=== PATIENT | female | born 1965 | race Caucasian/White ===

== ENCOUNTER 2016-10-25 04:42 | Emergency (ER) | payer MEDICARE, OTHER ==
[2016-10-25] MEDS ORDERED: DICYCLOMINE 10 MG/ML 2 ML AMP IM STA (05:26)
[2016-10-25] MEDS ORDERED: SODIUM CHLORIDE 0.9% 1,000 ML IV STA (05:26)
[2016-10-25] MEDS ORDERED: RX INFO: IV CONTRAST WAS GIVEN 1 EACH MISC MISCELLANE PRN (05:26)
[2016-10-25] MEDS ORDERED: PANTOPRAZOLE 40 MG/10 ML VIAL IVP STA (05:26)
[2016-10-25] MEDS ORDERED: ONDANSETRON 4 MG/2 ML VIAL IVP STA (05:26)
--- NOTE | 2016-10-25 05:29 | ED ---
General Adult HPI - General Chief complaint: Abdominal Pain Stated complaint: Abdominal pain Time Seen by Provider: 10/25/16 05:15 Source: patient, RN notes reviewed Mode of arrival: ambulatory Limitations: no limitations - History of Present Illness Initial comments: Patient is a pleasant 51-year-old female presenting to the emergency department complaining of abdominal discomfort. Onset of symptoms was a couple hours ago. Patient states discomfort was more right-sided however now is in the middle of the abdomen. Patient has nausea without vomiting. Patient has been somewhat constipated recently. No dysuria. No hematuria. Patient questions if she could have a kidney stone. No fevers. - Related Data Home Medications Medication Instructions Recorded Confirmed clonazePAM [KlonoPIN] 0.5 mg PO HS 09/29/14 10/16/15 lamoTRIgine [LaMICtal] 200 mg PO BID 09/29/14 10/16/15 Lacosamide [Vimpat] 100 mg PO BID 06/22/15 10/16/15 Ranitidine HCl 150 mg PO BID 06/25/15 10/16/15 Previous Rx's Medication Instructions Recorded Ciprofloxacin HCl [Cipro] 500 mg PO Q12HR #14 tablet 10/16/15 Ciprofloxacin HCl [Cipro] 500 mg PO Q12HR #20 tablet 10/25/16 Ketorolac [Toradol] 10 mg PO Q6HR PRN #15 tab 10/25/16 Metoclopramide HCl [Reglan] 10 mg PO Q6HR PRN #15 tablet 10/25/16 Allergies Allergy/AdvReac Type Severity Reaction Status Date / Time cephalexin Allergy Unknown Verified 10/16/15 10:26 erythromycin base Allergy Unknown Verified 10/16/15 10:26 escitalopram oxalate Allergy Unknown Verified 10/16/15 10:26 [From Lexapro] Penicillins Allergy Unknown Verified 06/22/15 13:09 Sulfa (Sulfonamide Allergy Unknown Verified 10/16/15 10:26 Antibiotics) naproxen [From Naprosyn] AdvReac dry, runny Verified 10/16/15 10:26 nose tamsulosin AdvReac dry, runny Verified 10/16/15 10:26 nose Review of Systems ROS Statement: Those systems with pertinent positive or pertinent negative responses have been documented in the HPI. ROS Other: All systems not noted in ROS Statement are negative. Constitutional: Denies: fever Eyes: Denies: eye pain ENT: Denies: ear pain Respiratory: Denies: cough Cardiovascular: Denies: chest pain Endocrine: Denies: fatigue Gastrointestinal: Reports: abdominal pain, nausea, constipation. Denies: vomiting Genitourinary: Denies: dysuria Musculoskeletal: Denies: back pain Skin: Denies: rash Neurological: Denies: weakness Past Medical History Past Medical History: Eye Disorder, GERD/Reflux, Seizure Disorder Additional Past Medical History / Comment(s): HX NUMEROUS KIDNEY STONES- HX EPILEPSY-HAS PUBLIC GUARDIAN, STATES BRUISES EASILY, GLASSES DAILY USE- POOR HISTORIAN History of Any Multi-Drug Resistant Organisms: None Reported Past Surgical History: Breast Surgery, Orthopedic Surgery Additional Past Surgical History / Comment(s): LITHOTRIPSY 2 X OR MORE, BREAST BX X 1 -PT NOT SURE WHICH ONE, LT KNEE SURGERY Past Anesthesia/Blood Transfusion Reactions: No Reported Reaction Past Psychological History: Depression Smoking Status: Never smoker Past Alcohol Use History: None Reported Past Drug Use History: None Reported - Past Family History Father Additional Family Medical History / Comment(s): HEART PROBLEMS Mother Family Medical History: Diabetes Mellitus General Exam Limitations: no limitations General appearance: alert, in no apparent distress Head exam: Present: atraumatic Eye exam: Present: normal appearance, PERRL ENT exam: Present: normal oropharynx Neck exam: Present: normal inspection Respiratory exam: Present: normal lung sounds bilaterally Cardiovascular Exam: Present: regular rate, normal rhythm Expanded Peripheral pulses: 2+: Posterior Tibialis (R), Posterior Tibialis (L) GI/Abdominal exam: Present: soft, tenderness (Mild tenderness between the umbilicus and epigastric region), normal bowel sounds. Absent: distended, guarding, rebound, rigid, pulsatile mass Extremities exam: Present: normal inspection. Absent: pedal edema, calf tenderness Neurological exam: Present: alert Psychiatric exam: Present: normal affect, normal mood Skin exam: Absent: rash Course Vital Signs 10/25/16 04:48 Temperature 98.1 F Pulse Rate 80 Respiratory 16 Rate Blood Pressure 160/76 O2 Sat by Pulse 97 Oximetry Medical Decision Making - Medical Decision Making Patient reexamined and significant improvement. Patient updated on results and need for follow-up. - Lab Data Result diagrams: 10/25/16 04:53 10/25/16 04:53 Lab Results 10/25/16 10/25/16 10/25/16 Range/Units 04:53 04:53 04:53 WBC 6.7 (3.8-10.6) k/uL RBC 4.59 (3.80-5.40) m/uL Hgb 14.1 (11.4-16.0) gm/dL Hct 42.8 (34.0-46.0) % MCV 93.2 (80.0-100.0) fL MCH 30.8 (25.0-35.0) pg MCHC 33.0 (31.0-37.0) g/dL RDW 12.5 (11.5-15.5) % Plt Count 316 (150-450) k/uL Neutrophils % 54 % Lymphocytes % 35 % Monocytes % 8 % Eosinophils % 0 % Basophils % 0 % Neutrophils # 3.6 (1.3-7.7) k/uL Lymphocytes # 2.4 (1.0-4.8) k/uL Monocytes # 0.5 (0-1.0) k/uL Eosinophils # 0.0 (0-0.7) k/uL Basophils # 0.0 (0-0.2) k/uL Sodium 141 (137-145) mmol/L Potassium 4.0 (3.5-5.1) mmol/L Chloride 104 (98-107) mmol/L Carbon Dioxide 24 (22-30) mmol/L Anion Gap 13 mmol/L BUN 17 (7-17) mg/dL Creatinine 1.00 (0.52-1.04) mg/dL Est GFR (MDRD) Af Amer >60 (>60 ml/min/1.73 sqM) Est GFR (MDRD) Non-Af 58 (>60 ml/min/1.73 sqM) Glucose 98 (74-99) mg/dL Calcium 9.5 (8.4-10.2) mg/dL Total Bilirubin 0.6 (0.2-1.3) mg/dL AST 19 (14-36) U/L ALT 27 (9-52) U/L Alkaline Phosphatase 159 H (38-126) U/L Total Protein 7.8 (6.3-8.2) g/dL Albumin 4.2 (3.5-5.0) g/dL Amylase 68 (30-110) U/L Lipase 112 (23-300) U/L Urine Color Yellow Urine Appearance Cloudy H (Clear) Urine pH 6.0 (5.0-8.0) Ur Specific [place] 1.019 (1.001-1.035) Urine Protein 1+ H (Negative) Urine Glucose (UA) Negative (Negative) Urine Ketones Negative (Negative) Urine Blood Moderate H (Negative) Urine Nitrate Negative (Negative) Urine Bilirubin Negative (Negative) Urine Urobilinogen <2.0 (<2.0) mg/dL Ur Leukocyte Esterase Large H (Negative) Urine RBC 119 H (0-5) /hpf Urine WBC 112 H (0-5) /hpf Ur Squamous Epith Cells 7 H (0-4) /hpf Urine Bacteria Occasional H (None) /hpf Urine Mucus Few H (None) /hpf - Radiology Data Radiology results: report reviewed (Computed tomography scan of the abdomen and pelvis shows 5 mm right UPJ stone with moderate [place].) Disposition Clinical Impression: Ureterolithiasis Disposition: HOME SELF-CARE Condition: Stable Instructions: Kidney Stones (ED) Additional Instructions: Please follow-up with your doctor in the beginning of the week. Return for fevers, vomiting, increased pain, worsening symptoms or other concerns. Prescriptions: Ciprofloxacin HCl [Cipro] 500 mg PO Q12HR #20 tablet Ketorolac [Toradol] 10 mg PO Q6HR PRN #15 tab PRN Reason: Pain Metoclopramide HCl [Reglan] 10 mg PO Q6HR PRN #15 tablet PRN Reason: Nausea Referrals: Nonstaff,Physician [Primary Care Provider] - 1-2 days Alana Alcantara MD [STAFF PHYSICIAN] - 1-2 days Mitch Yeboah MD [STAFF PHYSICIAN] - 1-2 days
[2016-10-25 05:51] LABS: Basophils % (A) 0 %; CH 31.4; CHCM 33.8; Eosinophils % (A) 0 %; HCT 42.8 % (34.0-46.0); HDW 2.53; HGB 14.1 gm/dL (11.4-16.0); Luc # (Auto) 0.19; Luc % (Auto) 3; Lymphocytes # (A) 2.4 k/uL (1.0-4.8); Lymphocytes % (A) 35 %; MCH 30.8 pg (25.0-35.0); MCV 93.2 fL (80.0-100.0); Mean Platelet Volume 7.2; Monocytes # (A) 0.5 k/uL (0-1.0); Monocytes % (A) 8 %; Neutrophils # (A) 3.6 k/uL (1.3-7.7); Neutrophils % (A) 54 %; RBC 4.59 m/uL (3.80-5.40); RDW 12.5 % (11.5-15.5); WBC 6.7 k/uL (3.8-10.6); WBC (Perox) 6.84
[2016-10-25 05:57] LABS: Appearance,Urine Cloudy (Clear); Bacteria,Urine Occasional /hpf; Bilirubin,Urine Negative (Negative); Glucose,Urine (UA) Negative (Negative); Ketones,Urine Negative (Negative); Leukocyte Esterase,Urine Large (Negative); Mucus,Urine Few /hpf; Nitrite,Urine Negative (Negative); Particle Count 7907; Protein,Urine 1+ (Negative); RBC,Urine 119 /hpf (0-5); Specific Gravity,Urine 1.019 (1.001-1.035); Squamous Epithelial Cell,Urine 7 /hpf (0-4); UA Billing (MACRO vs. MICRO) MICRO; Urobilinogen,Urine <2.0 mg/dL (<2.0); WBC,Urine 112 /hpf (0-5)
[2016-10-25 06:01] LABS: ALT 27 U/L (9-52); AST 19 U/L (14-36); Alkaline Phosphatase 159 U/L (38-126); Amylase 68 U/L (30-110); Anion Gap 13 mmol/L; Blood Urea Nitrogen 17 mg/dL (7-17); Calcium 9.5 mg/dL (8.4-10.2); Carbon Dioxide 24 mmol/L (22-30); Chloride 104 mmol/L (98-107); Glucose 98 mg/dL (74-99); Non-African American GFR(MDRD) 58 (>60 ml/min/1.73 sqM); Sodium 141 mmol/L (137-145); Total Bilirubin 0.6 mg/dL (0.2-1.3); Total Protein 7.8 g/dL (6.3-8.2)
[2016-10-25] MEDS ORDERED: KETOROLAC 30 MG/ML 1 ML VIAL IVP STA (06:35)
--- NOTE | 2016-10-25 06:38 | CT ---
EXAMINATION TYPE: CT abdomen pelvis w con DATE OF EXAM: 10/25/2016 6:19 AM COMPARISON: 07/04/2013 HISTORY: Left Flank Pain CT DLP: 1650 mGycm Automated exposure control for dose reduction was used. TECHNIQUE: Helical acquisition of images was performed from the lung bases through the pelvis. CONTRAST: Performed without Oral Contrast and with IV Contrast, patient injected with 100 mL of Visipaque 320. FINDINGS: LUNG BASES: No significant abnormality is appreciated. LIVER/GB: No significant abnormality is appreciated. PANCREAS: No significant abnormality is seen. SPLEEN: No significant abnormality is seen. ADRENALS: No significant abnormality is seen. KIDNEYS: There is ssic-or-cejgcrcl right hydronephrosis with 5 mm obstructing opaque stone in the rig ht UPJ in the axial image 45. The distal right ureter is slightly fluid distended without significant obstructing opaque stones. No significant nonobstructing opaque stones are noted in the right kidney. Left kidney showed mild fullness in the left renal pelvis with extrarenal pelvis without definite obs tructing opaque stones. There is evidence of 5 mm nonobstructing stone in the left kidney lower pole calyx. Tiny opacities in the lower pelvis are most likely outside the distal left right ureter. RETROPERITONEAL ADENOPATHY: None visualized REPRODUCTIVE ORGANS: No significant abnormality is seen URINARY BLADDER: No significant abnormality is seen. PELVIC ADENOPATHY: None visualized. OSSEOUS STRUCTURES: No significant abnormality is seen. BOWEL: Moderate gas and fecal distention of colonic bowel loops is noted in the abdomen and pelvis. Appendix is not well visualized for evaluation. No significant inflammation is noted in the appendix area. OTHER: IMPRESSION: 1. THERE IS 5 MM OBSTRUCTING RIGHT UPJ STONE WITH MILD TO MODERATE RIGHT HYDRONEPHROSIS. 2. THERE IS 5 MM NONOBSTRUCTING STONE IN THE LOWER POLE CALYX OF LEFT KIDNEY. A phone report is given to Dr. Hart at the time of the dictation.
[2016-10-25 06:57] VITALS: RESP 20; TEMP 97.7
[2016-10-25 06:58] VITALS: BP 123/69; PULSE 70
== END 2016-10-25 07:17 | disposition home or self-care (01) ==
LOC: EC 04:42 → EEVIPCON 04:42 → EC 07:17
DX: N13.2 Hydronephrosis with renal and ureteral calculous obstruction (principal); R11.0 Nausea; K59.00 Constipation, unspecified; K21.9 Gastro-esophageal reflux disease without esophagitis; F32.9 Major depressive disorder, single episode, unspecified; G40.909 Epilepsy, unspecified, not intractable, without status epilepticus; Z79.899 Other long term (current) drug therapy; Z88.1 Allergy status to other antibiotic agents; Z88.8 Allergy status to other drugs, medicaments and biological substances; Z88.0 Allergy status to penicillin; Z88.2 Allergy status to sulfonamides; Z88.6 Allergy status to analgesic agent; Z98.890 Other specified postprocedural states
CPT/HCPCS: 96375 ×3; 96361 ×2; 96372 ×2; 96374 ×2; 99284 ×2; 36415; 80053; 82150; 83690; 85025; 81001; 87086; 74177; J0500; Q9967; J2405; J1885; C9113

== ENCOUNTER → 2016-11-06 | Outpatient (CLI) | payer MEDICARE, OTHER ==
[2016-11-07 09:11] LABS: Lamotrigine (Lamictal) 10.1 ug/mL (2.0-15.0)
[2016-11-17 08:59] LABS: Mis test requested (Blood) Lacosamide/Vimpat
== END | disposition home or self-care (01) ==
LOC: LABWHC1 08:57
PROVIDERS: ATTEND Psychiatry & Neurology Neurology
DX: G40.909 Epilepsy, unspecified, not intractable, without status epilepticus (principal)
CPT/HCPCS: 36415; 80175; 80339

== ENCOUNTER → 2016-11-14 | Outpatient (CLI) | payer MEDICARE, OTHER ==
--- NOTE | 2016-11-14 09:21 | XR ---
EXAMINATION TYPE: XR KUB DATE OF EXAM ORDERED: 11/14/2016 9:13 AM HISTORY: N20.1 renal calculus. COMPARISON: Previous study dated 06/25/2015. FINDINGS: Overall stone lobe has decreased significantly and bilaterally. There is a residual 4.2 mm calculus overlying the lower pole of the right kidney and a 5.9 mm calculus overlying the lower pole of the left kidney. There is a stable phleboliths in the left hemipelvis. The abdominal gas pattern is normal. IMPRESSION: BILATERAL NEPHROLITHIASIS. OVERALL STONE LOBE HAS DECREASED SIGNIFICANTLY.
== END | disposition home or self-care (01) ==
LOC: RADXRMAIN 08:56
PROVIDERS: ATTEND Urology
DX: N20.0 Calculus of kidney (principal)
CPT/HCPCS: 74000

== ENCOUNTER 2016-12-22 06:21 | Day surgery (SDC) | payer MEDICARE, OTHER ==
[2016-12-18 14:57] VITALS: BMI 35.2
[~2016-12-22 06:21] MED LIST: LACTATED RINGERS 1,000 ML IV SCH; LIDOCAINE 1% 20 ML VIAL (10MG/ML) FOR IV START INTRADERMA PRN; Pre Op ABX Message 1 EACH MISC MISCELLANE ONE
[2016-12-22 06:48] VITALS: RESP 16
--- NOTE | 2016-12-22 07:20 | XR ---
EXAMINATION TYPE: XR KUB DATE OF EXAM: 12/22/2016 6:40 AM CLINICAL DATA: 51-year-old female presurgical evaluation, lithotripsy scheduled, [facility] COMPARISON: 11/14/2016 FINDINGS: Supine imaging limited for assessment of free intraperitoneal air. Mild overall stone burden. Nonobstructive bowel gas pattern. 4 mm calcification in the right midabdomen 5 mm on the left. The left-sided calcification appears to have moved medially as compared to prior exam. Stable phlebolith in the left hemipelvis. IMPRESSION: 4 mm right-sided renal calculus and a 5 mm renal calculus on the left. The left-sided calculus has mo shaun more medially and may have progressed to the collecting system.
[2016-12-22] MEDS ORDERED: PROPOFOL 10 MG/ML 20 ML VIAL IV ONE (07:38)
[2016-12-22] MEDS ORDERED: MIDAZOLAM 2 MG/2 ML VIAL ONE (07:38)
[2016-12-22] MEDS ORDERED: fentaNYL (PF) 50 MCG/ML 2 ML AMP ONE (07:38)
--- NOTE | 2016-12-22 08:21 | P.OP ---
Date of Procedure: 12/22/16 Preoperative Diagnosis: Left Renal Calculus Postoperative Diagnosis: Same Procedure(s) Performed: Left Extracorporeal Shockwave Lithotripsy (ESWL) Anesthesia: MAC Surgeon: Doroteo Aponte Estimated Blood Loss (ml): 0 IV fluids (ml): 450 Pathology: none sent Condition: stable Disposition: PACU Indications for Procedure: She is a 51 year old female with recurrent nephrolithiasis. She had mild right hydronephrosis with a 5 mm UPJ stone. She also has a 5 mm stone in the lower pole of the left kidney. She had ESWL on the right 11/10/2016. She passed some fragments, and she did not catch them. She still has a 4.2 mm stone in the lower pole of the right kidney, and a 5.9 mm stone at the left ureteropelvic junction. She has recently experienced left flank discomfort and comes for left ESWL. Operative Findings: Possible fragmentation. Description of Procedure: The patient was taken to the operating room and placed on the Dornier Compact Delta II lithotripter in the supine position. The calculus was seen on biplanar fluoroscopy. Once the patient was properly positioned and sedated, lithotripsy was performed. The energy level was gradually increased per protocol, to an energy level of 4. After 200 shocks were administered, a 2 minute pause was instituted per protocol. A total of 2500 shocks were given at a rate of 80 shocks per minute. Fluoroscopy was utilized at a minimum to ensure proper positioning and determine the treatment status. The appearance of the calculus appeared to change, suggesting fragmentation had occurred. The patient tolerated the procedure well was taken to the recovery room in stable condition. Instructions were given to strain the urine, and the patient will follow-up within one week.
[2016-12-22 09:19] VITALS: BP 130/82; PULSE 70
== END 2016-12-22 10:05 | disposition home or self-care (01) ==
LOC: ORWHC2ENDO 06:21
PROVIDERS: ATTEND Urology
DX: N13.2 Hydronephrosis with renal and ureteral calculous obstruction (principal); E78.00 Pure hypercholesterolemia, unspecified; K21.9 Gastro-esophageal reflux disease without esophagitis; H40.9 Unspecified glaucoma; F32.9 Major depressive disorder, single episode, unspecified; G40.909 Epilepsy, unspecified, not intractable, without status epilepticus; J45.909 Unspecified asthma, uncomplicated; Z79.899 Other long term (current) drug therapy; Z88.1 Allergy status to other antibiotic agents; Z88.5 Allergy status to narcotic agent; Z88.0 Allergy status to penicillin; Z88.2 Allergy status to sulfonamides; Z88.8 Allergy status to other drugs, medicaments and biological substances
CPT/HCPCS: 74000; 50590; J2250; J3010; J2704

== ENCOUNTER → 2016-12-29 | Outpatient (CLI) | payer MEDICARE, OTHER ==
--- NOTE | 2016-12-29 13:29 | XR ---
EXAMINATION TYPE: XR KUB DATE OF EXAM: 12/29/2016 1:00 PM CLINICAL HISTORY: Bilateral kidney stones. TECHNIQUE: 2 supine KUB images of the abdomen are obtained. COMPARISON: CT abdomen pelvis October 25, 2016. Most recent abdominal x-ray from one week ago. FINDINGS: There is redemonstration of 5 mm calculus in left kidney at L3 transverse process level may be within proximal left ureter. There is 4 mm calculus lower pole level right kidney redemonstrated which correlates with UPJ stone on CT. No additional or new calculi clearly seen. Lung bases remain clear. There is overall paucity of bowel gas. Visualized gas is noted in nondistend ed bowel loops. Visualized osseous structures are clear. IMPRESSION: Stable small bilateral calculi suspected within the UPJ or proximal ureters bilaterally.
== END | disposition home or self-care (01) ==
LOC: RADXRMAIN 12:41
PROVIDERS: ATTEND Urology
DX: N20.0 Calculus of kidney (principal)
CPT/HCPCS: 74000

== ENCOUNTER 2017-01-05 20:00 | Emergency (ER) | payer MEDICARE, OTHER ==
[2017-01-05] MEDS ORDERED: ONDANSETRON 4 MG/2 ML VIAL IVP STA (20:34)
[2017-01-05] MEDS ORDERED: HYDROmorphone 1 MG/ML 1 ML SYRINGE IVP STA (20:34)
[2017-01-05] MEDS ORDERED: SODIUM CHLORIDE 0.9% 1,000 ML IV STA ×2 (20:34)
--- NOTE | 2017-01-05 20:36 | ED ---
General Adult HPI - General Chief complaint: Abdominal Pain Stated complaint: abdominal & back pain Time Seen by Provider: 01/05/17 20:23 Source: patient, RN notes reviewed Mode of arrival: ambulatory Limitations: no limitations - History of Present Illness Initial comments: Patient 51-year-old female significant past medical history for kidney stones, who presents emergency room today with a chief complaint of increased abdominal pain. She does admit that she's feeling more on the left radiate around to the front of the lower abdomen. She states she also has some pain on the right as well. States it's worse since her procedure this afternoon. She states she had with a chief she performed approximately 12 PM. Patient does admit some nausea. Denies any other complaints or symptoms. Patient denies any recent fever, chills, shortness of breath, chest pain, back pain, vomiting, numbness or tingling, dysuria or hematuria, constipation or diarrhea, headaches or visual changes, or any other complaints. - Related Data Home Medications Medication Instructions Recorded Confirmed clonazePAM [KlonoPIN] 0.5 mg PO HS 09/29/14 01/05/17 lamoTRIgine [LaMICtal] 200 mg PO BID 09/29/14 01/05/17 Ranitidine HCl 150 mg PO BID 06/25/15 01/05/17 Acetaminophen with Codeine 1 tab PO Q3H PRN 01/05/17 01/05/17 [Tylenol w/codeine #3] Lacosamide [Vimpat] 100 mg PO BID 01/05/17 01/05/17 Allergies Allergy/AdvReac Type Severity Reaction Status Date / Time cephalexin Allergy Unknown Verified 01/05/17 20:12 erythromycin base Allergy Unknown Verified 01/05/17 20:12 escitalopram oxalate Allergy Unknown Verified 01/05/17 20:12 [From Lexapro] Penicillins Allergy Unknown Verified 01/05/17 20:12 Sulfa (Sulfonamide Allergy Unknown Verified 01/05/17 20:12 Antibiotics) naproxen [From Naprosyn] AdvReac dry, runny Verified 01/05/17 20:12 nose tamsulosin AdvReac dry, runny Verified 01/05/17 20:12 nose Review of Systems ROS Statement: Those systems with pertinent positive or pertinent negative responses have been documented in the HPI. ROS Other: All systems not noted in ROS Statement are negative. 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 History of Any Multi-Drug Resistant Organisms: None Reported Past Surgical History: Breast Surgery, Orthopedic Surgery Additional Past Surgical History / Comment(s): LITHOTRIPSY , BREAST BX X 1 -PT NOT SURE WHICH ONE, LT KNEE SURGERY Past Anesthesia/Blood Transfusion Reactions: No Reported Reaction Past Psychological History: No Psychological Hx Reported Smoking Status: Never smoker Past Alcohol Use History: None Reported Past Drug Use History: None Reported - Past Family History Father Additional Family Medical History / Comment(s): HEART PROBLEMS Mother Family Medical History: Diabetes Mellitus General Exam - General Exam Comments Initial Comments: General: The patient is awake and alert, in no distress, and does not appear acutely ill. Eye: Pupils are equal, round and reactive to light, extra-ocular movements are intact. No nystagmus. There is normal conjunctiva bilaterally. No signs of icterus. Ears, nose, mouth and throat: There are moist mucous membranes and no oral lesions. Neck: The neck is supple, there is no tenderness or JVD. Cardiovascular: There is a regular rate and rhythm. No murmur, rub or gallop is appreciated. Respiratory: Lungs are clear to auscultation, respirations are non-labored, breath sounds are equal. No wheezes, stridor, rales, or rhonchi. Gastrointestinal: Normal appearance. Normal bowel sounds. Soft on palpation. Patient does have mild tenderness in the left flank. No rebound tenderness. No guarding. Musculoskeletal: Normal ROM, no tenderness. Strength 5/5. Sensation intact. Pulses equal bilaterally 2+. Neurological: A&O x 3. CN II-XII intact, There are no obvious motor or sensory deficits. Coordination appears grossly intact. Speech is normal. Skin: Skin is warm and dry and no rashes or lesions are noted. Psychiatric: Cooperative, appropriate mood & affect, normal judgment. Limitations: no limitations Course Vital Signs 01/05/17 01/05/17 20:09 21:32 Temperature 98 F Pulse Rate 81 79 Respiratory 20 18 Rate Blood Pressure 129/63 129/60 O2 Sat by Pulse 98 98 Oximetry Medical Decision Making - Medical Decision Making CT of the abdomen and pelvis shows 1. Bilateral hydronephrosis and perirenal edema. Findings may be due to a recently passed stone. Patient did have lithotripsy this morning. Patient unable to provide a urine sample here in the emergency room. She states that this time she is feeling much better like to be discharged home she was given a liter half fluids. Bladder scan performed at this time shows 114 mL. Patient states she does not stay here in the hospital.. She does not want states that she is able to give us a urinalysis she feels comfortable following up with the urologist tomorrow morning. Case discussed in detail with attending physician Dr. Braswell. At this time patient will be discharged home advised return if any symptoms increase or worsen. - Lab Data Result diagrams: 01/05/17 21:08 01/05/17 21:08 Lab Results 01/05/17 01/05/17 Range/Units 21:08 21:08 WBC 8.9 (3.8-10.6) k/uL RBC 4.87 (3.80-5.40) m/uL Hgb 15.5 (11.4-16.0) gm/dL Hct 45.6 (34.0-46.0) % MCV 93.7 (80.0-100.0) fL MCH 31.9 (25.0-35.0) pg MCHC 34.1 (31.0-37.0) g/dL RDW 12.6 (11.5-15.5) % Plt Count 329 (150-450) k/uL Neutrophils % 56 % Lymphocytes % 30 % Monocytes % 11 % Eosinophils % 0 % Basophils % 1 % Neutrophils # 5.0 (1.3-7.7) k/uL Lymphocytes # 2.7 (1.0-4.8) k/uL Monocytes # 1.0 (0-1.0) k/uL Eosinophils # 0.0 (0-0.7) k/uL Basophils # 0.1 (0-0.2) k/uL Sodium 138 (137-145) mmol/L Potassium 5.1 (3.5-5.1) mmol/L Chloride 101 (98-107) mmol/L Carbon Dioxide 23 (22-30) mmol/L Anion Gap 14 mmol/L BUN 18 H (7-17) mg/dL Creatinine 1.66 H (0.52-1.04) mg/dL Est GFR (MDRD) Af Amer 39 (>60 ml/min/1.73 sqM) Est GFR (MDRD) Non-Af 32 (>60 ml/min/1.73 sqM) Glucose 85 (74-99) mg/dL Calcium 9.4 (8.4-10.2) mg/dL Total Bilirubin 1.1 (0.2-1.3) mg/dL AST 44 H (14-36) U/L ALT 29 (9-52) U/L Alkaline Phosphatase 134 H (38-126) U/L Total Protein 9.3 H (6.3-8.2) g/dL Albumin 4.9 (3.5-5.0) g/dL Lipase 99 (23-300) U/L Disposition Clinical Impression: Kidney stone Disposition: HOME SELF-CARE Condition: Good Instructions: Kidney Stones (ED) Additional Instructions: Please follow-up with urologist tomorrow morning as discussed. Please return here to the emergency room face symptoms increase worsen or for any concerns. Referrals: None,Stated [Primary Care Provider] - 1-2 days Noah Adamson MD [STAFF PHYSICIAN] - 1-2 days Time of Disposition: 01:03
[2017-01-05 21:28] LABS: Calcium 9.4 mg/dL (8.4-10.2); Potassium 5.1 mmol/L (3.5-5.1); Total Bilirubin 1.1 mg/dL (0.2-1.3); Total Protein 9.3 g/dL (6.3-8.2)
[2017-01-05 21:33] VITALS: RESP 18
[2017-01-05 21:37] LABS: Basophils # (A) 0.1 k/uL (0-0.2); Basophils % (A) 1 %; CH 31.4; CHCM 33.7; Eosinophils % (A) 0 %; HCT 45.6 % (34.0-46.0); HDW 2.47; HGB 15.5 gm/dL (11.4-16.0); Luc # (Auto) 0.24; Luc % (Auto) 3; Lymphocytes # (A) 2.7 k/uL (1.0-4.8); Lymphocytes % (A) 30 %; MCH 31.9 pg (25.0-35.0); MCHC 34.1 g/dL (31.0-37.0); MCV 93.7 fL (80.0-100.0); Mean Platelet Volume 7.3; Monocytes % (A) 11 %; Neutrophils % (A) 56 %; RBC 4.87 m/uL (3.80-5.40); RDW 12.6 % (11.5-15.5); WBC 8.9 k/uL (3.8-10.6); WBC (Perox) 9.02
--- NOTE | 2017-01-05 22:09 | XR ---
EXAMINATION TYPE: XR KUB DATE OF EXAM: 01/05/2017 9:48 PM COMPARISON: 12/29/2016 HISTORY: Pain TECHNIQUE: Standing upright views x 2. FINDINGS: The visualized lung bases and pleural spaces are negative. There is no bowel obstruction. N o pneumatosis or pneumoperitoneum. The calcifications over the renal shadows seen on the prior study of 12/29/2016 are no longer visualiz ed on present examination. This may be secondary to lithotripsy or may be due to relatively underpene trated technique compared to the prior study. IMPRESSION: No acute process.
--- NOTE | 2017-01-05 22:17 | US ---
EXAMINATION TYPE: US KIDNEYS/RENAL AND BLADDER DATE OF EXAM: 01/05/2017 10:03 PM COMPARISON: CT from October 25, 2016 CLINICAL HISTORY: Pain. Patient had lithotripsy done today ending at noon. History of stones EXAM MEASUREMENTS: Right Kidney: 10.8 x 5.4 x 5.3 cm Left Kidney: 10.9 x 6.5 x 6.1 cm Right Kidney: Mild/moderate amount of hydronephrosis. Echogenic foci visualized in the upper pole franko suring 0.7 cm Left Kidney: Difficult visualization due to overlying bowel gas. No definite hydronephrosis or stone visualized Bladder: Bladder is empty, unable to evaluate Bilateral Jets seen: No, see above IMPRESSION: MILD/MODERATE RIGHT-SIDED OBSTRUCTIVE UROPATHY, OVERALL SIMILAR APPEARANCE WHEN COMPARED TO THE 2016 CT.
--- NOTE | 2017-01-06 00:27 | CT ---
Exam: CT ABDOMEN + PELVIS without Contrast History: Abdominal pain, lower back pain, recent lithotripsy. Comparison: CT of the abdomen and pelvis dated 10/25/16. Technique: Continuous axial images of the abdomen and pelvis are obtained without intravenous contrast. Coronal and sagittal reformatting was provided. Findings: There is mild-moderate bilateral hydronephrosis and minimal proximal hydroureter. Moderate bilateral perirenal edema is seen. However, no radiopaque ureteral stone is appreciated. Findings may be due to a recently passed stone. Bilateral ureteral strictures are considered less likely. Superimposed infection is not ruled out. There are small nonobstructing renal calculi bilaterally. Mildly distended gallbladder without radiopaque gallstone. The unenhanced liver, spleen, pancreas, and adrenal glands show no substantial abnormality. No dilated loops of bowel to suggest obstruction. The aorta is not dilated. No bulky lymphadenopathy. Urinary bladder is decompressed. The uterus shows no substantial abnormality. No aggressive appearing osseous process. Impression: 1. Bilateral hydronephrosis and perirenal edema. Findings may be due to a recently passed stone or strictures. Infection not ruled out. Correlate with urinalysis. 2. Remainder of examination shows no definite evidence for an acute inflammatory process or substantial change. DLP 825.50 CTDIvol 16.70
[2017-01-06 01:15] VITALS: BP 141/77; PULSE 69; TEMP 97.5
== END 2017-01-06 01:15 | disposition home or self-care (01) ==
LOC: EC 20:00
DX: N20.0 Calculus of kidney (principal); G40.909 Epilepsy, unspecified, not intractable, without status epilepticus; Z88.1 Allergy status to other antibiotic agents; Z88.0 Allergy status to penicillin; Z88.2 Allergy status to sulfonamides; Z88.8 Allergy status to other drugs, medicaments and biological substances; Z79.899 Other long term (current) drug therapy
CPT/HCPCS: 99285; 96374; 96375; 96361 ×4; 51798; 36415; 80053; 83690; 85025; 74000; 76770; 74176; J2405; J1170

== ENCOUNTER 2017-01-06 18:06 | Observation (INO) | payer MEDICARE, OTHER ==
--- NOTE | 2017-01-06 18:42 | ED ---
General Adult HPI <Edward Hart - Last Filed: 01/06/17 21:03> - General Source: patient, RN notes reviewed Mode of arrival: ambulatory Limitations: no limitations <Denny Mack - Last Filed: 01/06/17 21:10> - General Chief complaint: Urogenital Stated complaint: Post op pain Time Seen by Provider: 01/06/17 18:21 - History of Present Illness Initial comments: Patient 51-year-old female significant past medical history for kidney stones, lithotripsy status post times one day, who presents emergency room today with chief complaint of urinary retention. Patient does admit that she doesn't remember urinating since lithotripsy yesterday. Patient does admit some pain located on the right side. Was seen here in the emergency room for this last night had both ultrasounds and CAT scans obtained which showed mild hydronephrosis. Patient denies any other complaints or new symptoms today. Patient denies any recent fever, chills, shortness of breath, chest pain, nausea or vomiting, numbness or tingling, dysuria or hematuria, constipation or diarrhea, headaches or visual changes, or any other complaints. (Denny Mack) - Related Data Home Medications Medication Instructions Recorded Confirmed clonazePAM [KlonoPIN] 0.5 mg PO HS 09/29/14 01/06/17 lamoTRIgine [LaMICtal] 200 mg PO BID 09/29/14 01/06/17 Ranitidine HCl 150 mg PO BID 06/25/15 01/06/17 Acetaminophen with Codeine 1 tab PO Q3H PRN 01/05/17 01/06/17 [Tylenol w/codeine #3] Lacosamide [Vimpat] 100 mg PO BID 01/05/17 01/06/17 Allergies Allergy/AdvReac Type Severity Reaction Status Date / Time cephalexin Allergy Unknown Verified 01/06/17 18:15 erythromycin base Allergy Unknown Verified 01/06/17 18:15 escitalopram oxalate Allergy Unknown Verified 01/06/17 18:15 [From Lexapro] Penicillins Allergy Unknown Verified 01/06/17 18:15 Sulfa (Sulfonamide Allergy Unknown Verified 01/06/17 18:15 Antibiotics) naproxen [From Naprosyn] AdvReac dry, runny Verified 01/06/17 18:15 nose tamsulosin AdvReac dry, runny Verified 01/06/17 18:15 nose Review of Systems ROS Other: All systems not noted in ROS Statement are negative. <Edward Hart - Last Filed: 01/06/17 21:03> ROS Other: All systems not noted in ROS Statement are negative. <Denny Mack - Last Filed: 01/06/17 21:10> ROS Statement: Those systems with pertinent positive or pertinent negative responses have been documented in the HPI. 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 History of Any Multi-Drug Resistant Organisms: None Reported Past Surgical History: Breast Surgery, Orthopedic Surgery Additional Past Surgical History / Comment(s): LITHOTRIPSY , BREAST BX X 1 -PT NOT SURE WHICH ONE, LT KNEE SURGERY Past Anesthesia/Blood Transfusion Reactions: No Reported Reaction Past Psychological History: No Psychological Hx Reported Smoking Status: Never smoker Past Alcohol Use History: None Reported Past Drug Use History: None Reported - Past Family History Father Additional Family Medical History / Comment(s): HEART PROBLEMS Mother Family Medical History: Diabetes Mellitus <FrederickDenny - Last Filed: 01/06/17 21:10> General Exam <Edward Hart - Last Filed: 01/06/17 21:03> Limitations: no limitations <Denny Mack - Last Filed: 01/06/17 21:10> - General Exam Comments Initial Comments: General: The patient is awake and alert, in no distress, and does not appear acutely ill. Eye: Pupils are equal, round and reactive to light, extra-ocular movements are intact. No nystagmus. There is normal conjunctiva bilaterally. No signs of icterus. Ears, nose, mouth and throat: There are moist mucous membranes and no oral lesions. Neck: The neck is supple, there is no tenderness or JVD. Cardiovascular: There is a regular rate and rhythm. No murmur, rub or gallop is appreciated. Respiratory: Lungs are clear to auscultation, respirations are non-labored, breath sounds are equal. No wheezes, stridor, rales, or rhonchi. Gastrointestinal: Soft, non-distended, non-tender abdomen without masses or organomegaly noted. There is no rebound or guarding present. No CVA tenderness. Bowel sounds are unremarkable. Musculoskeletal: Normal ROM, no tenderness. Strength 5/5. Sensation intact. Pulses equal bilaterally 2+. Neurological: A&O x 3. CN II-XII intact, There are no obvious motor or sensory deficits. Coordination appears grossly intact. Speech is normal. Skin: Skin is warm and dry and no rashes or lesions are noted. Psychiatric: Cooperative, appropriate mood & affect, normal judgment. (Denny Mack) Medical Decision Making - Lab Data Result diagrams: 01/06/17 19:40 01/06/17 19:40 <Edward Hart - Last Filed: 01/06/17 21:03> - Lab Data Result diagrams: 01/06/17 19:40 01/06/17 19:40 <Denny Mack - Last Filed: 01/06/17 21:10> - Medical Decision Making Patient reevaluated by myself, Dr. Hart. Patient does not believe she has urinated since yesterday when she had a procedure. Patient returns to the ER for complaints of bilateral flank/back pain. Creatinine has increased since yesterday. Case was discussed with urology, Dr. Oliveira who does recommend admission for observation and IV fluids at 100. Nothing by mouth. No need for antibiotics at this time. Nursing did attempt Acosta catheter without been able to obtain urine. (Edward Hart) Nursing staff has made 2 attempts to straight cath patient. At this time unable to retrieve urine sample. Patient resting comfortably. Abdomen is soft. Patient will be admitted to continue on IV fluids. She is aware the plan states understanding. (Denny Mack) - Lab Data Lab Results 01/06/17 01/06/17 Range/Units 19:40 19:40 WBC 10.1 (3.8-10.6) k/uL RBC 4.31 (3.80-5.40) m/uL Hgb 13.5 (11.4-16.0) gm/dL Hct 40.4 (34.0-46.0) % MCV 93.8 (80.0-100.0) fL MCH 31.3 (25.0-35.0) pg MCHC 33.4 (31.0-37.0) g/dL RDW 12.6 (11.5-15.5) % Plt Count 305 (150-450) k/uL Neutrophils % 73 % Lymphocytes % 17 % Monocytes % 7 % Eosinophils % 0 % Basophils % 0 % Neutrophils # 7.4 (1.3-7.7) k/uL Lymphocytes # 1.7 (1.0-4.8) k/uL Monocytes # 0.8 (0-1.0) k/uL Eosinophils # 0.0 (0-0.7) k/uL Basophils # 0.0 (0-0.2) k/uL Sodium 136 L (137-145) mmol/L Potassium 4.8 (3.5-5.1) mmol/L Chloride 102 (98-107) mmol/L Carbon Dioxide 23 (22-30) mmol/L Anion Gap 11 mmol/L BUN 30 H (7-17) mg/dL Creatinine 4.44 H (0.52-1.04) mg/dL Est GFR (MDRD) Af Amer 13 (>60 ml/min/1.73 sqM) Est GFR (MDRD) Non-Af 10 (>60 ml/min/1.73 sqM) Glucose 87 (74-99) mg/dL Calcium 9.1 (8.4-10.2) mg/dL Total Bilirubin 0.7 (0.2-1.3) mg/dL AST 36 (14-36) U/L ALT 33 (9-52) U/L Alkaline Phosphatase 111 (38-126) U/L Total Protein 7.6 (6.3-8.2) g/dL Albumin 4.1 (3.5-5.0) g/dL Disposition <Edward Hart - Last Filed: 01/06/17 21:03> Time of Disposition: 21:09 <Denny Mack - Last Filed: 01/06/17 21:10> Clinical Impression: ARF (acute renal failure) Disposition: ADMITTED IP TO THIS [facility] Condition: Stable
[2017-01-06] MEDS ORDERED: SODIUM CHLORIDE 0.9% 1,000 ML IV STA ×2 (18:46)
--- NOTE | 2017-01-06 19:44 | US ---
EXAMINATION TYPE: US kidneys/renal and bladder DATE OF EXAM: 01/06/2017 7:19 PM COMPARISON: US and CT in PACS 01/05/2017 CLINICAL HISTORY: Pain. History of stones. Patient has lithotripsy 01/05/2017. Has not been able to uri yared since yesterday. EXAM MEASUREMENTS: Right Kidney: 10.4 x 5.4 x 5.9 cm Left Kidney: 11.0 x 6.7 x 6.7 cm Right Kidney: Mild/moderate amount of hydronephrosis visualized. Echogenic foci visualized in upper p ole measuring 0.7 cm Left Kidney: Mild amount of hydronephrosis visualized Bladder: Not distended, unable to evaluate Bilateral Jets seen: No, see above IMPRESSION: Similar to recent CT there is mild to moderate right and mild left-sided hydronephrosis that remains present. No significant interval change.
[2017-01-06 19:50] LABS: Basophils % (A) 0 %; CH 31.3; CHCM 33.6; Eosinophils % (A) 0 %; HCT 40.4 % (34.0-46.0); HDW 2.38; HGB 13.5 gm/dL (11.4-16.0); Luc # (Auto) 0.17; Luc % (Auto) 2; Lymphocytes # (A) 1.7 k/uL (1.0-4.8); Lymphocytes % (A) 17 %; MCH 31.3 pg (25.0-35.0); MCHC 33.4 g/dL (31.0-37.0); MCV 93.8 fL (80.0-100.0); Mean Platelet Volume 6.8; Monocytes # (A) 0.8 k/uL (0-1.0); Monocytes % (A) 7 %; Neutrophils # (A) 7.4 k/uL (1.3-7.7); Neutrophils % (A) 73 %; RBC 4.31 m/uL (3.80-5.40); RDW 12.6 % (11.5-15.5); WBC 10.1 k/uL (3.8-10.6)
[2017-01-06 20:08] LABS: Calcium 9.1 mg/dL (8.4-10.2); Potassium 4.8 mmol/L (3.5-5.1); Total Bilirubin 0.7 mg/dL (0.2-1.3); Total Protein 7.6 g/dL (6.3-8.2)
[2017-01-06] MEDS ORDERED: SODIUM CHLORIDE 0.9% 1,000 ML IV ONE (21:10)
[2017-01-06] MEDS ORDERED: HYDROcodone/APAP 5-325MG 1 EACH TAB PO PRN (21:10)
[2017-01-06] MEDS ORDERED: ACETAMINOPHEN TAB 325 MG TAB PO PRN (21:10)
[2017-01-06] MEDS ORDERED: NALOXONE 0.4 MG/ML 1 ML VIAL IV PRN (21:10)
[2017-01-06] MEDS ORDERED: HYDROmorphone 1 MG/ML 1 ML SYRINGE IV PRN (21:10)
[2017-01-06] MEDS ORDERED: ONDANSETRON 4 MG/2 ML VIAL IVP PRN (21:10)
[2017-01-07] MEDS: lamoTRIgine 100 MG TAB PO SCH ×3 (00:31→21:58)
[2017-01-07] MEDS: LACOSAMIDE 50 MG TABLET PO SCH ×2 (00:32→21:58)
[2017-01-07] MEDS: FAMOTIDINE 20 MG TAB PO SCH ×2 (00:32→13:51)
[2017-01-07] MEDS: clonazePAM 0.5 MG TAB PO SCH ×2 (00:54→22:01)
--- NOTE | 2017-01-07 07:24 | P.GSHP ---
History of Present Illness The patient is a 51-year-old female who 48 hours ago underwent cystoscopy bilateral ureteroscopy with bilateral laser lithotripsy. The procedure was uneventful. She was seen in the emergency room yesterday for with abdominal pain. The patient has chronic pain. I saw in the office and she stated that she was nauseated. She was given antibiotics but told that if the problem persisted to return to the emergency room. She did last night. She stated that she hadn't urinated. She had a creatinine of 4.4. She had a computed tomography scan identifying by lateral mild to moderate hydronephrosis. The patient's admitted with acute renal failure due to obstruction probably secondary to edema bilaterally from the ureteroscopy. She'll undergo cystoscopy and stent placement today. - Constitutional Constitutional: Reports anorexia - Gastrointestinal Gastrointestinal: Reports abdominal pain Past Medical History Past Medical History: GERD/Reflux, Seizure Disorder Additional Past Medical History / Comment(s): HX NUMEROUS KIDNEY STONES- HX EPILEPSY (unsure of last seizure) -HAS PUBLIC GUARDIAN, STATES BRUISES EASILY, POOR HISTORIAN., STATES CARPAL TUNNEL IN HANDS AND ELBOWS. History of Any Multi-Drug Resistant Organisms: None Reported Past Surgical History: Breast Surgery, Orthopedic Surgery Additional Past Surgical History / Comment(s): LITHOTRIPSY , BREAST BX X 1 -PT NOT SURE WHICH ONE, LT KNEE SURGERY Past Anesthesia/Blood Transfusion Reactions: No Reported Reaction Past Psychological History: No Psychological Hx Reported Smoking Status: Never smoker Past Alcohol Use History: None Reported Past Drug Use History: None Reported - Past Family History Father Additional Family Medical History / Comment(s): HEART PROBLEMS heart stint placed Mother Family Medical History: Diabetes Mellitus Medications and Allergies Home Medications Medication Instructions Recorded Confirmed Type clonazePAM [KlonoPIN] 0.5 mg PO HS 09/29/14 01/06/17 History lamoTRIgine [LaMICtal] 200 mg PO BID 09/29/14 01/06/17 History Ranitidine HCl 150 mg PO BID 06/25/15 01/06/17 History Acetaminophen with Codeine 1 tab PO Q3H PRN 01/05/17 01/06/17 History [Tylenol w/codeine #3] Lacosamide [Vimpat] 100 mg PO BID 01/05/17 01/06/17 History Allergies Allergy/AdvReac Type Severity Reaction Status Date / Time cephalexin Allergy Unknown Verified 01/06/17 18:15 erythromycin base Allergy Unknown Verified 01/06/17 18:15 escitalopram oxalate Allergy Unknown Verified 01/06/17 18:15 [From Lexapro] Penicillins Allergy Unknown Verified 01/06/17 18:15 Sulfa (Sulfonamide Allergy Unknown Verified 01/06/17 18:15 Antibiotics) naproxen [From Naprosyn] AdvReac dry, runny Verified 01/06/17 18:15 nose tamsulosin AdvReac dry, runny Verified 01/06/17 18:15 nose Surgical - Exam Vital Signs Temp Pulse Resp BP Pulse Ox 98.7 F 87 20 144/64 98 01/06/17 18:13 01/06/17 18:13 01/06/17 18:13 01/06/17 18:13 01/06/17 18:13 - General well developed, well nourished, moderate distress - Eyes PERRL - ENT no hearing loss - Neck trachea midline - Respiratory normal expansion, normal respiratory effort - Cardiovascular Rhythm: regular - Abdomen Abdomen: soft, tender - Neurologic normal coordination, normal sensation - Musculoskeletal normal posture - Psychiatric oriented to time, oriented to person, oriented to place, speech is normal, memory intact Results - Labs 01/06/17 19:40 01/06/17 19:40 Assessment and Plan Plan: Impression. Acute renal failure secondary to bilateral ureteral obstruction from edema post ureteroscopy. History f kidney stones. History of seizures PLAN. ysto with placement of bilateral ureteral cathters.
[2017-01-07 07:29] VITALS: RESP 16
[2017-01-07] MEDS ORDERED: IV FLUID CONTINUATION 1,000 ML IV ONE (09:01)
[2017-01-07] MEDS ORDERED: MIDAZOLAM 2 MG/2 ML VIAL ONE (10:45)
[2017-01-07] MEDS ORDERED: LIDOCAINE 1% INJ 10MG/ML (20 ML MDV) ONE (10:45)
[2017-01-07] MEDS ORDERED: fentaNYL (PF) 50 MCG/ML 2 ML AMP ONE (10:45)
[2017-01-07] MEDS ORDERED: PROPOFOL 10 MG/ML 20 ML VIAL IV ONE (10:45)
[2017-01-07] MEDS ORDERED: LACTATED RINGERS 1,000 ML IV ONE (11:07)
[2017-01-07] MEDS ORDERED: ACET/COD 300 MG/30 MG STARTER PACK 6 TAB BTL PO PRN (11:11)
[2017-01-07] MEDS ORDERED: MORPHINE SULFATE 2 MG/ML SYRINGE IV PRN (11:12)
[2017-01-07] MEDS ORDERED: DEXTROSE 5%-0.45% NACL 1,000 ML IV SCH (11:15)
[2017-01-07] MEDS ORDERED: Acetaminophen-Codeine 300-30mg TAB PO PRN (11:15)
--- NOTE | 2017-01-07 11:19 | P.OP ---
Date of Procedure: 01/07/17 Preoperative Diagnosis: Bilateral hydroureteronephrosis Postoperative Diagnosis: Same Procedure(s) Performed: Cystoscopy with placement of bilateral 6 x 24 double-J catheters Anesthesia: MARILIN Surgeon: Noah Adamson Estimated Blood Loss (ml): 0 Pathology: none sent Condition: stable Disposition: PACU Indications for Procedure: The patient is a 51-year-old handicapped female who underwent bilateral ureteroscopy and laser lithotripsy to renal stones 48 hours ago. She presented the emergency room last night and uric and abdominal pain. She had a computed tomography scan showing bilateral mild to moderate hydronephrosis and a creatinine of 4.4. She must have edema due to the ureteroscopy as there are no stones or extravasation. She comes for double-J catheters to relieve the obstruction while the edema subsides Description of Procedure: The patient was brought to the operating suite and given a general endotracheal anesthesia. Cystoscopy of the Foroblique lens and 22-Tajik sheath identifies normal urethra. Both ureteral orifices have edema and some blood at the opening. An 035 wire easily passes up the left ureter into the renal pelvis. Over the wires passed a 6 x 24 double-J catheter that coils in the renal pelvis and the bladder. The same is performed on the right side again with easy passage up into the kidneys. The double-J catheters passed 6 x 24 over the wire coiling in the renal pelvis and the bladder bladder strain the cystoscope was removed patient's awake and returned recovery in good condition she will be sure the hospital overnight and if her creatinine normalizes she'll be discharged home tomorrow the stent will stay in approximately 2 weeks.
[2017-01-07] MEDS ORDERED: MORPHINE SULFATE 2 MG/ML SYRINGE IVP PRN (12:01)
--- NOTE | 2017-01-07 13:15 | FL ---
EXAMINATION TYPE: FL guidance operating room DATE OF EXAM: 01/07/2017 11:19 AM FLUOROSCOPY Fluoroscopy time of 12 seconds was used during bilateral ureteral stent placement. 2 image/s documen t/s the procedure.
[2017-01-07] MEDS: DEXTROSE 5%-0.45% NACL 1,000 ML IV SCH ×2 (13:28→22:18)
[2017-01-07 16:12] LABS: Basophils % (A) 0 %; CH 31.2; CHCM 32.5; Eosinophils % (A) 0 %; HCT 37.4 % (34.0-46.0); HDW 2.25; Luc # (Auto) 0.11; Luc % (Auto) 2; Lymphocytes # (A) 1.4 k/uL (1.0-4.8); Lymphocytes % (A) 20 %; MCHC 32.2 g/dL (31.0-37.0); MCV 96.4 fL (80.0-100.0); Mean Platelet Volume 6.9; Monocytes # (A) 0.6 k/uL (0-1.0); Monocytes % (A) 8 %; Neutrophils # (A) 5.1 k/uL (1.3-7.7); Neutrophils % (A) 70 %; RBC 3.88 m/uL (3.80-5.40); RDW 12.7 % (11.5-15.5); WBC 7.3 k/uL (3.8-10.6); WBC (Perox) 7.69
[2017-01-07 16:24] LABS: Calcium 8.7 mg/dL (8.4-10.2); Potassium 4.7 mmol/L (3.5-5.1); Total Bilirubin 0.5 mg/dL (0.2-1.3); Total Protein 6.2 g/dL (6.3-8.2)
[2017-01-08] MEDS: DEXTROSE 5%-0.45% NACL 1,000 ML IV SCH (03:52)
--- NOTE | 2017-01-08 07:07 | P.DS ---
Providers Date of admission: 01/06/17 21:04 Attending physician: Mitch Yeboah Primary care physician: Marie Ye [facility] Course: The patient was admitted to the hospital for oliguria abdominal pain elevated creatinine, acute renal failure due to ureteral obstruction secondary to edema. She had bilateral ureteroscopy on 01/05 that was uneventful. She however developed edema and required admission and stent placement which was done on 01/07 she has done well overnight and will be discharged home today. Creatinine is pending upon discharge. She will be seen in 2 weeks for stent removal. Diet is regular activities normal she will resume her home medication. Condition is good. Patient Condition at Discharge: Good Plan - Discharge Summary Discharge Medication List clonazePAM [KlonoPIN] 0.5 mg PO HS 09/29/14 [History] lamoTRIgine [LaMICtal] 200 mg PO BID 09/29/14 [History] Ranitidine HCl 150 mg PO BID 06/25/15 [History] Acetaminophen with Codeine [Tylenol w/codeine #3] 1 tab PO Q3H PRN 01/05/17 [ History] Lacosamide [Vimpat] 100 mg PO BID 01/05/17 [History] Follow up Appointment(s)/Referral(s): Marie Ye III, MD [Primary Care Provider] - 1 Week Noah Adamson MD [STAFF PHYSICIAN] - 2 Weeks (for cysto and stent removal) Patient Instructions/Handouts: Acute Kidney Injury (DC), Urethral Stent Placement (DC) Activity/Diet/Wound Care/Special Instructions: Regular diet Discharge Disposition: HOME SELF-CARE
[2017-01-08 07:31] VITALS: BP 97/57; PULSE 70; TEMP 97.5
[2017-01-08] MEDS ORDERED: FAMOTIDINE 20 MG TAB PO SCH (09:00)
[2017-01-08] MEDS: lamoTRIgine 100 MG TAB PO SCH (09:03)
[2017-01-08] MEDS: LACOSAMIDE 50 MG TABLET PO SCH (09:04)
== END 2017-01-08 09:44 | disposition home or self-care (01) ==
LOC: EC 18:06 → 4MS4W 21:04
PROVIDERS: ADMIT Urology; ATTEND Urology
DX: R60.9 Edema, unspecified (principal); Z87.442 Personal history of urinary calculi; N99.0 Postprocedural (acute) (chronic) kidney failure; N13.1 Hydronephrosis with ureteral stricture, not elsewhere classified; K21.9 Gastro-esophageal reflux disease without esophagitis; G40.909 Epilepsy, unspecified, not intractable, without status epilepticus; Z79.899 Other long term (current) drug therapy; Z88.1 Allergy status to other antibiotic agents; Z88.0 Allergy status to penicillin; Z88.2 Allergy status to sulfonamides; Z88.8 Allergy status to other drugs, medicaments and biological substances; Z83.3 Family history of diabetes mellitus; G89.29 Other chronic pain; G47.33 Obstructive sleep apnea (adult) (pediatric); F32.9 Major depressive disorder, single episode, unspecified; F41.9 Anxiety disorder, unspecified
CPT/HCPCS: 52005; 96361 ×5; 96360; 99284; 51798; 36415; 80053 ×2; 82565; 84520; 85025 ×2; 82365; 76770; G0378 ×3; C2625; C1769; J2250; J2405; J2001; J3010; J2704

== ENCOUNTER → 2018-03-02 | Outpatient (CLI) | payer MEDICARE, OTHER ==
[2018-03-02 15:35] LABS: T4, Free (Free Thyroxine) 1.14 ng/dL (0.78-2.19)
== END | disposition home or self-care (01) ==
LOC: LABWHC1 14:41
PROVIDERS: ATTEND Psychiatry & Neurology Neurology
DX: G40.209 Localization-related (focal) (partial) symptomatic epilepsy and epileptic syndromes with complex partial seizures, not intractable, without status epilepticus (principal); R00.2 Palpitations
CPT/HCPCS: 36415; 80175; 84439; 84443

== ENCOUNTER → 2018-03-04 | Outpatient (CLI) | payer MEDICARE, OTHER ==
[2018-03-04 13:43] LABS: Basophils % (A) 1 %; Eosinophils % (A) 0 %; HCT 42.6 % (34.0-46.0); HGB 13.8 gm/dL (11.4-16.0); Lymphocytes # (A) 2.3 k/uL (1.0-4.8); Lymphocytes % (A) 42 %; MCH 30.8 pg (25.0-35.0); MCHC 32.5 g/dL (31.0-37.0); Mean Platelet Volume 7.2; Monocytes # (A) 0.4 k/uL (0-1.0); Monocytes % (A) 6 %; Neutrophils # (A) 2.7 k/uL (1.3-7.7); Neutrophils % (A) 49 %; Platelet Count 314 k/uL (150-450); RBC 4.49 m/uL (3.80-5.40); RDW 12.9 % (11.5-15.5); WBC 5.5 k/uL (3.8-10.6)
[2018-03-04 13:59] LABS: Albumin 4.5 g/dL (3.5-5.0); Calcium 9.3 mg/dL (8.4-10.2); Potassium 5.3 mmol/L (3.5-5.1); Total Bilirubin 0.4 mg/dL (0.2-1.3); Total Protein 7.8 g/dL (6.3-8.2)
[2018-03-04 14:16] LABS: T4, Free (Free Thyroxine) 1.11 ng/dL (0.78-2.19)
== END | disposition home or self-care (01) ==
LOC: RADECHMAIN 12:05
PROVIDERS: ATTEND Family Medicine
DX: R00.1 Bradycardia, unspecified (principal); R00.0 Tachycardia, unspecified; E55.9 Vitamin D deficiency, unspecified; R39.198 Other difficulties with micturition; R42 Dizziness and giddiness; R00.2 Palpitations
CPT/HCPCS: 36415; 80053; 82306; 84439; 84443; 85025; 87086; 93225; 93226

== ENCOUNTER 2018-07-04 11:37 | Inpatient (IN) | payer MEDICARE, OTHER ==
[2018-07-04] MEDS ORDERED: ASPIRIN 81 MG PO STA (12:41)
[2018-07-04] MEDS ORDERED: MECLIZINE 12.5 MG TAB PO STA (12:41)
[2018-07-04] MEDS ORDERED: SODIUM CHLORIDE 0.9% 1,000 ML IV ONE (12:42)
--- NOTE | 2018-07-04 12:48 | ED ---
Dizziness HPI - General Chief Complaint: Dizziness Stated Complaint: Dizziness Time Seen by Provider: 07/04/18 12:30 Source: patient Mode of arrival: EMS Limitations: no limitations - History of Present Illness Initial Comments: Patient is a 52-year-old female who presents with chief complaint of dizziness. The patient states that her dizziness feels like the room is spinning around her. She states this is been going on for about 2 weeks. She has a past history of epilepsy, stroke several years ago. She did not have any deficits from that stroke. Patient states that her symptoms are worse with position changes. There are no other aggravating or alleviating factors. Timing is constant. Patient states she has been nauseated and has a mild headache however she denies chest pain, shortness of breath, vomiting, or dysuria. - Related Data Home Medications Medication Instructions Recorded Confirmed lamoTRIgine [LaMICtal] 200 mg PO BID 09/29/14 07/04/18 Ranitidine HCl 150 mg PO BID 06/25/15 07/04/18 Ergocalciferol (Vitamin D2) 50,000 unit PO Q7D 07/04/18 07/04/18 [Vitamin D2] Lacosamide [Vimpat] 50 mg PO QAM 07/04/18 07/04/18 Lacosamide [Vimpat] 100 mg PO HS 07/04/18 07/04/18 lamoTRIgine [LaMICtal] 25 mg PO DAILY 07/04/18 07/04/18 Allergies Allergy/AdvReac Type Severity Reaction Status Date / Time cephalexin Allergy Unknown Verified 07/04/18 13:40 erythromycin base Allergy Unknown Verified 07/04/18 13:40 escitalopram oxalate Allergy Unknown Verified 07/04/18 13:40 [From Lexapro] Penicillins Allergy Unknown Verified 07/04/18 13:40 Sulfa (Sulfonamide Allergy Unknown Verified 07/04/18 13:40 Antibiotics) naproxen [From Naprosyn] AdvReac dry, runny Verified 07/04/18 13:40 nose tamsulosin AdvReac dry, runny Verified 07/04/18 13:40 nose Review of Systems ROS Statement: Those systems with pertinent positive or pertinent negative responses have been documented in the HPI. ROS Other: All systems not noted in ROS Statement are negative. Gastrointestinal: Reports: nausea Neurological: Reports: vertigo Past Medical History Past Medical History: GERD/Reflux, Seizure Disorder Additional Past Medical History / Comment(s): HX NUMEROUS KIDNEY STONES- HX EPILEPSY (unsure of last seizure) -HAS PUBLIC GUARDIAN, STATES BRUISES EASILY, POOR HISTORIAN., STATES CARPAL TUNNEL IN HANDS AND ELBOWS. History of Any Multi-Drug Resistant Organisms: None Reported Past Surgical History: Breast Surgery, Orthopedic Surgery Additional Past Surgical History / Comment(s): LITHOTRIPSY , BREAST BX X 1 -PT NOT SURE WHICH ONE, LT KNEE SURGERY Past Anesthesia/Blood Transfusion Reactions: No Reported Reaction Past Psychological History: No Psychological Hx Reported Smoking Status: Never smoker Past Alcohol Use History: None Reported Past Drug Use History: None Reported - Past Family History Father Additional Family Medical History / Comment(s): HEART PROBLEMS heart stint placed Mother Family Medical History: Diabetes Mellitus General Exam Limitations: no limitations General appearance: alert, in no apparent distress Head exam: Present: atraumatic, normocephalic Eye exam: Present: normal appearance, PERRL, EOMI, nystagmus ENT exam: Present: normal exam, mucous membranes moist Neck exam: Present: normal inspection Respiratory exam: Present: normal lung sounds bilaterally. Absent: respiratory distress, wheezes Cardiovascular Exam: Present: regular rate, normal rhythm GI/Abdominal exam: Present: soft. Absent: distended, tenderness Rectal exam: Present: deferred Extremities exam: Present: normal inspection Back exam: Present: normal inspection Neurological exam: Present: alert, oriented X3, other (finger to nose testing wnl, no meningeal signs present. EOMI intact, however patient has horizontal nystagmus on exam. ). Absent: motor sensory deficit Psychiatric exam: Present: normal affect, normal mood Skin exam: Present: warm, dry, intact Course Vital Signs 07/04/18 11:45 Temperature 98.1 F Pulse Rate 75 Respiratory 16 Rate Blood Pressure 147/82 O2 Sat by Pulse 100 Oximetry Medical Decision Making - Medical Decision Making patient presents with a CC of dizziness x 1 week. on initial evaluation, VS stable, patient in no distress. patients symptoms worse with position changes and vertical nystagmus is noted on exam. symptoms consistent with vertigo, however given patients history of stroke, she will be evaluated with neuro imaging today. basic and cardiac labs sent. 2:27 PM lab evaluation of this patient is unremarkable. EKg performed at 1149 shows NSR with a rate of [address] without contrast is unremarkable as is chest xray. on re-evaluation, patients symptoms are only mildy improved. patient had one episode of emesis after CT scan, patient given zofran and 1mg ativan IV. case discussed with Dr. Dailey who accepts admission given patients hx of stroke and inability to r/o posterior circulation stroke. consult will be placed to neurology. - Lab Data Result diagrams: 07/04/18 12:45 07/04/18 12:45 Lab Results 07/04/18 07/04/18 07/04/18 Range/Units 12:45 12:45 12:45 WBC 4.6 (3.8-10.6) k/uL RBC 5.26 (3.80-5.40) m/uL Hgb 16.0 (11.4-16.0) gm/dL Hct 49.5 H (34.0-46.0) % MCV 94.2 (80.0-100.0) fL MCH 30.4 (25.0-35.0) pg MCHC 32.2 (31.0-37.0) g/dL RDW 12.6 (11.5-15.5) % Plt Count 239 (150-450) k/uL Neutrophils % 60 % Lymphocytes % 31 % Monocytes % 6 % Eosinophils % 1 % Basophils % 0 % Neutrophils # 2.8 (1.3-7.7) k/uL Lymphocytes # 1.5 (1.0-4.8) k/uL Monocytes # 0.3 (0-1.0) k/uL Eosinophils # 0.0 (0-0.7) k/uL Basophils # 0.0 (0-0.2) k/uL Sodium 140 (137-145) mmol/L Potassium 4.7 (3.5-5.1) mmol/L Chloride 106 (98-107) mmol/L Carbon Dioxide 26 (22-30) mmol/L Anion Gap 8 mmol/L BUN 11 (7-17) mg/dL Creatinine 0.87 (0.52-1.04) mg/dL Est GFR (CKD-EPI)AfAm 88 (>60 ml/min/1.73 sqM) Est GFR (CKD-EPI)NonAf 76 (>60 ml/min/1.73 sqM) Glucose 99 (74-99) mg/dL Calcium 9.4 (8.4-10.2) mg/dL Magnesium 2.3 (1.6-2.3) mg/dL Total Bilirubin 0.4 (0.2-1.3) mg/dL AST 22 (14-36) U/L ALT 26 (9-52) U/L Alkaline Phosphatase 148 H (38-126) U/L Troponin I (0.000-0.034) ng/mL NT-Pro-B Natriuret Pep 47 pg/mL Total Protein 7.8 (6.3-8.2) g/dL Albumin 4.0 (3.5-5.0) g/dL 07/04/18 Range/Units 12:45 WBC (3.8-10.6) k/uL RBC (3.80-5.40) m/uL Hgb (11.4-16.0) gm/dL Hct (34.0-46.0) % MCV (80.0-100.0) fL MCH (25.0-35.0) pg MCHC (31.0-37.0) g/dL RDW (11.5-15.5) % Plt Count (150-450) k/uL Neutrophils % % Lymphocytes % % Monocytes % % Eosinophils % % Basophils % % Neutrophils # (1.3-7.7) k/uL Lymphocytes # (1.0-4.8) k/uL Monocytes # (0-1.0) k/uL Eosinophils # (0-0.7) k/uL Basophils # (0-0.2) k/uL Sodium (137-145) mmol/L Potassium (3.5-5.1) mmol/L Chloride (98-107) mmol/L Carbon Dioxide (22-30) mmol/L Anion Gap mmol/L BUN (7-17) mg/dL Creatinine (0.52-1.04) mg/dL Est GFR (CKD-EPI)AfAm (>60 ml/min/1.73 sqM) Est GFR (CKD-EPI)NonAf (>60 ml/min/1.73 sqM) Glucose (74-99) mg/dL Calcium (8.4-10.2) mg/dL Magnesium (1.6-2.3) mg/dL Total Bilirubin (0.2-1.3) mg/dL AST (14-36) U/L ALT (9-52) U/L Alkaline Phosphatase (38-126) U/L Troponin I <0.012 (0.000-0.034) ng/mL NT-Pro-B Natriuret Pep pg/mL Total Protein (6.3-8.2) g/dL Albumin (3.5-5.0) g/dL Disposition Clinical Impression: Vertigo, Nausea and vomiting Disposition: ADMITTED IP TO THIS HOSP Condition: Good Is patient prescribed a controlled substance at d/c from ED?: No Referrals: Kerry Baltazar MD [STAFF PHYSICIAN] - 1-2 days Decision to Admit Reason: Admit from EC - Out of Hospital Transfer - Req. Specs Out of Hospital Transfer - Requested Specifics: Other Non-Acute
[2018-07-04 13:03] LABS: Basophils % (A) 0 %; Eosinophils % (A) 1 %; HCT 49.5 % (34.0-46.0); Lymphocytes # (A) 1.5 k/uL (1.0-4.8); Lymphocytes % (A) 31 %; MCH 30.4 pg (25.0-35.0); MCHC 32.2 g/dL (31.0-37.0); MCV 94.2 fL (80.0-100.0); Mean Platelet Volume 7.5; Monocytes # (A) 0.3 k/uL (0-1.0); Monocytes % (A) 6 %; Neutrophils # (A) 2.8 k/uL (1.3-7.7); Neutrophils % (A) 60 %; Platelet Count 239 k/uL (150-450); RBC 5.26 m/uL (3.80-5.40); RDW 12.6 % (11.5-15.5); WBC 4.6 k/uL (3.8-10.6)
[2018-07-04 13:13] LABS: Calcium 9.4 mg/dL (8.4-10.2); Magnesium 2.3 mg/dL (1.6-2.3); Potassium 4.7 mmol/L (3.5-5.1); Total Bilirubin 0.4 mg/dL (0.2-1.3); Total Protein 7.8 g/dL (6.3-8.2)
[2018-07-04] MEDS ORDERED: ACETAMINOPHEN TAB 500 MG TAB PO STA (13:22)
--- NOTE | 2018-07-04 13:38 | CT ---
EXAMINATION TYPE: CT brain wo con DATE OF EXAM: 07/04/2018 COMPARISON: Previous study dated 07/06/2015 HISTORY: Dizziness CT DLP: 990.2 mGycm Automated exposure control for dose reduction was used. FINDINGS: Central structures are midline. There is no evidence of hydrocephalus. No acute focal lesion, mass ef fect or midline shift is seen. I do not see evidence of intracranial blood. Visualized portions of the paranasal sinuses and mastoids are clear. The bony calvarium is intact. IMPRESSION: NO ACUTE INTRACRANIAL ABNORMALITY.
--- NOTE | 2018-07-04 13:42 | XR ---
EXAMINATION TYPE: XR chest 2V DATE OF EXAM: 07/04/2018 HISTORY: Pain. REFERENCE: Previous study dated 07/06/2015. FINDINGS: There is chronic apparent elevation right hemidiaphragm. There is some subsegmental atelect asis at the right lung base. The lungs are otherwise clear. Pleural spaces are clear. The heart is no t enlarged. IMPRESSION: MINIMAL ATELECTASIS, RIGHT LUNG BASE.
[2018-07-04] MEDS ORDERED: KETOROLAC 30 MG/ML 1 ML VIAL IVP STA (14:21)
[2018-07-04] MEDS ORDERED: LORazepam 2 MG/ML INJ IV STA (14:27)
[2018-07-04] MEDS ORDERED: NALOXONE 0.4 MG/ML 1 ML VIAL IV PRN (14:30)
[2018-07-04 14:38] LABS: Appearance,Urine Clear (Clear); Bacteria,Urine Rare /hpf; Bilirubin,Urine Negative (Negative); Blood,Urine Negative (Negative); Color,Urine Light Yellow; Glucose,Urine (UA) Negative (Negative); Ketones,Urine Negative (Negative); Leukocyte Esterase,Urine Moderate (Negative); Mucus,Urine Rare /hpf; Nitrite,Urine Negative (Negative); Protein,Urine Negative (Negative); RBC,Urine 1 /hpf (0-5); Squamous Epithelial Cell,Urine 1 /hpf (0-4); Urobilinogen,Urine <2.0 mg/dL (<2.0); WBC,Urine 10 /hpf (0-5)
[2018-07-04 16:18] VITALS: BMI 41.1
[2018-07-04] MEDS ORDERED: MECLIZINE 25 MG TAB PO PRN (17:39)
[2018-07-04] MEDS ORDERED: LORazepam 2 MG/ML INJ IV PRN (18:04)
--- NOTE | 2018-07-04 18:06 | P.CNNES ---
History of Present Illness Consult date: 07/04/18 Requesting physician: Ion Meyers Reason for Consult: Vertigo History of Present Illness: Patient is a pleasant 52-year-old female who is being evaluated by the neurology service on 07/04/2018 per the request of Dr. Meyers for vertigo. Patient has a significant history of seizure disorder and is on Lamictal 225 mg every morning and 200 mg every afternoon. She is also on Vimpat 50 mg in the morning and 100 mg in the evening. Patient sees Dr. Vipin Baltazar in the outpatient setting. Patient states she woke up this morning around 6 AM and felt very lightheaded. She states this is usually how she feels after having a seizure. She denies any loss of bladder control and denies biting her tongue. Patient denies any room spinning, however, she had reported room spinning in the emergency room. Patient does have significant history of multiple strokes. It is not clear why patient is not on antiplatelet therapy or statin drug. It is unknown whether previous strokes were hemorrhagic or ischemic. No family members at the bedside to elicit information from. Patient does not have any lateralizing weakness. Patient cognition does appear slow. Patient does have a public guardian. Vital signs on admission were temperature 98.1, pulse 75, respiratory rate 16, blood pressure 147/82, and oxygen 95% on room air. Labs on admission were essentially unremarkable. Urinalysis revealed moderate leukocyte esterase with WBC of 10 and rare urine bacteria and urine mucus. Chest x-ray showed minimal atelectasis in the right lung base. Computed tomography scan of the brain showed no acute intracranial abnormality. At the time of my evaluation, patient 's resting comfortably in bed and appears to be in no acute distress. Review of Systems REVIEW OF SYSTEMS: Otherwise unremarkable and noncontributory. 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 History of Any Multi-Drug Resistant Organisms: None Reported Past Surgical History: Breast Surgery, Orthopedic Surgery Additional Past Surgical History / Comment(s): LITHOTRIPSY , BREAST BX X 1 -PT NOT SURE WHICH ONE, LT KNEE SURGERY Past Anesthesia/Blood Transfusion Reactions: No Reported Reaction Past Psychological History: No Psychological Hx Reported Smoking Status: Never smoker Past Alcohol Use History: None Reported Past Drug Use History: None Reported - Past Family History Father Additional Family Medical History / Comment(s): HEART PROBLEMS heart stint placed Mother Family Medical History: Diabetes Mellitus Medications and Allergies Home Medications Medication Instructions Recorded Confirmed Type lamoTRIgine [LaMICtal] 200 mg PO BID 09/29/14 07/04/18 History Ranitidine HCl 150 mg PO BID 06/25/15 07/04/18 History Ergocalciferol (Vitamin D2) 50,000 unit PO Q7D 07/04/18 07/04/18 History [Vitamin D2] Lacosamide [Vimpat] 50 mg PO QAM 07/04/18 07/04/18 History Lacosamide [Vimpat] 100 mg PO HS 07/04/18 07/04/18 History lamoTRIgine [LaMICtal] 25 mg PO DAILY 07/04/18 07/04/18 History Allergies Allergy/AdvReac Type Severity Reaction Status Date / Time cephalexin Allergy Unknown Verified 07/04/18 13:40 erythromycin base Allergy Unknown Verified 07/04/18 13:40 escitalopram oxalate Allergy Unknown Verified 07/04/18 13:40 [From Lexapro] Penicillins Allergy Unknown Verified 07/04/18 13:40 Sulfa (Sulfonamide Allergy Unknown Verified 07/04/18 13:40 Antibiotics) naproxen [From Naprosyn] AdvReac dry, runny Verified 07/04/18 13:40 nose tamsulosin AdvReac dry, runny Verified 07/04/18 13:40 nose Physical Examination - Vital Signs Vital Signs: Vital Signs Temp Pulse Pulse Resp BP BP Pulse Ox 07/04/18 15:37 97.8 F 98 07/04/18 15:28 97.9 F 77 16 136/68 07/04/18 15:00 83 20 157/74 07/04/18 14:30 80 26 H 07/04/18 13:30 168/88 07/04/18 13:00 80 14 142/82 99 07/04/18 12:00 75 15 147/82 99 07/04/18 11:45 98.1 F 75 16 147/82 100 07/04/18 11:43 95 Intake and Output 07/04/18 07/04/18 07/04/18 06:59 14:59 22:59 Other: Weight 90.718 kg 86.183 kg PHYSICAL EXAM: GENERAL APPEARANCE: Patient is a well-developed, female who appears to be in no acute distress. HEENT: Normocephalic, atraumatic, no facial asymmetry is seen. Neck is supple with no masses felt. CARDIOVASCULAR: Regular rate and rhythm. ABDOMEN: Nontender, nondistended. EXTREMITIES: Show no edema or clubbing. NEUROLOGICAL EXAM: Patient is awake, alert, and oriented 3. Speech and language are normal. Strength is full in all 4 extremities. Sensory exam to light touch is normal in all 4 extremities. No facial asymmetry seen on cranial nerve testing. No tremors or seizure-like activity noted. No pronator drift is seen. Results - Laboratory Findings CBC and BMP: 07/04/18 12:45 07/04/18 12:45 Abnormal Lab Findings: Abnormal Labs 07/04/18 07/04/18 07/04/18 12:45 12:45 14:20 Hct 49.5 H Alkaline Phosphatase 148 H Ur Leukocyte Esterase Moderate H Urine WBC 10 H Urine Bacteria Rare H Urine Mucus Rare H Assessment and Plan Plan: Impression: 1. Dizziness/vertigo 2. Lightheadedness 3. Seizure disorder 4. History of multiple strokes Recommendation: Patient continues to report lightheadedness and complains of mild posterior neck discomfort. Patient does not have symptom of occipital neuritis on exam. It is not clear whether patient's lightheadedness was due to post ictal symptoms or possibly cerebellar involvement given her history of multiple strokes. Computed tomography scan was negative for any acute process. I will order an MRI of the brain to evaluate possible contributing etiology. I will order an EEG, carotid Doppler, fasting lipid panel and serum homocysteine level. I recommend telemetry for possible cardiac arrhythmia. Patient had Holter monitor earlier this year in February which looks like it was negative for atrial fib or SVT. I recommend orthostatics and possible tilt table test. I recommend meclizine 12.5 mg twice a day when necessary. I recommend physical therapy to evaluate and treat. I recommend starting low- dose aspirin. No neurological deficits at this time. I will continue to follow with you. Further recommendations to follow testing. Thank you for allowing me to participate in the care of your patient. Feel free to call with any questions or concerns. I performed an examination of the patient and discussed the management with the STORAGE ARCHITECT. I have reviewed the STORAGE ARCHITECT notes and agree with the findings and plan of care.
--- NOTE | 2018-07-04 18:07 | P.HPIM ---
History of Present Illness H&P Date: 07/04/18 Chief Complaint: vertigo 52-year-old female with past medical history of seizure disorder presents the ED for dizziness. Patient states she woke up at 6 AM feeling dizzy. She describes the dizziness as room spinning sensation. Patient states she was able to sit up and walk to the door prior to calling for help. Vertigo is aggravated with changes in position. She denies any viral upper respiratory infections recently. She denies any hearing loss. She denies any fullness of the ears or head trauma. Patient denies any headaches, fever, cough, chest pain, shortness of breath, changes in urination or bowel habits. She does report intermittent swelling in her legs. Patient reports one episode of nausea and nonbilious nonbloody vomiting this morning. In the ED, CBC was unremarkable. CMP was unremarkable except for an alkaline phosphatase of 148. Troponin was less than 0.012. BNP was 47. CT brain showed no acute intracranial abnormality. Chest x-ray shows minimal atelectasis in the right lung base. Patient is admitted for further workup of vertigo, rule out CVA. Neurology consult. Review of Systems All systems: negative Past Medical History Past Medical History: GERD/Reflux, Seizure Disorder Additional Past Medical History / Comment(s): HX NUMEROUS KIDNEY STONES- HX EPILEPSY (unsure of last seizure) -HAS PUBLIC GUARDIAN, STATES BRUISES EASILY, POOR HISTORIAN., STATES CARPAL TUNNEL IN HANDS AND ELBOWS. History of Any Multi-Drug Resistant Organisms: None Reported Past Surgical History: Breast Surgery, Orthopedic Surgery Additional Past Surgical History / Comment(s): LITHOTRIPSY , BREAST BX X 1 -PT NOT SURE WHICH ONE, LT KNEE SURGERY Past Anesthesia/Blood Transfusion Reactions: No Reported Reaction Past Psychological History: No Psychological Hx Reported Smoking Status: Never smoker Past Alcohol Use History: None Reported Past Drug Use History: None Reported - Past Family History Father Additional Family Medical History / Comment(s): HEART PROBLEMS heart stint placed Mother Family Medical History: Diabetes Mellitus Medications and Allergies Home Medications Medication Instructions Recorded Confirmed Type lamoTRIgine [LaMICtal] 200 mg PO BID 09/29/14 07/04/18 History Ranitidine HCl 150 mg PO BID 06/25/15 07/04/18 History Ergocalciferol (Vitamin D2) 50,000 unit PO Q7D 07/04/18 07/04/18 History [Vitamin D2] Lacosamide [Vimpat] 50 mg PO QAM 07/04/18 07/04/18 History Lacosamide [Vimpat] 100 mg PO HS 07/04/18 07/04/18 History lamoTRIgine [LaMICtal] 25 mg PO DAILY 07/04/18 07/04/18 History Allergies Allergy/AdvReac Type Severity Reaction Status Date / Time cephalexin Allergy Unknown Verified 07/04/18 13:40 erythromycin base Allergy Unknown Verified 07/04/18 13:40 escitalopram oxalate Allergy Unknown Verified 07/04/18 13:40 [From Lexapro] Penicillins Allergy Unknown Verified 07/04/18 13:40 Sulfa (Sulfonamide Allergy Unknown Verified 07/04/18 13:40 Antibiotics) naproxen [From Naprosyn] AdvReac dry, runny Verified 07/04/18 13:40 nose tamsulosin AdvReac dry, runny Verified 07/04/18 13:40 nose Physical Exam Vitals: Vital Signs Temp Pulse Pulse Resp BP BP Pulse Ox 07/04/18 15:37 97.8 F 98 07/04/18 15:28 97.9 F 77 16 136/68 07/04/18 15:00 83 20 157/74 07/04/18 14:30 80 26 H 07/04/18 13:30 168/88 07/04/18 13:00 80 14 142/82 99 07/04/18 12:00 75 15 147/82 99 07/04/18 11:45 98.1 F 75 16 147/82 100 07/04/18 11:43 95 Intake and Output 07/04/18 07/04/18 07/04/18 06:59 14:59 22:59 Other: Weight 90.718 kg 86.183 kg General: [non toxic], [no distress], [appears at stated age] Derm: [warm], [dry] Head: [atraumatic], [normocephalic], [symmetric] Eyes: [EOMI], [no lid lag], [anicteric sclera] Mouth: [no lip lesion], [mucus membranes moist] Cardiovascular: [S1S2 reg], [no murmur], [positive DP pulse bilateral] Lungs: [CTA bilateral], [no rhonchi, no rales] , [no accessory muscle use] Abdominal: [soft], [ nontender to palpation], [no guarding], [no appreciable organomegaly] Ext: [no gross muscle atrophy], [no edema], [no contractures] Neuro: [ CN II-XI grossly intact], [no focal neuro deficits] Psych: [Alert], [oriented], [appropriate affect] Results CBC & Chem 7: 07/04/18 12:45 07/04/18 12:45 Labs: Abnormal Lab Results - Last 24 Hours (Table) 07/04/18 07/04/18 07/04/18 Range/Units 12:45 12:45 14:20 Hct 49.5 H (34.0-46.0) % Alkaline Phosphatase 148 H (38-126) U/L Ur Leukocyte Esterase Moderate H (Negative) Urine WBC 10 H (0-5) /hpf Urine Bacteria Rare H (None) /hpf Urine Mucus Rare H (None) /hpf Thrombosis Risk Factor Assmnt - Choose All That Apply Any of the Below Risk Factors Present?: Yes Each Factor Represents 1 point: Age 41-60 years Other Risk Factors: Yes Each Risk Factor Represents 3 Points: Family history of DVT/PE Thrombosis Risk Factor Assessment Total Risk Factor Score: 4 Thrombosis Risk Factor Assessment Level: Moderate Risk Assessment and Plan Assessment: Assessment and Plan 1. Vertigo: Possibly BPPV based on history but concerns for CVA. CT brain negative. Trop < 0.012 x 1. Neurochecks. Fall precautions. Meclizine PO PRN for vertigo. Will trend 1 Trop/EKG to r/o ACS. CVA workup initiated - FU Echocardiogram, CUS, MRI brain, EEG, A1c/Lipid panel. FU Neurology, PT/OT/ST 2. Epilepsy: Continue Vimpat 50 mg PO QAM, 100 mg PO QHS, Lamotrigine 200 mg PO BID. Ativan 2 mg IV Q6H PRN for seizures. Fall and seizure precautions. FU Neurology
--- NOTE | 2018-07-04 19:56 | US ---
EXAMINATION TYPE: US carotid duplex BILAT DATE OF EXAM: 07/04/2018 COMPARISON: NONE CLINICAL HISTORY: CVA workup. Vertigo EXAM MEASUREMENTS: RIGHT: Peak Systolic Velocity (PSV) cm/sec ----- Right CCA: 71.1 ----- Right ICA: 88.6 ----- Right ECA: 114.5 ICA/CCA ratio: 1.2 RIGHT: End Diastole cm/sec ----- Right CCA: 12.9 ----- Right ICA: 30.4 ----- Right ECA: 11.1 LEFT: Peak Systolic Velocity (PSV) cm/sec ----- Left CCA: 69.3 ----- Left ICA: 26.3 ----- Left ECA: 62.5 ICA/CCA ratio: 1.1 LEFT: End Diastole cm/sec ----- Left CCA: 17.6 ----- Left ICA: 26.3 ----- Left ECA: 12.0 VERTEBRALS (direction of flow): Right Vertebral: Antegrade Left Vertebral: Antegrade Rhythm: Normal Mild amount of plaque visualized in bilateral bulbs, No elevated velocities, no significant stenosis. IMPRESSION: There is antegrade flow in the vertebral arteries. The images and measurements suggest l ess than 25% stenosis in both internal carotid arteries. Criteria for Assigning % of Stenosis / Diameter reduction (Estimation based on the indirect measurements of the internal carotid artery velocities (ICA PSV). 1. Normal (no stenosis)=ICA PSV < 125 cm/s: ratio < 2.0: ICA EDV<40 cm/s. 2. Less than 50% stenosis=ICA PSV < 125 cm/s: ratio < 2.0: ICA EDV<40 cm/s. 3. 50 to 69% stenosis=ICA PSV of 125 to 230 cm/s: ration 2.0 ? 4.0: ICA EDV 40-100 cm/s. 4. Greater than 70% stenosis to near occlusion= ICA PSV > 230 cm/s: ratio > 4.0: ICA EDV > 100 cm/s. 5. Near occlusion= ICA PSV velocities may be low or undetectable: variable ratio and ICA EDV. 6. Total occlusion=unable to detect flow.
[2018-07-04] MEDS: LACOSAMIDE 50 MG TABLET PO SCH (20:49)
[2018-07-04] MEDS: lamoTRIgine 100 MG TAB PO SCH (20:49)
[2018-07-05] MEDS: lamoTRIgine 100 MG TAB PO SCH ×2 (08:32→20:45)
[2018-07-05] MEDS: LACOSAMIDE 50 MG TABLET PO SCH ×2 (08:32→20:49)
[2018-07-05] MEDS: lamoTRIgine 25 MG TAB PO SCH (08:32)
[2018-07-05 10:16] LABS: Calcium 9.3 mg/dL (8.4-10.2); Potassium 4.8 mmol/L (3.5-5.1)
[2018-07-05 10:32] LABS: Basophils % (A) 0 %; Eosinophils % (A) 0 %; HCT 40.6 % (34.0-46.0); HGB 13.1 gm/dL (11.4-16.0); Lymphocytes % (A) 42 %; MCH 30.7 pg (25.0-35.0); MCHC 32.2 g/dL (31.0-37.0); MCV 95.3 fL (80.0-100.0); Mean Platelet Volume 7.8; Monocytes # (A) 0.4 k/uL (0-1.0); Monocytes % (A) 7 %; Neutrophils # (A) 2.3 k/uL (1.3-7.7); Neutrophils % (A) 49 %; Platelet Count 293 k/uL (150-450); RBC 4.26 m/uL (3.80-5.40); RDW 12.7 % (11.5-15.5); WBC 4.8 k/uL (3.8-10.6)
--- NOTE | 2018-07-05 12:00 | ECHOF ---
Referral Reason:CVA workup MEASUREMENTS -------- HEIGHT: 144.8 cm WEIGHT: 86.2 kg BP: 120/81 RVIDd: 2.9 cm (< 3.3) IVSd: 1.0 cm (0.6 - 1.1) LVIDd: 4.1 cm (3.9 - 5.3) LVPWd: 1.0 cm (0.6 - 1.1) IVSs: 1.2 cm LVIDs: 2.7 cm LVPWs: 1.2 cm LAESV Index (A-L): 13.26 ml/m Ao Diam: 2.9 cm (2.0 - 3.7) AV Cusp: 1.9 cm (1.5 - 2.6) LA Diam: 3.2 cm (2.7 - 3.8) EPSS: 0.5 cm MV E Marcos: 0.73 m/s MV DecT: 228 ms MV A Marcos: 0.66 m/s MV E/A Ratio: 1.11 RAP: 5.00 mmHg RVSP: 8.64 mmHg MV EF SLOPE: 101.72 mm/s (70 - 150) MV EXCURSION: 1.62 cm (> 18.000) FINDINGS -------- Sinus rhythm. This was a technically difficult study with suboptimal views. The left ventricular size is normal. Left ventricular wall thickness is normal. Overall left vent ricular systolic function is normal with, an EF between 55 - 60 %. The right ventricle is normal in size and function. Normal LA size by volume 22+/-6 ml/m2. The right atrium is normal in size. 3 ml of Lumason was utilized for enhancement of images. Aortic valve is trileaflet and is mildly thickened. There is no evidence of aortic regurgitation. There is no evidence of aortic stenosis. Mild mitral annular calcification present. There is trace to mild mitral regurgitation. Trace tricuspid regurgitation present. Right ventricular systolic pressure is normal at < 35 mmHg. There is no evidence of pulmonary hypertension. The pulmonic valve was not well visualized. The aortic root size is normal. IVC Not well visulized. There is no pericardial effusion. CONCLUSIONS -------- 1. Sinus rhythm. 2. This was a technically difficult study with suboptimal views. 3. The left ventricular size is normal. 4. Left ventricular wall thickness is normal. 5. Overall left ventricular systolic function is normal with, an EF between 55 - 60 %. 6. Normal LA size by volume 22+/-6 ml/m2. 7. 3 ml of Lumason was utilized for enhancement of images. 8. Aortic valve is trileaflet and is mildly thickened. 9. Mild mitral annular calcification present. 10. There is trace to mild mitral regurgitation. 11. Trace tricuspid regurgitation present. 12. Right ventricular systolic pressure is normal at < 35 mmHg. 13. There is no evidence of pulmonary hypertension. 14. The pulmonic valve was not well visualized. 15. The aortic root size is normal. 16. IVC Not well visulized. 17. There is no pericardial effusion. BOAT REPAIRER: Ward Arana RDCS
--- NOTE | 2018-07-05 14:02 | P.PN ---
Subjective Progress Note Date: 07/05/18 The patient is a 52 yo F with PMH of seizure d/o who presented to the ED w/ c/o dizziness described as spinning sensation associated with positional head changes. Upon admission, she denied any viral URIs, hearing loss, tinnitus, headaches, fever, cough, SOB, head-trauma, or ear fullness. She was admitted under observation for w/u of vertigo. Neurology was consulted and recommended an EEG, MRI Brain, and carotid duplex. On 07/05/18, the patient noted that she continues to have positional vertigo though somewhat improved from admission. She also endorsed a mild headache with some positional component, in the L occipital region w/ no radiation. She otherwise denied any weakness, numbness, tingling, nausea, vomiting, abdominal pain, chest pain, or SOB. Carotid duplex revealed less than 25% stenosis of davis internal carotids. Echocardiogram revealed normal LVEF and normal LV wall thickness. MRI and EEG pending. Objective - Vital Signs Vital signs: Vital Signs Temp 98.1 F 07/05/18 07:26 Pulse 71 07/05/18 08:32 Resp 16 07/05/18 08:32 BP 97/64 07/05/18 07:26 Pulse Ox 94 L 07/05/18 07:26 Intake & Output 07/04/18 07/05/18 07/05/18 18:59 06:59 18:59 Weight 86.183 kg Other: # Voids 1 - Exam General: Non-toxic, in no acute distress HEENT: NC/AT, anicteric sclerae, moist conjunctiva, no lid-lag, PERRLA, oropharynx clear, no erythema, exudates Cardiovascular: S1/S2 wnl, no murmurs, rubs, or gallops Lungs: Clear to auscultation, normal respiratory effort, no accessory muscle use Abdominal: Soft, nontender, non-distended, no guarding, rebound, or rigidity, normoactive bowel sounds Skin: Warm, dry Extremities: No edema or contractures Psychiatric: Alert and oriented to person, place and time, appropriate affect, Intact judgment Neuro: CN II-XII grossly intact, no focal motor deficits, some vertigo elicited with passive head movements, sensation to light touch intact throughout, no tremors or seizure-like activity noted. [id number] test wnl. - Labs CBC & Chem 7: 07/05/18 08:23 07/05/18 08:23 Labs: Abnormal Lab Results - Last 24 Hours (Table) 07/04/18 07/05/18 Range/Units 14:20 08:23 BUN 18 H (7-17) mg/dL Glucose 114 H (74-99) mg/dL Cholesterol 208 H (<200) mg/dL LDL Cholesterol, Calc 130 H (0-99) mg/dL HDL Cholesterol 66 H (40-60) mg/dL Ur Leukocyte Esterase Moderate H (Negative) Urine WBC 10 H (0-5) /hpf Urine Bacteria Rare H (None) /hpf Urine Mucus Rare H (None) /hpf Assessment and Plan Assessment: Vertigo - MRI and EEG pending - Neurology recs appreciated - Echocardiogram unremarkable - Carotid duplex < 25 % stenosis davis int carotids - C/w low-dose ASA - Will f/u Homocysteine levels - F/u PT/OT - C/w Meclizine prn Epilepsy - C/w Vimpat 50 mg qam and 100 mg qpm, Lamotrigine 200 mg bid, - Fall and seizure precautions DVT//GI prophylaxis - Heparin subq - No indication for GI prophylaxis Discussed with: Patient Anticipated discharge date: 07/06/[address]: Home A total of 45 minutes was spent on the care of this complex patient more than 50 % of the time was spent in counseling and care coordination.
[2018-07-05 14:28] LABS: Hemoglobin A1C 5.4 % (4.0-6.0)
--- NOTE | 2018-07-05 15:52 | MR ---
MR brain without contrast HISTORY: Dizziness Multiplanar multisequence imaging through the brain Correlation CT brain 10 20,018 There is no restricted diffusion. There is some increased signal on inversion recovery and T2-weighte d sequences within the hippocampus on the left as compared to the right, axial image 11 of the FLAIR sequence, coronal image 14 T2 data set. There is no hemorrhage or hydrocephalus. Inflammatory changes are present in the bilateral mastoid air cells. There are normal vascular flow voids. Corpus callosu m, pituitary, cervical medullary junction, cerebellopontine angles are normal. Orbits show symmetric appearance. Some scattered hyperintensities on T2 and inversion recovery sequences are present within the deep white matter. The largest in the right frontal white matter on axial image 16 measures 4 to 5 mm. There are approximately 10-20 lesions. IMPRESSION: Abnormal signal suspected within the left hippocampus on the left, consider follow-up. Co rrelate for bilateral mastoiditis. Nonspecific white matter demyelination.
[2018-07-05] MEDS: ONDANSETRON 4 MG/2 ML VIAL IVP PRN (18:20)
--- NOTE | 2018-07-05 18:49 | P.PN ---
Subjective Progress Note Date: 07/05/18 Patient is a 52-year-old female who is being followed by the neurology service for dizziness/vertigo. Patient states her dizziness is positional and has improved since admission. Patient complains of mild headache with certain positions. She does not have any occipital neuritis on exam. Computed tomography scan of the brain showed no acute intracranial process. Carotid Dopplers revealed less than 25% stenosis of bilateral internal carotids. Echocardiogram revealed normal left ventricular ejection fraction and normal LV wall thickness. EEG was ordered and not yet performed. At the time of my evaluation, patient is resting comfortably in bed and appears to be in no acute distress. Objective - Vital Signs Vital signs: Vital Signs Temp 97.3 F L 07/05/18 15:08 Pulse 73 07/05/18 16:00 Resp 16 07/05/18 16:00 BP 145/68 07/05/18 15:08 Pulse Ox 98 07/05/18 15:08 Intake & Output 07/04/18 07/05/18 07/05/18 18:59 06:59 18:59 Weight 86.183 kg Other: # Voids 1 3 - Exam PHYSICAL EXAM: GENERAL APPEARANCE: Patient is a well-developed, female who appears to be in no acute distress. HEENT: Normocephalic, atraumatic, no facial asymmetry is seen. Neck is supple with no masses felt. CARDIOVASCULAR: Regular rate and rhythm. ABDOMEN: Nontender, nondistended. EXTREMITIES: Show no edema or clubbing. NEUROLOGICAL EXAM: Patient is awake, alert, and oriented 3. Speech and language are normal. Strength is full in all 4 extremities. Sensory exam to light touch is normal in all 4 extremities. No facial asymmetry seen on cranial nerve testing. No tremors or seizure-like activity noted. No pronator drift is seen. - Labs CBC & Chem 7: 07/05/18 08:23 07/05/18 08:23 Labs: Abnormal Lab Results - Last 24 Hours (Table) 07/05/18 07/05/18 Range/Units 08:23 08:23 BUN 18 H (7-17) mg/dL Glucose 114 H (74-99) mg/dL Cholesterol 208 H (<200) mg/dL LDL Cholesterol, Calc 130 H (0-99) mg/dL HDL Cholesterol 66 H (40-60) mg/dL Homocysteine 16.45 H (4.00-14.00) umol/L Assessment and Plan Plan: Impression: 1. Dizziness/vertigo 2. Lightheadedness 3. Seizure disorder 4. History of multiple strokes Recommendation: Patient continues to report lightheadedness and complains of mild posterior neck discomfort. Patient does not have symptom of occipital neuritis on exam. Computed tomography scan was negative for any acute process. MRI of the brain shows abnormal signal suspected within the left hippocampus on the left. I will order an MRI with and without contrast. If MRI shows no acute brain findings, then cleared from neuro standpoint. She will need a ENT consult. Continue home dosing of seizure meds. EEG has not yet been performed. Carotid Doppler showed less than 25% stenosis in bilateral carotid arteries. Her fasting lipid panel is elevated and will start her on a low dose statin drug. Her serum homocysteine level is elevated and I will order Folbic QD. I recommend telemetry for possible cardiac arrhythmia. Patient had Holter monitor earlier this year in February which looks like it was negative for atrial fib or SVT. I recommend orthostatics and possible tilt table test. Continue meclizine when necessary. Continue low-dose aspirin. No neurological deficits at this time. Barring any abnormality on the new MRI, I will continue to follow with you on an as-needed basis. Feel free to call with any questions or concerns. I performed an examination of the patient and discussed the management with the AIRPORT RAMP SUPERVISOR. I have reviewed the AIRPORT RAMP SUPERVISOR notes and agree with the findings and plan of care.
[2018-07-05] MEDS ORDERED: MAG HYDROX/AL HYDROX/SIMETH 30 ML CUP PO PRN (20:01)
[2018-07-05] MEDS: HEPARIN SODIUM,PORCINE 5,000 UNIT/ML 1 ML VIAL SQ SCH (20:44)
[2018-07-05] MEDS: PANTOPRAZOLE 40 MG TABLET PO SCH (20:45)
[2018-07-05] MEDS: ATORVASTATIN 10 MG TAB PO SCH (20:45)
[2018-07-06] MEDS: PANTOPRAZOLE 40 MG TABLET PO SCH (07:11)
[2018-07-06] MEDS: LACOSAMIDE 50 MG TABLET PO SCH ×2 (07:11→22:18)
[2018-07-06] MEDS: ASPIRIN 81 MG PO SCH (07:11)
[2018-07-06] MEDS: lamoTRIgine 25 MG TAB PO SCH (07:11)
[2018-07-06] MEDS: HEPARIN SODIUM,PORCINE 5,000 UNIT/ML 1 ML VIAL SQ SCH ×2 (07:11→22:18)
[2018-07-06] MEDS: lamoTRIgine 100 MG TAB PO SCH ×2 (07:11→22:19)
--- NOTE | 2018-07-06 11:09 | P.PN ---
Subjective Progress Note Date: 07/06/18 The patient is a 52 yo F with PMH of seizure d/o who presented to the ED w/ c/o dizziness described as spinning sensation associated with positional head changes. Upon admission, she denied any viral URIs, hearing loss, tinnitus, headaches, fever, cough, SOB, head-trauma, or ear fullness. She was admitted under observation for w/u of vertigo. Neurology was consulted and recommended an EEG, MRI Brain, and carotid duplex. On 07/05/18, the patient noted that she continues to have positional vertigo though somewhat improved from admission. She also endorsed a mild headache with some positional component, in the L occipital region w/ no radiation. Carotid duplex revealed less than 25% stenosis of davis internal carotids. Echocardiogram revealed normal LVEF and normal LV wall thickness. MRI and EEG pending. Neurology also recommended Tilt- table-testing. On 07/06/18, the patient noted that her dizziness had further improved although only mildly. The patient otherwise denied weakness, numbness, tingling, visual disturbances, nausea, vomiting, abdominal pain, dysuria, cough , fever, or chills. MRI Brain w/o contrast showed abdominal signal within the L hippocampus and biateral mastoiditis with non-specific white matter demyelination. Repeat MRI with and without contrast was ordered by Neurology. [id number] was also ordered and is pending. Objective - Vital Signs Vital signs: Vital Signs Temp 98.1 F 07/06/18 08:35 Pulse 83 07/06/18 08:35 Resp 16 07/06/18 08:35 BP 113/80 07/06/18 08:35 Pulse Ox 98 07/06/18 08:35 Intake & Output 07/05/18 07/06/18 07/06/18 18:59 06:59 18:59 Intake Total 120 260 Balance 120 260 Intake: Oral 120 260 Other: Voiding Method Toilet Toilet # Voids 3 1 - Exam General: Non-toxic, in no acute distress HEENT: NC/AT, anicteric sclerae, moist conjunctiva, no lid-lag, PERRLA, oropharynx clear, no erythema, exudates Cardiovascular: S1/S2 wnl, no murmurs, rubs, or gallops Lungs: Clear to auscultation, normal respiratory effort, no accessory muscle use Abdominal: Soft, nontender, non-distended, no guarding, rebound, or rigidity, normoactive bowel sounds Skin: Warm, dry Extremities: No edema or contractures Psychiatric: Alert and oriented to person, place and time, appropriate affect, Intact judgment Neuro: CN II-XII grossly intact, no focal motor deficits, some vertigo elicited with passive head movements, sensation to light touch intact throughout, no tremors or seizure-like activity noted. - Labs CBC & Chem 7: 07/05/18 08:23 07/05/18 08:23 Labs: Abnormal Lab Results - Last 24 Hours (Table) 07/05/18 Range/Units 08:23 Homocysteine 16.45 H (4.00-14.00) umol/L Assessment and Plan Assessment: Vertigo - Repeat MRI w/ contrast and EEG pending - Tilt table testing pending - Neurology recs appreciated - Echocardiogram unremarkable - Carotid duplex < 25 % stenosis davis int carotids - C/w low-dose ASA - F/u PT/OT - C/w Meclizine prn UA positive - Likely a colonization. Will hold off on Abx at this time. Epilepsy - C/w Vimpat 50 mg qam and 100 mg qpm, Lamotrigine 200 mg bid, - Fall and seizure precautions DVT//GI prophylaxis - Heparin subq - No indication for GI prophylaxis Discussed with: Patient Anticipated discharge date: 07/07/[address]: Home A total of 45 minutes was spent on the care of this complex patient more than 50 % of the time was spent in counseling and care coordination.
[2018-07-06] MEDS: CYANOCOBALAMIN-FA-PYRIDOXINE 1 EACH TAB PO SCH (11:18)
[2018-07-06] MEDS: SODIUM CHLORIDE 0.9% 1,000 ML IV SCH (11:19)
--- NOTE | 2018-07-06 11:22 | MR ---
EXAMINATION TYPE: MR brain w con DATE OF EXAM: 07/06/2018 COMPARISON: Prior MR brain 07/05/2018 HISTORY: Abnormal MRI TECHNIQUE: Pre and postcontrast images of the brain and brainstem is performed with IV contrast, utilizing 8.5 m L intravenous Gadavist . FINDINGS: Increased signal along the left hippocampus is again noted. Intermediate signal is noted on T1-weighted images, there is no abnormal enhancement following contrast administration. White matter hyperintensities are noted mostly at the level of the deep white matter in the periventr icular location at the level of the posterior horns of the lateral ventricles and posterior parietal white matter. The ventricular system and cisternal spaces are normal in size and appearance. The bra in volume is age appropriate. Midline structures demonstrate minimal inferior cerebellar tonsillar ectopia. The dural venous sinus es appear patent. The visualized sinuses are clear and the globes are intact. Mastoid air cells show abnormal signal is noted on previous exam. IMPRESSION: White matter signal abnormalities. Abnormal signal along the left hippocampus does not sh ow corresponding enhancement. Follow-up suggested. Minimal inferior cerebellar tonsillar ectopia. Cor relate for mastoiditis. Temporal bone CT may be of benefit.
[2018-07-06] MEDS: ATORVASTATIN 10 MG TAB PO SCH (22:18)
[2018-07-06] MEDS ORDERED: SODIUM CHLORIDE 0.65% NASAL SPRAY 44 ML BTL NASAL PRN (23:51)
[2018-07-06] MEDS ORDERED: LORATADINE 10 MG TAB PO STA (23:51)
[2018-07-07] MEDS: LACOSAMIDE 50 MG TABLET PO SCH ×2 (07:45→20:58)
[2018-07-07] MEDS: HEPARIN SODIUM,PORCINE 5,000 UNIT/ML 1 ML VIAL SQ SCH ×2 (07:45→20:59)
[2018-07-07] MEDS: lamoTRIgine 100 MG TAB PO SCH ×2 (07:45→20:58)
[2018-07-07] MEDS: PANTOPRAZOLE 40 MG TABLET PO SCH (07:45)
[2018-07-07] MEDS: ASPIRIN 81 MG PO SCH (07:45)
[2018-07-07] MEDS: lamoTRIgine 25 MG TAB PO SCH (07:46)
--- NOTE | 2018-07-07 12:09 | P.PN ---
Subjective Progress Note Date: 07/07/18 The patient is a 52 yo F with PMH of seizure d/o who presented to the ED w/ c/o dizziness described as spinning sensation associated with positional head changes. Upon admission, she denied any viral URIs, hearing loss, tinnitus, headaches, fever, cough, SOB, head-trauma, or ear fullness. She was admitted under observation for w/u of vertigo. Neurology was consulted and recommended an EEG, MRI Brain, and carotid duplex. On 07/05/18, the patient noted that she continues to have positional vertigo though somewhat improved from admission. She also endorsed a mild headache with some positional component, in the L occipital region w/ no radiation. Carotid duplex revealed less than 25% stenosis of davis internal carotids. Echocardiogram revealed normal LVEF and normal LV wall thickness. MRI and EEG pending. Neurology also recommended Tilt- table-testing. On 07/06/18, the patient noted that her dizziness had further improved although only mildly. The patient otherwise denied weakness, numbness, tingling, visual disturbances, nausea, vomiting, abdominal pain, dysuria, cough , fever, or chills. MRI Brain w/o contrast showed abdominal signal within the L hippocampus and biateral mastoiditis with non-specific white matter demyelination. Repeat MRI with and without contrast showed white matter signal abrnoamlities w/ abnormal signal along the L hippocampus that does not show corresponding enhancement. [id number] was also ordered and is pending. On 07/07/18, the patient noted that her dizziness has nearly resolved and denied any associated symptoms including headache, weakness, numbness, tingling , visual changes, chest pain, cough, or SOB. Objective - Vital Signs Vital signs: Vital Signs Temp 98.4 F 07/07/18 07:42 Pulse 76 07/07/18 07:42 Resp 16 07/07/18 07:42 BP 118/73 07/07/18 07:42 Pulse Ox 95 07/07/18 07:42 Intake & Output 07/06/18 07/07/18 07/07/18 18:59 06:59 18:59 Intake Total 740 240 Balance 740 240 Intake: Intake, IV Titration 240 Amount Sodium Chloride 0.9% 1, 240 000 ml @ 20 mls/hr IV . Q24H [facility] Rx#:[id number] Oral 740 Other: Voiding Method Toilet Toilet # Voids 1 2 - Exam General: Non-toxic, in no acute distress HEENT: NC/AT, anicteric sclerae, moist conjunctiva, no lid-lag, PERRLA, oropharynx clear, no erythema, exudates Cardiovascular: S1/S2 wnl, no murmurs, rubs, or gallops Lungs: Clear to auscultation, normal respiratory effort, no accessory muscle use Abdominal: Soft, nontender, non-distended, no guarding, rebound, or rigidity, normoactive bowel sounds Skin: Warm, dry Extremities: No edema or contractures Psychiatric: Alert and oriented to person, place and time, appropriate affect, Intact judgment Neuro: CN II-XII grossly intact, no focal motor deficits, sensation to light touch intact throughout, no tremors or seizure-like activity noted. - Labs CBC & Chem 7: 07/05/18 08:23 07/05/18 08:23 Assessment and Plan Assessment: Vertigo, dizziness, nearly resolved - Repeat MRI w/ contrast w/ abnormal white matter signaling. EEG pending. Will discuss with Neurology - Tilt table testing pending - Echocardiogram unremarkable - Carotid duplex < 25 % stenosis davis int carotids - C/w low-dose ASA - C/w Meclizine prn UA positive - Likely a colonization. Will hold off on Abx at this time. Epilepsy - C/w Vimpat 50 mg qam and 100 mg qpm, Lamotrigine 200 mg bid, - Fall and seizure precautions DVT//GI prophylaxis - Heparin subq - No indication for GI prophylaxis Discussed with: Patient Anticipated discharge date: 07/08/[address]: Home A total of 45 minutes was spent on the care of this complex patient more than 50 % of the time was spent in counseling and care coordination.
[2018-07-07] MEDS ORDERED: IV FLUID CONTINUATION 1,000 ML IV ONE (12:42)
[2018-07-07] MEDS: SODIUM CHLORIDE 0.9% 1,000 ML IV SCH (13:49)
[2018-07-07] MEDS: CYANOCOBALAMIN-FA-PYRIDOXINE 1 EACH TAB PO SCH (15:22)
[2018-07-07] MEDS: ATORVASTATIN 10 MG TAB PO SCH (20:58)
[2018-07-08 01:46] VITALS: RESP 15
--- NOTE | 2018-07-08 08:01 | P.PCN ---
Preoperative Diagnosis: Tilt table test report Diagnosis Dizziness, lightheadedness and loss of consciousness Twelve-lead ECG shows sinus rhythm normal OK narrow QRS Q-wave in the inferior leads and T-wave inversions V1 through V4 normal OK narrow QRS normal QT interval no delta waves no epsilon waves Baseline blood pressure 129/70 [place] of his mercury baseline 175 beats a minute patient was tilted upright at an angle of 70 per protocol there was a sudden drop in blood pressure 20 minutes low-dose blood pressure recorded 50/33 mmHg. She felt lightheaded and presyncopal and when she was laid supine her blood pressure normalized. Impression Twelve-lead ECG shows Q waves in the inferior leads Positive tilt table test, vasodepressive response to upright tilting Anesthesia: none
[2018-07-08] MEDS: PANTOPRAZOLE 40 MG TABLET PO SCH (08:21)
[2018-07-08] MEDS: lamoTRIgine 100 MG TAB PO SCH (08:21)
[2018-07-08] MEDS: ASPIRIN 81 MG PO SCH (08:21)
[2018-07-08] MEDS: lamoTRIgine 25 MG TAB PO SCH (08:22)
[2018-07-08] MEDS: HEPARIN SODIUM,PORCINE 5,000 UNIT/ML 1 ML VIAL SQ SCH (08:22)
[2018-07-08] MEDS: LACOSAMIDE 50 MG TABLET PO SCH (08:22)
[2018-07-08] MEDS: ONDANSETRON 4 MG/2 ML VIAL IVP PRN (08:29)
[2018-07-08] MEDS: CYANOCOBALAMIN-FA-PYRIDOXINE 1 EACH TAB PO SCH (12:17)
[2018-07-08] MEDS: SODIUM CHLORIDE 0.9% 1,000 ML IV SCH (12:19)
[2018-07-08 15:34] VITALS: BP 132/72; PULSE 79; TEMP 97.5
--- NOTE | 2018-07-08 15:50 | P.PN ---
Subjective Progress Note Date: 07/08/18 The patient is a 52 yo F with PMH of seizure d/o who presented to the ED w/ c/o dizziness described as spinning sensation associated with positional head changes. Upon admission, she denied any viral URIs, hearing loss, tinnitus, headaches, fever, cough, SOB, head-trauma, or ear fullness. She was admitted under observation for w/u of vertigo. Neurology was consulted and recommended an EEG, MRI Brain, and carotid duplex. On 07/05/18, the patient noted that she continues to have positional vertigo though somewhat improved from admission. She also endorsed a mild headache with some positional component, in the L occipital region w/ no radiation. Carotid duplex revealed less than 25% stenosis of davis internal carotids. Echocardiogram revealed normal LVEF and normal LV wall thickness. MRI and EEG pending. Neurology also recommended Tilt- table-testing. On 07/06/18, the patient noted that her dizziness had further improved although only mildly. The patient otherwise denied weakness, numbness, tingling, visual disturbances, nausea, vomiting, abdominal pain, dysuria, cough , fever, or chills. MRI Brain w/o contrast showed abdominal signal within the L hippocampus and biateral mastoiditis with non-specific white matter demyelination. Repeat MRI with and without contrast showed white matter signal abrnoamlities w/ abnormal signal along the L hippocampus that does not show corresponding enhancement. Rqxs-[id number]-cvrysbz was positive w/ drop in blood pressure and presyncope. The patient had recurrence of her dizziness during the test but notes that the symptoms were milder. The patient also noted that her symptoms at home are typically when she wakes up in the morning and is laying in bed and aren't exacerbated by prolonged standing or suddenly standing etc. She was seen and examined at the bedside. She notes that her dizziness occurs much less frequently but she continues to have intermittent episodes, with unclean inciting factors. She denied weakness, numbness, tingling, headache, visual changes, fever, chills, cough, chest pain, or SOB. Objective - Vital Signs Vital signs: Vital Signs Temp 96.9 F L 07/08/18 08:02 Pulse 88 07/08/18 11:17 Resp 15 07/08/18 11:17 BP 131/69 07/08/18 08:02 Pulse Ox 95 07/08/18 08:02 Intake & Output 07/07/18 07/08/18 07/08/18 18:59 06:59 18:59 Intake Total 390 1800 140 Balance 390 1800 140 Intake: IV 50 Intake, IV Titration 100 1800 140 Amount Sodium Chloride 0.9% 1, 100 1800 140 000 ml @ 20 mls/hr IV . Q24H [facility] Rx#:[id number] Oral 240 Other: Voiding Method Toilet Toilet # Voids 2 1 - Exam General: Non-toxic, in no acute distress, appears stated age HEENT: NC/AT, anicteric sclerae, moist conjunctiva, no lid-lag, PERRLA Cardiovascular: S1/S2 wnl, no murmurs, rubs, or gallops Lungs: Clear to auscultation, normal respiratory effort, no accessory muscle use Abdominal: Soft, nontender, non-distended, no guarding, rebound, or rigidity Skin: Warm, dry Extremities: No edema or contractures Psychiatric: Alert and oriented to person, place and time, appropriate affect, Intact judgment Neuro: CN II-XII grossly intact, Strength 5/5 in all 4 extremities, Speech intact, Sensation to light touch grossly intact throughout - Labs CBC & Chem 7: 07/05/18 08:23 07/05/18 08:23 Assessment and Plan Assessment: Vertigo, dizziness, nearly resolved - Repeat MRI w/ contrast w/ abnormal white matter signaling. EEG pending. Called Neurology office, awaiting return phone call. - Tilt table test positive - Echocardiogram unremarkable - Carotid duplex < 25 % stenosis davis int carotids - C/w low-dose ASA - C/w Meclizine prn UA positive - Likely a colonization. Will hold off on Abx at this time. Epilepsy - C/w Vimpat 50 mg qam and 100 mg qpm, Lamotrigine 200 mg bid, - Fall and seizure precautions DVT//GI prophylaxis - Heparin subq - No indication for GI prophylaxis Discussed with: Patient Anticipated discharge date: 07/09/[address]: Home A total of 45 minutes was spent on the care of this complex patient more than 50 % of the time was spent in counseling and care coordination.
--- NOTE | 2018-07-08 16:44 | CT ---
EXAMINATION TYPE: CT posterior fossa wow con DATE OF EXAM: 07/08/2018 COMPARISON: None HISTORY: Dizziness CT DLP: mGycm Automated exposure control for dose reduction was used. CONTRAST: Performed , patient injected with 100 mL of . Isovue FINDINGS: The external auditory canals appear normal. There is normal aeration of the middle ear cavity. There is normal bilateral aeration of the epitympanic recess. The cochlea and semicircular canals are symme tric. I see no focal bone destruction. There is mild mucosal thickening in the mastoid air cells bila terally. The internal auditory canals are symmetric. There is no evidence of cerebellopontine angle m ass. I see no pathologic enhancement. There is normal contrast opacification of the venous sinuses. T here is arterial flow in the vertebrobasilar artery system. The fourth ventricle is in the midline. T here is no evidence of posterior fossa mass. IMPRESSION: THERE IS EVIDENCE OF MILD BILATERAL MASTOIDITIS. OTHERWISE NEGATIVE EXAM. 100
--- NOTE | 2018-07-08 17:50 | P.DS ---
Providers Date of admission: 07/04/18 14:30 Expected date of discharge: 07/08/18 Attending physician: Ion Meyers MD Consults: 07/04/18 14:32 Consult Physician Routine Consulting Provider: Neymar France Consult Reason/Comments: Vertigo, intractable Do you want consulting provider notified?: Yes 07/06/18 10:54 Consult Physician Urgent Consulting Provider: Christofer Mejia Consult Reason/Comments: Davis mastoiditis w/ dizziness Do you want consulting provider notified?: Yes Primary care physician: Stated None Hospital Course: The patient is a 52 yo F with PMH of seizure d/o who presented to the ED w/ c/o dizziness described as spinning sensation associated with positional head changes. Upon admission, she denied any URIs, hearing loss, tinnitus, headaches , fever, cough, SOB, head-trauma, or ear fullness. She was admitted under observation for w/u of vertigo. Neurology was consulted and recommended an EEG, MRI Brain, and carotid duplex. On 07/05/18, the patient noted that she continues to have positional vertigo though somewhat improved from admission. She also endorsed a mild headache with some positional component, in the L occipital region w/ no radiation. Carotid duplex revealed less than 25% stenosis of davis internal carotids. Echocardiogram revealed normal LVEF and normal LV wall thickness. MRI and EEG pending. Neurology also recommended Tilt- table-testing. On 07/06/18, the patient noted that her dizziness had further improved although only mildly. The patient otherwise denied weakness, numbness, tingling, visual disturbances, nausea, vomiting, abdominal pain, dysuria, cough , fever, or chills. MRI Brain w/o contrast showed abdominal signal within the L hippocampus and biateral mastoiditis with non-specific white matter demyelination. Repeat MRI with and without contrast showed white matter signal abrnoamlities w/ abnormal signal along the L hippocampus that does not show corresponding enhancement. Wepk-[id number]-[id number] was positive w/ drop in blood pressure and presyncope. The patient had recurrence of her dizziness during the test but notes that the symptoms were milder. The patient also noted that her symptoms at home are typically when she wakes up in the morning and is laying in bed and aren't exacerbated by prolonged standing or suddenly standing etc. Discussed the findings of MRI w/ contrast w/ Neurologist Dr France who noted that abnormal signal likely secondary to previous stroke and that since there is no corresponding enhancement, the patient would need a repeat MRI in 4-6 months. Discussed the case with ENT who noted that the patient was previously seen at their office and worked up for dizziness and that she can follow-up as an outpatient. The patient is presently stable, agreeable, and ready for discharge home w/ home-health w/ Neurology and ENT follow-ups. Physical Examination General: Non-toxic, in no acute distress, appears stated age HEENT: NC/AT, anicteric sclerae, moist conjunctiva, no lid-lag, PERRLA Cardiovascular: S1/S2 wnl, no murmurs, rubs, or gallops Lungs: Clear to auscultation, normal respiratory effort, no accessory muscle use Abdominal: Soft, nontender, non-distended, no guarding, rebound, or rigidity Skin: Warm, dry Extremities: No edema or contractures Psychiatric: Alert and oriented to person, place and time, appropriate affect, Intact judgment Neuro: CN II-XII grossly intact, Strength 5/5 in all 4 extremities, Speech intact, Sensation to light touch grossly intact throughout Discharge diagnosis: Dizziness possibly vasovagal vs due to chronic mastoiditis , Epilepsy, Hyperlipidemia A total of 60 minutes of time were spent preparing this complex discharge summary. Patient Condition at Discharge: Good Plan - Discharge Summary Discharge Rx Participant: Yes New Discharge Prescriptions: New Meclizine [Antivert] 25 mg PO QID PRN #30 tab PRN Reason: Vertigo Continue lamoTRIgine [LaMICtal] 200 mg PO BID Ranitidine HCl 150 mg PO BID lamoTRIgine [LaMICtal] 25 mg PO DAILY Lacosamide [Vimpat] 50 mg PO QAM Lacosamide [Vimpat] 100 mg PO HS Ergocalciferol (Vitamin D2) [Vitamin D2] 50,000 unit PO Q7D Discharge Medication List lamoTRIgine [LaMICtal] 200 mg PO BID 09/29/14 [History] Ranitidine HCl 150 mg PO BID 06/25/15 [History] Ergocalciferol (Vitamin D2) [Vitamin D2] 50,000 unit PO Q7D 07/04/18 [History] Lacosamide [Vimpat] 50 mg PO QAM 07/04/18 [History] Lacosamide [Vimpat] 100 mg PO HS 07/04/18 [History] lamoTRIgine [LaMICtal] 25 mg PO DAILY 07/04/18 [History] Meclizine [Antivert] 25 mg PO QID PRN #30 tab 07/08/18 [Rx] Follow up Appointment(s)/Referral(s): Christofer Mejia DO [Doctor of Osteopathic Medicine] - [facility], [NON-STAFF] - As Needed Neymar France MD [STAFF PHYSICIAN] - 1 Week Aubrey Mascorro MD [STAFF PHYSICIAN] - 07/20/18 8:15 am Kerry Baltazar MD [STAFF PHYSICIAN] - 1-2 days Patient Instructions/Handouts: Vertigo (DC), Mastoiditis (DC) Discharge Disposition: HOME WITH HOME HEALTH SERVICES
== END 2018-07-08 17:24 | disposition home health service (06) | DRG 149 ==
LOC: EC 11:37 → 4SSUR 14:30 → OBSVTOIN 07-07 08:36
PROVIDERS: ADMIT Family Medicine; ATTEND Family Medicine
PROC: 4A02XFZ Measurement of Cardiac Rhythm, External Approach (ICD-10-PCS; principal; 2018-07-08)
PROC: 4A03XB1 Measurement of Arterial Pressure, Peripheral, External Approach (ICD-10-PCS; 2018-07-08)
DX: R42 Dizziness and giddiness (principal); I65.23 Occlusion and stenosis of bilateral carotid arteries; R55 Syncope and collapse; H70.13 Chronic mastoiditis, bilateral; E78.5 Hyperlipidemia, unspecified; G40.909 Epilepsy, unspecified, not intractable, without status epilepticus; K21.9 Gastro-esophageal reflux disease without esophagitis; Z79.899 Other long term (current) drug therapy; Z86.73 Personal history of transient ischemic attack (TIA), and cerebral infarction without residual deficits; Z87.442 Personal history of urinary calculi; Z88.1 Allergy status to other antibiotic agents; Z88.0 Allergy status to penicillin; Z88.2 Allergy status to sulfonamides; Z88.8 Allergy status to other drugs, medicaments and biological substances; Z82.49 Family history of ischemic heart disease and other diseases of the circulatory system; Z83.3 Family history of diabetes mellitus
CPT/HCPCS: 36415; 70450; 70482; 70551; 70552; 71046; 80048; 80053; 80061; 81001; 83036; 83090; 83735; 83880; 84484; 85025; 93005; 93306; 93660; 93880; 95816; 96361; 96374; 96375; 99285

== ENCOUNTER → 2018-08-18 | Outpatient (CLI) | payer MEDICARE, OTHER ==
--- NOTE | 2018-08-20 17:37 | ENG ---
ELECTRONYSTAGMOGRAM REPORT VIDEO-ASSISTED ELECTRONYSTAGMOGRAM REPORT: INDICATIONS: Vertigo, ongoing since April 2018, sudden onset, slowly improving. Vertigo can be precipitated by head and neck and body positions. VNG FINDINGS: Saccades shows intact peak velocities, accuracies and latencies. Gaze with fixation shows no nystagmus in any of the directions of gaze, including centrally with vision denied. Tracking shows no significant breakups. Optokinetic nystagmus shows no significant asymmetry at faster or slower speeds. Static position testing in 6 different positions with eyes open and then with vision denied shows no nystagmus. Elise-Hallpike maneuver is not performed. Caloric testing shows bilateral caloric weakness. IMPRESSION: This VNG shows bilateral caloric weakness, and so vestibular dysfunction cannot be determined. Another test such as the head thrust test or, if available, active and passive rotation testing is required to confirm presence of bilateral vestibular dysfunction. Other features of this VNG are unremarkable, showing no central nervous system features or dysfunction. Note that [place]-Hallpike maneuvers were not performed. MMODL / IJN: [id number] /
== END | disposition home or self-care (01) ==
LOC: NEUROMAIN 08:50
PROVIDERS: ATTEND Otolaryngology
DX: R42 Dizziness and giddiness (principal); R53.1 Weakness
CPT/HCPCS: 92537; 92540

== ENCOUNTER → 2018-11-15 | Outpatient (CLI) | payer MEDICARE, OTHER ==
--- NOTE | 2018-11-15 16:40 | MR ---
EXAMINATION TYPE: MR brain wo/w con DATE OF EXAM: 11/15/2018 COMPARISON: MRI brain of July 05 and July 06, 2018 HISTORY: Partial Epilepsy TECHNIQUE: Multiplanar, multisequence images of the brain and brainstem is performed without and with IV contras t, utilizing 8.5 mL intravenous Gadavist . FINDINGS: Diffusion weighted images demonstrate no evidence of a recent infarct or other diffusion ab normality. There is no worrisome extra-axial fluid collection. The ventricular system and cisternal spaces are normal in size and appearance. The brain volume is age appropriate. T2 coronal weighted images show hippocampal gyri to appear symmetric and felt within normal limits. Some scattered foci o f T2 hyperintensity are redemonstrated throughout the white matter bilaterally. Approximately 10 lesi ons are again seen. There is persistent vague area of increased T2 signal medial aspect left temporal lobe axial image 11 without enhancement. Midline structures demonstrate normal morphology. The craniocervical junction appears within normal limits. Post contrast images demonstrate no abnormal enhancement. The dural venous sinuses appear pa tent. The visualized sinuses are clear and the globes are intact. Increased fluid signal bilateral ma stoid air cells remains present. IMPRESSION: No significant interval change, mild to minimal nonspecific white matter changes, bilater al mastoid fluid, and abnormal T2 signal medial aspect left temporal lobe all redemonstrated.
== END | disposition home or self-care (01) ==
LOC: RADMRIMAIN 13:42
PROVIDERS: ATTEND Psychiatry & Neurology Neurology
DX: R90.82 White matter disease, unspecified (principal)
CPT/HCPCS: 70553; A9585

== ENCOUNTER → 2018-11-24 | Outpatient (CLI) | payer MEDICARE, OTHER ==
[2018-11-25 10:47] LABS: Lamotrigine (Lamictal) 15.5 ug/mL (2.0-15.0)
== END | disposition home or self-care (01) ==
LOC: LABWHC1 07:47
PROVIDERS: ATTEND Psychiatry & Neurology Neurology
DX: G40.209 Localization-related (focal) (partial) symptomatic epilepsy and epileptic syndromes with complex partial seizures, not intractable, without status epilepticus (principal)
CPT/HCPCS: 36415; 80175; 80339

== ENCOUNTER 2019-10-21 02:43 | Emergency (ER) | payer MEDICARE, OTHER ==
[2019-10-21 02:50] VITALS: TEMP 97.7
[2019-10-21] MEDS ORDERED: KETOROLAC 30 MG/ML 1 ML VIAL IVP STA (02:59)
[2019-10-21] MEDS ORDERED: ONDANSETRON 4 MG/2 ML VIAL IVP STA (02:59)
[2019-10-21] MEDS ORDERED: SODIUM CHLORIDE 0.9% 1,000 ML IV STA (02:59)
--- NOTE | 2019-10-21 03:10 | ED ---
General Adult HPI - General Source: patient, RN notes reviewed Mode of arrival: ambulatory Limitations: no limitations <Jamil Roca P - Last Filed: 10/21/19 03:00> <Laura Boothe P - Last Filed: 10/21/19 21:30> - General Chief complaint: Abdominal Pain Stated complaint: Poss Kidney Stones Time Seen by Provider: 10/21/19 02:51 - History of Present Illness Initial comments: 54-year-old female with a past medical history of GERD, numerous kidney stones presents to the emergency department for a chief complaint of right sided flank pain. Patient states this feels exactly like previous kidney sounds. States it started up approximately a few hours prior to arrival. States that she has some associated nausea. Denies vomiting. Patient does admit that the pain radiates around to the right upper and lower abdomen. Denies fevers chills. Denies dysuria.Patient has no other complaints at this time including shortness of breath, chest pain, nausea or vomiting, headache, or visual changes. ( Jamil Roca) - Related Data Home Medications Medication Instructions Recorded Confirmed lamoTRIgine [LaMICtal] 200 mg PO BID 09/29/14 07/07/18 Ranitidine HCl 150 mg PO BID 06/25/15 07/07/18 Ergocalciferol (Vitamin D2) 50,000 unit PO Q7D 07/04/18 07/07/18 [Vitamin D2] Lacosamide [Vimpat] 50 mg PO QAM 07/04/18 07/07/18 Lacosamide [Vimpat] 100 mg PO HS 07/04/18 07/07/18 lamoTRIgine [LaMICtal] 25 mg PO DAILY 07/04/18 07/07/18 Previous Rx's Medication Instructions Recorded Meclizine [Antivert] 25 mg PO QID PRN #30 tab 07/08/18 Nitrofurantoin Monohyd/M-Cryst 100 mg PO Q12HR #10 cap 10/21/19 [Macrobid] Allergies Allergy/AdvReac Type Severity Reaction Status Date / Time cephalexin Allergy Unknown Verified 10/21/19 02:50 erythromycin base Allergy Unknown Verified 10/21/19 02:50 escitalopram oxalate Allergy Unknown Verified 10/21/19 02:50 [From Lexapro] Penicillins Allergy Unknown Verified 10/21/19 02:50 Sulfa (Sulfonamide Allergy Unknown Verified 10/21/19 02:50 Antibiotics) naproxen [From Naprosyn] AdvReac dry, runny Verified 10/21/19 02:50 nose tamsulosin AdvReac dry, runny Verified 10/21/19 02:50 nose Review of Systems ROS Other: All systems not noted in ROS Statement are negative. <Jamil Roca P - Last Filed: 10/21/19 03:00> ROS Other: All systems not noted in ROS Statement are negative. <Laura Boothe P - Last Filed: 10/21/19 21:30> ROS Statement: Those systems with pertinent positive or pertinent negative responses have been documented in the HPI. 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 History of Any Multi-Drug Resistant Organisms: None Reported Past Surgical History: Breast Surgery, Orthopedic Surgery Additional Past Surgical History / Comment(s): LITHOTRIPSY , BREAST BX X 1 -PT NOT SURE WHICH ONE, LT KNEE SURGERY Past Anesthesia/Blood Transfusion Reactions: No Reported Reaction Past Psychological History: No Psychological Hx Reported Smoking Status: Never smoker Past Alcohol Use History: None Reported Past Drug Use History: None Reported - Past Family History Father Additional Family Medical History / Comment(s): HEART PROBLEMS heart stint placed Mother Family Medical History: Diabetes Mellitus <Jamil Roca P - Last Filed: 10/21/19 03:00> General Exam Limitations: no limitations General appearance: alert, in no apparent distress Head exam: Present: atraumatic, normocephalic, normal inspection Eye exam: Present: normal appearance, PERRL, EOMI. Absent: scleral icterus, conjunctival injection, periorbital swelling ENT exam: Present: normal exam, mucous membranes moist Neck exam: Present: normal inspection, full ROM. Absent: tenderness, meningismus, lymphadenopathy Respiratory exam: Present: normal lung sounds bilaterally. Absent: respiratory distress, wheezes, rales, rhonchi, stridor Cardiovascular Exam: Present: regular rate, normal rhythm, normal heart sounds. Absent: systolic murmur, diastolic murmur, rubs, gallop, clicks GI/Abdominal exam: Present: soft, normal bowel sounds. Absent: distended, tenderness, guarding, rebound, rigid Neurological exam: Present: alert <Jamil Roca P - Last Filed: 10/21/19 03:00> Course Vital Signs 10/21/19 10/21/19 02:45 04:19 Temperature 97.7 F Pulse Rate 77 60 Respiratory 16 18 Rate Blood Pressure 181/79 130/77 O2 Sat by Pulse 95 100 Oximetry Medical Decision Making - Lab Data Result diagrams: 10/21/19 03:10 10/21/19 03:10 <Laura Boothe - Last Filed: 10/21/19 21:30> - Medical Decision Making She care was signed out to me at shift change, stiff she 4-year-old female with a history of kidney stones presenting to the ER with flank pain as well as 2 days of dysuria. At time of sign urinalysis and labs were pending. Labs resulted no significant abnormalities however urinalysis is concerning for possible urinary tract infection. Given the patient's multiple medication AL LERGIES decision was made to culture the urine and initiate treatment with Macrobid. First dose of antibiotic was given in the emergency department patient was provided with an antibiotic prescription. All questions pertaining care were answered return parameters were discussed patient was discharged home in stable condition. (Laura Boothe) - Lab Data Lab Results 10/21/19 10/21/19 10/21/19 Range/Units 03:10 03:10 03:10 WBC 8.4 (3.8-10.6) k/uL RBC 4.53 (3.80-5.40) m/uL Hgb 14.2 (11.4-16.0) gm/dL Hct 42.4 (34.0-46.0) % MCV 93.6 (80.0-100.0) fL MCH 31.4 (25.0-35.0) pg MCHC 33.6 (31.0-37.0) g/dL RDW 12.4 (11.5-15.5) % Plt Count 366 (150-450) k/uL Neutrophils % 59 % Lymphocytes % 31 % Monocytes % 6 % Eosinophils % 1 % Basophils % 1 % Neutrophils # 5.0 (1.3-7.7) k/uL Lymphocytes # 2.6 (1.0-4.8) k/uL Monocytes # 0.5 (0-1.0) k/uL Eosinophils # 0.0 (0-0.7) k/uL Basophils # 0.1 (0-0.2) k/uL Sodium 138 (137-145) mmol/L Potassium 4.4 (3.5-5.1) mmol/L Chloride 105 (98-107) mmol/L Carbon Dioxide 23 (22-30) mmol/L Anion Gap 10 mmol/L BUN 20 H (7-17) mg/dL Creatinine 0.91 (0.52-1.04) mg/dL Est GFR (CKD-EPI)AfAm 82 (>60 ml/min/1.73 sqM) Est GFR (CKD-EPI)NonAf 71 (>60 ml/min/1.73 sqM) Glucose 123 H (74-99) mg/dL Calcium 9.9 (8.4-10.2) mg/dL Total Bilirubin 0.5 (0.2-1.3) mg/dL AST 22 (14-36) U/L ALT 15 (4-34) U/L Alkaline Phosphatase 179 H (38-126) U/L Total Protein 8.1 (6.3-8.2) g/dL Albumin 4.5 (3.5-5.0) g/dL Amylase 63 (30-110) U/L Lipase 126 (23-300) U/L Urine Color Yellow Urine Appearance Cloudy H (Clear) Urine pH 6.0 (5.0-8.0) Ur Specific [place] 1.027 (1.001-1.035) Urine Protein 1+ H (Negative) Urine Glucose (UA) Negative (Negative) Urine Ketones Negative (Negative) Urine Blood Small H (Negative) Urine Nitrite Negative (Negative) Urine Bilirubin Negative (Negative) Urine Urobilinogen <2.0 (<2.0) mg/dL Ur Leukocyte Esterase Negative (Negative) Urine RBC 34 H (0-5) /hpf Urine WBC >182 H (0-5) /hpf Ur Squamous Epith Cells 18 H (0-4) /hpf Urine Bacteria Occasional H (None) /hpf Urine Mucus Few H (None) /hpf Disposition <Jamil Roca P - Last Filed: 10/21/19 03:00> Is patient prescribed a controlled substance at d/c from ED?: No <Laura Boothe P - Last Filed: 10/21/19 21:30> Clinical Impression: UTI (urinary tract infection) Disposition: HOME SELF-CARE Condition: Stable Instructions (If sedation given, give patient instructions): Urinary Tract Infection in Women (DC) Prescriptions: Nitrofurantoin Monohyd/M-Cryst [Macrobid] 100 mg PO Q12HR #10 cap Referrals: None,Stated [Primary Care Provider] - 1-2 days
[2019-10-21 03:23] LABS: Basophils # (A) 0.1 k/uL (0-0.2); Basophils % (A) 1 %; Eosinophils % (A) 1 %; HCT 42.4 % (34.0-46.0); HGB 14.2 gm/dL (11.4-16.0); Lymphocytes # (A) 2.6 k/uL (1.0-4.8); Lymphocytes % (A) 31 %; MCH 31.4 pg (25.0-35.0); MCHC 33.6 g/dL (31.0-37.0); MCV 93.6 fL (80.0-100.0); Mean Platelet Volume 7.9; Monocytes # (A) 0.5 k/uL (0-1.0); Monocytes % (A) 6 %; Neutrophils % (A) 59 %; Platelet Count 366 k/uL (150-450); RBC 4.53 m/uL (3.80-5.40); RDW 12.4 % (11.5-15.5); WBC 8.4 k/uL (3.8-10.6)
--- NOTE | 2019-10-21 03:25 | XR ---
EXAMINATION TYPE: XR KUB DATE OF EXAM: 10/21/2019 COMPARISON: 01/05/2017 HISTORY: Abdominal pain TECHNIQUE: 2 views upright FINDINGS: Bowel gas pattern is normal. There is no sign of intestinal obstruction or pneumoperitoneum . Fecal pattern is normal. There is no evidence of a mass. There are no pathologic calcifications ove r the kidneys. IMPRESSION: Nonacute abdomen. No change.
[2019-10-21 03:31] LABS: Albumin 4.5 g/dL (3.5-5.0); Calcium 9.9 mg/dL (8.4-10.2); Potassium 4.4 mmol/L (3.5-5.1); Total Bilirubin 0.5 mg/dL (0.2-1.3); Total Protein 8.1 g/dL (6.3-8.2)
[2019-10-21 03:34] LABS: Appearance,Urine Cloudy (Clear); Bacteria,Urine Occasional /hpf; Bilirubin,Urine Negative (Negative); Blood,Urine Small (Negative); Color,Urine Yellow; Glucose,Urine (UA) Negative (Negative); Ketones,Urine Negative (Negative); Leukocyte Esterase,Urine Negative (Negative); Mucus,Urine Few /hpf; Nitrite,Urine Negative (Negative); Protein,Urine 1+ (Negative); RBC,Urine 34 /hpf (0-5); Specific Gravity,Urine 1.027 (1.001-1.035); Squamous Epithelial Cell,Urine 18 /hpf (0-4); Urobilinogen,Urine <2.0 mg/dL (<2.0); WBC,Urine >182 /hpf (0-5)
[2019-10-21] MEDS ORDERED: NITROFURANTOIN MONOHYD/M-CRYST 100 MG CAP PO STA (03:53)
[2019-10-21 04:21] VITALS: BP 130/77; PULSE 60; RESP 18
== END 2019-10-21 04:19 | disposition home or self-care (01) ==
LOC: EC 02:43
DX: N39.0 Urinary tract infection, site not specified (principal); K21.9 Gastro-esophageal reflux disease without esophagitis; G40.909 Epilepsy, unspecified, not intractable, without status epilepticus; Z88.0 Allergy status to penicillin; Z88.1 Allergy status to other antibiotic agents; Z88.2 Allergy status to sulfonamides; Z88.6 Allergy status to analgesic agent; Z88.8 Allergy status to other drugs, medicaments and biological substances; Z79.899 Other long term (current) drug therapy; Z98.890 Other specified postprocedural states
CPT/HCPCS: 99284; 96374; 96375; 96361; 36415; 80053; 82150; 83690; 85025; 81001; 87086; 74018; J2405; J1885

== ENCOUNTER 2019-11-19 22:06 | Inpatient (IN) | payer MEDICARE, OTHER ==
[2019-11-19] MEDS ORDERED: SODIUM CHLORIDE 0.9% 1,000 ML IV STA (22:31)
[2019-11-19 22:48] LABS: Basophils % (A) 0 %; Eosinophils % (A) 0 %; HCT 41.6 % (34.0-46.0); HGB 13.2 gm/dL (11.4-16.0); Lymphocytes % (A) 28 %; MCH 30.2 pg (25.0-35.0); MCHC 31.8 g/dL (31.0-37.0); MCV 94.7 fL (80.0-100.0); Mean Platelet Volume 7.6; Monocytes # (A) 0.5 k/uL (0-1.0); Monocytes % (A) 7 %; Neutrophils # (A) 4.3 k/uL (1.3-7.7); Neutrophils % (A) 62 %; Platelet Count 315 k/uL (150-450); RBC 4.39 m/uL (3.80-5.40); RDW 12.4 % (11.5-15.5); WBC 7.1 k/uL (3.8-10.6)
[2019-11-19 22:58] LABS: Albumin 4.4 g/dL (3.5-5.0); Calcium 9.3 mg/dL (8.4-10.2); Potassium 3.7 mmol/L (3.5-5.1); Total Bilirubin 0.2 mg/dL (0.2-1.3); Total Protein 7.6 g/dL (6.3-8.2)
[2019-11-19] MEDS ORDERED: MORPHINE SULFATE 4 MG/ML SYRINGE IVP STA (23:00)
[2019-11-19] MEDS ORDERED: ONDANSETRON 4 MG/2 ML VIAL IVP STA (23:00)
--- NOTE | 2019-11-19 23:07 | XR ---
EXAMINATION TYPE: XR KUB DATE OF EXAM: 11/19/2019 COMPARISON: 10/21/2019 HISTORY: Abdominal pain TECHNIQUE: FINDINGS: 2 views supine were obtained. Bowel gas pattern is normal. There is no sign of intestinal o bstruction or pneumoperitoneum. Lung bases are clear. Fecal pattern is normal. There are no pathologi c calcifications. IMPRESSION: Nonacute abdomen. No change.
--- NOTE | 2019-11-19 23:42 | ED ---
Abdominal Pain HPI - General Chief Complaint: Abdominal Pain Stated Complaint: Abdominal pain, back pain Time Seen by Provider: 11/19/19 22:15 Source: patient, family Mode of arrival: ambulatory Limitations: no limitations - History of Present Illness Initial Comments: Luli is a 54-year-old female who presents to the emergency department today for evaluation of suprapubic abdominal pain. Patient has a history of kidney stones or recurrent UTIs. Patient reports that this afternoon she began having suprapubic abdominal discomfort which is progressively worsened throughout the evening prompting her to come to the ER for evaluation. Patient does report some radiation of the discomfort to her right flank. She denies any vomiting but reports feeling nauseated with this discomfort. She denies any change in bowel habits. - Related Data Home Medications Medication Instructions Recorded Confirmed lamoTRIgine [LaMICtal] 200 mg PO BID 09/29/14 07/07/18 Ranitidine HCl 150 mg PO BID 06/25/15 07/07/18 Ergocalciferol (Vitamin D2) 50,000 unit PO Q7D 07/04/18 07/07/18 [Vitamin D2] Lacosamide [Vimpat] 50 mg PO QAM 07/04/18 07/07/18 Lacosamide [Vimpat] 100 mg PO HS 07/04/18 07/07/18 lamoTRIgine [LaMICtal] 25 mg PO DAILY 07/04/18 07/07/18 Previous Rx's Medication Instructions Recorded Meclizine [Antivert] 25 mg PO QID PRN #30 tab 07/08/18 Nitrofurantoin Monohyd/M-Cryst 100 mg PO Q12HR #10 cap 10/21/19 [Macrobid] Allergies Allergy/AdvReac Type Severity Reaction Status Date / Time cephalexin Allergy Unknown Verified 11/19/19 22:12 erythromycin base Allergy Unknown Verified 11/19/19 22:12 escitalopram oxalate Allergy Unknown Verified 11/19/19 22:12 [From Lexapro] Penicillins Allergy Unknown Verified 11/19/19 22:12 Sulfa (Sulfonamide Allergy Unknown Verified 11/19/19 22:12 Antibiotics) naproxen [From Naprosyn] AdvReac dry, runny Verified 11/19/19 22:12 nose tamsulosin AdvReac dry, runny Verified 11/19/19 22:12 nose Review of Systems ROS Statement: Those systems with pertinent positive or pertinent negative responses have been documented in the HPI. ROS Other: All systems not noted in ROS Statement are negative. 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 History of Any Multi-Drug Resistant Organisms: None Reported Past Surgical History: Breast Surgery, Orthopedic Surgery Additional Past Surgical History / Comment(s): LITHOTRIPSY , BREAST BX X 1 -PT NOT SURE WHICH ONE, LT KNEE SURGERY Past Anesthesia/Blood Transfusion Reactions: No Reported Reaction Past Psychological History: No Psychological Hx Reported Smoking Status: Never smoker Past Alcohol Use History: None Reported Past Drug Use History: None Reported - Past Family History Father Additional Family Medical History / Comment(s): HEART PROBLEMS heart stint placed Mother Family Medical History: Diabetes Mellitus General Exam - General Exam Comments Initial Comments: Physical Exam GENERAL: Patient is well-developed and well-nourished. Patient is nontoxic and well-hydrated and is in no distress. HENT: Normocephalic, Atraumatic. EYES: PERRL, EOMI PULMONARY: Unlabored respirations. No audible rales rhonchi or wheezing was noted. CARDIOVASCULAR: There is a regular rate and rhythm without any murmurs gallops or rubs. ABDOMEN: Tenderness to palpation in suprapubic region SKIN: Skin is clear with no lesions or rashes and otherwise unremarkable. : Deferred NEUROLOGIC: Baseline tremor MUSCULOSKELETAL: Normal extremities with adequate strength and full range of motion. No lower extremity swelling or edema. No calf tenderness. PSYCHIATRIC: Normal psychiatric evaluation. Limitations: no limitations Course Vital Signs 11/19/19 11/19/19 11/20/19 22:07 23:20 00:23 Temperature 97.4 F L 98 F 98 F Pulse Rate 72 75 74 Respiratory 18 20 18 Rate Blood Pressure 171/83 139/84 139/66 O2 Sat by Pulse 98 100 98 Oximetry Medical Decision Making - Medical Decision Making Patient was seen and evaluated history was obtained from patient urinalysis consistent with urinary tract infection with gross hematuria given the history of kidney stones a CT renal stone protocol was ordered Labs are otherwise unremarkable Dose of gentamicin was ordered due to patient's multiple ALLERGIES to antibiotics Computed tomography scan did confirm a right-sided kidney stone with moderate hydronephrosis and perinephric stranding concerning for septic stone therefore patient will be admitted to the hospital for continued IV antibiotics. Urology Dr. Griffin was notified and agreed with plan for admission. At the time of admission and throughout her emergency department stay patient had no fever, no tachypnea, no tachycardia, no hypotension, labs resulted with no leukocytosis. Patient has no Sirs criteria or evidence of sepsis at this time. - Lab Data Result diagrams: 11/19/19 20:37 11/19/19 20:37 Lab Results 11/19/19 11/19/19 11/19/19 Range/Units 20:37 20:37 20:37 WBC 7.1 (3.8-10.6) k/uL RBC 4.39 (3.80-5.40) m/uL Hgb 13.2 (11.4-16.0) gm/dL Hct 41.6 (34.0-46.0) % MCV 94.7 (80.0-100.0) fL MCH 30.2 (25.0-35.0) pg MCHC 31.8 (31.0-37.0) g/dL RDW 12.4 (11.5-15.5) % Plt Count 315 (150-450) k/uL Neutrophils % 62 % Lymphocytes % 28 % Monocytes % 7 % Eosinophils % 0 % Basophils % 0 % Neutrophils # 4.3 (1.3-7.7) k/uL Lymphocytes # 2.0 (1.0-4.8) k/uL Monocytes # 0.5 (0-1.0) k/uL Eosinophils # 0.0 (0-0.7) k/uL Basophils # 0.0 (0-0.2) k/uL Sodium 140 (137-145) mmol/L Potassium 3.7 (3.5-5.1) mmol/L Chloride 104 (98-107) mmol/L Carbon Dioxide 27 (22-30) mmol/L Anion Gap 9 mmol/L BUN 16 (7-17) mg/dL Creatinine 0.97 (0.52-1.04) mg/dL Est GFR (CKD-EPI)AfAm 76 (>60 ml/min/1.73 sqM) Est GFR (CKD-EPI)NonAf 66 (>60 ml/min/1.73 sqM) Glucose 115 H (74-99) mg/dL Calcium 9.3 (8.4-10.2) mg/dL Total Bilirubin 0.2 (0.2-1.3) mg/dL AST 20 (14-36) U/L ALT 15 (4-34) U/L Alkaline Phosphatase 168 H (38-126) U/L Total Protein 7.6 (6.3-8.2) g/dL Albumin 4.4 (3.5-5.0) g/dL Lipase 109 (23-300) U/L Urine Color Urine Appearance (Clear) Urine pH (5.0-8.0) Ur Specific [place] (1.001-1.035) Urine Protein (Negative) Urine Glucose (UA) (Negative) Urine Ketones (Negative) Urine Blood (Negative) Urine Nitrite (Negative) Urine Bilirubin (Negative) Urine Urobilinogen (<2.0) mg/dL Ur Leukocyte Esterase (Negative) Urine RBC (0-5) /hpf Urine WBC (0-5) /hpf Urine WBC Clumps (None) /hpf Ur Squamous Epith Cells (0-4) /hpf Urine Bacteria (None) /hpf Hyaline Casts (0-2) /lpf Urine Mucus (None) /hpf 11/19/19 Range/Units 23:37 WBC (3.8-10.6) k/uL RBC (3.80-5.40) m/uL Hgb (11.4-16.0) gm/dL Hct (34.0-46.0) % MCV (80.0-100.0) fL MCH (25.0-35.0) pg MCHC (31.0-37.0) g/dL RDW (11.5-15.5) % Plt Count (150-450) k/uL Neutrophils % % Lymphocytes % % Monocytes % % Eosinophils % % Basophils % % Neutrophils # (1.3-7.7) k/uL Lymphocytes # (1.0-4.8) k/uL Monocytes # (0-1.0) k/uL Eosinophils # (0-0.7) k/uL Basophils # (0-0.2) k/uL Sodium (137-145) mmol/L Potassium (3.5-5.1) mmol/L Chloride (98-107) mmol/L Carbon Dioxide (22-30) mmol/L Anion Gap mmol/L BUN (7-17) mg/dL Creatinine (0.52-1.04) mg/dL Est GFR (CKD-EPI)AfAm (>60 ml/min/1.73 sqM) Est GFR (CKD-EPI)NonAf (>60 ml/min/1.73 sqM) Glucose (74-99) mg/dL Calcium (8.4-10.2) mg/dL Total Bilirubin (0.2-1.3) mg/dL AST (14-36) U/L ALT (4-34) U/L Alkaline Phosphatase (38-126) U/L Total Protein (6.3-8.2) g/dL Albumin (3.5-5.0) g/dL Lipase (23-300) U/L Urine Color Yellow Urine Appearance Cloudy H (Clear) Urine pH 6.0 (5.0-8.0) Ur Specific [place] 1.026 (1.001-1.035) Urine Protein 1+ H (Negative) Urine Glucose (UA) Negative (Negative) Urine Ketones Negative (Negative) Urine Blood Moderate H (Negative) Urine Nitrite Negative (Negative) Urine Bilirubin Negative (Negative) Urine Urobilinogen <2.0 (<2.0) mg/dL Ur Leukocyte Esterase Large H (Negative) Urine RBC >182 H (0-5) /hpf Urine WBC 169 H (0-5) /hpf Urine WBC Clumps Few H (None) /hpf Ur Squamous Epith Cells 13 H (0-4) /hpf Urine Bacteria Rare H (None) /hpf Hyaline Casts 4 H (0-2) /lpf Urine Mucus Few H (None) /hpf Disposition Clinical Impression: UTI (urinary tract infection), Calculus of kidney Disposition: ADMITTED IP TO THIS HOSP Condition: Serious Is patient prescribed a controlled substance at d/c from ED?: No
[2019-11-19 23:58] LABS: Appearance,Urine Cloudy (Clear); Bacteria,Urine Rare /hpf; Bilirubin,Urine Negative (Negative); Blood,Urine Moderate (Negative); Color,Urine Yellow; Glucose,Urine (UA) Negative (Negative); Hyaline Casts,Urine 4 /lpf (0-2); Ketones,Urine Negative (Negative); Leukocyte Esterase,Urine Large (Negative); Mucus,Urine Few /hpf; Nitrite,Urine Negative (Negative); Protein,Urine 1+ (Negative); RBC,Urine >182 /hpf (0-5); Specific Gravity,Urine 1.026 (1.001-1.035); Squamous Epithelial Cell,Urine 13 /hpf (0-4); Urobilinogen,Urine <2.0 mg/dL (<2.0); WBC,Urine 169 /hpf (0-5)
[2019-11-20] MEDS ORDERED: GENTAMICIN 80 MG in SODIUM CHLORIDE 0.9% 100 ML IVPB ONE (00:10)
[2019-11-20] MEDS ORDERED: GENTAMICIN PER PHARMACY MISCELLANE SCH (00:45)
--- NOTE | 2019-11-20 00:51 | CT ---
EXAMINATION TYPE: CT renal stones wo con DATE OF EXAM: 11/20/2019 COMPARISON: 01/05/2017 HISTORY: Patient presents with right sided flank pain. CT DLP: 882 mGycm Automated exposure control for dose reduction was used. Multiple axial sections were obtained from the diaphragm to the floor the pelvis without contrast. There is mild scarring or subsegmental atelectasis right lung base. Heart size is normal. There is no pericardial effusion. Liver spleen stomach pancreas gallbladder appear normal. Bile ducts are not di lated. There is no adrenal mass. There is right-sided hydronephrosis with 5 mm calculus at the right uretero pelvic junction. There is right side perinephric edema. Left kidney has normal size and contour witho ut evidence of obstruction. There is no retroperitoneal adenopathy. There is 3 mm calculus lower pole right kidney. Appendix appears normal. Bladder distends smoothly. There is no inguinal hernia. There is no free flu id in the pelvis. Uterus is anteverted. There is no inguinal hernia. Lumbar vertebra have normal spacing and alignment. Posterior elements are intact. Bony pelvis is inta ct. There is no compression fracture. There is no mesenteric edema. There is no ascites or free air. There is no sign of a bowel obstructio n. IMPRESSION: Obstructing calculus at the right ureteropelvic junction with right-sided hydronephrosis and mild per inephric edema. Obstruction similar to old exam. There is clearing of the left side hydronephrosis co mpared to old exam. Normal appendix.
[2019-11-20] MEDS ORDERED: MORPHINE SULFATE 4 MG/ML SYRINGE IV PRN (01:22)
[2019-11-20] MEDS ORDERED: NALOXONE 0.4 MG/ML 1 ML VIAL IV PRN (01:22)
[2019-11-20] MEDS: SODIUM CHLORIDE 0.9% 1,000 ML IV SCH ×3 (01:43→21:24)
[2019-11-20] MEDS ORDERED: GENTAMICIN 80 MG in SODIUM CHLORIDE 0.9% 100 ML IVPB SCH (12:00)
[2019-11-20] MEDS ORDERED: LACOSAMIDE 50 MG TABLET PO STA (12:06)
--- NOTE | 2019-11-20 13:23 | P.HPIM ---
History of Present Illness Patient is a pleasant 54-year-old female came in with complaints of suprapubic pain in the right upper quadrant abdominal pain patient pain is sharp in nature severe radiating to the right groin area in the suprapubic area. Patient pain is resolved at this time. Patient to nephrolithiasis with hydronephrosis on the right side urine is significantly abnormal patient is already on nitrofurantoin at home. Patient denied any fever chills, no leukocytosis year showed significant lately elevated, 7 epithelial cells white blood cell count and was increased along with RBC all of which can be secondary to stone patient does have increased leukocyte esterase nitrate was negative. Review of Systems REVIEW OF SYSTEMS: CONSTITUTIONAL: No fever, no malaise, no fatigue. HEENT: No recent visual problems or hearing problems. Denied any sore throat. CARDIOVASCULAR: No chest pain, orthopnea, PND, no palpitations, no syncope. PULMONARY: No shortness of breath, no cough, no hemoptysis. GASTROINTESTINAL: As mentioned in HPI NEUROLOGICAL: No headaches, no weakness, no numbness. HEMATOLOGICAL: Denies any bleeding or petechiae. GENITOURINARY: Denies any burning micturition, frequency, or urgency. MUSCULOSKELETAL/RHEUMATOLOGICAL: Denies any joint pain, swelling, or any muscle pain. ENDOCRINE: Denies any polyuria or polydipsia. The rest of the 14-point review of systems is negative. 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 History of Any Multi-Drug Resistant Organisms: None Reported Past Surgical History: Breast Surgery, Orthopedic Surgery Additional Past Surgical History / Comment(s): LITHOTRIPSY , BREAST BX X 1 -PT NOT SURE WHICH ONE, LT KNEE SURGERY Past Anesthesia/Blood Transfusion Reactions: No Reported Reaction Past Psychological History: No Psychological Hx Reported Smoking Status: Never smoker Past Alcohol Use History: None Reported Past Drug Use History: None Reported - Past Family History Father Additional Family Medical History / Comment(s): HEART PROBLEMS heart stint placed Mother Family Medical History: Diabetes Mellitus Medications and Allergies Home Medications Medication Instructions Recorded Confirmed Type lamoTRIgine [LaMICtal] 200 mg PO BID 09/29/14 11/20/19 History Ergocalciferol (Vitamin D2) 50,000 unit PO Q7D 07/04/18 11/20/19 History [Vitamin D2] Lacosamide [Vimpat] 50 mg PO QAM 07/04/18 11/20/19 History Lacosamide [Vimpat] 100 mg PO HS 07/04/18 11/20/19 History lamoTRIgine [LaMICtal] 25 mg PO BID 07/04/18 11/20/19 History Nitrofurantoin Macrocrystal 100 mg PO BID 11/20/19 11/20/19 History [Nitrofurantoin] Allergies Allergy/AdvReac Type Severity Reaction Status Date / Time cephalexin Allergy Unknown Verified 11/20/19 11:15 erythromycin base Allergy Unknown Verified 11/20/19 11:15 escitalopram oxalate Allergy Unknown Verified 11/20/19 11:15 [From Lexapro] Penicillins Allergy Unknown Verified 11/20/19 11:15 Sulfa (Sulfonamide Allergy Unknown Verified 11/20/19 11:15 Antibiotics) naproxen [From Naprosyn] AdvReac dry, runny Verified 11/20/19 11:15 nose tamsulosin AdvReac dry, runny Verified 11/20/19 11:15 nose Physical Exam Vitals: Vital Signs Temp Pulse Pulse Resp BP BP Pulse Ox 11/20/19 07:00 97.9 F 78 16 114/69 97 11/20/19 01:57 98 F 79 16 149/69 99 11/20/19 00:23 98 F 74 18 139/66 98 11/19/19 23:20 98 F 75 20 139/84 100 11/19/19 22:07 97.4 F L 72 18 171/83 98 Intake and Output 11/19/19 11/20/19 11/20/19 22:59 06:59 14:59 Intake Total 1000 Balance 1000 Intake: Intake, IV Titration 1000 Amount Sodium Chloride 0.9% 1, 1000 000 ml @ 125 mls/hr IV . Q8H [facility] Rx#:[id number] Other: Weight 86.228 kg 86.228 kg PHYSICAL EXAMINATION: GENERAL: The patient is alert and oriented x3, not in any acute distress. Well developed, well nourished. HEENT: Pupils are round and equally reacting to light. EOMI. No scleral icterus. No conjunctival pallor. Normocephalic, atraumatic. No pharyngeal erythema. No thyromegaly. CARDIOVASCULAR: S1 and S2 present. No murmurs, rubs, or gallops. PULMONARY: Chest is clear to auscultation, no wheezing or crackles. ABDOMEN: Soft, nontender, nondistended, normoactive bowel sounds. No palpable organomegaly. MUSCULOSKELETAL: No joint swelling or deformity. EXTREMITIES: No cyanosis, clubbing, or pedal edema. NEUROLOGICAL: Gross neurological examination did not reveal any focal deficits. SKIN: No rashes. Results CBC & Chem 7: 11/19/19 20:37 11/19/19 20:37 Labs: Abnormal Lab Results - Last 24 Hours (Table) 11/19/19 03 Range/Units 20:37 23:37 Glucose 115 H (74-99) mg/dL Alkaline Phosphatase 168 H (38-126) U/L Urine Appearance Cloudy H (Clear) Urine Protein 1+ H (Negative) Urine Blood Moderate H (Negative) Ur Leukocyte Esterase Large H (Negative) Urine RBC >182 H (0-5) /hpf Urine WBC 169 H (0-5) /hpf Urine WBC Clumps Few H (None) /hpf Ur Squamous Epith Cells 13 H (0-4) /hpf Urine Bacteria Rare H (None) /hpf Hyaline Casts 4 H (0-2) /lpf Urine Mucus Few H (None) /hpf Microbiology - Last 24 Hours (Table) 11/19/19 23:37 Urine Culture - Preliminary Urine,Clean Catch Thrombosis Risk Factor Assmnt - Choose All That Apply Any of the Below Risk Factors Present?: Yes Each Factor Represents 1 point: Age 41-60 years Thrombosis Risk Factor Assessment Total Risk Factor Score: 1 Thrombosis Risk Factor Assessment Level: Low Risk Assessment and Plan Plan: -Nephrolithiasis, hydronephrosis possibility of pyelonephritis: Her abdominal pain is secondary to nephrolithiasis and since she has hydronephrosis depending on her clinical course patient may or may not need a ureteral stent. Neurology was consulted neurology evaluated the patient. I cannot completely rule out urinary tract infection or pyelonephritis because of which patient will be started on Rocephin and gentamicin will be discontinued -Possibly a pyelonephritis -Seizure disorder patient was resumed on her home medications -Gastroesophageal reflux
[2019-11-20] MEDS ORDERED: lamoTRIgine 100 MG TAB PO STA (13:37)
[2019-11-20] MEDS ORDERED: lamoTRIgine 25 MG TAB PO STA (13:37)
[2019-11-20] MEDS ORDERED: GENTAMICIN 300 MG in SODIUM CHLORIDE 0.9% 100 ML IVPB SCH (16:00)
[2019-11-20] MEDS: LEVOFLOXACIN 500MG-D5W PMX 500 MG in DEXTROSE/WATER 1 100ML.BAG IVPB SCH (16:25)
--- NOTE | 2019-11-20 18:24 | P.GSCN ---
History of Present Illness Consult date: 11/20/19 Reason for Consult: right sided ureteral stone History of present illness: Ms Gay is 54-year-old female who presents to the ED with suprapubic abdominal pain, and right sided flank pain. she complains of nausea but denies any vomiting. Denies any fever/chills. Denies any gross hematuria or dysuria. She has hx of recurrent stones and UTIs in the past. She indicated she required ureteroscopy in the past to address her stones. She indicated her pain is controlled this Review of Systems - Constitutional Denies chills, Denies fever - EENT Ears, nose, mouth and throat: Denies dysphagia, Denies headache - Cardiovascular Denies chest pain, Denies dyspnea on exertion - Respiratory Denies cough, Denies dyspnea - Gastrointestinal Reports abdominal pain, Reports nausea, Denies vomiting - Genitourinary Genitourinary: Reports flank pain, Reports kidney stones, Denies dysuria, Denies hematuria - Neurological Denies confusion, Denies weakness - Psychiatric Denies confusion - Endocrine Denies fatigue Past Medical History Past Medical History: GERD/Reflux, Seizure Disorder Additional Past Medical History / Comment(s): HX NUMEROUS KIDNEY STONES- HX EPILEPSY (unsure of last seizure) -HAS PUBLIC GUARDIAN, STATES BRUISES EASILY, POOR HISTORIAN., STATES CARPAL TUNNEL IN HANDS AND ELBOWS. History of Any Multi-Drug Resistant Organisms: None Reported Past Surgical History: Breast Surgery, Orthopedic Surgery Additional Past Surgical History / Comment(s): LITHOTRIPSY , BREAST BX X 1 -PT NOT SURE WHICH ONE, LT KNEE SURGERY Past Anesthesia/Blood Transfusion Reactions: No Reported Reaction Past Psychological History: No Psychological Hx Reported Smoking Status: Never smoker Past Alcohol Use History: None Reported Past Drug Use History: None Reported - Past Family History Father Additional Family Medical History / Comment(s): HEART PROBLEMS heart stint placed Mother Family Medical History: Diabetes Mellitus Medications and Allergies Home Medications Medication Instructions Recorded Confirmed Type lamoTRIgine [LaMICtal] 200 mg PO BID 09/29/14 11/20/19 History Ergocalciferol (Vitamin D2) 50,000 unit PO Q7D 07/04/18 11/20/19 History [Vitamin D2] Lacosamide [Vimpat] 50 mg PO QAM 07/04/18 11/20/19 History Lacosamide [Vimpat] 100 mg PO HS 07/04/18 11/20/19 History lamoTRIgine [LaMICtal] 25 mg PO BID 07/04/18 11/20/19 History Nitrofurantoin Macrocrystal 100 mg PO BID 11/20/19 11/20/19 History [Nitrofurantoin] Allergies Allergy/AdvReac Type Severity Reaction Status Date / Time cephalexin Allergy Unknown Verified 11/20/19 11:15 erythromycin base Allergy Unknown Verified 11/20/19 11:15 escitalopram oxalate Allergy Unknown Verified 11/20/19 11:15 [From Lexapro] Penicillins Allergy Unknown Verified 11/20/19 11:15 Sulfa (Sulfonamide Allergy Unknown Verified 11/20/19 11:15 Antibiotics) naproxen [From Naprosyn] AdvReac dry, runny Verified 11/20/19 11:15 nose tamsulosin AdvReac dry, runny Verified 11/20/19 11:15 nose Surgical - Exam Vital Signs Temp Pulse Resp BP Pulse Ox 97.4 F L 72 18 171/83 98 11/19/19 22:07 11/19/19 22:07 11/19/19 22:07 11/19/19 22:07 11/19/19 22:07 - General well developed, well nourished, no distress - Eyes normal ocular movement, no pale - ENT normal mucosa, no hearing loss - Respiratory normal expansion, normal respiratory effort - Abdomen Abdomen: soft, non tender - Neurologic no combative, no confused, no memory loss - Psychiatric oriented to time, oriented to person, oriented to place Results - Labs 11/19/19 20:37 11/19/19 20:37 Abnormal Lab Results - Last 24 Hours (Table) 11/19/19 11/19/19 Range/Units 20:37 23:37 Glucose 115 H (74-99) mg/dL Alkaline Phosphatase 168 H (38-126) U/L Urine Appearance Cloudy H (Clear) Urine Protein 1+ H (Negative) Urine Blood Moderate H (Negative) Ur Leukocyte Esterase Large H (Negative) Urine RBC >182 H (0-5) /hpf Urine WBC 169 H (0-5) /hpf Urine WBC Clumps Few H (None) /hpf Ur Squamous Epith Cells 13 H (0-4) /hpf Urine Bacteria Rare H (None) /hpf Hyaline Casts 4 H (0-2) /lpf Urine Mucus Few H (None) /hpf Diabetes panel 11/19/19 Range/Units 20:37 Sodium 140 (137-145) mmol/L Potassium 3.7 (3.5-5.1) mmol/L Chloride 104 (98-107) mmol/L Carbon Dioxide 27 (22-30) mmol/L BUN 16 (7-17) mg/dL Creatinine 0.97 (0.52-1.04) mg/dL Glucose 115 H (74-99) mg/dL Calcium 9.3 (8.4-10.2) mg/dL AST 20 (14-36) U/L ALT 15 (4-34) U/L Alkaline Phosphatase 168 H (38-126) U/L Total Protein 7.6 (6.3-8.2) g/dL Albumin 4.4 (3.5-5.0) g/dL Calcium panel 11/19/19 Range/Units 20:37 Calcium 9.3 (8.4-10.2) mg/dL Albumin 4.4 (3.5-5.0) g/dL Pituitary panel 11/19/19 Range/Units 20:37 Sodium 140 (137-145) mmol/L Potassium 3.7 (3.5-5.1) mmol/L Chloride 104 (98-107) mmol/L Carbon Dioxide 27 (22-30) mmol/L BUN 16 (7-17) mg/dL Creatinine 0.97 (0.52-1.04) mg/dL Glucose 115 H (74-99) mg/dL Calcium 9.3 (8.4-10.2) mg/dL Adrenal panel 11/19/19 Range/Units 20:37 Sodium 140 (137-145) mmol/L Potassium 3.7 (3.5-5.1) mmol/L Chloride 104 (98-107) mmol/L Carbon Dioxide 27 (22-30) mmol/L BUN 16 (7-17) mg/dL Creatinine 0.97 (0.52-1.04) mg/dL Glucose 115 H (74-99) mg/dL Calcium 9.3 (8.4-10.2) mg/dL Total Bilirubin 0.2 (0.2-1.3) mg/dL AST 20 (14-36) U/L ALT 15 (4-34) U/L Alkaline Phosphatase 168 H (38-126) U/L Total Protein 7.6 (6.3-8.2) g/dL Albumin 4.4 (3.5-5.0) g/dL - Imaging CT scan - abdomen: image reviewed (right sided proximal stone) Assessment and Plan Assessment: Ms Gay is 54 yo female with 5 mm right sided proximal stone. Her UA is concerning for UTI. Plan: -F/U on urine culture tomorrow, continue IV abx for now -NPO past MN -OR tomorrow for right sided ureteral stent placement possible ureteroscopy Time with Patient: Greater than 30
[2019-11-20] MEDS: lamoTRIgine 100 MG TAB PO SCH (21:13)
[2019-11-20] MEDS: lamoTRIgine 25 MG TAB PO SCH (21:14)
[2019-11-20] MEDS: LACOSAMIDE 50 MG TABLET PO SCH (21:22)
[2019-11-21] MEDS: ONDANSETRON 4 MG/2 ML VIAL IVP PRN ×2 (02:30→14:02)
[2019-11-21 06:26] LABS: African American GFR (CKD) >90 (>60 ml/min/1.73 sqM); Anion Gap 5 mmol/L; Blood Urea Nitrogen 10 mg/dL (7-17); Calcium 8.5 mg/dL (8.4-10.2); Carbon Dioxide 27 mmol/L (22-30); Chloride 106 mmol/L (98-107); Glucose 88 mg/dL (74-99); Non-African American GFR(CKD) 87 (>60 ml/min/1.73 sqM); Sodium 138 mmol/L (137-145)
[2019-11-21 06:36] LABS: HCT 35.7 % (34.0-46.0); HGB 11.6 gm/dL (11.4-16.0); MCH 31.1 pg (25.0-35.0); MCHC 32.6 g/dL (31.0-37.0); MCV 95.4 fL (80.0-100.0); Mean Platelet Volume 7.9; Platelet Count 261 k/uL (150-450); RBC 3.74 m/uL (3.80-5.40); RDW 12.5 % (11.5-15.5); WBC 7.4 k/uL (3.8-10.6)
[2019-11-21] MEDS: SODIUM CHLORIDE 0.9% 1,000 ML IV SCH ×3 (06:42→17:44)
[2019-11-21] MEDS: lamoTRIgine 100 MG TAB PO SCH ×2 (08:14→20:14)
[2019-11-21] MEDS: LACOSAMIDE 50 MG TABLET PO SCH ×2 (08:14→20:15)
[2019-11-21] MEDS: lamoTRIgine 25 MG TAB PO SCH ×2 (08:14→20:15)
[2019-11-21] MEDS ORDERED: HYDROcodone/APAP 5-325MG 1 EACH TAB PO PRN (08:39)
--- NOTE | 2019-11-21 08:46 | P.PN ---
Subjective Progress Note Date: 11/21/19 Principal diagnosis: right sided ureteral calculi Have right sided flank pain this am. Denies any fever/chills. Denies any urinary symptoms Objective - Vital Signs Vital signs: Vital Signs Temp 98.3 F 11/21/19 07:00 Pulse 68 11/21/19 07:00 Resp 16 11/21/19 07:00 BP 136/79 11/21/19 07:00 Pulse Ox 95 11/21/19 07:00 Intake & Output 11/20/19 11/21/19 11/21/19 18:59 06:59 18:59 Intake Total 800 1150 Output Total 300 Balance 800 850 Intake: IV 800 cefTRIAXone 2 gm In 800 Sodium Chloride 0.9% 50 ml @ 100 mls/hr IVPB Q24HR [facility] Rx#:[id number] Intake, IV Titration 750 Amount Sodium Chloride 0.9% 1, 750 000 ml @ 125 mls/hr IV . Q8H [facility] Rx#:[id number] Oral 400 Output: Urine 300 Other: Voiding Method Toilet # Voids 2 2 - Constitutional General appearance: Present: no acute distress - Gastrointestinal General gastrointestinal: Present: soft. Absent: distended - Psychiatric Psychiatric: Present: A&O x's 3, appropriate affect - Labs CBC & Chem 7: 11/21/19 05:47 11/21/19 05:47 Labs: Abnormal Lab Results - Last 24 Hours (Table) 11/21/19 Range/Units 05:47 RBC 3.74 L (3.80-5.40) m/uL Microbiology - Last 24 Hours (Table) 11/19/19 23:37 Urine Culture - Preliminary Urine,Clean Catch Assessment and Plan Assessment: Ms Gay is 54 yo female with 5 mm right sided proximal stone. Her UA is concerning for UTI. Patient has been on IV antibiotics for past two days. Denies any urinary symptoms at this time Plan: -F/U on urine culture continue IV abx for now -Keep NPO -OR today for right sided ureteral stent placement possible ureteroscopy
--- NOTE | 2019-11-21 10:30 | P.DS ---
Providers Date of admission: 11/20/19 01:26 Attending physician: Primitivo Gonsales Consults: 11/20/19 01:24 Consult Physician Urgent Consulting Provider: Shane Griffin Consult Reason/Comments: septic stone Do you want consulting provider notified?: Already Contacted Primary care physician: Stated None Hospital Course: 54-year-old female came in with complaints of suprapubic pain in the right upper quadrant abdominal pain patient pain is sharp in nature severe radiating to the right groin area in the suprapubic area. Patient pain is resolved at this time. Patient to nephrolithiasis with hydronephrosis on the right side urine is significantly abnormal patient is already on nitrofurantoin at home. Patient denied any fever chills, no leukocytosis year showed significant lately elevated, 7 epithelial cells white blood cell count and was increased along with RBC all of which can be secondary to stone patient does have increased leukocyte esterase nitrate was negative. 11/21/2019 Patient the denied any pain secondary to kidney stones is complaining of some, upper abdominal discomfort for which patient will be started on Protonix. Patient will undergo ureteral stent placement after that probably patient can be discharged I do not expect urine cultures to be positive as patient was already on Macrobid because of which patient will not have an of bacterial load in the urine because of which I do not expect cultures to be positive. Patient will be discharged on empiric Ceftin for 5 days. Prilosec for 10-14 days PHYSICAL EXAMINATION: GENERAL: The patient is alert and oriented x3, not in any acute distress. Well developed, well nourished. HEENT: Pupils are round and equally reacting to light. EOMI. No scleral icterus. No conjunctival pallor. Normocephalic, atraumatic. No pharyngeal erythema. No thyromegaly. CARDIOVASCULAR: S1 and S2 present. No murmurs, rubs, or gallops. PULMONARY: Chest is clear to auscultation, no wheezing or crackles. ABDOMEN: Soft, nontender, nondistended, normoactive bowel sounds. No palpable organomegaly. MUSCULOSKELETAL: No joint swelling or deformity. EXTREMITIES: No cyanosis, clubbing, or pedal edema. NEUROLOGICAL: Gross neurological examination did not reveal any focal deficits. SKIN: No rashes. Assessment and Plan Plan: -Nephrolithiasis, hydronephrosis possibility of pyelonephritis: Her abdominal pain is secondary to nephrolithiasis. Patient will undergo ureteral stent placement today -Possibly a pyelonephritis -Seizure disorder patient was resumed on her home medications -Gastroesophageal reflux Patient Condition at Discharge: Serious Plan - Discharge Summary Discharge Rx Participant: Yes New Discharge Prescriptions: New Cefuroxime Axetil [Ceftin] 500 mg PO BID 5 Days #10 tab Omeprazole [PriLOSEC] 40 mg PO AC-BRKFST #14 capsule. HYDROcodone/APAP 7.5-325MG [[place] 7.5-325] 1 tab PO Q4-6H PRN #20 tab PRN Reason: Pain Discontinued Nitrofurantoin Macrocrystal [Nitrofurantoin] 100 mg PO BID No Action lamoTRIgine [LaMICtal] 200 mg PO BID lamoTRIgine [LaMICtal] 25 mg PO BID Lacosamide [Vimpat] 50 mg PO QAM Lacosamide [Vimpat] 100 mg PO HS Ergocalciferol (Vitamin D2) [Vitamin D2] 50,000 unit PO Q7D Discharge Medication List lamoTRIgine [LaMICtal] 200 mg PO BID 09/29/14 [History] Ergocalciferol (Vitamin D2) [Vitamin D2] 50,000 unit PO Q7D 07/04/18 [History] Lacosamide [Vimpat] 50 mg PO QAM 07/04/18 [History] Lacosamide [Vimpat] 100 mg PO HS 07/04/18 [History] lamoTRIgine [LaMICtal] 25 mg PO BID 07/04/18 [History] Cefuroxime Axetil [Ceftin] 500 mg PO BID 5 Days #10 tab 11/21/19 [Rx] HYDROcodone/APAP 7.5-325MG [[place] 7.5-325] 1 tab PO Q4-6H PRN #20 tab 11/21/19 [Rx] Omeprazole [PriLOSEC] 40 mg PO AC-BRKFST #14 capsule. 11/21/19 [Rx] Follow up Appointment(s)/Referral(s): Marie Ye III, MD [STAFF PHYSICIAN] - 1 Week Discharge Disposition: HOME SELF-CARE
[2019-11-21] MEDS ORDERED: GENTAMICIN 80 MG in SODIUM CHLORIDE 0.9% 100 ML IVPB ONE (11:45)
[2019-11-21] MEDS ORDERED: IV FLUID CONTINUATION 1,000 ML IV ONE (13:44)
[2019-11-21] MEDS ORDERED: DEXAMETHASONE SOD PHOSPHATE 10 MG/ML 1 ML VIAL IV ONE (14:01)
[2019-11-21] MEDS ORDERED: LIDOCAINE 1% INJ 10MG/ML (20 ML MDV) ONE (15:35)
[2019-11-21] MEDS ORDERED: GLYCOPYRROLATE 0.2 MG/ML 2 ML VIAL ONE (15:35)
[2019-11-21] MEDS ORDERED: fentaNYL (PF) 50 MCG/ML 2 ML AMP ONE (15:35)
[2019-11-21] MEDS ORDERED: PROPOFOL 10 MG/ML 20 ML VIAL IV ONE (15:35)
[2019-11-21] MEDS ORDERED: ROCURONIUM BROMIDE 10 MG/ML 5 ML VIAL IV ONE (15:35)
[2019-11-21] MEDS ORDERED: SUCCINYLCHOLINE CHLORIDE 100 MG/5 ML SYR IV ONE (15:35)
[2019-11-21] MEDS ORDERED: MIDAZOLAM 2 MG/2 ML VIAL ONE (15:35)
[2019-11-21] MEDS ORDERED: NEOSTIGMINE 1 MG/ML 10 ML VIAL ONE (15:35)
[2019-11-21] MEDS ORDERED: IOPAMIDOL-370 50ML BTL INJ ONE ×2 (16:09)
--- NOTE | 2019-11-21 16:39 | P.OP ---
Date of Procedure: 11/21/19 Preoperative Diagnosis: right ureteral calculi Postoperative Diagnosis: same Procedure(s) Performed: Cystoscopy, right ureteroscopy, holmium laser lithotripsy, stone basketing, retrograde pyelogram and stent placement Implants: 6-[place] by 22 cm stent Anesthesia: MARILIN Surgeon: Shane Griffin Estimated Blood Loss (ml): 5 Pathology: other (Ureteral stone for chemical analysis) Condition: stable Disposition: PACU Indications for Procedure: Ms Gay is a 54-year-old female that presented to the emergency department with right-sided flank pain. She underwent a CT that showed a 5 mm right-sided ureteral stone. She she symptomatic from her stone. She's been in the hospital for 48 hours and has been on IV antibiotics during that time. I discussed with her the option given her symptoms and history of recurrent UTIs we can go ahead and proceed with ureteroscopy and holmium laser lithotripsy. Discussed with her the risk which includes but not limited to bleeding, infection, sepsis, injury to the ureter. Also discussed with her risk from anesthesia. She understood all the risk and agreed to proceed with right-sided ureteroscopy Operative Findings: Right-sided proximal stone Description of Procedure: She was brought to the operating room, she was prepped and draped in sterile fashion placed in a dorsal lithotomy position. Cystoscope fitted with a 22 sheath was inserted per urethra. Cystoscopy was performed showed no abnormality within the bladder. Attention was then carried to the right ureteral orifice which was intubated with a 6-[place] open-ended catheter. Retrograde pyelogram was performed which showed a filling defect at the proximal ureter with mild hydronephrosis. At this time a sensor wire was advanced through the catheter and the catheter was removed with a sensor wire in place. Next an 11 x 13- [place] access sheath was passed over the wire and advanced to proximal ureter. Next a flexible ureteroscope was inserted through the access sheath and stone was encountered in the proximal ureter. Using the holmium laser the stone was fragmented into smaller fragments. The sizable fragments were removed using the [employer] stone basket. Repeat ureteroscopy showed no additional stone sizable stones within the kidney or any evidence of injury within the kidney. Pullback ureteroscopy was performed which showed no injury to the ureter or any residual stone. Next a 6-[place] by 22 cm stent was passed over the wire. The proximal curl was visualized on fluoroscopy. The distal curl was visualized using the cystoscope. The bladder was emptied and the end of the case. The patient tolerated procedure well was taken to PACU in stable condition
[2019-11-21] MEDS: LEVOFLOXACIN 500MG-D5W PMX 500 MG in DEXTROSE/WATER 1 100ML.BAG IVPB SCH (17:44)
[2019-11-21 19:53] VITALS: RESP 18
--- NOTE | 2019-11-21 20:09 | FL ---
EXAMINATION TYPE: FL urography retrograde DATE OF EXAM: 11/21/2019 COMPARISON: CT renal stones November 20, 2019 HISTORY: Right-sided flank pain. TECHNIQUE: Fluoroscopy. FINDINGS: Fluoroscopic guidance was provided during retrograde urogram procedure performed by Dr. Ra faustin. A total of 50 seconds of fluoroscopic time was utilized during the procedure and single spot f luoroscopic image is acquired. Single image acquired shows placement of right double-J ureter stent. IMPRESSION: As Above.
[2019-11-22] MEDS: SODIUM CHLORIDE 0.9% 1,000 ML IV SCH ×2 (05:04→07:07)
[2019-11-22] MEDS: lamoTRIgine 100 MG TAB PO SCH (07:39)
[2019-11-22] MEDS: lamoTRIgine 25 MG TAB PO SCH (07:39)
[2019-11-22] MEDS: LACOSAMIDE 50 MG TABLET PO SCH (07:39)
[2019-11-22 07:56] VITALS: BP 130/82; PULSE 79; TEMP 97.9
--- NOTE | 2019-11-22 09:01 | P.PN ---
Subjective Progress Note Date: 11/21/19 Principal diagnosis: Patient is a pleasant 54-year-old female came in with complaints of suprapubic pain in the right upper quadrant abdominal pain patient pain is sharp in nature severe radiating to the right groin area in the suprapubic area. Patient pain is resolved at this time. Patient to nephrolithiasis with hydronephrosis on the right side urine is significantly abnormal patient is already on nitrofurantoin at home. Patient denied any fever chills, no leukocytosis year showed significant lately elevated, 7 epithelial cells white blood cell count and was increased along with RBC all of which can be secondary to stone patient does have increased leukocyte esterase nitrate was negative. 11/21/2019 Patient is sitting up at the side of the bed and appears to be in no acute distress. Patient awaiting to have a ureter stent placement with urology today. No acute overnight issues. Patient states she is urinating with no difficulty in urination, frequency, or burning with urination. Patient did have a urine culture done which is only showing apparent skin and/or genital jonah. Patient was taking Macrobid while at home and will continue with oral Ceftin in the outpatient setting. No reports of chest pain, shortness of breath, or palpitations. Patient is afebrile. No reports of nausea or vomiting and patient has been nothing by mouth for the procedure today. unsure of the timeframe of when the procedure will take place and was only told late this afternoon. Will continue to monitor closely. Objective - Vital Signs Vital signs: Vital Signs Temp 97.9 F 11/22/19 07:00 Pulse 79 11/22/19 07:00 Resp 18 11/22/19 07:00 BP 130/82 11/22/19 07:00 Pulse Ox 96 11/22/19 07:00 Intake & Output 11/21/19 11/22/19 11/22/19 18:59 06:59 18:59 Intake Total 500 437.5 Output Total 175 Balance 325 437.5 Weight 86.228 kg Intake: IV 500 Intake, IV Titration 437.5 Amount Sodium Chloride 0.9% 1, 437.5 000 ml @ 125 mls/hr IV . Q8H WOO Rx#:[id number] Output: Urine 175 Estimated Blood Loss 0 Other: Voiding Method Toilet Toilet Toilet # Voids 1 2 1 - Exam GENERAL: The patient is alert and oriented x3, not in any acute distress. Well developed, well nourished. HEENT: Pupils are round and equally reacting to light. EOMI. No scleral icterus. No conjunctival pallor. Normocephalic, atraumatic. No pharyngeal erythema. No thyromegaly. CARDIOVASCULAR: S1 and S2 present. No murmurs, rubs, or gallops. PULMONARY: Chest is clear to auscultation, no wheezing or crackles. ABDOMEN: Soft, nontender, nondistended, normoactive bowel sounds. No palpable organomegaly. MUSCULOSKELETAL: No joint swelling or deformity. EXTREMITIES: No cyanosis, clubbing, or pedal edema. NEUROLOGICAL: Gross neurological examination did not reveal any focal deficits. SKIN: No rashes. - Labs CBC & Chem 7: 11/21/19 05:47 11/21/19 05:47 Labs: Microbiology - Last 24 Hours (Table) 11/19/19 23:37 Urine Culture - Final Urine,Clean Catch Assessment and Plan Assessment: -Nephrolithiasis, hydronephrosis possibility of pyelonephritis: Her abdominal pain is secondary to nephrolithiasis and since she has hydronephrosis depending on her clinical course patient may or may not need a ureteral stent. urology was consulted and planning for stent placement later this afternoon. I cannot completely rule out urinary tract infection or pyelonephritis because of which patient will be started on Rocephin. Urine culture showing apparent skin and/or genital jonah and will continue on oral Ceftin upon discharge. -Possibly a pyelonephritis -Seizure disorder patient was resumed on her home medications -Gastroesophageal reflux Plan: Patient awaiting stent placement with Dr. Griffin sometime this afternoon. Will continue to monitor closely. Further instructions to follow.
== END 2019-11-22 09:55 | disposition home or self-care (01) | DRG 661 ==
LOC: EC 22:06 → 4SSUR 11-20 01:26 → OBSVTOIN 11-21 09:22
PROVIDERS: ADMIT Hospitalist; ATTEND Hospitalist
PROC: 0T768DZ Dilation of Right Ureter with Intraluminal Device, Via Natural or Artificial Opening Endoscopic (ICD-10-PCS; principal; 2019-11-21 11:05)
PROC: 0WCR8ZZ Extirpation of Matter from Genitourinary Tract, Via Natural or Artificial Opening Endoscopic (ICD-10-PCS; 2019-11-21 11:05)
PROC: BT1D1ZZ Fluoroscopy of Right Kidney, Ureter and Bladder using Low Osmolar Contrast (ICD-10-PCS; 2019-11-21 11:05)
DX: N13.6 Pyonephrosis (principal); K21.9 Gastro-esophageal reflux disease without esophagitis; G40.909 Epilepsy, unspecified, not intractable, without status epilepticus; R31.0 Gross hematuria; G56.03 Carpal tunnel syndrome, bilateral upper limbs; Z79.899 Other long term (current) drug therapy; Z98.890 Other specified postprocedural states; Z87.442 Personal history of urinary calculi; Z88.6 Allergy status to analgesic agent; Z88.1 Allergy status to other antibiotic agents; Z88.0 Allergy status to penicillin; Z88.8 Allergy status to other drugs, medicaments and biological substances; Z83.3 Family history of diabetes mellitus; Z82.49 Family history of ischemic heart disease and other diseases of the circulatory system; Z87.440 Personal history of urinary (tract) infections
CPT/HCPCS: 36415; 74018; 74150; 74420; 80048; 80053; 81001; 82365; 83690; 85025; 85027; 87086; 96361; 96365; 96375; 99285

== ENCOUNTER 2020-07-26 09:16 | Emergency (ER) | payer MEDICARE, OTHER ==
[2020-07-26] MEDS ORDERED: HYDROmorphone 0.5 MG/0.5 ML SYRINGE IVP STA (09:41)
[2020-07-26] MEDS ORDERED: ONDANSETRON 4 MG/2 ML VIAL IVP STA (09:42)
[2020-07-26 10:28] LABS: Basophils % (A) 1 %; Eosinophils % (A) 0 %; HCT 42.2 % (34.0-46.0); HGB 14.1 gm/dL (11.4-16.0); Lymphocytes # (A) 2.3 k/uL (1.0-4.8); Lymphocytes % (A) 39 %; MCH 31.2 pg (25.0-35.0); MCHC 33.5 g/dL (31.0-37.0); MCV 93.2 fL (80.0-100.0); Mean Platelet Volume 7.2; Monocytes # (A) 0.4 k/uL (0-1.0); Monocytes % (A) 7 %; Neutrophils % (A) 52 %; Platelet Count 343 k/uL (150-450); RBC 4.53 m/uL (3.80-5.40); RDW 12.3 % (11.5-15.5); WBC 5.8 k/uL (3.8-10.6)
[2020-07-26 10:41] LABS: Albumin 4.2 g/dL (3.5-5.0); Calcium 9.3 mg/dL (8.4-10.2); Potassium 5.3 mmol/L (3.5-5.1); Total Bilirubin 0.6 mg/dL (0.2-1.3); Total Protein 7.8 g/dL (6.3-8.2)
--- NOTE | 2020-07-26 10:44 | ED ---
Headache HPI - General Chief Complaint: Headache Stated Complaint: headache Time Seen by Provider: 07/26/20 09:20 Mode of arrival: EMS Limitations: no limitations - History of Present Illness Initial Comments: 54yo female presenting today for cc of headache. pt states that she's been struggling with headaches for years now. She states she has them daily on and off. She states she is having this evaluated by her neurologist Dr. Baltazar. Patient states she had an MRI on Thursday. She stated she is on aware of the results. Patient states that last night before bed she did not have a headache she woke up at 6 AM with a headache. She states is similar to [place] her previous she denies upper respiratory symptoms neck stiffness she denies any nausea vomiting. She states she has intermittent dizziness but this is not unusual for her denies current dizziness she denies any chest pain shortness of breath vision loss localized weakness sensation deficits she denies being off balance. Patient denies any known history of aneurysm. Patient has no additional complaints upon arrival she appears nontoxic - Related Data Home Medications Medication Instructions Recorded Confirmed lamoTRIgine [LaMICtal] 200 mg PO BID 09/29/14 07/26/20 Lacosamide [Vimpat] 50 mg PO QAM 07/04/18 07/26/20 Lacosamide [Vimpat] 100 mg PO HS 07/04/18 07/26/20 lamoTRIgine [LaMICtal] 25 mg PO BID 07/04/18 07/26/20 Loratadine [Claritin] 10 mg PO DAILY 07/26/20 07/26/20 Montelukast [Singulair] 10 mg PO DAILY 07/26/20 07/26/20 Previous Rx's Medication Instructions Recorded Omeprazole [PriLOSEC] 40 mg PO AC-BRKFST #14 capsule. 11/21/19 Allergies Allergy/AdvReac Type Severity Reaction Status Date / Time cephalexin Allergy Unknown Verified 07/26/20 10:16 erythromycin base Allergy Unknown Verified 07/26/20 10:16 escitalopram oxalate Allergy Unknown Verified 07/26/20 10:16 [From Lexapro] Penicillins Allergy Unknown Verified 07/26/20 10:16 Sulfa (Sulfonamide Allergy Unknown Verified 07/26/20 10:16 Antibiotics) naproxen [From Naprosyn] AdvReac dry, runny Verified 07/26/20 10:16 nose tamsulosin AdvReac dry, runny Verified 07/26/20 10:16 nose Review of Systems ROS Statement: Those systems with pertinent positive or pertinent negative responses have been documented in the HPI. ROS Other: All systems not noted in ROS Statement are negative. Past Medical History Past Medical History: GERD/Reflux, Seizure Disorder Additional Past Medical History / Comment(s): HX NUMEROUS KIDNEY STONES- HX EPIL EPSY (unsure of last seizure) -HAS PUBLIC GUARDIAN, STATES BRUISES EASILY, POOR HISTORIAN., STATES CARPAL TUNNEL IN HANDS AND ELBOWS. History of Any Multi-Drug Resistant Organisms: None Reported Past Surgical History: Breast Surgery, Orthopedic Surgery Additional Past Surgical History / Comment(s): LITHOTRIPSY , BREAST BX X 1 -PT NOT SURE WHICH ONE, LT KNEE SURGERY Past Anesthesia/Blood Transfusion Reactions: No Reported Reaction Past Psychological History: No Psychological Hx Reported Smoking Status: Never smoker Past Alcohol Use History: None Reported Past Drug Use History: None Reported - Past Family History Father Additional Family Medical History / Comment(s): HEART PROBLEMS heart stint placed Mother Family Medical History: Diabetes Mellitus General Exam - General Exam Comments Initial Comments: General: The patient is awake and alert, in no distress, and does not appear acutely ill. Eye: +3 mm pupils are equal, round and reactive to light, extra-ocular movements are intact. No nystagmus. There is normal conjunctiva bilaterally. No signs of icterus. Ears, nose, mouth and throat: There are moist mucous membranes and no oral lesions. Neck: The neck is supple, there is no tenderness or JVD. Cardiovascular: There is a regular rate and rhythm. No murmur, rub or gallop is appreciated. Respiratory: Lungs are clear to auscultation, respirations are non-labored, breath sounds are equal. No wheezes, stridor, rales, or rhonchi. Gastrointestinal: [Soft, non-distended, non-tender abdomen without masses or organomegaly noted. There is no rebound or guarding present. No CVA tenderness. Bowel sounds are unremarkable.] Musculoskeletal: Normal ROM, no tenderness. Strength 5/5. Sensation intact. Pulses equal bilaterally 2+. Neurological: A&O x 3. CN II-XII intact, memory intact to immediately, intermediate and termite control servicer recall. Able to follow simple verbal. Able to name a common object (phone). High quality, labial (pa) and lingual (la) speech. Low quality posterior pharynx/larynx (ga) voice sounds. Able to express general knowledge (days in a week). No hemineglect or inattention noted. Finger agnosia (-) and spatially oriented (identified L index finger touched R shoulder with L index finger). Light touch and temperature sensation present over the face, chest, abdomen, back, UE bilaterally, and LE bilaterally. Able to localize point during point localization b/l and extinction. No visible bulk atrophy, hypertrophy, fasciculations, or myoclonus of the UE or LE b/l. Full PROM in UE and LE b/l. Bilateral muscle strength 5/5 for the following muscles: deltoid, biceps, triceps, brachioradialis, wrist extensors/flexor, hip flexor, hip abductors/adductors, hamstrings, quadriceps, feet dorsiflexors/plantar flexors. Finger to nose, finger to the examiners finger, and heel to [place] coordinated and accurate b/l. Coordinated and even demonstration of hand flip, finger to thumb, and toe tap b/l. Gait is coordinated and even in stride. (-) pronator drift. No nuchal rigidity. Skin: Skin is warm and dry and no rashes or lesions are noted. Psychiatric: Cooperative, appropriate mood & affect, normal judgment. Limitations: no limitations Course Vital Signs 07/26/20 07/26/20 07/26/20 09:22 10:30 11:30 Temperature 98.8 F Pulse Rate 90 68 69 Respiratory 18 18 18 Rate Blood Pressure 130/78 143/73 136/73 O2 Sat by Pulse 100 96 Oximetry Medical Decision Making - Medical Decision Making 54yo with chronic headaches, dizziness. evaluated outpatient neurology. denies dizziness today. denies chest pain SOB. patient has no focal deficits. CT possible chiari malformation. contacted her neurologist Dr. Baltazar we discussed MRI results-no chiari. 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 patient agreeable to this care plan and discharge. resting comfortably on reevaluation. Discussed case with Dr. Otto who is agreeable to care plan. - Lab Data Result diagrams: 07/26/20 10:14 07/26/20 10:14 Lab Results 07/26/20 07/26/20 07/26/20 Range/Units 10:14 10:14 10:14 WBC 5.8 (3.8-10.6) k/uL RBC 4.53 (3.80-5.40) m/uL Hgb 14.1 (11.4-16.0) gm/dL Hct 42.2 (34.0-46.0) % MCV 93.2 (80.0-100.0) fL MCH 31.2 (25.0-35.0) pg MCHC 33.5 (31.0-37.0) g/dL RDW 12.3 (11.5-15.5) % Plt Count 343 (150-450) k/uL MPV 7.2 Neutrophils % 52 % Lymphocytes % 39 % Monocytes % 7 % Eosinophils % 0 % Basophils % 1 % Neutrophils # 3.0 (1.3-7.7) k/uL Lymphocytes # 2.3 (1.0-4.8) k/uL Monocytes # 0.4 (0-1.0) k/uL Eosinophils # 0.0 (0-0.7) k/uL Basophils # 0.0 (0-0.2) k/uL PT 10.0 (9.0-12.0) sec INR 1.0 (<1.2) APTT 21.8 L (22.0-30.0) sec Sodium 138 (137-145) mmol/L Potassium 5.3 H (3.5-5.1) mmol/L Chloride 105 (98-107) mmol/L Carbon Dioxide 26 (22-30) mmol/L Anion Gap 7 mmol/L BUN 9 (7-17) mg/dL Creatinine 0.88 (0.52-1.04) mg/dL Est GFR (CKD-EPI)AfAm 86 (>60 ml/min/1.73 sqM) Est GFR (CKD-EPI)NonAf 74 (>60 ml/min/1.73 sqM) Glucose 98 (74-99) mg/dL Calcium 9.3 (8.4-10.2) mg/dL Total Bilirubin 0.6 (0.2-1.3) mg/dL AST 21 (14-36) U/L ALT 11 (4-34) U/L Alkaline Phosphatase 143 H (38-126) U/L Total Protein 7.8 (6.3-8.2) g/dL Albumin 4.2 (3.5-5.0) g/dL Disposition Clinical Impression: Headache Disposition: HOME SELF-CARE Condition: Good Instructions (If sedation given, give patient instructions): Acute Headache (ED) Additional Instructions: Please use medication as discussed. Please follow-up with family doctor in the next 2 days. Please return to emergency room if the symptoms increase or worsen or for any other concerns. Is patient prescribed a controlled substance at d/c from ED?: No Referrals: None,Stated [Primary Care Provider] - 1-2 days Time of Disposition: 11:47
--- NOTE | 2020-07-26 10:55 | CT ---
EXAMINATION TYPE: CT brain wo con DATE OF EXAM: 07/26/2020 COMPARISON: 07/04/2018 HISTORY: headache this AM, dizziness CT DLP: 1172.4 mGycm Automated exposure control for dose reduction was used. FINDINGS: Due to positioning on examination of the posterior fossa is limited. Cerebellar tonsils appear low-ly ing in position suggestive of Chiari malformation. Recommend follow-up MRI. Grossly the ventricular s ystem is midline without evidence of displacement. No acute hemorrhage or mass effect as visualized. IMPRESSION: 1. No acute hemorrhage or mass effect. 2. Correlate for Chiari malformation. Follow-up MRI recommended.
[2020-07-26 10:56] LABS: Partial Thromboplastin Time 21.8 sec (22.0-30.0)
[2020-07-26] MEDS ORDERED: LORazepam 2 MG/ML INJ IV STA (11:09)
[2020-07-26] MEDS ORDERED: KETOROLAC 15 MG/ML 1 ML VIAL IVP STA (11:09)
[2020-07-26 12:23] VITALS: BP 109/57; PULSE 73; RESP 16; TEMP 97.1
== END 2020-07-26 12:32 | disposition home or self-care (01) ==
LOC: EC 09:16
DX: R51.9 Headache, unspecified (principal); Z88.0 Allergy status to penicillin; Z88.1 Allergy status to other antibiotic agents; Z88.2 Allergy status to sulfonamides; Z88.8 Allergy status to other drugs, medicaments and biological substances; G40.909 Epilepsy, unspecified, not intractable, without status epilepticus; Z79.899 Other long term (current) drug therapy
CPT/HCPCS: 36415; 80053; 85025; 85610; 85730; 70450; 99284; 96374; 96375 ×3; J2060; J2405; J1885; J1170

== ENCOUNTER 2020-09-03 09:15 | Emergency (ER) | payer MEDICARE, OTHER ==
[2020-09-03] MEDS ORDERED: MORPHINE SULFATE 4 MG/ML SYRINGE IVP PRN (09:41)
[2020-09-03] MEDS ORDERED: ONDANSETRON 4 MG/2 ML VIAL IVP STA (09:42)
[2020-09-03] MEDS ORDERED: SODIUM CHLORIDE 0.9% 500 ML 500 ML IV ONE (09:42)
[2020-09-03] MEDS ORDERED: SODIUM CHLORIDE 0.9% 1,000 ML IV SCH (09:45)
--- NOTE | 2020-09-03 09:46 | ED ---
Abdominal Pain HPI - General Chief Complaint: Abdominal Pain Stated Complaint: Vomiting Time Seen by Provider: 09/03/20 09:27 Source: EMS Mode of arrival: EMS Limitations: no limitations - History of Present Illness Initial Comments: 54yo female presenting for abdominal pain nausea vomiting. Patient states she's had central abdominal pain ongoing for the past day. Patient states she is associated nausea and has been "spitting up. She denies fevers diarrhea. She states the pain is a cramping sensation. Patient states that she has had headaches on and off on review of systems but she states this is typical for her she states she struggles with chronic headaches and sees Dr. Baltazar for this. She denies this being new or worsen. Patient denies current headache. Patient states that she was given Zofran by EMS and is starting to feel better. Patient denies chest pain, dyspnea, leg swelling, cough. Admits to some congestion. Denies fevers, neck pain/stiffness, denies diplopia or visual changes. Patient denies additional complaints and upon arrival she appears nontoxic. VS within acceptable limits. - Related Data Home Medications Medication Instructions Recorded Confirmed lamoTRIgine [LaMICtal] 200 mg PO BID 09/29/14 09/03/20 Lacosamide [Vimpat] 50 mg PO QAM 07/04/18 09/03/20 Lacosamide [Vimpat] 100 mg PO HS 07/04/18 09/03/20 lamoTRIgine [LaMICtal] 25 mg PO BID 07/04/18 09/03/20 Montelukast [Singulair] 10 mg PO HS 07/26/20 09/03/20 Fluticasone Nasal [place] [Flonase 1 spr EA NOSTRIL DAILY PRN 09/03/20 09/03/20 Nasal [place]] Previous Rx's Medication Instructions Recorded Omeprazole [PriLOSEC] 40 mg PO AC-BRKFST #14 capsule. 11/21/19 Allergies Allergy/AdvReac Type Severity Reaction Status Date / Time cephalexin Allergy Unknown Verified 09/03/20 09:57 erythromycin base Allergy Unknown Verified 09/03/20 09:57 escitalopram oxalate Allergy Unknown Verified 09/03/20 09:57 [From Lexapro] Penicillins Allergy Unknown Verified 09/03/20 09:57 Sulfa (Sulfonamide Allergy Unknown Verified 09/03/20 09:57 Antibiotics) naproxen [From Naprosyn] AdvReac dry, runny Verified 09/03/20 09:57 nose tamsulosin AdvReac dry, runny Verified 09/03/20 09:57 nose Review of Systems ROS Statement: Those systems with pertinent positive or pertinent negative responses have been documented in the HPI. ROS Other: All systems not noted in ROS Statement are negative. 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 History of Any Multi-Drug Resistant Organisms: None Reported Past Surgical History: Breast Surgery, Orthopedic Surgery Additional Past Surgical History / Comment(s): LITHOTRIPSY , BREAST BX X 1 -PT NOT SURE WHICH ONE, LT KNEE SURGERY Past Anesthesia/Blood Transfusion Reactions: No Reported Reaction Past Psychological History: No Psychological Hx Reported Smoking Status: Never smoker Past Alcohol Use History: None Reported Past Drug Use History: None Reported - Past Family History Father Additional Family Medical History / Comment(s): HEART PROBLEMS heart stint placed Mother Family Medical History: Diabetes Mellitus General Exam - General Exam Comments Initial Comments: General: The patient is awake and alert, in no distress Eye: +3 mm pupils are equal, round and reactive to light, extra-ocular movements are intact. No nystagmus. There is normal conjunctiva bilaterally. No signs of icterus. Ears, nose, mouth and throat: There are moist mucous membranes and no oral lesions. Neck: The neck is supple, there is no tenderness or JVD. Cardiovascular: There is a regular rate and rhythm. No murmur, rub or gallop is appreciated. Respiratory: Lungs are clear to auscultation, respirations are non-labored, breath sounds are equal. No wheezes, stridor, rales, or rhonchi. Gastrointestinal: Soft, non-distended, central abdominal pain to palpation-mild to moderate, abdomen without masses or organomegaly noted. There is no rebound or guarding present. Musculoskeletal: Normal ROM, no tenderness. Strength 5/5. Sensation intact. Radial and DP pulses equal bilaterally 2+. Neurological: A&O x 3. CN II-XII intact grossly, There are no obvious motor or sensory deficits. Coordination appears grossly intact. Speech is normal. Skin: Skin is warm and dry and no rashes or lesions are noted. no LE edema. Psychiatric: Cooperative, appropriate mood & affect, normal judgment. Limitations: no limitations Course Vital Signs 09/03/20 09/03/20 09/03/20 09:19 11:07 11:19 Temperature 97.7 F Pulse Rate 82 80 72 Respiratory 21 18 18 Rate Blood Pressure 145/90 148/68 138/78 O2 Sat by Pulse 100 97 98 Oximetry Medical Decision Making - Medical Decision Making Labs stable. CT (-) for acute process. symptoms controlled. no focal neurological deficits. on reevaluation pt states continues to be headache free. pt has hx of headaches iwth recent MRI she states was normal. pt statse she feels beter and would like to go home. I discussed case in detail with attending Dr. Salazar who is agreeable to care plan and discharge. - Lab Data Result diagrams: 09/03/20 09:53 09/03/20 09:53 Lab Results 09/03/20 09/03/20 09/03/20 Range/Units 09:53 09:53 09:53 WBC 6.9 (3.8-10.6) k/uL RBC 4.57 (3.80-5.40) m/uL Hgb 14.5 (11.4-16.0) gm/dL Hct 42.3 (34.0-46.0) % MCV 92.5 (80.0-100.0) fL MCH 31.8 (25.0-35.0) pg MCHC 34.4 (31.0-37.0) g/dL RDW 12.5 (11.5-15.5) % Plt Count 349 (150-450) k/uL MPV 7.2 Neutrophils % 55 % Lymphocytes % 38 % Monocytes % 5 % Eosinophils % 0 % Basophils % 1 % Neutrophils # 3.8 (1.3-7.7) k/uL Lymphocytes # 2.6 (1.0-4.8) k/uL Monocytes # 0.4 (0-1.0) k/uL Eosinophils # 0.0 (0-0.7) k/uL Basophils # 0.0 (0-0.2) k/uL PT 9.9 (9.0-12.0) sec INR 1.0 (<1.2) APTT 24.9 (22.0-30.0) sec Sodium 140 (137-145) mmol/L Potassium 4.1 (3.5-5.1) mmol/L Chloride 105 (98-107) mmol/L Carbon Dioxide 27 (22-30) mmol/L Anion Gap 8 mmol/L BUN 9 (7-17) mg/dL Creatinine 0.83 (0.52-1.04) mg/dL Est GFR (CKD-EPI)AfAm >90 (>60 ml/min/1.73 sqM) Est GFR (CKD-EPI)NonAf 80 (>60 ml/min/1.73 sqM) Glucose 108 H (74-99) mg/dL Plasma Lactic Acid Ronal (0.7-2.0) mmol/L Calcium 9.3 (8.4-10.2) mg/dL Total Bilirubin 0.8 (0.2-1.3) mg/dL AST 21 (14-36) U/L ALT 12 (4-34) U/L Alkaline Phosphatase 138 H (38-126) U/L Troponin I (0.000-0.034) ng/mL Total Protein 7.9 (6.3-8.2) g/dL Albumin 4.3 (3.5-5.0) g/dL Amylase 54 (30-110) U/L Lipase 55 (23-300) U/L Urine Color Urine Appearance (Clear) Urine pH (5.0-8.0) Ur Specific [place] (1.001-1.035) Urine Protein (Negative) Urine Glucose (UA) (Negative) Urine Ketones (Negative) Urine Blood (Negative) Urine Nitrite (Negative) Urine Bilirubin (Negative) Urine Urobilinogen (<2.0) mg/dL Ur Leukocyte Esterase (Negative) Urine RBC (0-5) /hpf Urine WBC (0-5) /hpf Ur Squamous Epith Cells (0-4) /hpf Urine Bacteria (None) /hpf Urine Mucus (None) /hpf 09/03/20 09/03/20 09/03/20 Range/Units 09:53 09:53 11:07 WBC (3.8-10.6) k/uL RBC (3.80-5.40) m/uL Hgb (11.4-16.0) gm/dL Hct (34.0-46.0) % MCV (80.0-100.0) fL MCH (25.0-35.0) pg MCHC (31.0-37.0) g/dL RDW (11.5-15.5) % Plt Count (150-450) k/uL MPV Neutrophils % % Lymphocytes % % Monocytes % % Eosinophils % % Basophils % % Neutrophils # (1.3-7.7) k/uL Lymphocytes # (1.0-4.8) k/uL Monocytes # (0-1.0) k/uL Eosinophils # (0-0.7) k/uL Basophils # (0-0.2) k/uL PT (9.0-12.0) sec INR (<1.2) APTT (22.0-30.0) sec Sodium (137-145) mmol/L Potassium (3.5-5.1) mmol/L Chloride (98-107) mmol/L Carbon Dioxide (22-30) mmol/L Anion Gap mmol/L BUN (7-17) mg/dL Creatinine (0.52-1.04) mg/dL Est GFR (CKD-EPI)AfAm (>60 ml/min/1.73 sqM) Est GFR (CKD-EPI)NonAf (>60 ml/min/1.73 sqM) Glucose (74-99) mg/dL Plasma Lactic Acid Ronal 1.9 (0.7-2.0) mmol/L Calcium (8.4-10.2) mg/dL Total Bilirubin (0.2-1.3) mg/dL AST (14-36) U/L ALT (4-34) U/L Alkaline Phosphatase (38-126) U/L Troponin I <0.012 (0.000-0.034) ng/mL Total Protein (6.3-8.2) g/dL Albumin (3.5-5.0) g/dL Amylase (30-110) U/L Lipase (23-300) U/L Urine Color Yellow Urine Appearance Cloudy H (Clear) Urine pH 7.5 (5.0-8.0) Ur Specific [place] >1.050 H (1.001-1.035) Urine Protein 1+ H (Negative) Urine Glucose (UA) Negative (Negative) Urine Ketones Negative (Negative) Urine Blood Negative (Negative) Urine Nitrite Negative (Negative) Urine Bilirubin Negative (Negative) Urine Urobilinogen <2.0 (<2.0) mg/dL Ur Leukocyte Esterase Large H (Negative) Urine RBC 7 H (0-5) /hpf Urine WBC 16 H (0-5) /hpf Ur Squamous Epith Cells 26 H (0-4) /hpf Urine Bacteria Few H (None) /hpf Urine Mucus Occasional H (None) /hpf Disposition Clinical Impression: Nausea, Abdominal pain Disposition: HOME SELF-CARE Condition: Good Instructions (If sedation given, give patient instructions): Abdominal Pain (ED) Additional Instructions: Please use medication as discussed. Please follow-up with family doctor in the next 2 days. Please return to emergency room if the symptoms increase or worsen or for any other concerns. Is patient prescribed a controlled substance at d/c from ED?: No Referrals: None,Stated [Primary Care Provider] - 1-2 days Time of Disposition: 11:29
[2020-09-03 10:05] LABS: Basophils % (A) 1 %; Eosinophils % (A) 0 %; HCT 42.3 % (34.0-46.0); HGB 14.5 gm/dL (11.4-16.0); Lymphocytes # (A) 2.6 k/uL (1.0-4.8); Lymphocytes % (A) 38 %; MCH 31.8 pg (25.0-35.0); MCHC 34.4 g/dL (31.0-37.0); MCV 92.5 fL (80.0-100.0); Mean Platelet Volume 7.2; Monocytes # (A) 0.4 k/uL (0-1.0); Monocytes % (A) 5 %; Neutrophils # (A) 3.8 k/uL (1.3-7.7); Neutrophils % (A) 55 %; Platelet Count 349 k/uL (150-450); RBC 4.57 m/uL (3.80-5.40); RDW 12.5 % (11.5-15.5); WBC 6.9 k/uL (3.8-10.6)
[2020-09-03 10:19] LABS: Partial Thromboplastin Time 24.9 sec (22.0-30.0); Prothrombin Time 9.9 sec (9.0-12.0)
[2020-09-03 10:23] LABS: ALT 12 U/L (4-34); African American GFR (CKD) >90 (>60 ml/min/1.73 sqM); Albumin 4.3 g/dL (3.5-5.0); Amylase 54 U/L (30-110); Anion Gap 8 mmol/L; Blood Urea Nitrogen 9 mg/dL (7-17); Calcium 9.3 mg/dL (8.4-10.2); Carbon Dioxide 27 mmol/L (22-30); Chloride 105 mmol/L (98-107); Glucose 108 mg/dL (74-99); Lipase 55 U/L (23-300); Non-African American GFR(CKD) 80 (>60 ml/min/1.73 sqM); Sodium 140 mmol/L (137-145); Total Bilirubin 0.8 mg/dL (0.2-1.3); Total Protein 7.9 g/dL (6.3-8.2)
[2020-09-03 10:29] LABS: AST 21 U/L (14-36); Alkaline Phosphatase 138 U/L (38-126); Potassium 4.1 mmol/L (3.5-5.1)
[2020-09-03 11:09] VITALS: RESP 18
--- NOTE | 2020-09-03 11:13 | CT ---
EXAMINATION TYPE: CT abdomen pelvis w con DATE OF EXAM: 09/03/2020 COMPARISON: 11/20/2019 HISTORY: 54-year-old female Epigastric pain TECHNIQUE: Contiguous axial scanning of the abdomen and pelvis following administration of 100 ml Iso amy 300 IV contrast. Delayed images through the kidneys and coronal/sagittal reconstructions perform ed. The technologist notes that the scan was delayed due to technical error of the contrast injector. CT DLP: 1253.3 mGycm Automated exposure control for dose reduction was used. FINDINGS: Heart upper limits of normal in size without pericardial effusion. Strandy basilar atelectasis withou t pleural effusion. No focal liver lesion or biliary ductal dilatation. Portal venous system is patent. Gallbladder, adrenal glands, spleen, and pancreas appear within normal limits. Punctate 3 mm right lower pole renal calculus and 4 mm at the left lower pole. No hydronephrosis. Interval clearing of the right-sided hydronephrosis seen on 11/20/2019. No dilated small bowel, free fluid, free air. No mesenteric or retroperitoneal lymphadenopathy. Normal appendix. Mild stool burden. No pericolonic inflammatory change. Bladder urine distended. Uterus anteverted. Both ovaries are visualized. No abnormal fluid collection in the pelvis or pelvic lymphadenopathy. Tiny left-sided pelvic phlebolith. Bones: Facet arthropathy lower lumbar spine. IMPRESSION: 1. A 3 AND 4 MM NONOBSTRUCTIVE CALCULUS WITHIN THE RIGHT AND LEFT KIDNEYS, RESPECTIVELY. 2. NO ACUTE INFLAMMATORY PROCESS IDENTIFIED IN THE ABDOMEN OR PELVIS TO EXPLAIN THE PATIENT'S SYMPTOM S.
[2020-09-03 11:24] LABS: Appearance,Urine Cloudy (Clear); Bacteria,Urine Few /hpf; Bilirubin,Urine Negative (Negative); Blood,Urine Negative (Negative); Color,Urine Yellow; Glucose,Urine (UA) Negative (Negative); Ketones,Urine Negative (Negative); Leukocyte Esterase,Urine Large (Negative); Mucus,Urine Occasional /hpf; Nitrite,Urine Negative (Negative); PH, Urine 7.5 (5.0-8.0); Protein,Urine 1+ (Negative); RBC,Urine 7 /hpf (0-5); Squamous Epithelial Cell,Urine 26 /hpf (0-4); Urobilinogen,Urine <2.0 mg/dL (<2.0); WBC,Urine 16 /hpf (0-5)
[2020-09-03 11:26] LABS: Specific Gravity,Urine >1.050 (1.001-1.035)
[2020-09-03 13:20] VITALS: BP 142/77; PULSE 73; TEMP 98
== END 2020-09-03 13:20 | disposition home or self-care (01) ==
LOC: EC 09:15
DX: R10.9 Unspecified abdominal pain (principal); R11.2 Nausea with vomiting, unspecified; G40.909 Epilepsy, unspecified, not intractable, without status epilepticus; Z79.899 Other long term (current) drug therapy; Z87.442 Personal history of urinary calculi; Z88.0 Allergy status to penicillin; Z88.2 Allergy status to sulfonamides; Z88.1 Allergy status to other antibiotic agents; Z88.6 Allergy status to analgesic agent; Z88.8 Allergy status to other drugs, medicaments and biological substances; Z98.890 Other specified postprocedural states
CPT/HCPCS: 99285; 96374; 96361 ×3; 36415; 93005; 80053; 82150; 83605; 83690; 84484; 85025; 85610; 85730; 81001; 87086; 74177; J2270; Q9967

== ENCOUNTER 2020-09-05 11:43 | Emergency (ER) | payer MEDICARE, OTHER ==
[2020-09-05] MEDS ORDERED: SODIUM CHLORIDE 0.9% 500 ML 500 ML IV ONE (12:10)
[2020-09-05] MEDS ORDERED: METOCLOPRAMIDE 5 MG/ML 2 ML VIAL IVP STA (12:11)
[2020-09-05] MEDS ORDERED: HYDROmorphone 0.5 MG/0.5 ML SYRINGE IVP STA (12:11)
[2020-09-05 12:29] LABS: Basophils % (A) 0 %; Eosinophils % (A) 0 %; HCT 39.4 % (34.0-46.0); Lymphocytes # (A) 1.6 k/uL (1.0-4.8); Lymphocytes % (A) 25 %; MCH 30.5 pg (25.0-35.0); MCV 92.5 fL (80.0-100.0); Mean Platelet Volume 7.4; Monocytes # (A) 0.3 k/uL (0-1.0); Monocytes % (A) 5 %; Neutrophils # (A) 4.3 k/uL (1.3-7.7); Neutrophils % (A) 68 %; Platelet Count 338 k/uL (150-450); RBC 4.26 m/uL (3.80-5.40); RDW 12.8 % (11.5-15.5); WBC 6.3 k/uL (3.8-10.6)
[2020-09-05 12:43] LABS: ALT 12 U/L (4-34); AST 16 U/L (14-36); African American GFR (CKD) >90 (>60 ml/min/1.73 sqM); Albumin 3.8 g/dL (3.5-5.0); Alkaline Phosphatase 126 U/L (38-126); Anion Gap 6 mmol/L; Blood Urea Nitrogen 9 mg/dL (7-17); Calcium 8.6 mg/dL (8.4-10.2); Carbon Dioxide 26 mmol/L (22-30); Chloride 107 mmol/L (98-107); Glucose 113 mg/dL (74-99); Lipase 47 U/L (23-300); Non-African American GFR(CKD) 85 (>60 ml/min/1.73 sqM); Potassium 3.6 mmol/L (3.5-5.1); Sodium 139 mmol/L (137-145); Total Bilirubin 0.4 mg/dL (0.2-1.3); Total Protein 7.1 g/dL (6.3-8.2)
--- NOTE | 2020-09-05 13:17 | CT ---
EXAMINATION TYPE: CT brain wo con DATE OF EXAM: 09/05/2020 COMPARISON: 07/26/2020 and MRI 07/05/2018 HISTORY: 54-year-old female headache TECHNIQUE: Examination was done in axial plane without intravenous contrast. Coronal and sagittal r econstructions performed. CT DLP: 1099.4 mGycm Automated exposure control for dose reduction was used. FINDINGS: There is no evidence of acute intracranial hemorrhage, acute ischemic changes, mass, mass-effect, or extra-axial fluid collection. There is no effacement of cerebral sulci or basal subarachnoid cister ns. There is no hydrocephalus. There is no midline shift. Hayes-white matter distinction is preserv ed. Some trapped fluid in inferior right mastoid air cells. Paranasal sinuses are well pneumatized. Orbit s and globes are intact. Some air within the left cavernous sinus is noted. Redemonstrated some cerebellar tonsillar ectopia a nd crowding at the level of the foramen magnum. IMPRESSION: 1. No acute intracranial abnormality seen. 2. Redemonstrated crowding at the foramen magnum with some cerebellar tonsillar ectopia. The degree o f tonsillar ectopia measures 4 mm on the left on the old 07/05/2018 MRI. Some classification systems categorize this as benign ectopia while others classify this within the indeterminate range between b enign ectopia versus Chiari I malformation. Further clinical correlation recommended. 3. Foci of air within the left cavernous sinus probably due to air introduced during peripheral line placement. Clinically correlate. Facial soft tissue infection, some type of penetrating injury, and I VDA are other differential considerations. 4. Some mild trapped fluid in inferior right mastoid air cells. Correlate for any mastoid pain to exc lude mastoiditis.
[2020-09-05] MEDS ORDERED: ACET/COD 300 MG/30 MG STARTER PACK 6 TAB BTL PO STA (13:43)
[2020-09-05] MEDS ORDERED: ONDANSETRON 4 MG ODT STARTER PACK 2 TAB BTL PO STA (13:44)
--- NOTE | 2020-09-05 13:44 | ED ---
General Adult HPI - General Chief complaint: Abdominal Pain Stated complaint: Abd Pain Time Seen by Provider: 09/05/20 11:55 Source: patient, EMS Mode of arrival: EMS Limitations: physical limitation - History of Present Illness Initial comments: 54yo female presenting today for chief complaint of abdominal pain ongoing for years headaches times years. Patient states she has had headaches for years now she states that she has had multiple MRIs as well as EEGs. She states her last EEG was yesterday at an appointment with a specialist. Patient states she does not have the results. Patient states that she continues to have a headache as well as nausea vomiting and abdominal pain. Patient states that the abdominal pain and the headache are not new she states no one can figure out what is wrong with her. Patient denies any fevers ear pain chest pain shortness of breath bloody stools bloody vomit dark stools she denies any lower abdominal pain she states is mostly left upper quadrant. Patient denies any neck stiffness. Patient denies cough, or URI symptoms. pt has no additional complaints. no vomit in emesis basin. - Related Data Home Medications Medication Instructions Recorded Confirmed lamoTRIgine [LaMICtal] 200 mg PO BID 09/29/14 09/05/20 Lacosamide [Vimpat] 50 mg PO QAM 07/04/18 09/05/20 Lacosamide [Vimpat] 100 mg PO HS 07/04/18 09/05/20 lamoTRIgine [LaMICtal] 25 mg PO BID 07/04/18 09/05/20 Montelukast [Singulair] 10 mg PO HS 07/26/20 09/05/20 Fluticasone Nasal [place] [Flonase 1 spr EA NOSTRIL DAILY PRN 09/03/20 09/05/20 Nasal [place]] Previous Rx's Medication Instructions Recorded Omeprazole [PriLOSEC] 40 mg PO KARENFSChemo #14 capsule. 11/21/19 Allergies Allergy/AdvReac Type Severity Reaction Status Date / Time cephalexin Allergy Unknown Verified 09/05/20 12:13 erythromycin base Allergy Unknown Verified 09/05/20 12:13 escitalopram oxalate Allergy Unknown Verified 09/05/20 12:13 [From Lexapro] Penicillins Allergy Unknown Verified 09/05/20 12:13 Sulfa (Sulfonamide Allergy Unknown Verified 09/05/20 12:13 Antibiotics) naproxen [From Naprosyn] AdvReac dry, runny Verified 09/05/20 12:13 nose tamsulosin AdvReac dry, runny Verified 09/05/20 12:13 nose Review of Systems ROS Statement: Those systems with pertinent positive or pertinent negative responses have been documented in the HPI. ROS Other: All systems not noted in ROS Statement are negative. 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 History of Any Multi-Drug Resistant Organisms: None Reported Past Surgical History: Breast Surgery, Orthopedic Surgery Additional Past Surgical History / Comment(s): LITHOTRIPSY , BREAST BX X 1 -PT NOT SURE WHICH ONE, LT KNEE SURGERY Past Anesthesia/Blood Transfusion Reactions: No Reported Reaction Past Psychological History: No Psychological Hx Reported Smoking Status: Never smoker Past Alcohol Use History: None Reported Past Drug Use History: None Reported - Past Family History Father Additional Family Medical History / Comment(s): HEART PROBLEMS heart stint placed Mother Family Medical History: Diabetes Mellitus General Exam - General Exam Comments Initial Comments: General: The patient is awake and alert, in no distress Eye: +3 mm pupils are equal, round and reactive to light, extra-ocular movements are intact. No nystagmus. There is normal conjunctiva bilaterally. No signs of icterus. Ears, nose, mouth and throat: There are moist mucous membranes and no oral lesions. Neck: The neck is supple, there is no tenderness or JVD. Cardiovascular: There is a regular rate and rhythm. No murmur, rub or gallop is appreciated. Respiratory: Lungs are clear to auscultation, respirations are non-labored, breath sounds are equal. No wheezes, stridor, rales, or rhonchi. Gastrointestinal: Soft, non-distended, non-tender abdomen without masses or organomegaly noted. There is no rebound or guarding present. Musculoskeletal: Normal ROM, no tenderness. Strength 5/5 of the UE and LE b/l. Sensation intact of the UE and LE b/l. Radial pulses equal bilaterally 2+. Neurological: A&O x 3. CN II-XII intact, There are no obvious motor or sensory deficits. Coordination appears grossly intact. Speech is normal. No pronator drift. Skin: Skin is warm and dry and no rashes or lesions are noted. Psychiatric: Cooperative, appropriate mood & affect, normal judgment. Limitations: physical limitation Course Vital Signs 09/05/20 11:56 Temperature 98.1 F Pulse Rate 89 Respiratory 20 Rate Blood Pressure 138/83 O2 Sat by Pulse 99 Oximetry Medical Decision Making - Medical Decision Making Nontender abdomen on exam. Labs stable. CT brain findings in sinus from most likely peripheral line. no acute findings. pt has had this headache for years. pt has no focal deficits. no vomiting in ER. Discussed case at length wt > Martin who is agreeable to discharge wt continued outpatient f/u. patient agreeable to this care plan and discharge. - Lab Data Result diagrams: 09/05/20 12:18 09/05/20 12:18 Lab Results 09/05/20 09/05/20 09/05/20 Range/Units 12:18 12:18 12:18 WBC 6.3 (3.8-10.6) k/uL RBC 4.26 (3.80-5.40) m/uL Hgb 13.0 (11.4-16.0) gm/dL Hct 39.4 (34.0-46.0) % MCV 92.5 (80.0-100.0) fL MCH 30.5 (25.0-35.0) pg MCHC 33.0 (31.0-37.0) g/dL RDW 12.8 (11.5-15.5) % Plt Count 338 (150-450) k/uL MPV 7.4 Neutrophils % 68 % Lymphocytes % 25 % Monocytes % 5 % Eosinophils % 0 % Basophils % 0 % Neutrophils # 4.3 (1.3-7.7) k/uL Lymphocytes # 1.6 (1.0-4.8) k/uL Monocytes # 0.3 (0-1.0) k/uL Eosinophils # 0.0 (0-0.7) k/uL Basophils # 0.0 (0-0.2) k/uL Sodium 139 (137-145) mmol/L Potassium 3.6 (3.5-5.1) mmol/L Chloride 107 (98-107) mmol/L Carbon Dioxide 26 (22-30) mmol/L Anion Gap 6 mmol/L BUN 9 (7-17) mg/dL Creatinine 0.79 (0.52-1.04) mg/dL Est GFR (CKD-EPI)AfAm >90 (>60 ml/min/1.73 sqM) Est GFR (CKD-EPI)NonAf 85 (>60 ml/min/1.73 sqM) Glucose 113 H (74-99) mg/dL Calcium 8.6 (8.4-10.2) mg/dL Total Bilirubin 0.4 (0.2-1.3) mg/dL AST 16 (14-36) U/L ALT 12 (4-34) U/L Alkaline Phosphatase 126 (38-126) U/L Troponin I <0.012 (0.000-0.034) ng/mL Total Protein 7.1 (6.3-8.2) g/dL Albumin 3.8 (3.5-5.0) g/dL Lipase 47 (23-300) U/L Disposition Clinical Impression: Chronic headaches, Nausea, Chronic abdominal pain Disposition: HOME SELF-CARE Condition: Good Instructions (If sedation given, give patient instructions): Acute Headache (ED), Abdominal Pain (ED) Additional Instructions: Please use medication as discussed. Please follow-up with family doctor in the next 2 days and neurology. Please return to emergency room if the symptoms increase or worsen or for any other concerns. Is patient prescribed a controlled substance at d/c from ED?: No Referrals: None,Stated [Primary Care Provider] - 1-2 days Johnathan Baltazar MD [REFERRING] - 1-2 days Time of Disposition: 13:43
[2020-09-05 15:00] VITALS: BP 141/82; PULSE 81; RESP 18; TEMP 98.2
== END 2020-09-05 14:20 | disposition home or self-care (01) ==
LOC: EC 11:43
DX: G89.29 Other chronic pain (principal); R10.9 Unspecified abdominal pain; R51.9 Headache, unspecified; R11.0 Nausea; G40.909 Epilepsy, unspecified, not intractable, without status epilepticus; Z79.51 Long term (current) use of inhaled steroids; Z79.899 Other long term (current) drug therapy; Z88.0 Allergy status to penicillin; Z88.1 Allergy status to other antibiotic agents; Z88.2 Allergy status to sulfonamides; Z88.6 Allergy status to analgesic agent; Z88.8 Allergy status to other drugs, medicaments and biological substances
CPT/HCPCS: 36415; 80053; 83690; 84484; 85025; 70450; 99285; 96374; 96375; 96361; J2765; S0119; J1170

== ENCOUNTER 2020-12-15 14:42 | Emergency (ER) | payer MEDICARE, OTHER ==
[2020-12-15 15:57] VITALS: BP 136/77; PULSE 91; RESP 18; TEMP 98.3
--- NOTE | 2020-12-15 16:32 | ED ---
Skin/Abscess/FB HPI - General Chief complaint: Skin/Abscess/Foreign Body Stated complaint: Had an IV this thu, Thinks its infected Time Seen by Provider: 12/15/20 16:27 Source: patient, RN notes reviewed Mode of arrival: ambulatory Limitations: no limitations - History of Present Illness Initial comments: Patient is a 55-year-old female that presents to the emergency department complaining of a right antecubital skin issue. She notes that she had IV in on Thursday they took it out and she formed a bruise-like area. She denied any tenderness or pain area. She denied any redness warm to the touch. She was just concerned as this never happened to her before. She denied any chest pain first breath headache nausea vomiting diarrhea constipation fever fatigue chills. - Related Data Home Medications Medication Instructions Recorded Confirmed lamoTRIgine [LaMICtal] 200 mg PO BID 09/29/14 09/05/20 Lacosamide [Vimpat] 50 mg PO QAM 07/04/18 09/05/20 Lacosamide [Vimpat] 100 mg PO HS 07/04/18 09/05/20 lamoTRIgine [LaMICtal] 25 mg PO BID 07/04/18 09/05/20 Montelukast [Singulair] 10 mg PO HS 07/26/20 09/05/20 Fluticasone Nasal [place] [Flonase 1 spr EA NOSTRIL DAILY PRN 09/03/20 09/05/20 Nasal [place]] Previous Rx's Medication Instructions Recorded Omeprazole [PriLOSEC] 40 mg PO REBEKA-BRKFST #14 capsule. 11/21/19 Allergies Allergy/AdvReac Type Severity Reaction Status Date / Time cephalexin Allergy Unknown Verified 12/15/20 15:57 erythromycin base Allergy Unknown Verified 12/15/20 15:57 escitalopram oxalate Allergy Unknown Verified 12/15/20 15:57 [From Lexapro] Penicillins Allergy Unknown Verified 12/15/20 15:57 Sulfa (Sulfonamide Allergy Unknown Verified 12/15/20 15:57 Antibiotics) naproxen [From Naprosyn] AdvReac dry, runny Verified 12/15/20 15:57 nose tamsulosin AdvReac dry, runny Verified 12/15/20 15:57 nose Review of Systems ROS Statement: Those systems with pertinent positive or pertinent negative responses have been documented in the HPI. ROS Other: All systems not noted in ROS Statement are negative. 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 History of Any Multi-Drug Resistant Organisms: None Reported Past Surgical History: Breast Surgery, Orthopedic Surgery Additional Past Surgical History / Comment(s): LITHOTRIPSY , BREAST BX X 1 -PT NOT SURE WHICH ONE, LT KNEE SURGERY Past Anesthesia/Blood Transfusion Reactions: No Reported Reaction Past Psychological History: No Psychological Hx Reported Smoking Status: Never smoker Past Alcohol Use History: None Reported Past Drug Use History: None Reported - Past Family History Father Additional Family Medical History / Comment(s): HEART PROBLEMS heart stint placed Mother Family Medical History: Diabetes Mellitus General Exam Limitations: no limitations General appearance: alert, in no apparent distress, obese Head exam: Present: atraumatic, normocephalic, normal inspection Eye exam: Present: normal appearance, PERRL, EOMI. Absent: scleral icterus, conjunctival injection, periorbital swelling Neck exam: Present: normal inspection. Absent: tenderness, meningismus, lymphadenopathy Respiratory exam: Present: normal lung sounds bilaterally. Absent: respiratory distress, wheezes, rales, rhonchi, stridor Cardiovascular Exam: Present: regular rate, normal rhythm, normal heart sounds. Absent: systolic murmur, diastolic murmur, rubs, gallop, clicks GI/Abdominal exam: Present: soft, normal bowel sounds. Absent: distended, tenderness, guarding, rebound, rigid Extremities exam: Present: normal inspection, full ROM, normal capillary refill. Absent: tenderness, pedal edema, joint swelling, calf tenderness Back exam: Present: normal inspection Neurological exam: Present: alert, oriented X3, CN II-XII intact Psychiatric exam: Present: normal affect, normal mood Skin exam: Present: warm, dry, intact, normal color, other (Small hematoma in the right antecubital measuring approximately 3 cm x 3 cm.). Absent: rash Course Vital Signs 12/15/20 15:51 Temperature 98.3 F Pulse Rate 91 Respiratory 18 Rate Blood Pressure 136/77 O2 Sat by Pulse 97 Oximetry Medical Decision Making - Medical Decision Making 55-year-old female complaining of a skin issue in the right antecubital region. Upon inspection it appears that there is a small hematoma most likely due to a vein blow out during IV stick and removal. No labs or imaging needed due to no erythema, tenderness, warmth to the touch. Case discussed with Dr. Escobedo, patient can discharge home with follow-up to primary care Disposition Clinical Impression: Traumatic hematoma of elbow Disposition: HOME SELF-CARE Condition: Stable Instructions (If sedation given, give patient instructions): Hematoma (ED), Contusion in Adults (ED) Additional Instructions: Please return to the Emergency Department if symptoms worsen or any other concerns. If any warmth, tenderness, erythema appears was follow-up with urgent care or return to the emergency Department. Follow-up primary care in 3-5 days. Bruising should fade on its own in several weeks. Can use ice and compression to alleviate swelling. Is patient prescribed a controlled substance at d/c from ED?: No Referrals: None,Stated [Primary Care Provider] - 1-2 days Time of Disposition: 16:32
== END 2020-12-15 16:48 | disposition home or self-care (01) ==
LOC: EC 14:42
DX: S50.01XA Contusion of right elbow, initial encounter (principal); G40.909 Epilepsy, unspecified, not intractable, without status epilepticus; K21.9 Gastro-esophageal reflux disease without esophagitis; Z88.0 Allergy status to penicillin; X58.XXXA Exposure to other specified factors, initial encounter
CPT/HCPCS: 99282

== ENCOUNTER 2021-02-18 01:27 | Emergency (ER) | payer MEDICARE, OTHER ==
[2021-02-18 01:36] VITALS: BP 157/81; PULSE 85; RESP 20; TEMP 98
[2021-02-18] MEDS ORDERED: ONDANSETRON 4 MG/2 ML VIAL IVP STA (02:19)
[2021-02-18] MEDS ORDERED: KETOROLAC 15 MG/ML 1 ML VIAL IVP STA (02:19)
[2021-02-18 02:32] LABS: Appearance,Urine Slightly Cloudy (Clear); Basophils % (A) 0 %; Color,Urine Yellow; Eosinophils % (A) 1 %; HCT 42.3 % (34.0-46.0); HGB 13.5 gm/dL (11.4-16.0); Lymphocytes # (A) 1.8 k/uL (1.0-4.8); Lymphocytes % (A) 26 %; MCH 29.6 pg (25.0-35.0); MCHC 31.8 g/dL (31.0-37.0); Mean Platelet Volume 7.7; Monocytes # (A) 0.3 k/uL (0-1.0); Monocytes % (A) 5 %; Neutrophils # (A) 4.4 k/uL (1.3-7.7); Neutrophils % (A) 66 %; Platelet Count 316 k/uL (150-450); RBC 4.55 m/uL (3.80-5.40); RDW 12.8 % (11.5-15.5); Specific Gravity,Urine 1.025 (1.001-1.035); WBC 6.7 k/uL (3.8-10.6)
[2021-02-18 02:33] LABS: Bilirubin,Urine Negative (Negative); Blood,Urine Large (Negative); Glucose,Urine (UA) Negative (Negative); Ketones,Urine Negative (Negative); Leukocyte Esterase,Urine Moderate (Negative); Nitrite,Urine Negative (Negative); PH, Urine 5.5 (5.0-8.0); Protein,Urine Trace (Negative); Urobilinogen,Urine <2.0 mg/dL (<2.0)
[2021-02-18 02:40] LABS: Bacteria,Urine Rare /hpf; Mucus,Urine Rare /hpf; RBC,Urine >182 /hpf (0-5); Squamous Epithelial Cell,Urine 11 /hpf (0-4); WBC,Urine 13 /hpf (0-5)
--- NOTE | 2021-02-18 02:41 | ED ---
Abdominal Pain HPI - General Chief Complaint: Abdominal Pain Stated Complaint: Abdominal/Back Pain Time Seen by Provider: 02/18/21 02:09 Source: patient Mode of arrival: ambulatory Limitations: no limitations - History of Present Illness Initial Comments: This patient's 55-year-old woman who presents with complaint that she believes she is having another episode of kidney stones. She states that a few hours ago she started having pain in the left flank and it is radiating towards her left groin. She also began to experience some nausea and now she is having some epigastric discomfort as well. Patient denies fever or chills. No change in bowel movements. She does feel like she needs to urinate frequently but no other changes. MD Complaint: abdominal pain, flank pain Onset/Timin -: hour(s) Location: epigastric, L flank Radiation: none Migration to: no migration Severity: moderate Quality: sharp Consistency: constant Improves With: nothing Worsens With: nothing Associated Symptoms: nausea - Related Data Home Medications Medication Instructions Recorded Confirmed lamoTRIgine [LaMICtal] 200 mg PO BID 09/29/14 09/05/20 Lacosamide [Vimpat] 50 mg PO QAM 07/04/18 09/05/20 Lacosamide [Vimpat] 100 mg PO HS 07/04/18 09/05/20 lamoTRIgine [LaMICtal] 25 mg PO BID 07/04/18 09/05/20 Montelukast [Singulair] 10 mg PO HS 07/26/20 09/05/20 Fluticasone Nasal [place] [Flonase 1 spr EA NOSTRIL DAILY PRN 09/03/20 09/05/20 Nasal [place]] Previous Rx's Medication Instructions Recorded Omeprazole [PriLOSEC] 40 mg PO AC-BRKFST #14 capsule. 11/21/19 HYDROcodone/APAP 5-325MG [[place] 1 tab PO Q6HR PRN 3 Days #12 tab 02/18/21 5-325] Ondansetron Odt [Zofran ODT] 4 mg PO Q8HR PRN #10 tab 02/18/21 Allergies Allergy/AdvReac Type Severity Reaction Status Date / Time cephalexin Allergy Unknown Verified 02/18/21 01:36 erythromycin base Allergy Unknown Verified 02/18/21 01:36 escitalopram oxalate Allergy Unknown Verified 02/18/21 01:36 [From Lexapro] Penicillins Allergy Unknown Verified 02/18/21 01:36 Sulfa (Sulfonamide Allergy Unknown Verified 02/18/21 01:36 Antibiotics) naproxen [From Naprosyn] AdvReac dry, runny Verified 02/18/21 01:36 nose tamsulosin AdvReac dry, runny Verified 02/18/21 01:36 nose Review of Systems ROS Statement: Those systems with pertinent positive or pertinent negative responses have been documented in the HPI. ROS Other: All systems not noted in ROS Statement are negative. Constitutional: Denies: fever, chills Respiratory: Denies: cough, dyspnea Cardiovascular: Denies: chest pain, palpitations Gastrointestinal: Reports: abdominal pain, nausea. Denies: vomiting, diarrhea, constipation Genitourinary: Reports: frequency. Denies: dysuria, hematuria Musculoskeletal: Denies: back pain Skin: Denies: rash Neurological: Denies: headache, weakness Past Medical History Past Medical History: GERD/Reflux, Seizure Disorder Additional Past Medical History / Comment(s): HX NUMEROUS KIDNEY STONES- HX EPILEPSY (unsure of last seizure) -HAS PUBLIC GUARDIAN, STATES BRUISES EASILY, POOR HISTORIAN., STATES CARPAL TUNNEL IN HANDS AND ELBOWS. History of Any Multi-Drug Resistant Organisms: None Reported Past Surgical History: Breast Surgery, Orthopedic Surgery Additional Past Surgical History / Comment(s): LITHOTRIPSY , BREAST BX X 1 -PT NOT SURE WHICH ONE, LT KNEE SURGERY Past Anesthesia/Blood Transfusion Reactions: No Reported Reaction Past Psychological History: No Psychological Hx Reported Smoking Status: Never smoker Past Alcohol Use History: None Reported Past Drug Use History: None Reported - Past Family History Father Additional Family Medical History / Comment(s): HEART PROBLEMS heart stint placed Mother Family Medical History: Diabetes Mellitus General Exam Limitations: no limitations General appearance: alert, in no apparent distress Head exam: Present: atraumatic, normocephalic Eye exam: Present: normal appearance. Absent: scleral icterus, conjunctival injection Neck exam: Present: normal inspection Respiratory exam: Present: normal lung sounds bilaterally. Absent: respiratory distress, wheezes, rales, rhonchi, stridor Cardiovascular Exam: Present: regular rate, normal rhythm, normal heart sounds. Absent: systolic murmur, diastolic murmur, rubs, gallop GI/Abdominal exam: Present: soft. Absent: distended, tenderness, guarding, rebound, rigid, mass Extremities exam: Present: normal inspection, normal capillary refill. Absent: pedal edema, calf tenderness Back exam: Present: normal inspection, CVA tenderness (L). Absent: CVA tender ness (R) Neurological exam: Present: alert Skin exam: Present: warm, dry, intact, normal color. Absent: rash Course Vital Signs 02/18/21 01:34 Temperature 98.0 F Pulse Rate 85 Respiratory 20 Rate Blood Pressure 157/81 O2 Sat by Pulse 99 Oximetry Medical Decision Making - Lab Data Result diagrams: 02/18/21 02:22 02/18/21 02:22 Lab Results 02/18/21 02/18/21 02/18/21 Range/Units 02:22 02:22 02:22 WBC 6.7 (3.8-10.6) k/uL RBC 4.55 (3.80-5.40) m/uL Hgb 13.5 (11.4-16.0) gm/dL Hct 42.3 (34.0-46.0) % MCV 93.0 (80.0-100.0) fL MCH 29.6 (25.0-35.0) pg MCHC 31.8 (31.0-37.0) g/dL RDW 12.8 (11.5-15.5) % Plt Count 316 (150-450) k/uL MPV 7.7 Neutrophils % 66 % Lymphocytes % 26 % Monocytes % 5 % Eosinophils % 1 % Basophils % 0 % Neutrophils # 4.4 (1.3-7.7) k/uL Lymphocytes # 1.8 (1.0-4.8) k/uL Monocytes # 0.3 (0-1.0) k/uL Eosinophils # 0.0 (0-0.7) k/uL Basophils # 0.0 (0-0.2) k/uL Sodium 138 (137-145) mmol/L Potassium 4.5 (3.5-5.1) mmol/L Chloride 106 (98-107) mmol/L Carbon Dioxide 23 (22-30) mmol/L Anion Gap 9 mmol/L BUN 16 (7-17) mg/dL Creatinine 0.97 (0.52-1.04) mg/dL Est GFR (CKD-EPI)AfAm 75 (>60 ml/min/1.73 sqM) Est GFR (CKD-EPI)NonAf 65 (>60 ml/min/1.73 sqM) Glucose 111 H (74-99) mg/dL Calcium 9.1 (8.4-10.2) mg/dL Total Bilirubin 0.4 (0.2-1.3) mg/dL AST 23 (14-36) U/L ALT 14 (4-34) U/L Alkaline Phosphatase 170 H (38-126) U/L Total Protein 7.5 (6.3-8.2) g/dL Albumin 4.3 (3.5-5.0) g/dL Amylase 71 (30-110) U/L Lipase 86 (23-300) U/L Urine Color Yellow Urine Appearance Slightly Cloudy H (Clear) Urine pH 5.5 (5.0-8.0) Ur Specific [place] 1.025 (1.001-1.035) Urine Protein Trace (Negative) Urine Glucose (UA) Negative (Negative) Urine Ketones Negative (Negative) Urine Blood Large (Negative) Urine Nitrite Negative (Negative) Urine Bilirubin Negative (Negative) Urine Urobilinogen <2.0 (<2.0) mg/dL Ur Leukocyte Esterase Moderate (Negative) Urine RBC >182 H (0-5) /hpf Urine WBC 13 H (0-5) /hpf Ur Squamous Epith Cells 11 H (0-4) /hpf Urine Bacteria Rare H (None) /hpf Urine Mucus Rare H (None) /hpf Disposition Clinical Impression: Calculus of kidney Disposition: HOME SELF-CARE Condition: Good Instructions (If sedation given, give patient instructions): Kidney Stones (ED) Prescriptions: HYDROcodone/APAP 5-325MG [[place] 5-325] 1 tab PO Q6HR PRN 3 Days #12 tab PRN Reason: Pain Ondansetron Odt [Zofran ODT] 4 mg PO Q8HR PRN #10 tab PRN Reason: Nausea Is patient prescribed a controlled substance at d/c from ED?: Yes Referrals: None,Stated [Primary Care Provider] - 1-2 days Doroteo Aponte MD [STAFF PHYSICIAN] - 1-2 days
[2021-02-18 02:55] LABS: Albumin 4.3 g/dL (3.5-5.0); Calcium 9.1 mg/dL (8.4-10.2); Total Bilirubin 0.4 mg/dL (0.2-1.3); Total Protein 7.5 g/dL (6.3-8.2)
[2021-02-18 03:04] LABS: Potassium 4.5 mmol/L (3.5-5.1)
--- NOTE | 2021-02-18 03:07 | CT ---
EXAM: CT Abdomen and Pelvis Without Intravenous Contrast CLINICAL HISTORY: ITS.REASON CT Reason: stone protocol TECHNIQUE: Axial computed tomography images of the abdomen and pelvis without intravenous contrast. CTDI is 15.8 mGy and DLP is 911.9 mGy-cm. This CT exam was performed using one or more of the following dose reduction techniques: automated exposure control, adjustment of the mA and/or kV according to patient size, and/or use of iterative reconstruction technique. COMPARISON: No relevant prior studies available. FINDINGS: Lung bases: Bibasilar atelectasis and or scarring. ABDOMEN: Liver: Unremarkable. Gallbladder and bile ducts: Unremarkable. Pancreas: Unremarkable. Spleen: Unremarkable. Adrenals: Unremarkable. Kidneys and ureters: 3 mm calculus within the proximal left ureter which causes mild hydronephrosis. Additional nonobstructing calculi within the right kidney. Stomach and bowel: Colonic diverticulosis. PELVIS: Appendix: Appendix is unremarkable. Bladder: Unremarkable. Reproductive: Unremarkable as visualized. ABDOMEN and PELVIS: Intraperitoneal space: Unremarkable. Bones/joints: No acute fracture. No dislocation. Soft tissues: Unremarkable. Vasculature: Vascular calcifications. Lymph nodes: Unremarkable. IMPRESSION: 1. 3 mm calculus within the proximal left ureter which causes mild hydronephrosis. 2. Additional nonobstructing calculi within the right kidney.
[2021-02-18] MEDS ORDERED: MORPHINE SULFATE 4 MG/ML SYRINGE IV STA (04:03)
== END 2021-02-18 05:40 | disposition home or self-care (01) ==
LOC: EC 01:27
DX: N13.2 Hydronephrosis with renal and ureteral calculous obstruction (principal); K21.9 Gastro-esophageal reflux disease without esophagitis; G40.909 Epilepsy, unspecified, not intractable, without status epilepticus; Z88.0 Allergy status to penicillin
CPT/HCPCS: 36415; 80053; 82150; 83690; 85025; 81001; 74176; 99284; 96374; 96375 ×2; J2270; J2405; J1885

== ENCOUNTER → 2021-07-18 | Outpatient (CLI) | payer MEDICARE, OTHER ==
--- NOTE | 2021-07-18 18:17 | XR ---
PROCEDURE: XR hand limited LT - 2V DATE AND TIME: 07/18/2021 6:01 PM CLINICAL INDICATION: PHH; M25.532,M79.642,M79.602 TECHNIQUE: PA and lateral COMPARISON: None FINDINGS: There is no fracture or malalignment. Multifocal mild/moderate osteoarthrosis changes noted . The soft tissues are unremarkable. IMPRESSION: NO ACUTE PROCESS.
--- NOTE | 2021-07-18 18:18 | XR ---
PROCEDURE: XR wrist limited LT - 2V DATE AND TIME: 07/18/2021 6:01 PM CLINICAL INDICATION: PHH; M25.532,M79.642,M79.602 TECHNIQUE: PA and lateral COMPARISON: None FINDINGS: There is no fracture or malalignment. Multifocal osteoarthrosis changes are noted, relative ly mild in degree. The soft tissues are unremarkable. IMPRESSION: No definite acute process.
--- NOTE | 2021-07-18 18:20 | XR ---
PROCEDURE: XR forearm LT - 2V DATE AND TIME: 07/18/2021 6:01 PM CLINICAL INDICATION: PHH; pain. M25.532,M79.642,M79.602 TECHNIQUE: Department protocol COMPARISON: None FINDINGS: There is no fracture or malalignment. The soft tissues are unremarkable. IMPRESSION: NO ACUTE PROCESS.
== END | disposition home or self-care (01) ==
LOC: RADXRMAIN 17:40
PROVIDERS: ATTEND Family Medicine
DX: M25.532 Pain in left wrist (principal); M79.642 Pain in left hand; M79.632 Pain in left forearm

== ENCOUNTER 2021-10-17 01:34 | Emergency (ER) | payer MEDICARE, OTHER ==
[2021-10-17] MEDS ORDERED: SODIUM CHLORIDE 0.9% 500 ML 500 ML IV STA (01:38)
[2021-10-17] MEDS ORDERED: LORazepam 2 MG/ML INJ IV STA (01:38)
--- NOTE | 2021-10-17 01:51 | ED ---
Seizure HPI - General Stated Complaint: Seizure Time Seen by Provider: 10/17/21 01:38 Source: RN notes reviewed - History of Present Illness Initial Comments: This is a pleasant 55-year-old female presents to emergency department after having a possible seizure. Patient states she was laying in her bed before midnight and believes she might have had a seizure. She is unsure of any trauma states that she believes she did not fall or strike her head since she was in the bed. Patient states she feels like she had a seizure. Patient states she usually gets a headache after the seizure and has a current headache. She state s she's also had recent upper respiratory illness consisting of a runny nose, nasal congestion, and mild dry cough. Noted the patient has not vaccinated against COVID-19. Patient also complaining of mild epigastric discomfort, she states it feels like more nausea than anything. She denies any chest pain or shortness of breath. No difficulty with urination or bowel movements. No skin rashes or lesions. No changes in vision or hearing. No paresthesias. No focal weakness. Patient had an Accu-Chek via EMS which was normal. Patient taking both Vimpat and Lamictal for seizure control. Patient states she's been taking his medications appropriately. Patient's neurologist is Dr. Martinez CLAYTON Complaint: possible seizure - Related Data Home Medications Medication Instructions Recorded Confirmed lamoTRIgine [LaMICtal] 200 mg PO BID 09/29/14 09/05/20 Lacosamide [Vimpat] 50 mg PO QAM 07/04/18 09/05/20 Lacosamide [Vimpat] 100 mg PO HS 07/04/18 09/05/20 lamoTRIgine [LaMICtal] 25 mg PO BID 07/04/18 09/05/20 Montelukast [Singulair] 10 mg PO HS 07/26/20 09/05/20 Fluticasone Nasal [place] [Flonase 1 spr EA NOSTRIL DAILY PRN 09/03/20 09/05/20 Nasal [place]] Previous Rx's Medication Instructions Recorded Omeprazole [PriLOSEC] 40 mg PO AC-BRKFST #14 capsule. 11/21/19 HYDROcodone/APAP 5-325MG [[place] 1 tab PO Q6HR PRN 3 Days #12 tab 02/18/21 5-325] Ondansetron Odt [Zofran ODT] 4 mg PO Q8HR PRN #10 tab 02/18/21 Allergies Allergy/AdvReac Type Severity Reaction Status Date / Time cephalexin Allergy Unknown Verified 10/17/21 01:51 erythromycin base Allergy Unknown Verified 10/17/21 01:51 escitalopram oxalate Allergy Unknown Verified 10/17/21 01:51 [From Lexapro] Penicillins Allergy Unknown Verified 10/17/21 01:51 Sulfa (Sulfonamide Allergy Unknown Verified 10/17/21 01:51 Antibiotics) naproxen [From Naprosyn] AdvReac dry, runny Verified 10/17/21 01:51 nose tamsulosin AdvReac dry, runny Verified 10/17/21 01:51 nose Review of Systems ROS Statement: Those systems with pertinent positive or pertinent negative responses have been documented in the HPI. ROS Other: All systems not noted in ROS Statement are negative. 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 History of Any Multi-Drug Resistant Organisms: None Reported Past Surgical History: Breast Surgery, Orthopedic Surgery Additional Past Surgical History / Comment(s): LITHOTRIPSY , BREAST BX X 1 -PT NOT SURE WHICH ONE, LT KNEE SURGERY Past Anesthesia/Blood Transfusion Reactions: No Reported Reaction Past Psychological History: No Psychological Hx Reported Smoking Status: Never smoker Past Alcohol Use History: None Reported Past Drug Use History: None Reported - Past Family History Father Additional Family Medical History / Comment(s): HEART PROBLEMS heart stint placed Mother Family Medical History: Diabetes Mellitus General Exam - General Exam Comments Initial Comments: Deconditioned appearing 55-year-old female in no acute distress. Cranial nerves II through XII are intact. No focal neurologic deficit. Patient does not appear to be ill or toxic. Vital signs reviewed. General appearance: alert, in no apparent distress Head exam: Present: atraumatic, normocephalic, normal inspection, other (No evidence of head trauma. No evidence of maxillofacial trauma.) Eye exam: Present: normal appearance, PERRL, EOMI. Absent: scleral icterus, conjunctival injection, periorbital swelling Pupils: Present: normal accommodation, other. Absent: irregular, unequal ENT exam: Present: normal exam, normal oropharynx, mucous membranes dry, mucous membranes moist, TM's normal bilaterally, normal external ear exam, other (Patient has a very mild clear runny nose.) Neck exam: Present: normal inspection, full ROM. Absent: tenderness, meningismus, lymphadenopathy Respiratory exam: Present: normal lung sounds bilaterally. Absent: respiratory distress, wheezes, rales, rhonchi, stridor Cardiovascular Exam: Present: regular rate, normal rhythm, normal heart sounds. Absent: systolic murmur, diastolic murmur, rubs, gallop, clicks GI/Abdominal exam: Present: soft, normal bowel sounds. Absent: distended, tenderness, guarding, rebound, rigid Extremities exam: Present: normal inspection, full ROM, normal capillary refill. Absent: tenderness, pedal edema, joint swelling, calf tenderness Back exam: Present: normal inspection Neurological exam: Present: alert, oriented X3, CN II-XII intact. Absent: altered Expanded Patient oriented to: Present: person, place, time Speech: Present: fluid speech Cerebellar function: Finger to Nose: Normal, Heel to Paula: Normal Motor strength exam: RUE: 5, LUE: 5, RLE: 5, LLE: 5 Eye Response: (4) open spontaneously Motor Response: (6) obeys commands Verbal Response: (5) oriented Cindy Total: 15 Psychiatric exam: Present: normal affect, normal mood Skin exam: Present: warm, dry, intact, normal color. Absent: rash Course Vital Signs 10/17/21 01:51 Temperature 98.5 F Pulse Rate 88 Respiratory 16 Rate Blood Pressure 149/88 O2 Sat by Pulse 95 Oximetry - Reevaluation(s) Reevaluation #1: 10/17/21 02:58 Medical record is reviewed Symptoms are improved here in the emergency department Patient is informed of results and questions answered Patient in no distress Patient neurologically intact. No distress. Medical Decision Making - Medical Decision Making Patient did test positive for COVID-19. She started getting symptomatic on October 12. Patient meets criteria as she is on vaccinated and has a BMI of greater than 35. Monoclonal antibody ordered. Patient will be endorsed to the ED attending physician, Dr. Marte for further evaluation and disposition. The case was discussed in detail with ED attending physician. Presentation, findings, treatment plan discussed in detail. Patient reevaluated prior to discharge. No distress. No recurrent seizure activity. Patient can follow-up with her own neurologist, Dr. Henriquez. Patient was told no driving. Patient told to follow-up with her regular physician regarding COVID-19. General COVID-19 treatment plan. Patient's chest x-ray was clear. I do not believe the patient needs any further treatment other than the monoclonal antibody. Patient was told to return to the ER for any signs or symptoms worsen. Told to return immediately if any other problems arise. All questions answered. Treatment plan discussed. Patient in agreement - Lab Data Result diagrams: 10/17/21 01:48 10/17/21 01:48 Lab Results 10/17/21 10/17/21 10/17/21 Range/Units 01:48 01:48 01:48 WBC 3.4 L (3.8-10.6) k/uL RBC 4.31 (3.80-5.40) m/uL Hgb 13.4 (11.4-16.0) gm/dL Hct 41.3 (34.0-46.0) % MCV 95.8 (80.0-100.0) fL MCH 31.0 (25.0-35.0) pg MCHC 32.4 (31.0-37.0) g/dL RDW 13.1 (11.5-15.5) % Plt Count 251 (150-450) k/uL MPV 7.5 Neutrophils % 45 % Lymphocytes % 45 % Monocytes % 8 % Eosinophils % 0 % Basophils % 0 % Neutrophils # 1.5 (1.3-7.7) k/uL Lymphocytes # 1.5 (1.0-4.8) k/uL Monocytes # 0.3 (0-1.0) k/uL Eosinophils # 0.0 (0-0.7) k/uL Basophils # 0.0 (0-0.2) k/uL Sodium 138 (137-145) mmol/L Potassium 3.9 (3.5-5.1) mmol/L Chloride 110 H (98-107) mmol/L Carbon Dioxide 19 L (22-30) mmol/L Anion Gap 9 mmol/L BUN 11 (7-17) mg/dL Creatinine 0.72 (0.52-1.04) mg/dL Est GFR (CKD-EPI)AfAm >90 (>60 ml/min/1.73 sqM) Est GFR (CKD-EPI)NonAf >90 (>60 ml/min/1.73 sqM) Glucose 91 (74-99) mg/dL Calcium 6.8 L (8.4-10.2) mg/dL Magnesium 1.9 (1.6-2.3) mg/dL Total Bilirubin 0.5 (0.2-1.3) mg/dL AST 25 (14-36) U/L ALT 12 (4-34) U/L Alkaline Phosphatase 74 (38-126) U/L Troponin I <0.012 (0.000-0.034) ng/mL Total Protein 6.2 L (6.3-8.2) g/dL Albumin 3.2 L (3.5-5.0) g/dL Lipase 69 (23-300) U/L Serum Alcohol <10 mg/dL Coronavirus (PCR) (Not Detectd) 10/17/21 Range/Units 01:48 WBC (3.8-10.6) k/uL RBC (3.80-5.40) m/uL Hgb (11.4-16.0) gm/dL Hct (34.0-46.0) % MCV (80.0-100.0) fL MCH (25.0-35.0) pg MCHC (31.0-37.0) g/dL RDW (11.5-15.5) % Plt Count (150-450) k/uL MPV Neutrophils % % Lymphocytes % % Monocytes % % Eosinophils % % Basophils % % Neutrophils # (1.3-7.7) k/uL Lymphocytes # (1.0-4.8) k/uL Monocytes # (0-1.0) k/uL Eosinophils # (0-0.7) k/uL Basophils # (0-0.2) k/uL Sodium (137-145) mmol/L Potassium (3.5-5.1) mmol/L Chloride (98-107) mmol/L Carbon Dioxide (22-30) mmol/L Anion Gap mmol/L BUN (7-17) mg/dL Creatinine (0.52-1.04) mg/dL Est GFR (CKD-EPI)AfAm (>60 ml/min/1.73 sqM) Est GFR (CKD-EPI)NonAf (>60 ml/min/1.73 sqM) Glucose (74-99) mg/dL Calcium (8.4-10.2) mg/dL Magnesium (1.6-2.3) mg/dL Total Bilirubin (0.2-1.3) mg/dL AST (14-36) U/L ALT (4-34) U/L Alkaline Phosphatase (38-126) U/L Troponin I (0.000-0.034) ng/mL Total Protein (6.3-8.2) g/dL Albumin (3.5-5.0) g/dL Lipase (23-300) U/L Serum Alcohol mg/dL Coronavirus (PCR) Detected A (Not Detectd) - EKG Data Rate: normal EKG Comments: EKG done at 2:23 AM Attending physician reveals sinus rhythm with a rate of 82. Normal intervals. Normal axis. Normal QRS morphology. Some minimal T-wave flattening seen in dimple d V2, V3. No acute changes. No change from the previous study. - Radiology Data Radiology results: report reviewed, image reviewed Disposition Clinical Impression: Recurrent seizures, COVID-19 Disposition: HOME SELF-CARE Condition: Stable Instructions (If sedation given, give patient instructions): Recurrent Seizures in Adults (ED), Coronavirus Disease 2019 (COVID-19) Additional Instructions: SELF QUARANTINE DISCHARGE: As you are at risk for symptoms due to coronavirus, please stay home and stay away from others as much as possible. Please maintain social distance of 6 feet if possible. You should not return to work until at least 3 days (72 hours) have passed since recovery of symptoms. This defined as resolution of fever without the use of fever reducing medicines and improvement in respiratory symptoms (e.g,, cough, shortness of breath) Isolation can end at least 5 days after symptom onset and after fever ends for 24 hours (without the use of fever-reducing medication) and symptoms are impr oving, if these people can continue to properly wear a well-fitted mask around others for 5 more days after the 5-day isolation period. If you're still having symptoms at the end of 5 day period, isolate for an additional 5 days. More information about what to do if you are sick can be found on the CDC website at https://www.cdc.gov/coronavirus/2019-ncov/io-tbp-ofi-sick/hshwl-tjgp-mkel.html Expect the symptoms to last for 7-14 days from onset. Use acetaminophen (Tylenol) as needed for discomfort. You can take a maximum of 1 gram every 6 hours for discomfort, with your total dose in 24 hours not exceeding 4 grams. Be sure to maintain hydration. Drink continuous water and/or items high in vitamin C, such as orange juice and/or lemonade. Unless you have high blood pressure, you may consider Sudafed (which is [id number]) for nasal congestion. I would suggest that a short acting Sudafed rather than the 24 hour Sudafed. For a cough you may take Mucinex or Robitussin. Also consider the use of Vicks Vapor Rub or your chest when you sleep. Use a humidifier that is cleaned frequently, in the bedroom at night. For Nausea /Vomiting/Diarrhea associated with your Illness: o Small frequent sips of room temperature liquids. o Diet: [place] Foods - If you are still experiencing discomfort and/or nausea please slowly advancing your diet using the BRAT Diet = bananas, rice, apples/apple sauce, toast. o With diarrhea avoid any dairy for 48 hours after symptoms resolved. o Continue with activity as tolerated. If your symptoms do get worse and you believe that the upper respiratory infection has developed into something else, such as pneumonia or severe dehydration, please return to the emergency department or follow-up with your primary care. But expect to be symptomatic for the days as indicated above Is patient prescribed a controlled substance at d/c from ED?: No Referrals: Marie Ye III, MD [Primary Care Provider] - 1-2 days Royal Henriquez MD [STAFF PHYSICIAN] - 1-2 days Time of Disposition: 03:34
[2021-10-17 01:53] VITALS: TEMP 98.5
[2021-10-17 02:16] LABS: Basophils % (A) 0 %; Eosinophils % (A) 0 %; HCT 41.3 % (34.0-46.0); HGB 13.4 gm/dL (11.4-16.0); Lymphocytes # (A) 1.5 k/uL (1.0-4.8); Lymphocytes % (A) 45 %; MCHC 32.4 g/dL (31.0-37.0); MCV 95.8 fL (80.0-100.0); Mean Platelet Volume 7.5; Monocytes # (A) 0.3 k/uL (0-1.0); Monocytes % (A) 8 %; Neutrophils # (A) 1.5 k/uL (1.3-7.7); Neutrophils % (A) 45 %; Platelet Count 251 k/uL (150-450); RBC 4.31 m/uL (3.80-5.40); RDW 13.1 % (11.5-15.5); WBC 3.4 k/uL (3.8-10.6)
[2021-10-17 02:17] LABS: ALT 12 U/L (4-34); African American GFR (CKD) >90 (>60 ml/min/1.73 sqM); Albumin 3.2 g/dL (3.5-5.0); Alcohol <10 mg/dL; Anion Gap 9 mmol/L; Blood Urea Nitrogen 11 mg/dL (7-17); Calcium 6.8 mg/dL (8.4-10.2); Carbon Dioxide 19 mmol/L (22-30); Chloride 110 mmol/L (98-107); Glucose 91 mg/dL (74-99); Lipase 69 U/L (23-300); Non-African American GFR(CKD) >90 (>60 ml/min/1.73 sqM); Sodium 138 mmol/L (137-145); Total Bilirubin 0.5 mg/dL (0.2-1.3); Total Protein 6.2 g/dL (6.3-8.2)
[2021-10-17 02:26] LABS: AST 25 U/L (14-36); Alkaline Phosphatase 74 U/L (38-126); Magnesium 1.9 mg/dL (1.6-2.3); Potassium 3.9 mmol/L (3.5-5.1)
--- NOTE | 2021-10-17 02:53 | XR ---
EXAMINATION TYPE: XR chest 2V DATE OF EXAM: 10/17/2021 COMPARISON: 07/04/2018 HISTORY: Abdominal pain TECHNIQUE: FINDINGS: There is no heart failure nor confluent pneumonic infiltrate. Costophrenic angles are clear . There are chest leads. Bony thorax is intact IMPRESSION: No active cardiopulmonary disease. No adverse change.
--- NOTE | 2021-10-17 02:56 | XR ---
EXAMINATION TYPE: XR abdomen 2V DATE OF EXAM: 10/17/2021 COMPARISON: 11/19/2019 HISTORY: Abdominal pain TECHNIQUE: 3 views FINDINGS: There is no sign of intestinal obstruction or pneumoperitoneum. Fecal pattern is normal. Th ere is increased density over the abdomen. Abdominal ascites as possible. IMPRESSION: Possible ascites. No free air.
--- NOTE | 2021-10-17 02:57 | CT ---
EXAMINATION TYPE: CT brain wo con DATE OF EXAM: 10/17/2021 COMPARISON: 09/05/2020 HISTORY: seizure CT DLP: 1066.4 mGycm Automated exposure control for dose reduction was used. Images of the brain obtained without contrast. Ventricles have normal size. There is no mass effect or midline shift. There is no sign of intracrani al hemorrhage. Calvarium is intact. There is no evidence of cerebral edema. IMPRESSION: Negative unenhanced head CT scan. No adverse change.
[2021-10-17] MEDS ORDERED: SODIUM CHLORIDE 0.9% 50 ML IVPB ONE (03:15)
[2021-10-17] MEDS ORDERED: SOTROVIMAB (EUA) 500 MG in SODIUM CHLORIDE 0.9% 100 ML IVPB ONE (03:15)
[2021-10-17 07:15] VITALS: BP 135/88; PULSE 77; RESP 13
== END 2021-10-17 05:54 | disposition home or self-care (01) ==
LOC: EC 01:34
DX: U07.1 COVID-19 (principal); G40.909 Epilepsy, unspecified, not intractable, without status epilepticus; K21.9 Gastro-esophageal reflux disease without esophagitis; Z79.899 Other long term (current) drug therapy
CPT/HCPCS: 93005; 80053; 80175; 83690; 83735; 84484; 85025; 87635; 80235; 71046; 74019; 70450; 99285; 96374; 96361; G0480; J2060; Q0247; 80320

== ENCOUNTER 2021-10-19 10:08 | Emergency (ER) | payer MEDICARE, OTHER ==
[2021-10-19 10:17] VITALS: RESP 18
[2021-10-19] MEDS ORDERED: SODIUM CHLORIDE 0.9% 500 ML 500 ML IV ONE (10:21)
[2021-10-19] MEDS ORDERED: SODIUM CHLORIDE 0.9% 1,000 ML IV ONE (10:21)
[2021-10-19] MEDS ORDERED: ONDANSETRON 4 MG/2 ML VIAL IVP STA ×2 (10:21→11:40)
[2021-10-19 10:51] LABS: Basophils % (A) 0 %; Eosinophils % (A) 0 %; HCT 42.1 % (34.0-46.0); Lymphocytes # (A) 2.2 k/uL (1.0-4.8); Lymphocytes % (A) 46 %; MCH 31.6 pg (25.0-35.0); MCHC 33.3 g/dL (31.0-37.0); MCV 94.9 fL (80.0-100.0); Mean Platelet Volume 7.7; Monocytes # (A) 0.3 k/uL (0-1.0); Monocytes % (A) 7 %; Neutrophils # (A) 2.1 k/uL (1.3-7.7); Neutrophils % (A) 45 %; Platelet Count 274 k/uL (150-450); RBC 4.44 m/uL (3.80-5.40); RDW 12.6 % (11.5-15.5); WBC 4.7 k/uL (3.8-10.6)
[2021-10-19 11:02] LABS: Albumin 4.2 g/dL (3.5-5.0); Calcium 8.5 mg/dL (8.4-10.2); Potassium 3.7 mmol/L (3.5-5.1); Total Bilirubin 0.6 mg/dL (0.2-1.3); Total Protein 7.9 g/dL (6.3-8.2)
--- NOTE | 2021-10-19 11:10 | XR ---
EXAMINATION TYPE: XR chest 2V DATE OF EXAM: 10/19/2021 10:50 AM COMPARISON:Chest radiographs from 1021 TECHNIQUE: XR chest 2V Frontal and lateral views of the chest. CLINICAL INDICATION:Female, 56 years old with history of sob; FINDINGS: Lungs/Pleura: There is no evidence of pleural effusion, focal consolidation, or pneumothorax. Left h azy opacities are seen on today's exam. Right middle streaky opacities are present. Pulmonary vascularity: Unremarkable. Heart/mediastinum: Cardiomediastinal silhouette is prominent in size. Musculoskeletal: No acute osseous pathology. IMPRESSION: Left hazy opacities not seen on 10/17/2021 correlate for atypical pneumonia.
--- NOTE | 2021-10-19 11:25 | ED ---
Weakness HPI - General Chief complaint: Weakness Stated complaint: Covid+ Time Seen by Provider: 10/19/21 10:15 Source: patient, EMS, RN notes reviewed Mode of arrival: EMS Limitations: no limitations - History of Present Illness Initial comments: This a 56-year-old female presents emergency Department with chief complaint of generalized not feeling well. Patient recently tested positive for covid 19. Patient states that she just feels nauseated, cough, feels weak denies any chest pain or shortness of breath currently she states her cough is nonproductive. Patient has had on-and-off fevers and chills, body aches. - Related Data Home Medications Medication Instructions Recorded Confirmed lamoTRIgine [LaMICtal] 200 mg PO BID@0900,209909/29/14 10/19/21 lamoTRIgine [LaMICtal] 50 mg PO BID@0900,209907/04/18 10/19/21 Montelukast [Singulair] 10 mg PO HS@209907/26/20 10/19/21 Lacosamide [Vimpat] 100 mg PO BID@0900,209910/17/21 10/19/21 Loratadine 10 mg PO DAILY@0910/17/21 10/19/21 Pantoprazole Sodium [Protonix] 40 mg PO DAILY@89910/17/21 10/19/21 Budesonide [Pulmicort Flexhaler] 2 puff INHALATION RT-BID 10/19/21 10/19/21 Previous Rx's Medication Instructions Recorded Albuterol Sulfate [Proair Hfa] 1 - 2 puff INHALATION Q6HR PRN 10/17/21 #8.5 gm Dexamethasone 6 mg PO DAILY #9 tablet 10/17/21 guaiFENesin-Coden 100-10MG/5ML 10 ml PO Q6H PRN 3 Days #120 ml 10/17/21 [Robitussin AC] Ondansetron Odt [Zofran Odt] 4 mg PO Q8HR PRN #10 tab 10/19/21 Allergies Allergy/AdvReac Type Severity Reaction Status Date / Time cephalexin Allergy Unknown Verified 10/19/21 10:36 erythromycin base Allergy Unknown Verified 10/19/21 10:36 escitalopram oxalate Allergy Unknown Verified 10/19/21 10:36 [From Lexapro] Penicillins Allergy Unknown Verified 02/12/22 10:36 Sulfa (Sulfonamide Allergy Unknown Verified 10/19/21 10:36 Antibiotics) naproxen [From Naprosyn] AdvReac dry, runny Verified 10/19/21 10:36 nose tamsulosin AdvReac dry, runny Verified 10/19/21 10:36 nose Review of Systems ROS Statement: Those systems with pertinent positive or pertinent negative responses have been documented in the HPI. ROS Other: All systems not noted in ROS Statement are negative. 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 History of Any Multi-Drug Resistant Organisms: None Reported Past Surgical History: Breast Surgery, Orthopedic Surgery Additional Past Surgical History / Comment(s): LITHOTRIPSY , BREAST BX X 1 -PT NOT SURE WHICH ONE, LT KNEE SURGERY Past Anesthesia/Blood Transfusion Reactions: No Reported Reaction Past Psychological History: No Psychological Hx Reported Smoking Status: Never smoker Past Alcohol Use History: None Reported Past Drug Use History: None Reported - Past Family History Father Additional Family Medical History / Comment(s): HEART PROBLEMS heart stint placed Mother Family Medical History: Diabetes Mellitus General Exam Limitations: no limitations General appearance: alert, in no apparent distress Head exam: Present: atraumatic, normocephalic, normal inspection Eye exam: Present: normal appearance, PERRL, EOMI. Absent: scleral icterus, conjunctival injection, periorbital swelling ENT exam: Present: normal exam, mucous membranes moist Neck exam: Present: normal inspection. Absent: tenderness, meningismus, l ymphadenopathy Respiratory exam: Present: normal lung sounds bilaterally. Absent: respiratory distress, wheezes, rales, rhonchi, stridor Cardiovascular Exam: Present: regular rate, normal rhythm, normal heart sounds. Absent: systolic murmur, diastolic murmur, rubs, gallop, clicks Course Vital Signs 10/19/21 10/19/21 10:09 10:17 Temperature 97.1 F L Pulse Rate 81 Respiratory 18 18 Rate Blood Pressure 163/90 O2 Sat by Pulse 99 Oximetry Medical Decision Making - Medical Decision Making Labs are unremarkable patient was hydrated, given antiemetics. Patient chest x-ray does not show any significant changes possible early COVID-19 pneumonia. Patient will be discharged in stable condition return parameters were discussed. - Lab Data Result diagrams: 10/19/21 10:32 10/19/21 10:32 Lab Results 10/19/21 10/19/21 Range/Units 10:32 10:32 WBC 4.7 (3.8-10.6) k/uL RBC 4.44 (3.80-5.40) m/uL Hgb 14.0 (11.4-16.0) gm/dL Hct 42.1 (34.0-46.0) % MCV 94.9 (80.0-100.0) fL MCH 31.6 (25.0-35.0) pg MCHC 33.3 (31.0-37.0) g/dL RDW 12.6 (11.5-15.5) % Plt Count 274 (150-450) k/uL MPV 7.7 Neutrophils % 45 % Lymphocytes % 46 % Monocytes % 7 % Eosinophils % 0 % Basophils % 0 % Neutrophils # 2.1 (1.3-7.7) k/uL Lymphocytes # 2.2 (1.0-4.8) k/uL Monocytes # 0.3 (0-1.0) k/uL Eosinophils # 0.0 (0-0.7) k/uL Basophils # 0.0 (0-0.2) k/uL Sodium 142 (137-145) mmol/L Potassium 3.7 (3.5-5.1) mmol/L Chloride 107 (98-107) mmol/L Carbon Dioxide 24 (22-30) mmol/L Anion Gap 11 mmol/L BUN 13 (7-17) mg/dL Creatinine 0.86 (0.52-1.04) mg/dL Est GFR (CKD-EPI)AfAm 87 (>60 ml/min/1.73 sqM) Est GFR (CKD-EPI)NonAf 75 (>60 ml/min/1.73 sqM) Glucose 87 (74-99) mg/dL Calcium 8.5 (8.4-10.2) mg/dL Total Bilirubin 0.6 (0.2-1.3) mg/dL AST 33 (14-36) U/L ALT 19 (4-34) U/L Alkaline Phosphatase 100 (38-126) U/L Total Protein 7.9 (6.3-8.2) g/dL Albumin 4.2 (3.5-5.0) g/dL Disposition Clinical Impression: COVID-19 Disposition: HOME SELF-CARE Condition: Stable Instructions (If sedation given, give patient instructions): Coronavirus Disease 2019 (COVID-19) Additional Instructions: Please return to the Emergency Department if symptoms worsen or any other concerns. Prescriptions: Ondansetron Odt [Zofran Odt] 4 mg PO Q8HR PRN #10 tab PRN Reason: Nausea Is patient prescribed a controlled substance at d/c from ED?: No Referrals: Marie Ye III, MD [Primary Care Provider] - 1-2 days Time of Disposition: 11:25
[2021-10-19] MEDS ORDERED: ONDANSETRON 4 MG ODT STARTER PACK 2 TAB BTL PO STA (11:44)
[2021-10-19 11:52] VITALS: BP 147/87; PULSE 72; TEMP 97.8
== END 2021-10-19 12:20 | disposition home or self-care (01) ==
LOC: EC 10:08
DX: U07.1 COVID-19 (principal); K21.9 Gastro-esophageal reflux disease without esophagitis; G40.909 Epilepsy, unspecified, not intractable, without status epilepticus; Z79.51 Long term (current) use of inhaled steroids; Z79.899 Other long term (current) drug therapy
CPT/HCPCS: 36415; 80053; 85025; 71046; 99285; 96374; 96376; 96361; J2405; S0119

== ENCOUNTER 2021-10-20 00:55 | Emergency (ER) | payer MEDICARE, OTHER ==
[2021-10-20 01:10] VITALS: BP 128/80; PULSE 79; RESP 20; TEMP 97.9
[2021-10-20] MEDS ORDERED: SODIUM CHLORIDE 0.9% 1,000 ML IV STA (02:25)
[2021-10-20] MEDS ORDERED: METOCLOPRAMIDE 5 MG/ML 2 ML VIAL IVP STA (02:26)
--- NOTE | 2021-10-20 02:39 | ED ---
General Adult HPI - General Chief complaint: Nausea/Vomiting/Diarrhea Stated complaint: covid+, not feeling better Time Seen by Provider: 10/20/21 02:23 Source: patient, EMS Mode of arrival: EMS Limitations: no limitations - History of Present Illness Initial comments: Dictation was produced using [employer] dictation software. please excuse any gramma tical, word or spelling errors. Chief Complaint: Patient is a 56-year-old female presents emergency department for nausea vomiting History of Present Illness: 56-year-old female presents to emergency room for nausea vomiting. Patient is positive for: 4 days ago. She's been symptom back from that amount of time. This is her fourth visit to the emergency department last 3 days. Patient states she is brought in by EMS from her dad's house. She states that she's been thrown out. States that her emesis is nonbilious nonbloody. No diarrhea. Denies any abdominal pain. Denies any constitutional symptoms. She has been having a cough. No shortness of breath though. The ROS documented in this emergency department record has been reviewed and confirmed by me. Those systems with pertinent positive or negative responses have been documented in the HPI. All other systems are other negative and/or noncontributory. PHYSICAL EXAM: General Impression: Alert and oriented x3, acute distress secondary to nausea HEENT: Normocephalic atraumatic, extra-ocular movements intact, pupils equal and reactive to light bilaterally, mucous membranes moist. Cardiovascular: Heart regular rate and rhythm Chest: Able to complete full sentences, no retractions, no tachypnea Abdomen: abdomen soft, non-tender, non-distended, no organomegaly Musculoskeletal: Pulses present and equal in all extremities, no peripheral edema Motor: no focal deficits noted Neurological: CN II-XII grossly intact, no focal motor or sensory deficits noted Skin: Intact with no visualized rashes Psych: Normal affect and mood ED course: 56-year-old female presents emergency department for nausea vomiting. She is recently diagnosed COVID-19. Vital signs upon arrival are within acceptable limits. Laboratory evaluation obtained. CBC is unremarkable. Metabolic panel shows mild anion gap acidosis with a bicarb of 18 and a gap of 17. Rest metabolic panel is unremarkable. Clinical presentation consistent with mild dehydration secondary to vomiting. Reevaluated at bedside at 4:10 AM patient is well-appearing. She is receiving intravenous fluids. Her nausea and vomiting is significantly improved with Reglan. She'll be discharged with antiemetic prescription. Advised follow-up with primary care doctor. EKG interpretation: Ventricular rate 68, sinus rhythm,. Interval 162, QRS 94, QTC 447. No NH prolongation, no QTC prolongation, no ST or T-wave changes noted. EKG compared to. 06/26/2022 showing no changes. Overall, this EKG is unremarkable - Related Data Home Medications Medication Instructions Recorded Confirmed lamoTRIgine [LaMICtal] 200 mg PO BID@09,209909/29/14 10/19/21 lamoTRIgine [LaMICtal] 50 mg PO BID@0900,209907/04/18 10/19/21 Montelukast [Singulair] 10 mg PO HS@209907/26/20 10/19/21 Lacosamide [Vimpat] 100 mg PO BID@0900,209910/17/21 10/19/21 Loratadine 10 mg PO DAILY@89910/17/21 10/19/21 Pantoprazole Sodium [Protonix] 40 mg PO DAILY@89910/17/21 10/19/21 Budesonide [Pulmicort Flexhaler] 2 puff INHALATION RT-BID 10/19/21 10/19/21 Previous Rx's Medication Instructions Recorded Albuterol Sulfate [Proair Hfa] 1 - 2 puff INHALATION Q6HR PRN 10/17/21 #8.5 gm Dexamethasone 6 mg PO DAILY #9 tablet 10/17/21 guaiFENesin-Coden 100-10MG/5ML 10 ml PO Q6H PRN 3 Days #120 ml 10/17/21 [Robitussin AC] Ondansetron Odt [Zofran Odt] 4 mg PO Q8HR PRN #10 tab 10/19/21 Metoclopramide [Reglan] 10 mg PO TID PRN #12 tab 10/20/21 Allergies Allergy/AdvReac Type Severity Reaction Status Date / Time cephalexin Allergy Unknown Verified 10/20/21 01:10 erythromycin base Allergy Unknown Verified 10/20/21 01:10 escitalopram oxalate Allergy Unknown Verified 10/20/21 01:10 [From Lexapro] Penicillins Allergy Unknown Verified 10/20/21 01:10 Sulfa (Sulfonamide Allergy Unknown Verified 10/20/21 01:10 Antibiotics) naproxen [From Naprosyn] AdvReac dry, runny Verified 10/20/21 01:10 nose tamsulosin AdvReac dry, runny Verified 10/20/21 01:10 nose Review of Systems ROS Statement: Those systems with pertinent positive or pertinent negative responses have been documented in the HPI. ROS Other: All systems not noted in ROS Statement are negative. 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 COVID 10/16/21, History of Any Multi-Drug Resistant Organisms: None Reported Past Surgical History: Breast Surgery, Orthopedic Surgery Additional Past Surgical History / Comment(s): LITHOTRIPSY , BREAST BX X 1 -PT NOT SURE WHICH ONE, LT KNEE SURGERY Past Anesthesia/Blood Transfusion Reactions: No Reported Reaction Past Psychological History: No Psychological Hx Reported Smoking Status: Never smoker Past Alcohol Use History: None Reported Past Drug Use History: None Reported - Past Family History Father Additional Family Medical History / Comment(s): HEART PROBLEMS heart stint placed Mother Family Medical History: Diabetes Mellitus General Exam Limitations: no limitations Course Vital Signs 10/20/21 01:07 Temperature 97.9 F Pulse Rate 79 Respiratory 20 Rate Blood Pressure 128/80 O2 Sat by Pulse 97 Oximetry Medical Decision Making - Lab Data Result diagrams: 10/20/21 03:02 10/20/21 03:02 Lab Results 10/20/21 10/20/21 Range/Units 03:02 03:02 WBC 5.6 (3.8-10.6) k/uL RBC 4.80 (3.80-5.40) m/uL Hgb 15.1 (11.4-16.0) gm/dL Hct 45.4 (34.0-46.0) % MCV 94.6 (80.0-100.0) fL MCH 31.5 (25.0-35.0) pg MCHC 33.3 (31.0-37.0) g/dL RDW 13.1 (11.5-15.5) % Plt Count 300 (150-450) k/uL MPV 7.5 Neutrophils % 66 % Lymphocytes % 27 % Monocytes % 5 % Eosinophils % 0 % Basophils % 0 % Neutrophils # 3.7 (1.3-7.7) k/uL Lymphocytes # 1.5 (1.0-4.8) k/uL Monocytes # 0.3 (0-1.0) k/uL Eosinophils # 0.0 (0-0.7) k/uL Basophils # 0.0 (0-0.2) k/uL Sodium 141 (137-145) mmol/L Potassium 3.4 L (3.5-5.1) mmol/L Chloride 106 (98-107) mmol/L Carbon Dioxide 18 L (22-30) mmol/L Anion Gap 17 mmol/L BUN 11 (7-17) mg/dL Creatinine 0.83 (0.52-1.04) mg/dL Est GFR (CKD-EPI)AfAm >90 (>60 ml/min/1.73 sqM) Est GFR (CKD-EPI)NonAf 78 (>60 ml/min/1.73 sqM) Glucose 100 H (74-99) mg/dL Calcium 9.1 (8.4-10.2) mg/dL Magnesium 2.2 (1.6-2.3) mg/dL Total Bilirubin 0.7 (0.2-1.3) mg/dL AST 32 (14-36) U/L ALT 20 (4-34) U/L Alkaline Phosphatase 113 (38-126) U/L Total Protein 8.2 (6.3-8.2) g/dL Albumin 4.5 (3.5-5.0) g/dL Disposition Clinical Impression: Nausea and vomiting Disposition: HOME SELF-CARE Condition: Fair Instructions (If sedation given, give patient instructions): Acute Nausea and Vomiting (ED) Prescriptions: Metoclopramide [Reglan] 10 mg PO TID PRN #12 tab PRN Reason: Nausea Is patient prescribed a controlled substance at d/c from ED?: No Referrals: Marie Ye III, MD [Primary Care Provider] - 1-2 days
[2021-10-20 03:15] LABS: Basophils % (A) 0 %; Eosinophils % (A) 0 %; HCT 45.4 % (34.0-46.0); HGB 15.1 gm/dL (11.4-16.0); Lymphocytes # (A) 1.5 k/uL (1.0-4.8); Lymphocytes % (A) 27 %; MCH 31.5 pg (25.0-35.0); MCHC 33.3 g/dL (31.0-37.0); MCV 94.6 fL (80.0-100.0); Mean Platelet Volume 7.5; Monocytes # (A) 0.3 k/uL (0-1.0); Monocytes % (A) 5 %; Neutrophils # (A) 3.7 k/uL (1.3-7.7); Neutrophils % (A) 66 %; Platelet Count 300 k/uL (150-450); RDW 13.1 % (11.5-15.5); WBC 5.6 k/uL (3.8-10.6)
[2021-10-20 03:50] LABS: ALT 20 U/L (4-34); AST 32 U/L (14-36); African American GFR (CKD) >90 (>60 ml/min/1.73 sqM); Albumin 4.5 g/dL (3.5-5.0); Alkaline Phosphatase 113 U/L (38-126); Anion Gap 17 mmol/L; Blood Urea Nitrogen 11 mg/dL (7-17); Calcium 9.1 mg/dL (8.4-10.2); Carbon Dioxide 18 mmol/L (22-30); Chloride 106 mmol/L (98-107); Glucose 100 mg/dL (74-99); Magnesium 2.2 mg/dL (1.6-2.3); Non-African American GFR(CKD) 78 (>60 ml/min/1.73 sqM); Potassium 3.4 mmol/L (3.5-5.1); Sodium 141 mmol/L (137-145); Total Bilirubin 0.7 mg/dL (0.2-1.3); Total Protein 8.2 g/dL (6.3-8.2)
[2021-10-20] MEDS ORDERED: ONDANSETRON 4 MG ODT STARTER PACK 2 TAB BTL PO STA (04:12)
== END 2021-10-20 05:16 | disposition home or self-care (01) ==
LOC: EC 00:55
DX: R11.2 Nausea with vomiting, unspecified (principal); G40.909 Epilepsy, unspecified, not intractable, without status epilepticus; K21.9 Gastro-esophageal reflux disease without esophagitis; Z79.51 Long term (current) use of inhaled steroids; Z79.899 Other long term (current) drug therapy
CPT/HCPCS: 36415; 93005; 80053; 83735; 85025; 99284; 96374; 96361; J2765; S0119

== ENCOUNTER 2021-10-23 00:22 | Emergency (ER) | payer MEDICARE, OTHER ==
[2021-10-23 04:40] LABS: Albumin 4.5 g/dL (3.5-5.0); Calcium 9.3 mg/dL (8.4-10.2); Potassium 3.6 mmol/L (3.5-5.1); Total Bilirubin 0.7 mg/dL (0.2-1.3); Total Protein 7.9 g/dL (6.3-8.2)
[2021-10-23 04:59] LABS: HCT 41.3 % (34.0-46.0); MCH 31.7 pg (25.0-35.0); MCHC 33.9 g/dL (31.0-37.0); MCV 93.7 fL (80.0-100.0); RBC 4.41 m/uL (3.80-5.40); RDW 13.1 % (11.5-15.5); WBC 8.4 k/uL (3.8-10.6)
[2021-10-23 05:00] LABS: Mean Platelet Volume 7.6; Neutrophils % (A) 81 %; Platelet Count 391 k/uL (150-450)
[2021-10-23 05:01] LABS: Basophils % (A) 0 %; Eosinophils % (A) 0 %; Lymphocytes % (A) 12 %; Monocytes # (A) 0.5 k/uL (0-1.0); Monocytes % (A) 6 %; Neutrophils # (A) 6.8 k/uL (1.3-7.7)
[2021-10-23] MEDS ORDERED: SODIUM CHLORIDE 0.9% 1,000 ML IV ONE (06:55)
--- NOTE | 2021-10-23 07:55 | XR ---
EXAMINATION TYPE: XR chest 2V DATE OF EXAM: 10/23/2021 COMPARISON: Chest x-ray 4 days ago HISTORY: Weakness and shortness of breath TECHNIQUE: Frontal and lateral views of the chest are obtained. FINDINGS: There is improved central stable and upper limits of normal. No pleural effusion is seen b ilaterally. Elevated and eventrated anterior aspect right hemidiaphragm redemonstrated. The osseous structures are intact. IMPRESSION: Improving bilateral central edema and/or infiltrates. Suspect resolving fluid overload s smith. Correlate clinically.
--- NOTE | 2021-10-23 08:10 | ED ---
Weakness HPI - General Stated complaint: COVID+,N/V - Related Data Home Medications Medication Instructions Recorded Confirmed lamoTRIgine [LaMICtal] 200 mg PO BID@0900,209909/29/14 10/23/21 lamoTRIgine [LaMICtal] 50 mg PO BID@0900,209907/04/18 10/23/21 Montelukast [Singulair] 10 mg PO HS@209907/26/20 10/23/21 Lacosamide [Vimpat] 100 mg PO BID@0900,209910/17/21 10/23/21 Loratadine 10 mg PO DAILY@89910/17/21 10/23/21 Pantoprazole Sodium [Protonix] 40 mg PO DAILY@89910/17/21 10/23/21 Budesonide [Pulmicort Flexhaler] 2 puff INHALATION RT-BID 10/19/21 10/23/21 Albuterol Sulfate [Proair Hfa] 1 - 2 puff INHALATION RT-Q6H PRN 10/23/21 10/23/21 Previous Rx's Medication Instructions Recorded Dexamethasone 6 mg PO DAILY #9 tablet 10/17/21 guaiFENesin-Coden 100-10MG/5ML 10 ml PO Q6H PRN 3 Days #120 ml 10/17/21 [Robitussin AC] Ondansetron Odt [Zofran Odt] 4 mg PO Q8HR PRN #10 tab 10/19/21 Metoclopramide [Reglan] 10 mg PO TID PRN #12 tab 10/20/21 Allergies Allergy/AdvReac Type Severity Reaction Status Date / Time cephalexin Allergy Unknown Verified 10/23/21 07:09 erythromycin base Allergy Unknown Verified 10/23/21 07:09 escitalopram oxalate Allergy Unknown Verified 10/23/21 07:09 [From Lexapro] Penicillins Allergy Unknown Verified 10/23/21 07:09 Sulfa (Sulfonamide Allergy Unknown Verified 10/23/21 07:09 Antibiotics) naproxen [From Naprosyn] AdvReac dry, runny Verified 10/23/21 07:09 nose tamsulosin AdvReac dry, runny Verified 10/23/21 07:09 nose Review of Systems ROS Statement: Those systems with pertinent positive or pertinent negative responses have been documented in the HPI. ROS Other: All systems not noted in ROS Statement are negative. 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 COVID 10/16/21, History of Any Multi-Drug Resistant Organisms: None Reported Past Surgical History: Breast Surgery, Orthopedic Surgery Additional Past Surgical History / Comment(s): LITHOTRIPSY , BREAST BX X 1 -PT NOT SURE WHICH ONE, LT KNEE SURGERY Past Anesthesia/Blood Transfusion Reactions: No Reported Reaction Past Psychological History: No Psychological Hx Reported Smoking Status: Never smoker Past Alcohol Use History: None Reported Past Drug Use History: None Reported - Past Family History Father Additional Family Medical History / Comment(s): HEART PROBLEMS heart stint placed Mother Family Medical History: Diabetes Mellitus Course Vital Signs 10/23/21 08:37 Temperature 98.5 F Pulse Rate 78 Respiratory 18 Rate Blood Pressure 145/73 O2 Sat by Pulse 97 Oximetry Medical Decision Making - Medical Decision Making Please see the paper downtime chart. - Lab Data Result diagrams: 10/23/21 03:00 10/23/21 03:00 Lab Results 10/23/21 10/23/21 10/23/21 Range/Units 03:00 03:00 03:00 WBC 8.4 (3.8-10.6) k/uL RBC 4.41 (3.80-5.40) m/uL Hgb 14.0 (11.4-16.0) gm/dL Hct 41.3 (34.0-46.0) % MCV 93.7 (80.0-100.0) fL MCH 31.7 (25.0-35.0) pg MCHC 33.9 (31.0-37.0) g/dL RDW 13.1 (11.5-15.5) % Plt Count 391 (150-450) k/uL MPV 7.6 Neutrophils % 81 % Lymphocytes % 12 % Monocytes % 6 % Eosinophils % 0 % Basophils % 0 % Neutrophils # 6.8 (1.3-7.7) k/uL Lymphocytes # 1.0 (1.0-4.8) k/uL Monocytes # 0.5 (0-1.0) k/uL Eosinophils # 0.0 (0-0.7) k/uL Basophils # 0.0 (0-0.2) k/uL Sodium 140 (137-145) mmol/L Potassium 3.6 (3.5-5.1) mmol/L Chloride 102 (98-107) mmol/L Carbon Dioxide 25 (22-30) mmol/L Anion Gap 13 mmol/L BUN 13 (7-17) mg/dL Creatinine 0.89 (0.52-1.04) mg/dL Est GFR (CKD-EPI)AfAm 83 (>60 ml/min/1.73 sqM) Est GFR (CKD-EPI)NonAf 72 (>60 ml/min/1.73 sqM) Glucose 107 H (74-99) mg/dL Plasma Lactic Acid Ronal (0.7-2.0) mmol/L Calcium 9.3 (8.4-10.2) mg/dL Total Bilirubin 0.7 (0.2-1.3) mg/dL AST 25 (14-36) U/L ALT 21 (4-34) U/L Alkaline Phosphatase 99 (38-126) U/L Troponin I <0.012 (0.000-0.034) ng/mL Total Protein 7.9 (6.3-8.2) g/dL Albumin 4.5 (3.5-5.0) g/dL 10/23/21 Range/Units 03:00 WBC (3.8-10.6) k/uL RBC (3.80-5.40) m/uL Hgb (11.4-16.0) gm/dL Hct (34.0-46.0) % MCV (80.0-100.0) fL MCH (25.0-35.0) pg MCHC (31.0-37.0) g/dL RDW (11.5-15.5) % Plt Count (150-450) k/uL MPV Neutrophils % % Lymphocytes % % Monocytes % % Eosinophils % % Basophils % % Neutrophils # (1.3-7.7) k/uL Lymphocytes # (1.0-4.8) k/uL Monocytes # (0-1.0) k/uL Eosinophils # (0-0.7) k/uL Basophils # (0-0.2) k/uL Sodium (137-145) mmol/L Potassium (3.5-5.1) mmol/L Chloride (98-107) mmol/L Carbon Dioxide (22-30) mmol/L Anion Gap mmol/L BUN (7-17) mg/dL Creatinine (0.52-1.04) mg/dL Est GFR (CKD-EPI)AfAm (>60 ml/min/1.73 sqM) Est GFR (CKD-EPI)NonAf (>60 ml/min/1.73 sqM) Glucose (74-99) mg/dL Plasma Lactic Acid Ronal 1.5 (0.7-2.0) mmol/L Calcium (8.4-10.2) mg/dL Total Bilirubin (0.2-1.3) mg/dL AST (14-36) U/L ALT (4-34) U/L Alkaline Phosphatase (38-126) U/L Troponin I (0.000-0.034) ng/mL Total Protein (6.3-8.2) g/dL Albumin (3.5-5.0) g/dL Disposition Clinical Impression: COVID-19, Diarrhea Disposition: HOME SELF-CARE Condition: Good Instructions (If sedation given, give patient instructions): Coronavirus Disease 2019 (COVID-19), Acute Diarrhea (ED) Is patient prescribed a controlled substance at d/c from ED?: No Referrals: Marie Ye III, MD [Primary Care Provider] - 1-2 days
[2021-10-23 08:38] VITALS: BP 145/73; PULSE 78; RESP 18; TEMP 98.5
== END 2021-10-23 08:37 | disposition home or self-care (01) ==
LOC: EC 00:22
DX: U07.1 COVID-19 (principal); R11.2 Nausea with vomiting, unspecified; K21.9 Gastro-esophageal reflux disease without esophagitis; Z88.1 Allergy status to other antibiotic agents; Z88.2 Allergy status to sulfonamides; Z88.0 Allergy status to penicillin; Z88.8 Allergy status to other drugs, medicaments and biological substances; Z88.6 Allergy status to analgesic agent; Z79.899 Other long term (current) drug therapy
CPT/HCPCS: 36415; 71046; 80053; 83605; 84484; 85025; 96360; 99284

== ENCOUNTER 2022-12-02 17:14 | Emergency (ER) | payer MEDICARE, OTHER ==
[2022-12-02 17:32] VITALS: PULSE 82; RESP 18; TEMP 98
[2022-12-02 18:18] VITALS: BP 139/84
--- NOTE | 2022-12-02 18:51 | ED ---
General Adult HPI - General Chief complaint: Psychiatric Symptoms Stated complaint: Recheck Time Seen by Provider: 12/02/22 17:45 Source: patient, family Mode of arrival: ambulatory Limitations: no limitations - History of Present Illness Initial comments: This is a 57-year-old female with a past medical history including epilepsy presents emergency Department with her sister for aggression and anger at her long term. It was also reported that the patient had "abnormal labs" and needed medical clearance by the sister. The patient was reportedly at [facility] yesterday was discharged at 3:00 in the morning after the patient was found to have vomiting. The patient however was resting in bed comfortably on my evaluation was able to answer all questions appropriately. It was reported the patient had a "mental breakdown" at her long term and became angry, locking herself in the room and throwing things. This was unlike her so her sister brought her into the emergency department for evaluation for mental health as well as medical screening because of "abnormal labs" from yesterday. The patient herself denied any homicidal or suicidal ideation as well as any auditory or visual hallucinations. The patient was resting in bed comfortably, calm without any acute complaints. - Related Data Home Medications Medication Instructions Recorded Confirmed lamoTRIgine [LaMICtal] 200 mg PO BID@09,209909/29/14 10/23/21 lamoTRIgine [LaMICtal] 50 mg PO BID@899,209907/04/18 10/23/21 Montelukast [Singulair] 10 mg PO HS@209907/26/20 10/23/21 Lacosamide [Vimpat] 100 mg PO BID@899,209910/17/21 10/23/21 Loratadine 10 mg PO DAILY@89910/17/21 10/23/21 Pantoprazole Sodium [Protonix] 40 mg PO DAILY@89910/17/21 10/23/21 Budesonide [Pulmicort Flexhaler] 2 puff INHALATION RT-BID 10/19/21 10/23/21 Albuterol Sulfate [Proair Hfa] 1 - 2 puff INHALATION RT-Q6H PRN 10/23/2110/23 Previous Rx's Medication Instructions Recorded dexAMETHasone [Dexamethasone] 6 mg PO DAILY #9 tablet 10/17/21 guaiFENesin-Coden 100-10MG/5ML 10 ml PO Q6H PRN 3 Days #120 ml 10/17/21 [Robitussin AC] Ondansetron Odt [Zofran Odt] 4 mg PO Q8HR PRN #10 tab 10/19/21 Metoclopramide [Reglan] 10 mg PO TID PRN #12 tab 10/20/21 Allergies Allergy/AdvReac Type Severity Reaction Status Date / Time cephalexin Allergy Unknown Verified 12/02/22 17:32 erythromycin base Allergy Unknown Verified 12/02/22 17:32 escitalopram oxalate Allergy Unknown Verified 12/02/22 17:32 [From Lexapro] Penicillins Allergy Unknown Verified 12/02/22 17:32 Sulfa (Sulfonamide Allergy Unknown Verified 12/02/22 17:32 Antibiotics) naproxen [From Naprosyn] AdvReac dry, runny Verified 12/02/22 17:32 nose tamsulosin AdvReac dry, runny Verified 12/02/22 17:32 nose Review of Systems ROS Statement: Those systems with pertinent positive or pertinent negative responses have been documented in the HPI. ROS Other: All systems not noted in ROS Statement are negative. 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 COVID 10/16/21, History of Any Multi-Drug Resistant Organisms: None Reported Past Surgical History: Breast Surgery, Orthopedic Surgery Additional Past Surgical History / Comment(s): LITHOTRIPSY , BREAST BX X 1 -PT NOT SURE WHICH ONE, LT KNEE SURGERY Past Anesthesia/Blood Transfusion Reactions: No Reported Reaction Past Psychological History: No Psychological Hx Reported Smoking Status: Never smoker Past Alcohol Use History: None Reported Past Drug Use History: None Reported - Past Family History Father Additional Family Medical History / Comment(s): HEART PROBLEMS heart stint placed Mother Family Medical History: Diabetes Mellitus General Exam Limitations: no limitations General appearance: alert, in no apparent distress, obese Head exam: Present: atraumatic, normocephalic, normal inspection Eye exam: Present: normal appearance, PERRL Pupils: Present: normal accommodation ENT exam: Present: normal exam, normal oropharynx, mucous membranes moist Neck exam: Present: normal inspection, full ROM Respiratory exam: Present: normal lung sounds bilaterally Cardiovascular Exam: Present: regular rate, normal rhythm, normal heart sounds GI/Abdominal exam: Present: soft, normal bowel sounds Extremities exam: Present: normal inspection, full ROM Back exam: Present: normal inspection, full ROM Neurological exam: Present: alert, oriented X3, CN II-XII intact Psychiatric exam: Present: normal affect, normal mood Skin exam: Present: warm, dry Course Vital Signs 12/02/22 12/02/22 17:26 18:16 Temperature 98.0 F Pulse Rate 82 82 Respiratory 18 18 Rate Blood Pressure 148/83 139/84 O2 Sat by Pulse 99 100 Oximetry Medical Decision Making - Medical Decision Making Was pt. sent in by a medical professional or institution (, PA, COPY WORKER, urgent care, hospital, or correction...) When possible be specific @ -No Did you speak to anyone other than the patient for history (EMS, parent, family, police, friend...)? What history was obtained from this source @ -Yes, patient's sister Did you review nursing and triage notes (agree or disagree)? Why? @ -I reviewed and agree with nursing and triage notes Were old charts reviewed (outside hosp., previous admission, EMS record, old EKG, old radiological studies, urgent care reports/EKG's, correction records)? Report findings @ -Yes, chart from [facility] was reviewed Differential Diagnosis (chest pain, altered mental status, abdominal pain women, abdominal pain men, vaginal bleeding, weakness, fever, dyspnea, syncope, headache, dizziness, GI bleed, back pain, seizure, CVA, palpatations, mental health)? @ -Acute aggression, psychosis EKG interpreted by me (3pts min.). @ -None X-rays interpreted by me (1pt min.). @ -None done CT interpreted by me (1pt min.). @ -None done U/S interpreted by me (1pt. min.). @ -None done What testing was considered but not performed or refused? (CT, X-rays, U/S, lab s)? Why? @ -None What meds were considered but not given or refused? Why? @ -None Did you discuss the management of the patient with other professionals (professionals i.e. , PA, COPY WORKER, lab, RT, psych nurse, oncology social work, health inspector food, teacher, forest fire management officer, insurance case manager)? Give summary @ -No Was smoking cessation discussed for >3mins.? @ -No Was critical care preformed (if so, how long)? @ -No Were there social determinants of health that impacted care today? How? (Homelessness, low income, unemployed, alcoholism, drug addiction, transportation, low edu. Level, literacy, decrease access to med. care, fpc, rehab)? @ -No Was there de-escalation of care discussed even if they declined (Discuss DNR or withdrawal of care, Hospice)? DNR status @ -No What co-morbidities impacted this encounter? (DM, HTN, Smoking, COPD, CAD, Cancer, CVA, ARF, Chemo, Hep., AIDS, mental health diagnosis, sleep apnea, morbid obesity)? @ -Epilepsy Was patient admitted / discharged? Hospital course, mention meds given and route, prescriptions, significant lab abnormalities, going to OR and other pertinent info. @ -The patient was seen and evaluated in the emergency department. Physical exam, the patient was resting in bed without any acute distress. The patient was calm and able to answer all questions appropriate. All of the labs from [facility] was reviewed with both the patient and her sister and was advised that all labs were within normal limits and there was no abnormalities noted. After this, the patient's sister was relieved and did not want any further medical evaluation. The patient herself was resting in bed comfortably without any suicidal or homicidal ideation. The patient was advised that she did not meet any criteria for inpatient admission for mental health and instead was arty followed up with community mental health. The patient stated that she has resources at home and would instead like to contact her [facility] mental health advisor for continued help. She was also advised to follow-up with her neurologist for medication adjustments. Both the patient and her sister were agreeable to this plan and the patient was discharged home in stable condition. Undiagnosed new problem with uncertain prognosis? @ -No Drug Therapy requiring intensive monitoring for toxicity (Heparin, Nitro, Insulin, Cardizem)? @ -No Were any procedures done? @ -No Diagnosis/symptom? @ -Acute aggression, resolved Acute, or Chronic, or Acute on Chronic? @ -Acute Uncomplicated (without systemic symptoms) or Complicated (systemic symptoms)? @ -Uncomplicated Side effects of treatment? @ -No Exacerbation, Progression, or Severe Exacerbation? @ -No Poses a threat to life or bodily function? How? (Chest pain, [place], [place], pneumonia, PE, COPD, DKA, ARF, appy, cholecystitis, CVA, Diverticulitis, Homicidal, Suicidal, threat to staff... and all critical care pts) @ -No Disposition Clinical Impression: Aggression Disposition: HOME SELF-CARE Condition: Stable Instructions (If sedation given, give patient instructions): Normal Exam (ED) Is patient prescribed a controlled substance at d/c from ED?: No Referrals: Marie Ye III, MD [Primary Care Provider] - 1-2 days Time of Disposition: 18:45
== END 2022-12-02 19:15 | disposition home or self-care (01) ==
LOC: EC 17:14
DX: R45.6 Violent behavior (principal); K21.9 Gastro-esophageal reflux disease without esophagitis; Z79.51 Long term (current) use of inhaled steroids; Z79.52 Long term (current) use of systemic steroids; Z79.899 Other long term (current) drug therapy; Z88.0 Allergy status to penicillin; Z88.1 Allergy status to other antibiotic agents; Z88.2 Allergy status to sulfonamides; Z88.6 Allergy status to analgesic agent; Z88.8 Allergy status to other drugs, medicaments and biological substances
CPT/HCPCS: 82075; 99284

== ENCOUNTER 2022-12-03 14:20 | Inpatient (IN) | payer MEDICARE, OTHER ==
[2022-12-03] MEDS ORDERED: METOCLOPRAMIDE 5 MG/ML 2 ML VIAL IVP STA (14:37)
[2022-12-03] MEDS ORDERED: SODIUM CHLORIDE 0.9% 1,000 ML IV STA (14:37)
[2022-12-03] MEDS ORDERED: SODIUM CHLORIDE 0.9% 500 ML 500 ML IV STA (14:37)
--- NOTE | 2022-12-03 15:01 | ED ---
General Adult HPI - General Chief complaint: Nausea/Vomiting/Diarrhea Stated complaint: Vomiting Time Seen by Provider: 12/03/22 14:32 Source: patient, EMS, RN notes reviewed Mode of arrival: EMS Limitations: no limitations - History of Present Illness Initial comments: 57-year-old female presents emergency department via EMS from [facility] for evaluation of nausea vomiting. Patient reportedly was seen here and [facility] for psychiatric evaluation and somewhat nausea vomiting. Patient does not verbalize any localized pain states she has diffuse abdominal pain, nausea vomiting some loose stools. No fevers. Denies any sick contacts. She states she takes medications for epilepsy denies having a seizure. No reports of seizure. - Related Data Home Medications Medication Instructions Recorded Confirmed lamoTRIgine [LaMICtal] 200 mg PO BID 09/29/14 12/03/22 Montelukast [Singulair] 10 mg PO DAILY 07/26/20 12/03/22 Loratadine 10 mg PO DAILY 10/17/21 12/03/22 Aspirin EC [Ecotrin Low Dose] 81 mg PO DAILY 12/03/22 12/03/22 Divalproex [Depakote] 250 mg PO DIRECTED 12/03/22 12/03/22 Potassium (Unknown Dose) 1 tab PO DAILY 12/03/22 12/03/22 Primidone [Mysoline] 50 mg PO HS 12/03/22 12/03/22 Tylenol (Unknown Dose) 1 tab PO Q6H PRN 12/03/22 12/03/22 Vitamin D3 (Unknown Dose) 1 cap PO DAILY 12/03/22 12/03/22 polyethylene glycoL 3350 [Miralax] 17 gm PO DAILY PRN 12/03/22 12/03/22 Previous Rx's Medication Instructions Recorded Acetaminophen Tab [Tylenol] 650 mg PO Q6HR PRN tab 12/12/22 Albuterol Nebulized [Ventolin 2.5 mg INHALATION RT-TID PRN ml 12/12/22 Nebulized] Budesonide [Pulmicort] 0.25 mg INHALATION BID #60 ml 12/12/22 Budesonide-Formot 160-4.5 Mcg 2 puff INHALATION BID #10.2 gm 12/12/22 [Symbicort 160-4.5 Mcg Inhaler] Docusate [Colace] 100 mg PO BID cap 12/12/22 Enoxaparin [Lovenox] 30 mg SQ DAILY each 12/12/22 Furosemide [Lasix] 20 mg PO DAILY 7 Days #7 tab 12/12/22 HYDROcodone/APAP 5-325MG [[place] 1 each PO TID #4 tab 12/12/22 5-325] Ipratropium Nebulized [Atrovent 0.5 mg INHALATION RT-TID ml 12/12/22 Nebulized 0.2 MG/ML] Ipratropium Nebulized [Atrovent 0.5 mg INHALATION RT-TID PRN ml 12/12/22 Nebulized 0.2 MG/ML] Lacosamide [Vimpat] 100 mg PO BID #4 tab 12/12/22 Ondansetron Odt [Zofran ODT] 4 mg PO Q6H PRN #10 tab 12/12/22 Pantoprazole Sodium [Protonix] 40 mg PO BID #0 12/12/22 Prochlorperazine [Compazine] 5 mg PO Q8HR PRN tab 12/12/22 Sucralfate [Carafate] 1 gm PO ACHS #120 tab 12/12/22 cloNIDine 0.1 MG/24HR PATCH 1 patch TRANSDERM Q7D patch 12/12/22 [Catapres-TTS] Allergies Allergy/AdvReac Type Severity Reaction Status Date / Time amoxicillin Allergy Unknown Verified 12/03/22 17:11 cephalexin Allergy Unknown Verified 12/03/22 17:05 cetirizine Allergy Unknown Verified 12/03/22 17:11 erythromycin base Allergy Unknown Verified 12/03/22 17:05 escitalopram oxalate Allergy Unknown Verified 12/03/22 17:05 [From Lexapro] Penicillins Allergy Unknown Verified 12/03/22 17:05 Sulfa (Sulfonamide Allergy Unknown Verified 12/03/22 17:05 Antibiotics) naproxen [From Naprosyn] AdvReac dry, runny Verified 12/03/22 17:05 nose tamsulosin AdvReac dry, runny Verified 12/03/22 17:05 nose Review of Systems ROS Statement: Those systems with pertinent positive or pertinent negative responses have been documented in the HPI. ROS Other: All systems not noted in ROS Statement are negative. Past Medical History Past Medical History: GERD/Reflux, Seizure Disorder Additional Past Medical History / Comment(s): HX NUMEROUS KIDNEY STONES- HX EP ILEPSY (unsure of last seizure) -HAS PUBLIC GUARDIAN, STATES BRUISES EASILY, POOR HISTORIAN., STATES CARPAL TUNNEL IN HANDS AND ELBOWS. COVID 10/16/21, History of Any Multi-Drug Resistant Organisms: None Reported Past Surgical History: Breast Surgery, Orthopedic Surgery Additional Past Surgical History / Comment(s): LITHOTRIPSY , BREAST BX X 1 -PT NOT SURE WHICH ONE, LT KNEE SURGERY Past Anesthesia/Blood Transfusion Reactions: No Reported Reaction Past Psychological History: No Psychological Hx Reported Smoking Status: Never smoker Past Alcohol Use History: None Reported Past Drug Use History: None Reported - Past Family History Father Additional Family Medical History / Comment(s): HEART PROBLEMS heart stint placed Mother Family Medical History: Diabetes Mellitus General Exam Limitations: no limitations General appearance: alert, in no apparent distress Head exam: Present: atraumatic, normocephalic, normal inspection Eye exam: Present: normal appearance, PERRL, EOMI. Absent: scleral icterus, conjunctival injection, periorbital swelling ENT exam: Present: normal exam, normal oropharynx, mucous membranes moist Neck exam: Present: normal inspection, full ROM. Absent: tenderness, meningismus, lymphadenopathy Respiratory exam: Present: normal lung sounds bilaterally. Absent: respiratory distress, wheezes, rales, rhonchi, stridor Cardiovascular Exam: Present: regular rate, normal rhythm, normal heart sounds. Absent: systolic murmur, diastolic murmur, rubs, gallop, clicks GI/Abdominal exam: Present: soft, tenderness (Mild diffuse), normal bowel sound s. Absent: distended, guarding, rebound, rigid Back exam: Absent: CVA tenderness (R), CVA tenderness (L) Neurological exam: Present: alert Skin exam: Present: warm, dry, intact, normal color. Absent: rash Course Vital Signs 12/03/22 12/03/22 12/03/22 14:24 20:30 21:04 Temperature 99.1 F 98.3 F 98.0 F Pulse Rate 66 64 Pulse Rate [ 72 Pulse Oximetery ] Respiratory 16 16 16 Rate Blood Pressure 171/94 146/71 Blood Pressure 166/74 [Left Arm] O2 Sat by Pulse 98 100 100 Oximetry Medical Decision Making - Medical Decision Making I did receive a phone call from primary care physician in which he stated that he received a phone call stating that the patient has been seen twice at [facility] had CT of brain, had full laboratory studies with no specific finding symptoms and worsening. He is concerned about patient being discharged with ongoing worsening symptoms. He did note that was started on Depakote but is unsure why who and who is monitoring this at that time. Was pt. sent in by a medical professional or institution (, ELIDA, DIETETIC TECHNICIAN, urgent c are, hospital, or care home...) When possible be specific @ -No Did you speak to anyone other than the patient for history (EMS, parent, family, police, friend...)? What history was obtained from this source @ -No Did you review nursing and triage notes (agree or disagree)? Why? @ -I reviewed and agree with nursing and triage notes Were old charts reviewed (outside hosp., previous admission, EMS record, old EKG, old radiological studies, urgent care reports/EKG's, care home records)? Report findings @ -No old charts were reviewed Differential Diagnosis (chest pain, altered mental status, abdominal pain women, abdominal pain men, vaginal bleeding, weakness, fever, dyspnea, syncope, headache, dizziness, GI bleed, back pain, seizure, CVA, palpatations, mental health, musculoskeletal)? @ -Differential Abdominal Pain Women: Appendicitis, Cholecystitis, diverticulosis, ischemic bowel, pancreatitis, hepatitis, UTI, gastroenteritis, AAA, incarcerated hernia, bowel obstruction, constipation, inflammatory bowel, hepatitis, peptic ulcer disease, splenic infarction, perforated viscus, vulvitis, ovarian torsion, PID, kidney stone, placenta abruption, this is not meant to be an all-inclusive listble EKG interpreted by me (3pts min.). @ -As above X-rays interpreted by me (1pt min.). @ -None done CT interpreted by me (1pt min.). @ -None done U/S interpreted by me (1pt. min.). @ -None done What testing was considered but not performed or refused? (CT, X-rays, U/S, labs)? Why? @ -None What meds were considered but not given or refused? Why? @ -None Did you discuss the management of the patient with other professionals (professionals i.e. , ELIDA, DIETETIC TECHNICIAN, lab, RT, psych nurse, manager social services, tariff publishing agent, teacher, weapons electrical engineering officer, case work aide)? Give summary @ -No Was smoking cessation discussed for >3mins.? @ -No Was critical care preformed (if so, how long)? @ -No Were there social determinants of health that impacted care today? How? (Homelessness, low income, unemployed, alcoholism, drug addiction, transportation, low edu. Level, literacy, decrease access to med. care, correction, rehab)? @ -No Was there de-escalation of care discussed even if they declined (Discuss DNR or withdrawal of care, Hospice)? DNR status @ -No What co-morbidities impacted this encounter? (DM, HTN, Smoking, COPD, CAD, Cancer, CVA, ARF, Chemo, Hep., AIDS, mental health diagnosis, sleep apnea, morb id obesity)? @ -None Was patient admitted / discharged? Hospital course, mention meds given and route, prescriptions, significant lab abnormalities, going to OR and other pertinent info. @ -Admitted patient had persistent nausea vomiting several days worsening with concerns of possible medication reaction. Patient be admitted for observation, further treatment and management. Undiagnosed new problem with uncertain prognosis? @ -No Drug Therapy requiring intensive monitoring for toxicity (Heparin, Nitro, Insulin, Cardizem)? @ -No Were any procedures done? @ -No Diagnosis/symptom? @ -Nausea vomiting Acute, or Chronic, or Acute on Chronic? @ -Acute] Uncomplicated (without systemic symptoms) or Complicated (systemic symptoms)? @ -[, Complicated] Side effects of treatment? @ -[No] Exacerbation, Progression, or Severe Exacerbation? @ -[No] Poses a threat to life or bodily function? How? (Chest pain, [place], [place], pneumonia, PE, COPD, DKA, ARF, appy, cholecystitis, CVA, Diverticulitis, Homicidal, Suicidal, threat to staff... and all critical care pts) @ -[No] - Lab Data Result diagrams: 12/14/22 06:42 12/14/22 06:42 Lab Results 12/03/22 12/03/22 12/03/22 Range/Units 14:42 14:42 14:42 WBC 6.1 (3.8-10.6) k/uL RBC 4.49 (3.80-5.40) m/uL Hgb 14.0 (11.4-16.0) gm/dL Hct 42.7 (34.0-46.0) % MCV 95.2 (80.0-100.0) fL MCH 31.3 (25.0-35.0) pg MCHC 32.9 (31.0-37.0) g/dL RDW 12.5 (11.5-15.5) % Plt Count 215 (150-450) k/uL MPV 7.8 Immature Gran % (Auto) % Absolute Nucleated RBC (0.00-0.00) X 10*3/uL Neutrophils % 44 % Lymphocytes % 45 % Monocytes % 8 % Eosinophils % 0 % Basophils % 0 % Immature Gran # (0.00-0.04) X 10*3/uL Neutrophils # 2.7 (1.3-7.7) k/uL Lymphocytes # 2.7 (1.0-4.8) k/uL Monocytes # 0.5 (0-1.0) k/uL Eosinophils # 0.0 (0-0.7) k/uL Basophils # 0.0 (0-0.2) k/uL NRBC/100 WBC Diff (0.0-0.0) /100 WBCS Sodium 142 (137-145) mmol/L Potassium 4.4 (3.5-5.1) mmol/L Chloride 106 (98-107) mmol/L Carbon Dioxide 26 (22-30) mmol/L Anion Gap 10 mmol/L BUN 14 (7-17) mg/dL Creatinine 0.97 (0.52-1.04) mg/dL Est GFR (CKD-EPI)AfAm 74 (>60 ml/min/1.73 sqM) Est GFR (CKD-EPI)NonAf 64 (>60 ml/min/1.73 sqM) BUN/Creatinine Ratio (12.00-20.00) Ratio Glucose 88 (74-99) mg/dL Calcium 8.8 (8.4-10.2) mg/dL Total Bilirubin 0.6 (0.2-1.3) mg/dL AST 27 (14-36) U/L ALT 20 (4-34) U/L Alkaline Phosphatase 107 (38-126) U/L Total Protein 7.9 (6.3-8.2) g/dL Albumin 4.3 (3.5-5.0) g/dL Lipase 54 (23-300) U/L Urine Color Yellow Urine Appearance Cloudy H (Clear) Urine pH 6.0 (5.0-8.0) Ur Specific [place] 1.021 (1.001-1.035) Urine Protein Trace H (Negative) Urine Glucose (UA) Negative (Negative) Urine Ketones 2+ H (Negative) Urine Blood Negative (Negative) Urine Nitrite Negative (Negative) Urine Bilirubin Negative (Negative) Urine Urobilinogen <2.0 (<2.0) mg/dL Ur Leukocyte Esterase Large H (Negative) Urine RBC 6 H (0-5) /hpf Urine WBC >182 H (0-5) /hpf Ur Squamous Epith Cells 8 H (0-4) /hpf Urine Bacteria Many H (None) /hpf Hyaline Casts 5 H (0-2) /lpf Urine Mucus Few H (None) /hpf Urine Opiates Screen Not Detected (NotDetected) Ur Oxycodone Screen Not Detected (NotDetected) Urine Methadone Screen Not Detected (NotDetected) Ur Propoxyphene Screen Not Detected (NotDetected) Ur Barbiturates Screen Not Detected (NotDetected) Valproic Acid ug/mL Lamotrigine (2.0-15.0) ug/mL Lacosamide Level mcg/mL U Tricyclic Antidepress Not Detected (NotDetected) Ur Phencyclidine Scrn Not Detected (NotDetected) Ur Amphetamines Screen Not Detected (NotDetected) U Methamphetamines Scrn Not Detected (NotDetected) U Benzodiazepines Scrn Not Detected (NotDetected) Urine Cocaine Screen Not Detected (NotDetected) U Marijuana (THC) Screen Not Detected (NotDetected) Coronavirus (PCR) (Not Detectd) 12/03/22 12/03/22 12/04/22 Range/Units 15:40 16:52 05:43 WBC (3.8-10.6) k/uL RBC (3.80-5.40) m/uL Hgb (11.4-16.0) gm/dL Hct (34.0-46.0) % MCV (80.0-100.0) fL MCH (25.0-35.0) pg MCHC (31.0-37.0) g/dL RDW (11.5-15.5) % Plt Count (150-450) k/uL MPV Immature Gran % (Auto) % Absolute Nucleated RBC (0.00-0.00) X 10*3/uL Neutrophils % % Lymphocytes % % Monocytes % % Eosinophils % % Basophils % % Immature Gran # (0.00-0.04) X 10*3/uL Neutrophils # (1.3-7.7) k/uL Lymphocytes # (1.0-4.8) k/uL Monocytes # (0-1.0) k/uL Eosinophils # (0-0.7) k/uL Basophils # (0-0.2) k/uL NRBC/100 WBC Diff (0.0-0.0) /100 WBCS Sodium (137-145) mmol/L Potassium (3.5-5.1) mmol/L Chloride (98-107) mmol/L Carbon Dioxide (22-30) mmol/L Anion Gap mmol/L BUN (7-17) mg/dL Creatinine (0.52-1.04) mg/dL Est GFR (CKD-EPI)AfAm (>60 ml/min/1.73 sqM) Est GFR (CKD-EPI)NonAf (>60 ml/min/1.73 sqM) BUN/Creatinine Ratio (12.00-20.00) Ratio Glucose (74-99) mg/dL Calcium (8.4-10.2) mg/dL Total Bilirubin (0.2-1.3) mg/dL AST (14-36) U/L ALT (4-34) U/L Alkaline Phosphatase (38-126) U/L Total Protein (6.3-8.2) g/dL Albumin (3.5-5.0) g/dL Lipase (23-300) U/L Urine Color Light Yellow Urine Appearance Clear (Clear) Urine pH 6.0 (5.0-8.0) Ur Specific [place] 1.008 (1.001-1.035) Urine Protein Negative (Negative) Urine Glucose (UA) Negative (Negative) Urine Ketones 2+ H (Negative) Urine Blood Negative (Negative) Urine Nitrite Negative (Negative) Urine Bilirubin Negative (Negative) Urine Urobilinogen <2.0 (<2.0) mg/dL Ur Leukocyte Esterase Small H (Negative) Urine RBC 1 (0-5) /hpf Urine WBC 6 H (0-5) /hpf Ur Squamous Epith Cells 1 (0-4) /hpf Urine Bacteria Few H (None) /hpf Hyaline Casts (0-2) /lpf Urine Mucus Rare H (None) /hpf Urine Opiates Screen (NotDetected) Ur Oxycodone Screen (NotDetected) Urine Methadone Screen (NotDetected) Ur Propoxyphene Screen (NotDetected) Ur Barbiturates Screen (NotDetected) Valproic Acid 23.2 ug/mL Lamotrigine (2.0-15.0) ug/mL Lacosamide Level mcg/mL U Tricyclic Antidepress (NotDetected) Ur Phencyclidine Scrn (NotDetected) Ur Amphetamines Screen (NotDetected) U Methamphetamines Scrn (NotDetected) U Benzodiazepines Scrn (NotDetected) Urine Cocaine Screen (NotDetected) U Marijuana (THC) Screen (NotDetected) Coronavirus (PCR) Not Detected (Not Detectd) 12/04/22 12/04/22 12/04/22 Range/Units 06:45 06:45 11:17 WBC 5.96 (3.8-10.6) k/uL RBC 3.89 L (3.80-5.40) m/uL Hgb 12.1 (11.4-16.0) gm/dL Hct 37.5 (34.0-46.0) % MCV 96.4 (80.0-100.0) fL MCH 31.1 (25.0-35.0) pg MCHC 32.3 (31.0-37.0) g/dL RDW 12.6 (11.5-15.5) % Plt Count 230 (150-450) k/uL MPV 10.6 Immature Gran % (Auto) 0.3 % Absolute Nucleated RBC 0 (0.00-0.00) X 10*3/uL Neutrophils % 54.8 % Lymphocytes % 35.2 % Monocytes % 9.4 % Eosinophils % 0 % Basophils % 0.3 % Immature Gran # 0.02 (0.00-0.04) X 10*3/uL Neutrophils # 3.26 (1.3-7.7) k/uL Lymphocytes # 2.10 (1.0-4.8) k/uL Monocytes # 0.56 (0-1.0) k/uL Eosinophils # 0 L (0-0.7) k/uL Basophils # 0.02 (0-0.2) k/uL NRBC/100 WBC Diff 0 (0.0-0.0) /100 WBCS Sodium 139 (137-145) mmol/L Potassium 3.4 L (3.5-5.1) mmol/L Chloride 104 (98-107) mmol/L Carbon Dioxide 23.8 (22-30) mmol/L Anion Gap 11.50 mmol/L BUN 8.5 L (7-17) mg/dL Creatinine 0.9 (0.52-1.04) mg/dL Est GFR (CKD-EPI)AfAm 82.9 (>60 ml/min/1.73 sqM) Est GFR (CKD-EPI)NonAf 71.5 (>60 ml/min/1.73 sqM) BUN/Creatinine Ratio 9.66 L (12.00-20.00) Ratio Glucose 87 (74-99) mg/dL Calcium 8.5 L (8.4-10.2) mg/dL Total Bilirubin (0.2-1.3) mg/dL AST (14-36) U/L ALT (4-34) U/L Alkaline Phosphatase (38-126) U/L Total Protein (6.3-8.2) g/dL Albumin (3.5-5.0) g/dL Lipase (23-300) U/L Urine Color Urine Appearance (Clear) Urine pH (5.0-8.0) Ur Specific [place] (1.001-1.035) Urine Protein (Negative) Urine Glucose (UA) (Negative) Urine Ketones (Negative) Urine Blood (Negative) Urine Nitrite (Negative) Urine Bilirubin (Negative) Urine Urobilinogen (<2.0) mg/dL Ur Leukocyte Esterase (Negative) Urine RBC (0-5) /hpf Urine WBC (0-5) /hpf Ur Squamous Epith Cells (0-4) /hpf Urine Bacteria (None) /hpf Hyaline Casts (0-2) /lpf Urine Mucus (None) /hpf Urine Opiates Screen (NotDetected) Ur Oxycodone Screen (NotDetected) Urine Methadone Screen (NotDetected) Ur Propoxyphene Screen (NotDetected) Ur Barbiturates Screen (NotDetected) Valproic Acid ug/mL Lamotrigine 30.7 H* (2.0-15.0) ug/mL Lacosamide Level 6.3 mcg/mL U Tricyclic Antidepress (NotDetected) Ur Phencyclidine Scrn (NotDetected) Ur Amphetamines Screen (NotDetected) U Methamphetamines Scrn (NotDetected) U Benzodiazepines Scrn (NotDetected) Urine Cocaine Screen (NotDetected) U Marijuana (THC) Screen (NotDetected) Coronavirus (PCR) (Not Detectd) Disposition Clinical Impression: Nausea and vomiting Disposition: ADMITTED IP TO THIS HOSP
[2022-12-03 15:59] LABS: Basophils % (A) 0 %; Eosinophils % (A) 0 %; HCT 42.7 % (34.0-46.0); Lymphocytes # (A) 2.7 k/uL (1.0-4.8); Lymphocytes % (A) 45 %; MCH 31.3 pg (25.0-35.0); MCHC 32.9 g/dL (31.0-37.0); MCV 95.2 fL (80.0-100.0); Mean Platelet Volume 7.8; Monocytes # (A) 0.5 k/uL (0-1.0); Monocytes % (A) 8 %; Neutrophils # (A) 2.7 k/uL (1.3-7.7); Neutrophils % (A) 44 %; Platelet Count 215 k/uL (150-450); RBC 4.49 m/uL (3.80-5.40); RDW 12.5 % (11.5-15.5); WBC 6.1 k/uL (3.8-10.6)
[2022-12-03 16:21] LABS: Albumin 4.3 g/dL (3.5-5.0); Calcium 8.8 mg/dL (8.4-10.2); Total Bilirubin 0.6 mg/dL (0.2-1.3); Total Protein 7.9 g/dL (6.3-8.2)
[2022-12-03 17:16] LABS: Potassium 4.4 mmol/L (3.5-5.1)
[2022-12-03] MEDS ORDERED: PROCHLORPERAZINE SUPPOSITORY 25 MG SUPP RECTAL PRN (19:41)
[2022-12-03] MEDS ORDERED: NALOXONE 0.4 MG/ML 1 ML VIAL IV PRN (19:41)
[2022-12-03] MEDS ORDERED: PROCHLORPERAZINE 5 MG TAB PO PRN (19:41)
[2022-12-03 20:56] LABS: Appearance,Urine Cloudy (Clear); Bacteria,Urine Many /hpf; Bilirubin,Urine Negative (Negative); Blood,Urine Negative (Negative); Color,Urine Yellow; Glucose,Urine (UA) Negative (Negative); Hyaline Casts,Urine 5 /lpf (0-2); Ketones,Urine 2+ (Negative); Leukocyte Esterase,Urine Large (Negative); Mucus,Urine Few /hpf; Nitrite,Urine Negative (Negative); Protein,Urine Trace (Negative); RBC,Urine 6 /hpf (0-5); Specific Gravity,Urine 1.021 (1.001-1.035); Squamous Epithelial Cell,Urine 8 /hpf (0-4); Urobilinogen,Urine <2.0 mg/dL (<2.0); WBC,Urine >182 /hpf (0-5)
[2022-12-03] MEDS: SODIUM CHLORIDE 0.9% 1,000 ML IV SCH (20:56)
[2022-12-03] MEDS: FAMOTIDINE 20 MG TAB PO SCH (20:56)
[2022-12-03 21:10] LABS: Amphetamine Screen,Urine Not Detected (NotDetected); Barbiturate Screen,Urine Not Detected (NotDetected); Benzodiazepines Screen,Urine Not Detected (NotDetected); Cocaine Screen,Urine Not Detected (NotDetected); Methadone Screen, Urine Not Detected (NotDetected); Opiate Screen,Urine Not Detected (NotDetected); Oxycodone Screen, Urine Not Detected (NotDetected); Phencyclidine Screen,Urine Not Detected (NotDetected); Tricyclic Antidepressant,Urine Not Detected (NotDetected); Urn Cannabinoid Scrn Not Detected (NotDetected)
[2022-12-03] MEDS: lamoTRIgine 25 MG TAB PO SCH (22:46)
[2022-12-03] MEDS: lamoTRIgine 100 MG TAB PO SCH (22:46)
[2022-12-03] MEDS: LACOSAMIDE 50 MG TABLET PO SCH (22:46)
[2022-12-03] MEDS: PRIMIDONE 50 MG TAB PO SCH (22:47)
[2022-12-03] MEDS: PANTOPRAZOLE 40 MG/10 ML VIAL IVP SCH (22:47)
[2022-12-04] MEDS: ONDANSETRON 4 MG/2 ML VIAL IVP PRN ×2 (04:52→16:27)
[2022-12-04] MEDS: ASPIRIN 81 MG PO SCH (08:45)
[2022-12-04] MEDS: FAMOTIDINE 20 MG TAB PO SCH (08:45)
[2022-12-04] MEDS: MONTELUKAST 10 MG TAB PO SCH (08:45)
[2022-12-04] MEDS: LACOSAMIDE 50 MG TABLET PO SCH ×2 (08:46→21:32)
[2022-12-04] MEDS: lamoTRIgine 25 MG TAB PO SCH ×2 (08:46→21:32)
[2022-12-04] MEDS: lamoTRIgine 100 MG TAB PO SCH ×2 (08:46→21:32)
[2022-12-04] MEDS ORDERED: FAMOTIDINE 20 MG TAB PO SCH (09:00)
[2022-12-04] MEDS: PANTOPRAZOLE 40 MG/10 ML VIAL IVP SCH (09:30)
[2022-12-04] MEDS: SODIUM CHLORIDE 0.9% 1,000 ML IV SCH (09:31)
[2022-12-04 09:56] LABS: African American GFR (CKD) 82.9 (60.0-200.0); Anion Gap 11.5 mmol/L (10.00-18.00); BUN/Creat Ratio 9.66 Ratio (12.00-20.00); Blood Urea Nitrogen 8.5 mg/dL (9.0-27.0); Calcium 8.5 mg/dL (8.7-10.3); Carbon Dioxide 23.8 mmol/L (20.0-27.5); Non-African American GFR(CKD) 71.5 (60.0-200.0); Potassium 3.4 mmol/L (3.5-5.5)
[2022-12-04 10:34] LABS: Basophils # (A) 0.02 X 10*3/uL (0.00-0.10); Basophils % (A) 0.3 %; Eosinophils # (A) 0 X 10*3/uL (0.04-0.35); Eosinophils % (A) 0 %; HCT 37.5 % (37.2-46.3); HGB 12.1 g/dL (12.0-15.0); Immature Grans, Automated 0.3 %; Lymphocytes % (A) 35.2 %; MCH 31.1 pg (27.0-32.0); MCHC 32.3 g/dL (32.0-37.0); MCV 96.4 fL (80.0-97.0); Mean Platelet Volume 10.6 fL (9.5-12.2); Monocytes # (A) 0.56 X 10*3/uL (0.20-1.00); Monocytes % (A) 9.4 %; NRBC Per 100 WBC 0 /100 WBCS (0.0-0.0); Neutrophils # (A) 3.26 X 10*3/uL (1.80-7.70); Neutrophils % (A) 54.8 %; Platelet Count 230 X 10*3/uL (140-440); RBC 3.89 X 10*6/uL (4.10-5.20); RDW 12.6 % (11.5-14.5); WBC 5.96 X 10*3/uL (4.50-10.00)
[2022-12-04] MEDS ORDERED: Potassium Replacement Protocol 1 EACH MISC MISCELLANE PRN (10:35)
[2022-12-04] MEDS ORDERED: Magnesium Replacement Protocol 1 EACH MISC MISCELLANE PRN (10:35)
--- NOTE | 2022-12-04 10:37 | P.HPIM ---
History of Present Illness This is a pleasant 57 years old female with past medical history of seizure disorder, gastroesophageal reflux disease. Kidney stone Patient has Public Guardian. Patient is poor historian. As per report patient presents because of nausea vomiting. Patient keeps her eyes closed all the time but she answers questions, she says she is in the hospital she is complaining of from mild abdominal pain, no more nausea vomiting. She denies any dysuria urgency, no suprapubic tenderness No chest pain or dyspnea, no headache or dizziness, no weakness or numbness When asked the patient if she is aware if she has any seizure over the last week she declines. Patient is afebrile and vitals are stable Symptoms and unremarkable CBC, BMP, liver enzymes. Lipase normal. Urine analysis is suspicious for infection Urine drug screen is negative. Coronavirus is undetected Review of Systems Review of systems CONSTITUTIONAL: No fever, no malaise, no fatigue. HEENT: No recent visual problems or hearing problems. Denied any sore throat. CARDIOVASCULAR: No orthopnea, PND, no palpitations, no syncope. PULMONARY: No shortness of breath, no cough, no hemoptysis. GASTROINTESTINAL: No diarrhea, no nausea, no vomiting, no abdominal pain. Normoactive bowel sounds. NEUROLOGICAL: No headaches, no weakness, no numbness. HEMATOLOGICAL: Denies any bleeding or petechiae. GENITOURINARY: Denies any burning micturition, frequency, or urgency. MUSCULOSKELETAL/RHEUMATOLOGICAL: Denies any joint pain, swelling, or any muscle pain. ENDOCRINE: Denies any polyuria or polydipsia. 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 COVID 10/16/21, History of Any Multi-Drug Resistant Organisms: None Reported Past Surgical History: Breast Surgery, Orthopedic Surgery Additional Past Surgical History / Comment(s): LITHOTRIPSY , BREAST BX X 1 -PT NOT SURE WHICH ONE, LT KNEE SURGERY Past Anesthesia/Blood Transfusion Reactions: No Reported Reaction Past Psychological History: No Psychological Hx Reported Smoking Status: Never smoker Past Alcohol Use History: None Reported Past Drug Use History: None Reported - Past Family History Father Additional Family Medical History / Comment(s): HEART PROBLEMS heart stint placed Mother Family Medical History: Diabetes Mellitus Medications and Allergies Home Medications Medication Instructions Recorded Confirmed Type lamoTRIgine [LaMICtal] 200 mg PO BID 09/29/14 12/03/22 History lamoTRIgine [LaMICtal] 50 mg PO BID 07/04/18 12/03/22 History Montelukast [Singulair] 10 mg PO DAILY 07/26/20 12/03/22 History Lacosamide [Vimpat] 100 mg PO BID 10/17/21 12/03/22 History Loratadine 10 mg PO DAILY 10/17/21 12/03/22 History Pantoprazole Sodium [Protonix] 40 mg PO HS 10/17/21 12/03/22 History Ondansetron Odt [Zofran Odt] 4 mg PO Q8HR PRN #10 tab 10/19/21 12/03/22 Rx Aspirin EC [Ecotrin Low Dose] 81 mg PO DAILY 12/03/22 12/03/22 History Divalproex [Depakote] 250 mg PO DIRECTED 12/03/22 12/03/22 History Potassium (Unknown Dose) 1 tab PO DAILY 12/03/22 12/03/22 History Primidone [Mysoline] 50 mg PO HS 12/03/22 12/03/22 History Tylenol (Unknown Dose) 1 tab PO Q6H PRN 12/03/22 12/03/22 History Vitamin D3 (Unknown Dose) 1 cap PO DAILY 12/03/22 12/03/22 History polyethylene glycoL 3350 [Miralax] 17 gm PO DAILY PRN 12/03/22 12/03/22 History Allergies Allergy/AdvReac Type Severity Reaction Status Date / Time amoxicillin Allergy Unknown Verified 12/03/22 17:11 cephalexin Allergy Unknown Verified 12/03/22 17:05 cetirizine Allergy Unknown Verified 12/03/22 17:11 erythromycin base Allergy Unknown Verified 12/03/22 17:05 escitalopram oxalate Allergy Unknown Verified 12/03/22 17:05 [From Lexapro] Penicillins Allergy Unknown Verified 12/03/22 17:05 Sulfa (Sulfonamide Allergy Unknown Verified 12/03/22 17:05 Antibiotics) naproxen [From Naprosyn] AdvReac dry, runny Verified 12/03/22 17:05 nose tamsulosin AdvReac dry, runny Verified 12/03/22 17:05 nose Physical Exam Vitals: Vital Signs Temp Pulse Pulse Pulse Resp BP BP 12/04/22 09:26 70 18 12/04/22 07:00 98.1 F 67 18 186/79 12/04/22 01:49 72 16 12/04/22 01:15 97.7 F 87 19 168/73 12/03/22 21:04 98.0 F 64 16 146/71 12/03/22 20:30 98.3 F 72 16 166/74 12/03/22 14:24 99.1 F 66 16 171/94 Pulse Ox 12/04/22 09:26 12/04/22 07:00 12/04/22 01:49 12/04/22 01:15 98 12/03/22 21:04 100 12/03/22 20:30 100 12/03/22 14:24 98 Intake and Output 12/03/22 12/04/22 12/04/22 22:59 06:59 14:59 Other: Voiding Method Toilet Toilet # Voids 1 1 Weight 91.172 kg -GENERAL: The patient is awake keep her eyes closed but answers questions, not in any acute distress. Obese HEENT: Pupils are round and equally reacting to light. EOMI. No scleral icterus. No conjunctival pallor. Normocephalic, atraumatic. No pharyngeal erythema. No thyromegaly. CARDIOVASCULAR: S1 and S2 present. No murmurs, rubs, or gallops. PULMONARY: Chest is clear to auscultation, no wheezing or crackles. ABDOMEN: Soft, nontender, nondistended, normoactive bowel sounds. No palpable organomegaly. MUSCULOSKELETAL: No joint swelling or deformity. EXTREMITIES: No cyanosis, clubbing, or pedal edema. NEUROLOGICAL: Gross neurological examination did not reveal any focal deficits. SKIN: No rashes. no petechiae. Results CBC & Chem 7: 12/03/22 14:42 12/04/22 06:45 Labs: Abnormal Lab Results - Last 24 Hours (Table) 12/03/22 12/04/22 Range/Units 14:42 06:45 Potassium 3.4 L (3.5-5.5) mmol/L BUN 8.5 L (9.0-27.0) mg/dL BUN/Creatinine Ratio 9.66 L (12.00-20.00) Ratio Calcium 8.5 L (8.7-10.3) mg/dL Urine Appearance Cloudy H (Clear) Urine Protein Trace H (Negative) Urine Ketones 2+ H (Negative) Ur Leukocyte Esterase Large H (Negative) Urine RBC 6 H (0-5) /hpf Urine WBC >182 H (0-5) /hpf Ur Squamous Epith Cells 8 H (0-4) /hpf Urine Bacteria Many H (None) /hpf Hyaline Casts 5 H (0-2) /lpf Urine Mucus Few H (None) /hpf Microbiology - Last 24 Hours (Table) 12/03/22 14:42 Urine Culture - Preliminary Urine,Voided Thrombosis Risk Factor Assmnt - Choose All That Apply Each Factor Represents 1 point: Age 41-60 years, Obesity (BMI >25) Other Risk Factors: No Other congenital or acquired thrombophilia - If yes, enter type in comment: No Thrombosis Risk Factor Assessment Total Risk Factor Score: 2 Thrombosis Risk Factor Assessment Level: Low Risk Assessment and Plan Assessment: Continuous nausea vomiting suspicious for gastroenteritis, could be viral or reactive secondary to above. Currently not vomiting Acute urinary tract infection, versus asymptomatic bacteriuria History of seizure, I doubt any recent seizure GERD Plan: Consults infectious disease team for UTI Continue with gentle hydration Continue with liquid diet and advanced as tolerated Resume medication and follow-up with the neurologist Clonidine patch for hypertension and lower normal saline to 50 mL per hour Labs and medication were reviewed.. Continue same treatment. Continue with symptomatic treatment. Resume home medication. Monitor labs and vitals. DVT and GI prophylaxis. Further recommendations as per clinical course of the patient DVT prophylaxis: Subcutaneous heparin GI Prophylaxis: Ppi Prognosis is guarded
--- NOTE | 2022-12-04 11:08 | P.CNNES ---
History of Present Illness Consult date: 12/04/22 Requesting physician: Calvin Byers Reason for Consult: seizure disorder. Not tolerating medication History of Present Illness: A 57-year-old woman with history of epilepsy, multiple strokes presented emergency department from her long-term for nausea and vomiting. Neurology is consulted for seizures order and patient is not tolerating medication. Unable to obtain any history from the patient. According to the ED note the patient has been seen twice at [facility] and had CT of the brain full laboratory studies with no specific findings symptoms. The primary is concerned that the patient is being discharged with ongoing worsening symptoms. Primary did not know why the patient was on Depakote going to the ED note.Her home medication is Vimpat 100 mg 1 tablet twice a day, Lamictal 250 mg 1 tablet twice a day, Depakote 250 mg as direct it. I'm not sure what the Depakote is used for a CBC used for mood or seizure or for both. She is also on primidone that she was for central tremor I would assume. She is also on a low-dose of aspirin 81 mg daily. I personally reviewed the medical record and is seemed patient was seen by Dr. France's team in 2018 (neurology) who note stated that the patient has history of seizures and she is on Lamictal 225 the every morning and 200 in the afte rnoon she is also on Vimpat 50 mg in the morning and 100 mg in the evening and was following up with Dr. Schofield. Unknown when the last seizure patient has and who she is following. She had an EEG in 2018 is reported as abnormal with occasional dysregulation seen along with some spikes. This could be consistent with a reduced seizure threshold. No obvious generalized epileptic activity seen. Please refer to the previous neurology notes for further details. Some other workup during his hospital visit consisted of: CBC the differential, chemistry panel is unremarkable Urinalysis positive for underlying urinary tract infection. Urine dressing is negative and the valproic acid is 23.2 normal level is between 5220. Review of Systems Review of system is limited but the per positive and negative aspiration eye. 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 COVID 10/16/21, History of Any Multi-Drug Resistant Organisms: None Reported Past Surgical History: Breast Surgery, Orthopedic Surgery Additional Past Surgical History / Comment(s): LITHOTRIPSY , BREAST BX X 1 -PT NOT SURE WHICH ONE, LT KNEE SURGERY Past Anesthesia/Blood Transfusion Reactions: No Reported Reaction Past Psychological History: No Psychological Hx Reported Smoking Status: Never smoker Past Alcohol Use History: None Reported Past Drug Use History: None Reported - Past Family History Father Additional Family Medical History / Comment(s): HEART PROBLEMS heart stint placed Mother Family Medical History: Diabetes Mellitus Medications and Allergies Home Medications Medication Instructions Recorded Confirmed Type lamoTRIgine [LaMICtal] 200 mg PO BID 09/29/14 12/03/22 History lamoTRIgine [LaMICtal] 50 mg PO BID 07/04/18 12/03/22 History Montelukast [Singulair] 10 mg PO DAILY 07/26/20 12/03/22 History Lacosamide [Vimpat] 100 mg PO BID 10/17/21 12/03/22 History Loratadine 10 mg PO DAILY 10/17/21 12/03/22 History Pantoprazole Sodium [Protonix] 40 mg PO HS 10/17/21 12/03/22 History Ondansetron Odt [Zofran Odt] 4 mg PO Q8HR PRN #10 tab 10/19/21 12/03/22 Rx Aspirin EC [Ecotrin Low Dose] 81 mg PO DAILY 12/03/22 12/03/22 History Divalproex [Depakote] 250 mg PO DIRECTED 12/03/22 12/03/22 History Potassium (Unknown Dose) 1 tab PO DAILY 12/03/22 12/03/22 History Primidone [Mysoline] 50 mg PO HS 12/03/22 12/03/22 History Tylenol (Unknown Dose) 1 tab PO Q6H PRN 12/03/22 12/03/22 History Vitamin D3 (Unknown Dose) 1 cap PO DAILY 12/03/22 12/03/22 History polyethylene glycoL 3350 [Miralax] 17 gm PO DAILY PRN 12/03/22 12/03/22 History Allergies Allergy/AdvReac Type Severity Reaction Status Date / Time amoxicillin Allergy Unknown Verified 12/03/22 17:11 cephalexin Allergy Unknown Verified 12/03/22 17:05 cetirizine Allergy Unknown Verified 12/03/22 17:11 erythromycin base Allergy Unknown Verified 12/03/22 17:05 escitalopram oxalate Allergy Unknown Verified 12/03/22 17:05 [From Lexapro] Penicillins Allergy Unknown Verified 12/03/22 17:05 Sulfa (Sulfonamide Allergy Unknown Verified 12/03/22 17:05 Antibiotics) naproxen [From Naprosyn] AdvReac dry, runny Verified 12/03/22 17:05 nose tamsulosin AdvReac dry, runny Verified 12/03/22 17:05 nose Physical Examination - Vital Signs Vital Signs: Vital Signs Temp Pulse Pulse Pulse Resp BP BP 12/04/22 09:26 70 18 12/04/22 07:00 98.1 F 67 18 186/79 12/04/22 01:49 72 16 12/04/22 01:15 97.7 F 87 19 168/73 12/03/22 21:04 98.0 F 64 16 146/71 12/03/22 20:30 98.3 F 72 16 166/74 12/03/22 14:24 99.1 F 66 16 171/94 Pulse Ox 12/04/22 09:26 12/04/22 07:00 12/04/22 01:49 12/04/22 01:15 98 12/03/22 21:04 100 12/03/22 20:30 100 12/03/22 14:24 98 Intake and Output 12/03/22 12/04/22 12/04/22 22:59 06:59 14:59 Other: Voiding Method Toilet Toilet # Voids 1 1 Weight 91.172 kg GENERAL: The patient is lying in bed and does not appear in acute distress. CHEST: The heart rate is regular rate rhythm. LUNG: Clear to auscultation bilaterally no wheezing noted throughout. Not labored breathing. ABDOMEN/GI: Bowel sounds present in all 4 quadrants. No tenderness to palpation throughout. NEUROLOGICAL: Very limited because of her condition. Higher mental function: The patient is sleeping most of the study but would open her eyes and stated her name then would close her eyes and sleep and move her head side to side. Otherwise not verbalizing. Minimally follows few commands (moving arms). Cranial nerves: The pupils are round, equal and reactive to light . No facial weakness. Has some dysarthria. Motor: The strength is very limited but would move the right foearm/hand slight above bed and rarely left. But otherwise no moving extremities. Normal bulk. Cerebellum: Unable to assess. Sensation: Unable to assess light touch. Reflexes (right/left): 1+ throughout. Plantars are mute bilaterally. Results - Laboratory Findings CBC and BMP: 12/04/22 06:45 12/04/22 06:45 Abnormal Lab Findings: Abnormal Labs 12/03/22 12/04/22 12/04/22 14:42 06:45 06:45 RBC 3.89 L Eosinophils # 0 L Potassium 3.4 L BUN 8.5 L BUN/Creatinine Ratio 9.66 L Calcium 8.5 L Urine Appearance Cloudy H Urine Protein Trace H Urine Ketones 2+ H Ur Leukocyte Esterase Large H Urine RBC 6 H Urine WBC >182 H Ur Squamous Epith Cells 8 H Urine Bacteria Many H Hyaline Casts 5 H Urine Mucus Few H Assessment and Plan Assessment: This is a 57-year-old woman who presented from her long-term because of eval vision for nausea and vomiting. She has history of epilepsy and is on multiple antiepileptic drug and the primary does not know why she is on Depakote Nausea vomiting History of epilepsy History of multiple strokes I'm not sure if the patient is underlying developmental disorder with limited language Plan: I am not sure who started the Depakote myself and we'll try to obtain in formation regarding the Depakote. Depakote can be used for mood/behavioral or form for seizure or for both. I ordered CT of the brain, routine EEG I ordered Lamictal level and Vimpat level. Placed her on seizure precautions and seizure pads I recommend the patient to follow-up with her neurologist as an outpatient We'll defer the rest of the medical management to primary team Plan was discussed with the patient's primary attending as well as her nurse Thank you for the consultation Time with Patient: Greater than 30
--- NOTE | 2022-12-04 11:23 | XR ---
EXAMINATION TYPE: XR KUB portable DATE OF EXAM: 12/04/2022 COMPARISON: NONE HISTORY: Nausea, pain and vomiting TECHNIQUE: One view abdominal series FINDINGS: The osseous structures are intact. Bilateral [id number] hip arthropathy. Elevated right hemidia phragm. The bowel gas pattern is nonspecific. Lung bases are clear. IMPRESSION: 1. Nonspecific abdomen. 2. 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
[2022-12-04] MEDS: cloNIDine 0.1 MG/24HR PATCH TRANSDERM SCH (11:25)
--- NOTE | 2022-12-04 12:47 | CT ---
EXAMINATION TYPE: CT brain wo con DATE OF EXAM: 12/04/2022 COMPARISON: 10/17/2021 INDICATION: seizure DLP: 1135 mGycm, Automated exposure control for dose reduction was used. CONTRAST: None CT of the brain is performed utilizing 3 mm thick sections through the posterior fossa and 3 mm thick sections through the remaining calvarium. Study is performed within 24 hours of arrival to the hosp ital. No abnormal hyperdensity is present to suggest an acute intracranial hemorrhage. No mass lesion is evident. No acute infarcts are evident. There is some nonspecific hypodensity within the inferior left frontal lobe, example images series 3 image 20. Posttraumatic encephalomalacia considered. Prior ischemic ch anjali could be considered. This could be artifact from beam hardening. This was not evident previously . Follow-Up can be performed with MRI Ventricles and sulci are appropriate for the patient age. Paranasal sinuses and mastoid air cells within the [id number] are clear. IMPRESSIONS: 1. There may be some mild hypodensity at the inferior left frontal lobe which could be posttraumati c in nature or, ischemic of indeterminate age or artifact. Consider follow-up with MRI.
--- NOTE | 2022-12-04 19:22 | P.CONS ---
History of Present Illness - Reason for Consult Consult date: 12/04/22 - History of Present Illness Patient is a 57-year-old female with a past medical history began for reflux and seizure disorder as well as kidney stones patient presented to the ER via EMS from the [facility] concerning for nausea and vomiting, patient on presentation to the hospital did have a low-grade fever of 99.1 F, patient did have a normal white count kidney function was normal liver enzymes are normal p atient did have a positive UA with large leukocyte esterase more than 22 WBC COVID testing was negative urine drug screen was negative patient did have a KUB x-ray elevated right hemidiaphragm associated with phrenic nerve paralysis CT of the brain mild hypodensity inferior lateral frontal lobe posttraumatic in nature posttraumatic in nature, patient did have multiple antibiotic allergies infectio us disease was consulted for possible UTI/pyelonephritis possible for her symptoms and need for antibiotic therapy patient unfortunately is not a very good historian so most information has been extracted from review of the chart and talking to the nursing staff Past Medical History Past Medical History: GERD/Reflux, Seizure Disorder Additional Past Medical History / Comment(s): HX NUMEROUS KIDNEY STONES- HX EPILEPSY (unsure of last seizure) -HAS PUBLIC GUARDIAN, STATES BRUISES EASILY, POOR HISTORIAN., STATES CARPAL TUNNEL IN HANDS AND ELBOWS. COVID 10/16/21, History of Any Multi-Drug Resistant Organisms: None Reported Past Surgical History: Breast Surgery, Orthopedic Surgery Additional Past Surgical History / Comment(s): LITHOTRIPSY , BREAST BX X 1 -PT NOT SURE WHICH ONE, LT KNEE SURGERY Past Anesthesia/Blood Transfusion Reactions: No Reported Reaction Past Psychological History: No Psychological Hx Reported Smoking Status: Never smoker Past Alcohol Use History: None Reported Past Drug Use History: None Reported - Past Family History Father Additional Family Medical History / Comment(s): HEART PROBLEMS heart stint placed Mother Family Medical History: Diabetes Mellitus Medications and Allergies Home Medications Medication Instructions Recorded Confirmed Type lamoTRIgine [LaMICtal] 200 mg PO BID 09/29/14 12/03/22 History lamoTRIgine [LaMICtal] 50 mg PO BID 07/04/18 12/03/22 History Montelukast [Singulair] 10 mg PO DAILY 07/26/20 12/03/22 History Lacosamide [Vimpat] 100 mg PO BID 10/17/21 12/03/22 History Loratadine 10 mg PO DAILY 10/17/21 12/03/22 History Pantoprazole Sodium [Protonix] 40 mg PO HS 10/17/21 12/03/22 History Ondansetron Odt [Zofran Odt] 4 mg PO Q8HR PRN #10 tab 10/19/21 12/03/22 Rx Aspirin EC [Ecotrin Low Dose] 81 mg PO DAILY 12/03/22 12/03/22 History Divalproex [Depakote] 250 mg PO DIRECTED 12/03/22 12/03/22 History Potassium (Unknown Dose) 1 tab PO DAILY 12/03/22 12/03/22 History Primidone [Mysoline] 50 mg PO HS 12/03/22 12/03/22 History Tylenol (Unknown Dose) 1 tab PO Q6H PRN 12/03/22 12/03/22 History Vitamin D3 (Unknown Dose) 1 cap PO DAILY 12/03/22 12/03/22 History polyethylene glycoL 3350 [Miralax] 17 gm PO DAILY PRN 12/03/22 12/03/22 History Allergies Allergy/AdvReac Type Severity Reaction Status Date / Time amoxicillin Allergy Unknown Verified 12/03/22 17:11 cephalexin Allergy Unknown Verified 12/03/22 17:05 cetirizine Allergy Unknown Verified 12/03/22 17:11 erythromycin base Allergy Unknown Verified 12/03/22 17:05 escitalopram oxalate Allergy Unknown Verified 12/03/22 17:05 [From Lexapro] Penicillins Allergy Unknown Verified 12/03/22 17:05 Sulfa (Sulfonamide Allergy Unknown Verified 12/03/22 17:05 Antibiotics) naproxen [From Naprosyn] AdvReac dry, runny Verified 12/03/22 17:05 nose tamsulosin AdvReac dry, runny Verified 12/03/22 17:05 nose Physical Exam Vitals: Vital Signs Temp Pulse Pulse Pulse Resp BP BP 12/04/22 09:26 70 18 12/04/22 07:00 98.1 F 67 18 186/79 12/04/22 01:49 72 16 12/04/22 01:15 97.7 F 87 19 168/73 12/03/22 21:04 98.0 F 64 16 146/71 12/03/22 20:30 98.3 F 72 16 166/74 12/03/22 14:24 99.1 F 66 16 171/94 Pulse Ox 12/04/22 09:26 12/04/22 07:00 12/04/22 01:49 12/04/22 01:15 98 12/03/22 21:04 100 12/03/22 20:30 100 12/03/22 14:24 98 Intake and Output 12/03/22 12/04/22 12/04/22 22:59 06:59 14:59 Other: Voiding Method Toilet Toilet # Voids 1 1 Weight 91.172 kg Results CBC & Chem 7: 12/04/22 06:45 12/04/22 06:45 Labs: Abnormal Lab Results - Last 24 Hours (Table) 12/03/22 12/04/22 12/04/22 Range/Units 14:42 06:45 06:45 RBC 3.89 L (4.10-5.20) X 10*6/uL Eosinophils # 0 L (0.04-0.35) X 10*3/uL Potassium 3.4 L (3.5-5.5) mmol/L BUN 8.5 L (9.0-27.0) mg/dL BUN/Creatinine Ratio 9.66 L (12.00-20.00) Ratio Calcium 8.5 L (8.7-10.3) mg/dL Urine Appearance Cloudy H (Clear) Urine Protein Trace H (Negative) Urine Ketones 2+ H (Negative) Ur Leukocyte Esterase Large H (Negative) Urine RBC 6 H (0-5) /hpf Urine WBC >182 H (0-5) /hpf Ur Squamous Epith Cells 8 H (0-4) /hpf Urine Bacteria Many H (None) /hpf Hyaline Casts 5 H (0-2) /lpf Urine Mucus Few H (None) /hpf Microbiology - Last 24 Hours (Table) 12/03/22 14:42 Urine Culture - Preliminary Urine,Voided Assessment and Plan Plan: 1patient presented to hospital with nausea and vomiting in this patient did not have significant tenderness on abdominal examination liver enzymes are normal did not have any fever or elevated white count however did have a positive UA underlying UTI not entirely excluded likely from enteric gram-negative pathogen. 2patient with multiple antibiotic allergies that would limit the number of antibiotics safe to use. 3we will start the patient on Azactam and see clinical spots while waiting for the culture to finalize. 4we will check ultrasound of the abdominal. We will follow on clinical condition and cultures to further adjust medication if needed Thank you for this consultation we will follow the patient along with you Time with Patient: Greater than 30
[2022-12-04 20:01] LABS: Appearance,Urine Clear (Clear); Bacteria,Urine Few /hpf; Bilirubin,Urine Negative (Negative); Blood,Urine Negative (Negative); Color,Urine Light Yellow; Glucose,Urine (UA) Negative (Negative); Ketones,Urine 2+ (Negative); Leukocyte Esterase,Urine Small (Negative); Mucus,Urine Rare /hpf; Nitrite,Urine Negative (Negative); Protein,Urine Negative (Negative); RBC,Urine 1 /hpf (0-5); Specific Gravity,Urine 1.008 (1.001-1.035); Squamous Epithelial Cell,Urine 1 /hpf (0-4); Urobilinogen,Urine <2.0 mg/dL (<2.0); WBC,Urine 6 /hpf (0-5)
[2022-12-04] MEDS: AZTREONAM 2 GM in SODIUM CHLORIDE 0.9% 100 ML IVPB SCH (21:31)
[2022-12-04] MEDS: PRIMIDONE 50 MG TAB PO SCH (21:32)
--- NOTE | 2022-12-04 21:48 | EEG ---
ELECTROENCEPHALOGRAM REPORT CLINICAL HISTORY: This is a 57-year-old woman with history of epilepsy, who has altered mental status. The video EEG is obtained to evaluate for seizure epileptiform activity. RELEVANT MEDICATIONS: 1. Vimpat. 2. Lamictal. 3. Depakote. EEG TYPE: A routine 21-channel EEG is performed with video using the 10/20 electrode placement system. DESCRIPTION: Wakefulness is only obtained. During awake state, the background consists of low-to- moderate voltage of 6-7 hertz activity that is well modulated, well sustained. There is no physiological stage 2 sleep architecture. There is no focal slowing. Interictal and ictal is none. ACTIVATION PROCEDURE: Photic stimulation and hyperventilation are not performed. CLINICAL INTERPRETATION: This is an abnormal routine EEG. The background slowing is suggestive of mild encephalopathy. Otherwise, there is no focal slowing, epileptiform discharges, or seizure on the EEG. Clinical correlation is recommended. NELSON / ALEJANDRON: [id number] /
[2022-12-05] MEDS: AZTREONAM 2 GM in SODIUM CHLORIDE 0.9% 100 ML IVPB SCH ×3 (04:56→21:16)
[2022-12-05] MEDS: SODIUM CHLORIDE 0.9% 1,000 ML IV SCH (04:56)
[2022-12-05] MEDS: MONTELUKAST 10 MG TAB PO SCH (08:01)
[2022-12-05] MEDS: lamoTRIgine 100 MG TAB PO SCH ×2 (08:01→17:52)
[2022-12-05] MEDS: ASPIRIN 81 MG PO SCH (08:02)
[2022-12-05] MEDS: lamoTRIgine 25 MG TAB PO SCH ×2 (08:02→17:52)
[2022-12-05] MEDS: LACOSAMIDE 50 MG TABLET PO SCH ×2 (08:02→21:15)
--- NOTE | 2022-12-05 08:54 | US ---
EXAMINATION TYPE: US abdomen complete DATE OF EXAM: 12/05/2022 COMPARISON: CT 2019, Renal US 2016 CLINICAL HISTORY: vomiting. Vomiting. Hx of kidney stones. TECHNIQUE: Multiple sonographic images of the abdomen are obtained. FINDINGS: EXAM MEASUREMENTS: Liver Length: 11.7 cm Gallbladder Wall: 0.21 cm CBD: Obscured Spleen: 10.0 cm Right Kidney: 10.2 x 4.3 x 4.5 cm Left Kidney: 10.8 x 4.6 x 5.1 cm EXPERIMENTAL WORKER NOTES: Exam is very limited diagnostically due to patient body habitus and large amoun t of overlying bowel gas. Pancreas: Not well seen Liver: All imaging was performed intercostally. Limited. Appears coarse. Gallbladder: ?Possible internal echoes within the gallbladder versus artifact. Evidence for sonographic Killian's sign: No CBD: Obscured Spleen: Limited due to rib shadow and gas. Right Kidney: No hydronephrosis or masses seen Left Kidney: No hydronephrosis or masses seen Upper IVC: wnl Abd Aorta: Limited visibility. Iliacs were obscured. Proximal segment appears ectatic. IMPRESSION: Internal echoes within the gallbladder may reflect artifact however sludge material is not excluded .
[2022-12-05] MEDS ORDERED: FAMOTIDINE 20 MG TAB PO SCH (09:00)
[2022-12-05 11:10] LABS: African American GFR (CKD) 81.1 (60.0-200.0); Anion Gap 12.7 mmol/L (10.00-18.00); BUN/Creat Ratio 6.78 Ratio (12.00-20.00); Blood Urea Nitrogen 6.1 mg/dL (9.0-27.0); Calcium 8.9 mg/dL (8.7-10.3); Carbon Dioxide 24.3 mmol/L (20.0-27.5); Magnesium 2.1 mg/dL (1.5-2.4); Potassium 3.5 mmol/L (3.5-5.5)
[2022-12-05] MEDS: PANTOPRAZOLE 40 MG/10 ML VIAL IVP SCH (11:55)
--- NOTE | 2022-12-05 12:40 | P.PN ---
Subjective Progress Note Date: 12/05/22 The patient is seen at bedside and states having abdominal pain with nausea. She states she follow-up with Dr. Solis for her neurological issues. She stated she thinks the Depakote was started by Dr. Schofield and unsure if was due to her mood or seizures or both. Patient's sister, notified the nurse that she is in and out of confusion. Objective - Vital Signs Vital signs: Vital Signs Temp 97.8 F 12/05/22 07:00 Pulse 77 12/05/22 07:00 Resp 15 12/05/22 07:00 BP 151/79 12/05/22 07:00 Pulse Ox 95 12/05/22 00:51 FiO2 Intake & Output 12/04/22 12/05/22 12/05/22 18:59 06:59 18:59 Output Total 40 940 Balance -40 -940 Output: Urine 900 Emesis 40 40 Other 0 Other: Voiding Method Toilet Toilet # Voids 3 1 - Exam GENERAL: The patient is lying in bed and is not in acute distress. NEUROLOGICAL: Higher mental function: The patient is awake, alert, oriented to self and stated she was in the hospital. Patient is following simple commands. She is able to name objects (pen, watch, glasses). No aphasia and no neglect. Cranial nerves: The pupils are round, equal and reactive to light. Visual jeter are full to confrontation throughout. Extraocular movement is intact no nystagmus is noted. The facial strength is normal throughout. Tongue is midline and moved [id number] without any difficulty. No dysarthria is noted. Shoulder shrug is normal bilaterally. Motor: The strength is lifting all extremities above gravity and no focality. Normal tone and bulk. Cerebellum: Normal finger to nose bilaterally. Sensation: Sensation is normal to touch throughout. Some other workup during his hospital visit consisted of: CBC the differential, chemistry panel is unremarkable Urinalysis positive for underlying urinary tract infection. Urine dressing is negative and the valproic acid is 23.2 normal level is between 5220. CT of the head is reported as there may be some mild hypodensity at the inferior left frontal lobe which could be posttraumatic in nature or ischemic or indeterminate age or artifact. Consider follow-up with MRI. I personally reviewed the CT and the there is no acute subacute ischemia there is no bleed that. Regarding this hypodensity over the left frontal eye only seen in one slice and I feel it's could due to artifact. Routine EEG is abnormal. The brachial slowing suggestive of mild encephalopathy. Otherwise there is no focal slowing, epileptiform discharge or seizure in the EEG. - Labs CBC & Chem 7: 12/04/22 06:45 12/05/22 06:29 Labs: Abnormal Lab Results - Last 24 Hours (Table) 12/04/22 12/05/22 Range/Units 05:43 06:29 BUN 6.1 L (9.0-27.0) mg/dL BUN/Creatinine Ratio 6.78 L (12.00-20.00) Ratio Urine Ketones 2+ H (Negative) Ur Leukocyte Esterase Small H (Negative) Urine WBC 6 H (0-5) /hpf Urine Bacteria Few H (None) /hpf Urine Mucus Rare H (None) /hpf Assessment and Plan Assessment: This is a 57-year-old woman who presented from her half-way because of eval vision for nausea and vomiting. She has history of epilepsy and is on multiple antiepileptic drug and the primary does not know why she is on Depakote Nausea vomiting with Abdominal pain. History of epilepsy History of reported multiple strokes Seems the patient has fluctuation of mentation (per sister that is old) Plan: * According to the patient she stated that the Depakote was started by her neurologist and she is unsure. Because of the mood or seizure or both. She is Depakote has been helped by the primary team * She is continued on her Lamictal 250 mg 1 tablet twice a day and Vimpat 100 mg a tablet twice a day. Again Depakote has been held by the primary and recommend for the medication to be modified by her neurologist as an outpatient. * CT of the head is reported as there may be some mild hypodensity at the inferior left frontal lobe which could be posttraumatic in nature or ischemic or indeterminate age or artifact. Consider follow-up with MRI. I personally reviewed the CT and the there is no acute subacute ischemia there is no bleed that. Regarding this hypodensity over the left frontal eye only seen in one slice and I feel it's could due to artifact. I highly recommend MRI of the brain as an outpatient. * Lamictal level and Vimpat level are pending. * On seizure precautions and seizure pads * I recommend the patient to follow-up with her neurologist as an outpatient (Dr. Schofield). Consider long-term EEG or epilepsy monitoring unit for her seizures localization and determine if having frequent seizure if not done so in past but will leave management to her her neurologist. * General surgery is consulted for abdominal pain and her nausea and vomiting episodes. * We'll defer the rest of the medical management to primary team Plan was discussed with the patient, primary attending as well as her nurse. Time with Patient: Less than 30
--- NOTE | 2022-12-05 12:53 | P.GSCN ---
History of Present Illness Consult date: 12/05/22 History of present illness: CHIEF COMPLAINT: Nausea and vomiting HISTORY OF PRESENT ILLNESS: This is a 57-year-old female who presented to the hospital with complaints of nausea and vomiting 1 week. She lives in a senior living. Patient also reports diffuse abdominal pain. Patient is a poor historian. She reports decreased appetite. Food does worsen the pain. She has been having chills sweats. She is on antibiotics for possible UTI. Her white count was normal. KUB showed nonspecific abdomen. Ultrasound of the gallbladder has shown internal echoes within the gallbladder may reflect artifact however sludge material is not excluded. LFTs are normal. Patient reports that her pain does not feel like kidney stone pain. PAST MEDICAL HISTORY: Seizure disorder, kidney stones with lithotripsy PAST SURGICAL HISTORY: See below MEDICATIONS: See below ALLERGIES: See below SOCIAL HISTORY: No illicit drug use. REVIEW OF SYSTEMS: CONSTITUTIONAL: Denies fever or chills. HEENT: Denies blurred vision, vision changes, or eye pain. Denies hemoptysis CARDIOVASCULAR: Denies chest pain or pressure. RESPIRATORY: No shortness of breath. GASTROINTESTINAL: See HPI for pertinent findings HEMATOLOGIC: Denies bleeding disorders. GENITOURINARY: Denies any blood in urine or increased urinary frequency. SKIN: Denies pruitis. Denies rash. PHYSICAL EXAM: VITAL SIGNS: Reviewed GENERAL: Well-developed in no acute distress. HEENT: No sclera icterus. Extraocular movements grossly intact. Moist buccal mucosa. Head is atraumatic, normocephalic. No nasal drainage. ABDOMEN: Soft. Nondistended. Diffuse tenderness but appears more tender in the right upper quadrant and epigastric area NEUROLOGIC: Alert and oriented. Cranial nerves II through XII grossly intact. LABORATORY DATA: WBC 5.96 Hgb 12.1 platelets 230 Sodium is 138 potassium 3.5 creatinine 0.9 Magnesium 2.1 total bilirubin 0.6 AST 27 ALT 20 alk phos 107 lipase 54 Covid not detected IMAGING: Computed tomography scan of brain there may be some mild hypodensity at the inferior left frontal lobe which could be posttraumatic in nature or ischemic of intermittent age or artifact. KUB x-ray nonspecific abdomen elevated right hemidiaphragm associated with phrenic nerve paresis. Ultrasound of the gallbladder has shown internal echoes within the gallbladder may reflect artifact however sludge material is not excluded. ASSESSMENT: 1. Abdominal pain with nausea and vomiting 2. Cholecystitis with sludge noted on ultrasound PLAN: -Patient scheduled for laparoscopic cholecystectomy on 12/08/[address] Little -Continue antibiotics -Continue clear liquid diet -Continue antiemetics -Continue supportive care Physician Blueprint Cutter note has been reviewed by physician. Signing provider agrees with the documented findings, assessment, and plan of care. 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 COVID 10/16/21, History of Any Multi-Drug Resistant Organisms: None Reported Past Surgical History: Breast Surgery, Orthopedic Surgery Additional Past Surgical History / Comment(s): LITHOTRIPSY , BREAST BX X 1 -PT NOT SURE WHICH ONE, LT KNEE SURGERY Past Anesthesia/Blood Transfusion Reactions: No Reported Reaction Past Psychological History: No Psychological Hx Reported Smoking Status: Never smoker Past Alcohol Use History: None Reported Past Drug Use History: None Reported - Past Family History Father Additional Family Medical History / Comment(s): HEART PROBLEMS heart stint placed Mother Family Medical History: Diabetes Mellitus Medications and Allergies Home Medications Medication Instructions Recorded Confirmed Type lamoTRIgine [LaMICtal] 200 mg PO BID 09/29/14 12/03/22 History lamoTRIgine [LaMICtal] 50 mg PO BID 07/04/18 12/03/22 History Montelukast [Singulair] 10 mg PO DAILY 07/26/20 12/03/22 History Lacosamide [Vimpat] 100 mg PO BID 10/17/21 12/03/22 History Loratadine 10 mg PO DAILY 10/17/21 12/03/22 History Pantoprazole Sodium [Protonix] 40 mg PO HS 10/17/21 12/03/22 History Ondansetron Odt [Zofran Odt] 4 mg PO Q8HR PRN #10 tab 10/19/21 12/03/22 Rx Aspirin EC [Ecotrin Low Dose] 81 mg PO DAILY 12/03/22 12/03/22 History Divalproex [Depakote] 250 mg PO DIRECTED 12/03/22 12/03/22 History Potassium (Unknown Dose) 1 tab PO DAILY 12/03/22 12/03/22 History Primidone [Mysoline] 50 mg PO HS 12/03/22 12/03/22 History Tylenol (Unknown Dose) 1 tab PO Q6H PRN 12/03/22 12/03/22 History Vitamin D3 (Unknown Dose) 1 cap PO DAILY 12/03/22 12/03/22 History polyethylene glycoL 3350 [Miralax] 17 gm PO DAILY PRN 12/03/22 12/03/22 History Allergies Allergy/AdvReac Type Severity Reaction Status Date / Time amoxicillin Allergy Unknown Verified 12/03/22 17:11 cephalexin Allergy Unknown Verified 12/03/22 17:05 cetirizine Allergy Unknown Verified 12/03/22 17:11 erythromycin base Allergy Unknown Verified 12/03/22 17:05 escitalopram oxalate Allergy Unknown Verified 12/03/22 17:05 [From Lexapro] Penicillins Allergy Unknown Verified 12/03/22 17:05 Sulfa (Sulfonamide Allergy Unknown Verified 12/03/22 17:05 Antibiotics) naproxen [From Naprosyn] AdvReac dry, runny Verified 12/03/22 17:05 nose tamsulosin AdvReac dry, runny Verified 12/03/22 17:05 nose Surgical - Exam Vital Signs Temp Pulse Resp BP Pulse Ox 99.1 F 66 16 171/94 98 12/03/22 14:24 12/03/22 14:24 12/03/22 14:24 12/03/22 14:24 12/03/22 14:24 Results - Labs 12/04/22 06:45 12/05/22 06:29 Abnormal Lab Results - Last 24 Hours (Table) 12/04/22 12/05/22 Range/Units 05:43 06:29 BUN 6.1 L (9.0-27.0) mg/dL BUN/Creatinine Ratio 6.78 L (12.00-20.00) Ratio Urine Ketones 2+ H (Negative) Ur Leukocyte Esterase Small H (Negative) Urine WBC 6 H (0-5) /hpf Urine Bacteria Few H (None) /hpf Urine Mucus Rare H (None) /hpf Diabetes panel 12/05/22 Range/Units 06:29 Sodium 138 (135-145) mmol/L Potassium 3.5 (3.5-5.5) mmol/L Chloride 101 (96-109) mmol/L Carbon Dioxide 24.3 (20.0-27.5) mmol/L BUN 6.1 L (9.0-27.0) mg/dL Creatinine 0.9 (0.6-1.5) mg/dL Glucose 78 (70-110) mg/dL Calcium 8.9 (8.7-10.3) mg/dL Calcium panel 12/05/22 Range/Units 06:29 Calcium 8.9 (8.7-10.3) mg/dL Pituitary panel 12/05/22 Range/Units 06:29 Sodium 138 (135-145) mmol/L Potassium 3.5 (3.5-5.5) mmol/L Chloride 101 (96-109) mmol/L Carbon Dioxide 24.3 (20.0-27.5) mmol/L BUN 6.1 L (9.0-27.0) mg/dL Creatinine 0.9 (0.6-1.5) mg/dL Glucose 78 (70-110) mg/dL Calcium 8.9 (8.7-10.3) mg/dL Adrenal panel 12/05/22 Range/Units 06:29 Sodium 138 (135-145) mmol/L Potassium 3.5 (3.5-5.5) mmol/L Chloride 101 (96-109) mmol/L Carbon Dioxide 24.3 (20.0-27.5) mmol/L BUN 6.1 L (9.0-27.0) mg/dL Creatinine 0.9 (0.6-1.5) mg/dL Glucose 78 (70-110) mg/dL Calcium 8.9 (8.7-10.3) mg/dL
[2022-12-05 16:14] LABS: Lamotrigine (Lamictal) 30.7 ug/mL (2.0-15.0)
--- NOTE | 2022-12-05 20:32 | P.PN ---
Subjective This is a pleasant 57 years old female with past medical history of seizure disorder, gastroesophageal reflux disease. Kidney stone Patient has Public Guardian. Patient is poor historian. As per report patient presents because of nausea vomiting. Patient keeps her eyes closed all the time but she answers questions, she says she is in the hospital she is complaining of from mild abdominal pain, no more nausea vomiting. She denies any dysuria urgency, no suprapubic tenderness No chest pain or dyspnea, no headache or dizziness, no weakness or numbness When asked the patient if she is aware if she has any seizure over the last week she declines. Patient is afebrile and vitals are stable Symptoms and unremarkable CBC, BMP, liver enzymes. Lipase normal. Urine analysis is suspicious for infection Urine drug screen is negative. Coronavirus is undetected 12/05/2022 Patient today is more awake and alert and she is answering questions more appropriately. She says she is lives in a alf and that she follow up with primary doctor but she could not remember his name. Also I asked about her [facility] [place] she said that she follow up with a neurologist Dr. Giovanny Payne who saw her about one to 2 weeks ago for a routine follow-up, she has some shakiness saw her neurologist at the [facility] for her and she was taken it together with vimpat and lamictal , neurologist was consulted and we will defer the management of seizure medication to neurologist Also patient this morning states that she is severely depressed and yesterday she was thinking of suicide and she was taken off throwing herself from the patient. Therefore we started suicidal precautions was sitting at bedside and consulted psychiatry service. Patient also has no more nausea vomiting but she has poor appetite and she is complaining of from right upper quadrant abdominal pain, ultrasound showing possible gallbladder sludge suspicious for acute cholecystitis, surgery team were consulted and planned for laparoscopic cholecystectomy on Thursday Lamictal level ordered by neurologist came back Critical at 30.7, with reference range 2-15, I talked to the bedside nurse to hold tonight dose of Lamictal and contact the neurologist. Vimpat level is pending Patient will require more than 2 nights of hospital stay because of her complex medical problem as detailed above Objective - Vital Signs Vital signs: Vital Signs Temp 97.8 F 12/05/22 07:00 Pulse 77 12/05/22 07:00 Resp 15 12/05/22 07:00 BP 151/79 12/05/22 07:00 Pulse Ox 95 12/05/22 00:51 FiO2 Intake & Output 12/04/22 12/05/22 12/05/22 18:59 06:59 18:59 Output Total 40 940 Balance -40 -940 Output: Urine 900 Emesis 40 40 Other 0 Other: Voiding Method Toilet Toilet # Voids 3 1 - Exam -GENERAL: The patient is more alert and oriented and answers questions appropriately not in any acute distress. Well developed, well nourished. HEENT: Pupils are round and equally reacting to light. EOMI. No scleral icterus. No conjunctival pallor. Normocephalic, atraumatic. No pharyngeal erythema. No thyromegaly. CARDIOVASCULAR: S1 and S2 present. No murmurs, rubs, or gallops. PULMONARY: Chest is clear to auscultation, no wheezing or crackles. -ABDOMEN: Soft,, right upper quadrant tenderness, normoactive bowel sounds. No palpable organomegaly. No guarding or rebound tenderness MUSCULOSKELETAL: No joint swelling or deformity. EXTREMITIES: No cyanosis, clubbing, or pedal edema. NEUROLOGICAL: Gross neurological examination did not reveal any focal deficits. SKIN: No rashes. no petechiae. - Labs CBC & Chem 7: 12/04/22 06:45 12/05/22 06:29 Labs: Abnormal Lab Results - Last 24 Hours (Table) 12/04/22 12/05/22 Range/Units 05:43 06:29 BUN 6.1 L (9.0-27.0) mg/dL BUN/Creatinine Ratio 6.78 L (12.00-20.00) Ratio Urine Ketones 2+ H (Negative) Ur Leukocyte Esterase Small H (Negative) Urine WBC 6 H (0-5) /hpf Urine Bacteria Few H (None) /hpf Urine Mucus Rare H (None) /hpf Assessment and Plan Assessment: Continuous nausea vomiting suspicious for gastroenteritis, suspected secondary to acute cholecystitis Acute cholecystitis with sludge in the gallbladder suspected Altered mental status, present on admission most likely metabolic/toxic encephalopathy. Acute urinary tract infection, versus asymptomatic bacteriuria History of seizure, there was suspicion of seizure on admission and the neurologist was consulted History of GERD Plan: Consults infectious disease team Continue with aztreonam Surgery team consult on the case and planned for laparoscopic cholecystectomy on 12/08 Continue with gentle hydration Continue with liquid diet and advanced as tolerated Resume medication and follow-up with the neurologist, we will defer the management of seizure medication to the neurologist Clonidine patch for hypertension and lower normal saline to 50 mL per hour Hold LAMICTAL does for the night 12/05 and resume the airworthiness safety inspector neurologist Labs and medication were reviewed.. Continue same treatment. Continue with symptomatic treatment. Resume home medication. Monitor labs and vitals. DVT and GI prophylaxis. Further recommendations as per clinical course of the patient DVT prophylaxis: Subcutaneous heparin GI Prophylaxis: Ppi Prognosis is guarded Discussed with staff and bedside nurse
--- NOTE | 2022-12-05 21:09 | P.PN ---
Subjective Progress Note Date: 12/05/22 Principal diagnosis: UTI ?Cholecystitis Patient is a 57-year-old female with multiple comorbidities presented to hospital with nausea and vomiting patient did have a positive UA concerning for a UTI in this patient did have multiple antibiotic allergies ultrasound completed evidence of gallbladder sludge. On today's evaluation that is 12/05/2022 the patient is afebrile still complaining of some discomfort to the right upper quadrant area nausea and did have an episode of vomiting per the nursing teacher no chest pain shortness of breath or cough and no diarrhea. Objective - Vital Signs Vital signs: Vital Signs Temp 97.8 F 12/05/22 07:00 Pulse 77 12/05/22 07:00 Resp 15 12/05/22 07:00 BP 151/79 12/05/22 07:00 Pulse Ox 95 12/05/22 00:51 FiO2 Intake & Output 12/04/22 12/05/22 12/05/22 18:59 06:59 18:59 Output Total 40 940 Balance -40 -940 Output: Urine 900 Emesis 40 40 Other 0 Other: Voiding Method Toilet Toilet # Voids 3 1 - Exam GENERAL DESCRIPTION middle-aged female lying in bed in no distress RESPIRATORY SYSTEM: Unlabored breathing , decreased breath sounds at bases HEART: S1 S2 regular rate and rhythm ,no loud murmurs ABDOMEN: Soft , mild tenderness EXTREMITIES: No edema feet - Labs CBC & Chem 7: 12/04/22 06:45 12/05/22 06:29 Labs: Abnormal Lab Results - Last 24 Hours (Table) 12/04/22 12/04/22 12/04/22 Range/Units 05:43 06:45 06:45 RBC 3.89 L (4.10-5.20) X 10*6/uL Eosinophils # 0 L (0.04-0.35) X 10*3/uL Potassium 3.4 L (3.5-5.5) mmol/L BUN 8.5 L (9.0-27.0) mg/dL BUN/Creatinine Ratio 9.66 L (12.00-20.00) Ratio Calcium 8.5 L (8.7-10.3) mg/dL Urine Ketones 2+ H (Negative) Ur Leukocyte Esterase Small H (Negative) Urine WBC 6 H (0-5) /hpf Urine Bacteria Few H (None) /hpf Urine Mucus Rare H (None) /hpf Assessment and Plan (1) Allergy to multiple antibiotics Current Visit: Yes Status: Acute Code(s): Z88.1 - ALLERGY STATUS TO OTHER ANTIBIOTIC AGENTS SNOMED Code(s): 764737903 (2) UTI (urinary tract infection) Current Visit: No Status: Acute Code(s): N39.0 - URINARY TRACT INFECTION, SITE NOT SPECIFIED SNOMED Code(s): 66036066 Plan: 1patient presented to hospital with nausea and vomiting in this patient did not have significant tenderness on abdominal examination liver enzymes are normal did not have any fever or elevated white count however did have a positive UA underlying UTI not entirely excluded likely from enteric gram-negative pathogen. 2patient with multiple antibiotic allergies that would limit the number of antibiotics safe to use. 3ultrasound of the abdomin with sludge and ?cholecystitis , general surgery has been consulted 4- continue the patient on Azactam while waiting for the culture to finalize. \ Time with Patient: Less than 30
[2022-12-05] MEDS: PRIMIDONE 50 MG TAB PO SCH (21:15)
[2022-12-06] MEDS: SODIUM CHLORIDE 0.9% 1,000 ML IV SCH ×2 (01:43→21:51)
[2022-12-06] MEDS: AZTREONAM 2 GM in SODIUM CHLORIDE 0.9% 100 ML IVPB SCH ×3 (04:13→20:46)
[2022-12-06] MEDS: PANTOPRAZOLE 40 MG/10 ML VIAL IVP SCH (08:29)
[2022-12-06] MEDS: LACOSAMIDE 50 MG TABLET PO SCH ×2 (09:00→20:46)
[2022-12-06] MEDS: ASPIRIN 81 MG PO SCH (09:00)
[2022-12-06] MEDS: MONTELUKAST 10 MG TAB PO SCH (09:00)
[2022-12-06] MEDS: lamoTRIgine 25 MG TAB PO SCH (09:00)
[2022-12-06] MEDS: lamoTRIgine 100 MG TAB PO SCH ×2 (09:01→20:45)
[2022-12-06 09:03] LABS: Basophils # (A) 0.02 X 10*3/uL (0.00-0.10); Basophils % (A) 0.3 %; Eosinophils # (A) 0 X 10*3/uL (0.04-0.35); Eosinophils % (A) 0 %; HCT 37.1 % (37.2-46.3); HGB 12.5 g/dL (12.0-15.0); Immature Grans, Automated 0.3 %; Lymphocytes # (A) 3.24 X 10*3/uL (0.90-5.00); Lymphocytes % (A) 49.2 %; MCHC 33.7 g/dL (32.0-37.0); MCV 92.1 fL (80.0-97.0); Mean Platelet Volume 10.3 fL (9.5-12.2); Monocytes # (A) 0.65 X 10*3/uL (0.20-1.00); Monocytes % (A) 9.9 %; NRBC Per 100 WBC 0 /100 WBCS (0.0-0.0); Neutrophils # (A) 2.65 X 10*3/uL (1.80-7.70); Neutrophils % (A) 40.3 %; Platelet Count 238 X 10*3/uL (140-440); RBC 4.03 X 10*6/uL (4.10-5.20); RDW 12.2 % (11.5-14.5); WBC 6.58 X 10*3/uL (4.50-10.00)
--- NOTE | 2022-12-06 09:39 | P.PN ---
Progress Note - Text Progress Note Date: 12/06/22 Patient is stable. She has minimal complaints of abdominal pain. On exam vital signs are stable. Abdomen soft. Patient scheduled for laparoscopic cholecystectomy on Thursday.
[2022-12-06] MEDS: DIVALPROEX 250 MG TABLET.DR PO SCH (12:32)
--- NOTE | 2022-12-06 13:50 | P.PN ---
Subjective Progress Note Date: 12/06/22 The patient seen at bedside and according to patient nurse as well as consider they stated that she was into times 3 in the morning and responsive and following commands. Upon seeing her she was drowsy but was responding. Objective - Vital Signs Vital signs: Vital Signs Temp 98 F 12/06/22 07:58 Pulse 66 12/06/22 07:58 Resp 16 12/06/22 07:58 BP 146/70 12/06/22 07:58 Pulse Ox 97 12/06/22 07:58 FiO2 Intake & Output 12/05/22 12/06/22 12/06/22 18:59 06:59 18:59 Intake Total 118 Balance 118 Intake: Oral 118 Other: Voiding Method Toilet # Voids 1 1 - Exam GENERAL: The patient is lying in bed and is not in acute distress. NEUROLOGICAL: Higher mental function: The patient is in moderated drowsiness but is awakeable to voice. Is oriented to self and stated was in hospital. Patient is following few simple commands. Language is limited Cranial nerves: The pupils are round, equal and reactive to light. No facial weakness Motor: The strength is limited Some other workup during his hospital visit consisted of: CBC the differential, chemistry panel is unremarkable Urinalysis positive for underlying urinary tract infection. Urine dressing is negative and the valproic acid is 23.2 normal level is between 5220. CT of the head is reported as there may be some mild hypodensity at the inferior left frontal lobe which could be posttraumatic in nature or ischemic or indeterminate age or artifact. Consider follow-up with MRI. I personally reviewed the CT and the there is no acute subacute ischemia there is no bleed that. Regarding this hypodensity over the left frontal eye only seen in one slice and I feel it's could due to artifact. Routine EEG is abnormal. The brachial slowing suggestive of mild encephalopathy. Otherwise there is no focal slowing, epileptiform discharge or seizure in the EEG. Lamotrigene level is 30.7 (normal is 2-15). - Labs CBC & Chem 7: 12/06/22 04:58 12/05/22 06:29 Labs: Abnormal Lab Results - Last 24 Hours (Table) 12/04/22 12/06/22 Range/Units 11:17 04:58 RBC 4.03 L (4.10-5.20) X 10*6/uL Hct 37.1 L (37.2-46.3) % Eosinophils # 0 L (0.04-0.35) X 10*3/uL Lamotrigine 30.7 H* (2.0-15.0) ug/mL Microbiology - Last 24 Hours (Table) 12/03/22 14:42 Urine Culture - Final Urine,Voided Assessment and Plan Assessment: This is a 57-year-old woman who presented from her nursing home because of eval vision for nausea and vomiting. She has history of epilepsy and is on multiple antiepileptic drug and the primary does not know why she is on Depakote Nausea vomiting with Abdominal pain. Also rule out due to toxicity of medication (Lamotrigene) Lamotrigene toxicity 30.7 (normal is 2-15) History of epilepsy History of reported multiple strokes Seems the patient has fluctuation of mentation (per sister that is old) Plan: * Since has Lamotrigene toxicity, I will decrease Lamictal from 250mg 1 tab bid to 200mg bid. * According to the patient she stated that the Depakote was started by her neurologist and it was because of tremors. Will resume Depakote and will have her neurologist modify the medication. If Depakote is the culprit of medication interaction then recommend avoiding the medication. * She is on her home dose of Vimpat 100mg 1 tab twice a daily. * CT of the head is reported as there may be some mild hypodensity at the inferior left frontal lobe which could be posttraumatic in nature or ischemic or indeterminate age or artifact. Consider follow-up with MRI. I personally reviewed the CT and the there is no acute subacute ischemia there is no bleed that. Regarding this hypodensity over the left frontal eye only seen in one slice and I feel it's could due to artifact. I highly recommend MRI of the brain as an outpatient. * Vimpat level is pending. * On seizure precautions and seizure pads * I recommend the patient to follow-up with her neurologist as an outpatient (Dr. Schofield). Consider long-term EEG or epilepsy monitoring unit for her seizures localization and determine but will leave management to her her neurologist. * General surgery is consulted for abdominal pain and her nausea and vomiting episodes. * We'll defer the rest of the medical management to primary team Plan was discussed with the patient and primary attending. Time with Patient: Less than 30
--- NOTE | 2022-12-06 16:27 | P.CN ---
Psychiatric Consult - . Consult date: 12/06/22 Consult:: 12/06/22 16:18 IDENTIFYING DATA: Patient is a 57-year-old woman who is admitted for nausea and vomiting and psychiatry is consulted for depression and suicidal thoughts HPI: Patient is drowsy, in pain, and at times provides contradictory history. When asked about suicidal thoughts, she stated that she was suicidal in the remote past. She denies any past suicide attempts and denies any homicidal ideations. She states that the people she lives with cause stress. At this time patient denies any auditory or visual hallucinations. PAST PSYCHIATRIC HISTORY: Could not assess PMH:as per EMR ALLERGIES: as per EMR CHEMICAL DEPENDENCY HISTORY: Could not assess FAMILY PSYCHIATRIC/SUBSTANCE USE HISTORY: Could not assess SOCIAL HISTORY: Lives in a usp. Has a guardian. MENTAL STATUS EXAM: General Appearance: 57-year-old overweight woman who appears older than stated age. Lying in bed. Tossing and turning at times. Uncomfortable and in pain. Behavior: Cooperative Speech: Slow rate Mood/Affect: "Sad" affect is constricted Suicidality/Homicidality: Patient denies having any homicidal ideation intent or plan. [Denies any suicidal ideations intent or plan] Perceptions: Patient denies any visual hallucinations [and denies any auditory hallucinations] Though content/process: [There is no evidence of any delusional thought content and thought process is linear and goal-directed.] Memory and concentration: AOX3 Judgment and insight: Impaired IMPRESSIONS: Depression unspecified At this time it is difficult to perform a comprehensive history because the patient appears to be quite uncomfortable and in significant pain. Will attempt interview again tomorrow PLAN: -Continue 1:1 -psychiatry will f/u tomorrow and attempt to get more history] [] 12/06/22 16:21 12/06/22 16:23
--- NOTE | 2022-12-06 17:14 | P.PN ---
Subjective Progress Note Date: 12/06/22 Principal diagnosis: UTI ?Cholecystitis Patient is a 57-year-old female with multiple comorbidities presented to hospital with nausea and vomiting patient did have a positive UA concerning for a UTI in this patient did have multiple antibiotic allergies ultrasound completed evidence of gallbladder sludge. On today's evaluation that is 12/06/2022 the patient remains to be afebrile, the patient is slightly more awake and alert and did answer some simple question candidate, that of nausea but no further vomiting has been reported no diet chest pain shortness with no cough Objective - Vital Signs Vital signs: Vital Signs Temp 98 F 12/06/22 14:00 Pulse 68 12/06/22 14:00 Resp 16 12/06/22 14:00 BP 146/78 12/06/22 14:00 Pulse Ox 100 12/06/22 14:00 FiO2 Intake & Output 12/05/22 12/06/22 12/06/22 18:59 06:59 18:59 Intake Total 118 Balance 118 Intake: Oral 118 Other: Voiding Method Toilet # Voids 1 1 - Exam GENERAL DESCRIPTION middle-aged female lying in bed in no distress RESPIRATORY SYSTEM: Unlabored breathing , decreased breath sounds at bases HEART: S1 S2 regular rate and rhythm ,no loud murmurs ABDOMEN: Soft , mild tenderness EXTREMITIES: No edema feet - Labs CBC & Chem 7: 12/06/22 04:58 12/05/22 06:29 Labs: Abnormal Lab Results - Last 24 Hours (Table) 12/04/22 12/06/22 Range/Units 11:17 04:58 RBC 4.03 L (4.10-5.20) X 10*6/uL Hct 37.1 L (37.2-46.3) % Eosinophils # 0 L (0.04-0.35) X 10*3/uL Lamotrigine 30.7 H* (2.0-15.0) ug/mL Microbiology - Last 24 Hours (Table) 12/03/22 14:42 Urine Culture - Final Urine,Voided Assessment and Plan (1) Allergy to multiple antibiotics Current Visit: Yes Status: Acute Code(s): Z88.1 - ALLERGY STATUS TO OTHER ANTIBIOTIC AGENTS SNOMED Code(s): 600617173 (2) UTI (urinary tract infection) Current Visit: No Status: Acute Code(s): N39.0 - URINARY TRACT INFECTION, SITE NOT SPECIFIED SNOMED Code(s): 39120056 Plan: 1patient presented to hospital with nausea and vomiting in this patient did not have significant tenderness on abdominal examination liver enzymes are normal did not have any fever or elevated white count however did have a positive UA underlying UTI not entirely excluded likely from enteric gram-negative pathogen. 2patient with multiple antibiotic allergies that would limit the number of an tibiotics safe to use. 3ultrasound of the abdomin with sludge and ?cholecystitis , general surgery has been consulted 4- continue the patient on Azactam and plan for possible cholecystectomy per surgery urine culture has been negative blood cultures negative Time with Patient: Less than 30
[2022-12-06] MEDS: PRIMIDONE 50 MG TAB PO SCH (20:46)
--- NOTE | 2022-12-06 23:23 | P.PN ---
Subjective This is a pleasant 57 years old female with past medical history of seizure disorder, gastroesophageal reflux disease. Kidney stone Patient has Public Guardian. Patient is poor historian. As per report patient presents because of nausea vomiting. Patient keeps her eyes closed all the time but she answers questions, she says she is in the hospital she is complaining of from mild abdominal pain, no more nausea vomiting. She denies any dysuria urgency, no suprapubic tenderness No chest pain or dyspnea, no headache or dizziness, no weakness or numbness When asked the patient if she is aware if she has any seizure over the last week she declines. Patient is afebrile and vitals are stable Symptoms and unremarkable CBC, BMP, liver enzymes. Lipase normal. Urine analysis is suspicious for infection Urine drug screen is negative. Coronavirus is undetected 12/05/2022 Patient today is more awake and alert and she is answering questions more appropriately. She says she is lives in a long term and that she follow up with primary doctor but she could not remember his name. Also [facility] said that she follow up with a neurologist Dr. Giovanny Payne who saw her about one to 2 weeks ago for a routine follow-up, she has some shakiness saw her neurologist at the [facility] for her and she was taken it together with vimpat and lamictal , neurologist was consulted and we will defer the management of seizure medication to neurologist Also patient this morning states that she is severely depressed and yesterday she was thinking of suicide and she was taken off throwing herself from the patient. Therefore we started suicidal precautions was sitting at bedside and consulted psychiatry service. Patient also has no more nausea vomiting but she has poor appetite and she is complaining of from right upper quadrant abdominal pain, ultrasound showing possible gallbladder sludge suspicious for acute cholecystitis, surgery team were consulted and planned for laparoscopic cholecystectomy on Thursday Lamictal level ordered by neurologist came back Critical at 30.7, with reference range 2-15, I talked to the bedside nurse to hold tonight dose of Lamictal and contact the neurologist. Vimpat level is pending Patient will require more than 2 nights of hospital stay because of her complex medical problem as detailed above 12/06/2022 Today patient was more lethargic and closing her eyes most of the time during my interaction with her (like first day I saw her) but also she answered all questions appropriately although low tone. She still complaining of from nausea and abdominal pain and surgery planned for laparoscopic cholecystectomy on Thursday. She has poor appetite Patient with no evidence of seizure, she confirms to me that a neurologist prescribed her Depakote for her shakiness in her hands but she told me that information that her neurologist is Dr. Randall was strong and she asked me to call her sister Tiffany which I did, Tiffany told me that she is to follow up with Dr. Calvin neurologist but she stopped and now follow-up with different neurologist and the spine group and this is handled by her long term staff, also she confirmed to me that then neurologist as prescribed her Depakote but she was not sure about the frequency of Depakote. I discussed the case with the neurologist and we both agreed to start the patient on Depakote, she tolerated the medication well, when I checked the patient 3 hours after she received her dose this morning. Lamictal dose was lowered to 200 mg, Vimpat continued and level is pending Psychiatric tried to talk to the patient today but she was more lethargic. Currently his continued and as a February All the problems were discussed with her sister Tiffany in details and she verbalized understanding and acceptance with the gland, also I instructed that she follow up closely with her primary care doctor in 1 week and her neurologist in 1 week after discharge, the sister told me that usually this is handled by her long term but she will try to contact them and make a follow-up appointment as soon as possible within one week of she. Objective - Vital Signs Vital signs: Vital Signs Temp 98 F 12/06/22 07:58 Pulse 66 12/06/22 07:58 Resp 16 12/06/22 07:58 BP 146/70 12/06/22 07:58 Pulse Ox 97 12/06/22 07:58 FiO2 Intake & Output 12/05/22 12/06/22 12/06/22 18:59 06:59 18:59 Intake Total 118 Balance 118 Intake: Oral 118 Other: Voiding Method Toilet # Voids 1 1 - Exam -GENERAL: The patient is more alert and oriented and answers questions appropriately not in any acute distress. Well developed, well nourished. HEENT: Pupils are round and equally reacting to light. EOMI. No scleral icterus. No conjunctival pallor. Normocephalic, atraumatic. No pharyngeal erythema. No t hyromegaly. CARDIOVASCULAR: S1 and S2 present. No murmurs, rubs, or gallops. PULMONARY: Chest is clear to auscultation, no wheezing or crackles. -ABDOMEN: Soft,, right upper quadrant tenderness, normoactive bowel sounds. No palpable organomegaly. No guarding or rebound tenderness MUSCULOSKELETAL: No joint swelling or deformity. EXTREMITIES: No cyanosis, clubbing, or pedal edema. NEUROLOGICAL: Gross neurological examination did not reveal any focal deficits. SKIN: No rashes. no petechiae. - Labs CBC & Chem 7: 12/06/22 04:58 12/05/22 06:29 Labs: Abnormal Lab Results - Last 24 Hours (Table) 12/04/22 12/06/22 Range/Units 11:17 04:58 RBC 4.03 L (4.10-5.20) X 10*6/uL Hct 37.1 L (37.2-46.3) % Eosinophils # 0 L (0.04-0.35) X 10*3/uL Lamotrigine 30.7 H* (2.0-15.0) ug/mL Microbiology - Last 24 Hours (Table) 12/03/22 14:42 Urine Culture - Final Urine,Voided Assessment and Plan Assessment: Continuous nausea vomiting suspicious for gastroenteritis, suspected secondary to acute cholecystitis Acute cholecystitis with sludge in the gallbladder suspected Altered mental status, present on admission most likely metabolic/toxic encephalopathy. Acute urinary tract infection, versus asymptomatic bacteriuria History of seizure, there was suspicion of seizure on admission and the neurologist was consulted Depression with possible suicidal ideation History of GERD Plan: Consults infectious disease team Continue with aztreonam Surgery team consult on the case and planned for laparoscopic cholecystectomy on 12/08 Continue with gentle hydration Continue with liquid diet Continue on Depakote, lower the dose of Lamictal. Continue with him back in follow-up level. Neurologist on the case as well. Clonidine patch for hypertension and lower normal saline to 50 mL per hour Discussed with the sister about recommendation for outpatient follow-up with the neurologist and PCP and other consultants and she verbalized understanding and acceptance MRI of the brain and EEG outpatient is recommended Labs and medication were reviewed.. Continue same treatment. Continue with symptomatic treatment. Resume home medication. Monitor labs and vitals. DVT and GI prophylaxis. Further recommendations as per clinical course of the patient DVT prophylaxis: Subcutaneous heparin GI Prophylaxis: Ppi Prognosis is guarded Discussed with staff and bedside nurse
[2022-12-07] MEDS: ONDANSETRON 4 MG/2 ML VIAL IVP PRN ×2 (02:11→12:11)
[2022-12-07] MEDS: AZTREONAM 2 GM in SODIUM CHLORIDE 0.9% 100 ML IVPB SCH ×3 (03:41→19:58)
[2022-12-07] MEDS: LACOSAMIDE 50 MG TABLET PO SCH ×2 (09:25→19:57)
[2022-12-07] MEDS: DIVALPROEX 250 MG TABLET.DR PO SCH (09:25)
[2022-12-07] MEDS: lamoTRIgine 100 MG TAB PO SCH ×2 (09:25→19:58)
[2022-12-07] MEDS: ASPIRIN 81 MG PO SCH (09:25)
[2022-12-07] MEDS: MONTELUKAST 10 MG TAB PO SCH (09:25)
[2022-12-07] MEDS: PANTOPRAZOLE 40 MG/10 ML VIAL IVP SCH (09:26)
--- NOTE | 2022-12-07 11:15 | P.PN ---
Progress Note - Text Progress Note Date: 12/07/22 Patient's resting comfortably bed. She states her right upper quadrant pain is diminished today. On exam vital signs are stable. Abdomen soft. Patient scheduled for laparoscopically cholecystectomy in the a.m.
--- NOTE | 2022-12-07 14:34 | P.PN ---
Subjective Progress Note Date: 12/07/22 The patient is seen at bedside and feels doing better. She is responding well to nursing staff. She stated she used to follow-up with Dr. Schofield in past but is seems following-up with another Dr. Casillas with neurology and we assume Román's team. Objective - Vital Signs Vital signs: Vital Signs Temp 97.6 F 12/07/22 14:00 Pulse 59 L 12/07/22 14:00 Resp 18 12/07/22 14:00 BP 178/81 12/07/22 14:00 Pulse Ox 100 12/07/22 14:00 FiO2 Intake & Output 12/06/22 12/07/22 12/07/22 18:59 06:59 18:59 Output Total 250 Balance -250 Output: Urine 250 Other: Voiding Method Toilet # Voids 1 1 - Exam GENERAL: The patient is lying in bed and is not in acute distress. NEUROLOGICAL: Higher mental function: The patient is in awake, alert, oriented to self, place and time. Following simple commands. No aphasia or neglect. Cranial Nerves: Pupils are round, equal and reactive to light. No facial weakness. No dysarthria. Motor: Strength is lifting all extremities above gravity and no noticeable focality. Some other workup during his hospital visit consisted of: CBC the differential, chemistry panel is unremarkable Urinalysis positive for underlying urinary tract infection. Urine dressing is negative and the valproic acid is 23.2 normal level is between 5220. CT of the head is reported as there may be some mild hypodensity at the inferior left frontal lobe which could be posttraumatic in nature or ischemic or indeterminate age or artifact. Consider follow-up with MRI. I personally reviewed the CT and the there is no acute subacute ischemia there is no bleed that. Regarding this hypodensity over the left frontal eye only seen in one slice and I feel it's could due to artifact. Routine EEG is abnormal. The brachial slowing suggestive of mild encephalopathy. Otherwise there is no focal slowing, epileptiform discharge or seizure in the EEG. Lamotrigene level is 30.7 (normal is 2-15). - Labs CBC & Chem 7: 12/06/22 04:58 12/05/22 06:29 Assessment and Plan Assessment: This is a 57-year-old woman who presented from her skilled nursing because of eval vision for nausea and vomiting. She has history of epilepsy and is on multiple antiepileptic drug and the primary does not know why she is on Depakote Nausea vomiting with Abdominal pain. Also rule out due to toxicity of medication (Lamotrigene) Lamotrigene toxicity 30.7 (normal is 2-15) History of epilepsy History of reported multiple strokes Seems the patient has fluctuation of mentation (per sister that is old) Plan: * Since has Lamotrigene toxicity, I will decrease Lamictal from 250mg 1 tab bid to 200mg bid. * According to the patient she stated that the Depakote was started by her neurologist and it was because of tremors. Will resume Depakote and will have her neurologist modify the medication. If Depakote is the culprit of medication interaction then recommend avoiding the medication. * She is on her home dose of Vimpat 100mg 1 tab twice a daily. * CT of the head is reported as there may be some mild hypodensity at the inferior left frontal lobe which could be posttraumatic in nature or ischemic or indeterminate age or artifact. Consider follow-up with MRI. I personally reviewed the CT and the there is no acute subacute ischemia there is no bleed that. Regarding this hypodensity over the left frontal eye only seen in one slice and I feel it's could due to artifact. I highly recommend MRI of the brain as an outpatient. * Vimpat level is pending. * On seizure precautions and seizure pads * I recommend the patient to follow-up with her neurologist as an outpatient (Dr. [place]). Consider long-term EEG or epilepsy monitoring unit for her seizures localization and determine but will leave management to her her neurologist. * General surgery is consulted for abdominal pain and her nausea and vomiting episodes. * We'll defer the rest of the medical management to primary team Plan was discussed with the patient and primary attending. If patient remains neurological back to baseline, no additional work-up. Dr. Albarado will start neurology service tomorrow A.M. if needed. Time with Patient: Less than 30
--- NOTE | 2022-12-07 16:18 | P.PN ---
Subjective Progress Note Date: 12/07/22 Principal diagnosis: UTI ?Cholecystitis Patient is a 57-year-old female with multiple comorbidities presented to hospital with nausea and vomiting patient did have a positive UA concerning for a UTI in this patient did have multiple antibiotic allergies ultrasound completed evidence of gallbladder sludge. On today's evaluation that is 12/07/2022 the patient continues to be afebrile, the patient is more awake and alert and denies any further nausea or vomiting the patient denies chest pain shortness with no cough Objective - Vital Signs Vital signs: Vital Signs Temp 97.6 F 12/07/22 14:00 Pulse 59 L 12/07/22 14:00 Resp 18 12/07/22 14:00 BP 178/81 12/07/22 14:00 Pulse Ox 100 12/07/22 14:00 FiO2 Intake & Output 12/06/22 12/07/22 12/07/22 18:59 06:59 18:59 Output Total 250 Balance -250 Output: Urine 250 Other: Voiding Method Toilet # Voids 1 1 - Exam GENERAL DESCRIPTION middle-aged female lying in bed in no distress RESPIRATORY SYSTEM: Unlabored breathing , decreased breath sounds at bases HEART: S1 S2 regular rate and rhythm ,no loud murmurs ABDOMEN: Soft , mild tenderness EXTREMITIES: No edema feet - Labs CBC & Chem 7: 12/06/22 04:58 12/05/22 06:29 Assessment and Plan (1) Allergy to multiple antibiotics Current Visit: Yes Status: Acute Code(s): Z88.1 - ALLERGY STATUS TO OTHER ANTIBIOTIC AGENTS SNOMED Code(s): 301680491 (2) UTI (urinary tract infection) Current Visit: No Status: Acute Code(s): N39.0 - URINARY TRACT INFECTION, SITE NOT SPECIFIED SNOMED Code(s): 54861789 Plan: 1patient presented to hospital with nausea and vomiting in this patient did not have significant tenderness on abdominal examination liver enzymes are normal di d not have any fever or elevated white count however did have a positive UA underlying UTI not entirely excluded likely from enteric gram-negative pathogen. 2patient with multiple antibiotic allergies that would limit the number of antibiotics safe to use. 3ultrasound of the abdomin with sludge and ?cholecystitis , general surgery has been consulted 4- patient seemed to have shown clinical improvement and well continue the patient on Azactam and plan for possible cholecystectomy per surgery scheduled for tomorrow Family the bedside questions were answered Time with Patient: Less than 30
[2022-12-07] MEDS: SODIUM CHLORIDE 0.9% 1,000 ML IV SCH (17:25)
--- NOTE | 2022-12-07 17:32 | P.PN ---
Progress Note - Text Interval History: Patient states that 3-4 days ago while she was in the hospital, she had suicidal ideations that lasted for a few minutes. She is not sure what triggered the suicidal ideations. She did not have intent or plan at the time of the suicidal ideation. She states that she has not had suicidal ideation since then. She denies homicidal thoughts, substance abuse, past suicide attempts, family history of suicide attempts, [place] guns or weapons, command hallucinations. States that her family is a great source of support. Denies past manic episodes, psychosis, or past depressive episodes. States that she used to be on medications for mental health in the past but does not remember what they were. States that she used to go to [facility] but the medications that she was given cost epilepsy. She states that she was also treated with light therapy in the past. Also spoke with family who stated that they have no concerns for her mental health. Mental Status Exam: General Appearance: [Patient appears to be older than stated age stated age is alert, directable, and cooperative.] Behavior: [Patient is calmly seated without any agitated behavior.] Speech: Patient's speech is fluent and nonpressured. Mood/Affect: Mood is "good" full range of affect Suicidality/Homicidality: Patient denies having any suicidal or homicidal ideation intent or plan. Perceptions: Patient denies any visual hallucinations [and denies any auditory hallucinations] Though content/process: [There is no evidence of any delusional thought content and thought process is linear and goal-directed.] Memory and concentration: AOX3, grossly intact for the purposes of this session Judgment and insight: Fair Assessment Depression unspecified. It appears that the suicidal thoughts that she had a few days ago only lasted a few minutes and were fleeting in nature. She did not have intent or plan and suicidal thoughts have not come back since. Plan: -Patient does not meet criteria for inpatient psychiatric hospitalization -No psychotropics indicated at this time -May discontinue sitter and suicide precautions -Psychiatry will sign off.] []
[2022-12-07] MEDS: PRIMIDONE 50 MG TAB PO SCH (19:58)
[2022-12-08] MEDS: AZTREONAM 2 GM in SODIUM CHLORIDE 0.9% 100 ML IVPB SCH ×3 (04:10→21:05)
--- NOTE | 2022-12-08 07:07 | P.PN ---
Subjective This is a pleasant 57 years old female with past medical history of seizure disorder, gastroesophageal reflux disease. Kidney stone Patient has Public Guardian. Patient is poor historian. As per report patient presents because of nausea vomiting. Patient keeps her eyes closed all the time but she answers questions, she says she is in the hospital she is complaining of from mild abdominal pain, no more nausea vomiting. She denies any dysuria urgency, no suprapubic tenderness No chest pain or dyspnea, no headache or dizziness, no weakness or numbness When asked the patient if she is aware if she has any seizure over the last week she declines. Patient is afebrile and vitals are stable Symptoms and unremarkable CBC, BMP, liver enzymes. Lipase normal. Urine analysis is suspicious for infection Urine drug screen is negative. Coronavirus is undetected 12/05/2022 Patient today is more awake and alert and she is answering questions more appropriately. She says she is lives in a senior care and that she follow up with primary doctor but she could not remember his name. Also [facility] said that she follow up with a neurologist Dr. Giovanny Payne who saw her about one to 2 weeks ago for a routine follow-up, she has some shakiness saw her neurologist at the [facility] for her and she was taken it together with vimpat and lamictal , neurologist was consulted and we will defer the management of seizure medication to neurologist Also patient this morning states that she is severely depressed and yesterday she was thinking of suicide and she was taken off throwing herself from the patient. Therefore we started suicidal precautions was sitting at bedside and consulted psychiatry service. Patient also has no more nausea vomiting but she has poor appetite and she is complaining of from right upper quadrant abdominal pain, ultrasound showing possible gallbladder sludge suspicious for acute cholecystitis, surgery team were consulted and planned for laparoscopic cholecystectomy on Thursday Lamictal level ordered by neurologist came back Critical at 30.7, with reference range 2-15, I talked to the bedside nurse to hold tonight dose of Lamictal and contact the neurologist. Vimpat level is pending Patient will require more than 2 nights of hospital stay because of her complex medical problem as detailed above 12/06/2022 Today patient was more lethargic and closing her eyes most of the time during my interaction with her (like first day I saw her) but also she answered all questions appropriately although low tone. She still complaining of from nausea and abdominal pain and surgery planned for laparoscopic cholecystectomy on Thursday. She has poor appetite Patient with no evidence of seizure, she confirms to me that a neurologist prescribed her Depakote for her shakiness in her hands but she told me that information that her neurologist is Dr. Randall was strong and she asked me to call her sister Tiffany which I did, Tiffany told me that she is to follow up with Dr. Calvin neurologist but she stopped and now follow-up with different neurologist and the spine group and this is handled by her senior care staff, also she confirmed to me that then neurologist as prescribed her Depakote but she was not sure about the frequency of Depakote. I discussed the case with the neurologist and we both agreed to start the patient on Depakote, she tolerated the medication well, when I checked the patient 3 hours after she received her dose this morning. Lamictal dose was lowered to 200 mg, Vimpat continued and level is pending Psychiatric tried to talk to the patient today but she was more lethargic. Currently his continued and as a February All the problems were discussed with her sister Tiffany in details and she verbalized understanding and acceptance with the gland, also I instructed that she follow up closely with her primary care doctor in 1 week and her neurologist in 1 week after discharge, the sister told me that usually this is handled by her senior care but she will try to contact them and make a follow-up appointment as soon as possible within one week of she. 12/07/2022 Patient remains complaining from nausea vomiting and abdominal discomfort, with plans with surgery team for laparoscopic cholecystectomy related for acute cholecystitis. In the meantime she remains on aztreonam. She is hemodynamically stable Sitter at bedside and psychiatry is following up, yesterday psychiatric could not perform full evaluation and they can't follow-up with the patient today. Neurology service on the case and her seizure medication will resume, currently she is on Vimpat with level is pending, Lamictal dose was lowered based on high level from 250 down to 200 twice a day. Also Depakote was resumed which was started by her neurologist as confirmed by the patient and her sister. Discontinue normal saline at 50 mL/h Objective - Vital Signs Vital signs: Vital Signs Temp 97.7 F 12/07/22 08:00 Pulse 60 12/07/22 08:00 Resp 16 12/07/22 08:00 BP 128/77 12/07/22 08:00 Pulse Ox 98 12/07/22 08:00 FiO2 Intake & Output 12/06/22 12/07/22 12/07/22 18:59 06:59 18:59 Output Total 250 Balance -250 Output: Urine 250 Other: Voiding Method Toilet # Voids 1 1 - Exam -GENERAL: The patient is more alert and oriented and answers questions appropriately not in any acute distress. Well developed, well nourished. HEENT: Pupils are round and equally reacting to light. EOMI. No scleral icterus. No conjunctival pallor. Normocephalic, atraumatic. No pharyngeal erythema. No thyromegaly. CARDIOVASCULAR: S1 and S2 present. No murmurs, rubs, or gallops. PULMONARY: Chest is clear to auscultation, no wheezing or crackles. -ABDOMEN: Soft,, right upper quadrant tenderness, normoactive bowel sounds. No palpable organomegaly. No guarding or rebound tenderness MUSCULOSKELETAL: No joint swelling or deformity. EXTREMITIES: No cyanosis, clubbing, or pedal edema. NEUROLOGICAL: Gross neurological examination did not reveal any focal deficits. SKIN: No rashes. no petechiae. - Labs CBC & Chem 7: 12/06/22 04:58 12/05/22 06:29 Assessment and Plan Assessment: Continuous nausea vomiting suspicious for gastroenteritis, suspected secondary to acute cholecystitis Acute cholecystitis with sludge in the gallbladder suspected Altered mental status, present on admission most likely metabolic/toxic encephalopathy. Acute urinary tract infection, versus asymptomatic bacteriuria History of seizure, there was suspicion of seizure on admission and the neurologist was consulted Depression with possible suicidal ideation History of GERD Plan: Consults infectious disease team Continue with aztreonam Surgery team consult on the case and planned for laparoscopic cholecystectomy on 12/08 Continue with gentle hydration Continue with liquid diet Continue on Depakote, lower the dose of Lamictal. Continue with him back in follow-up level. Neurologist on the case as well. Clonidine patch for hypertension and lower normal saline to 50 mL per hour Discussed with the sister about recommendation for outpatient follow-up with the neurologist and PCP and other consultants and she verbalized understanding and acceptance MRI of the brain and EEG outpatient is recommended Labs and medication were reviewed.. Continue same treatment. Continue with symptomatic treatment. Resume home medication. Monitor labs and vitals. DVT and GI prophylaxis. Further recommendations as per clinical course of the patient DVT prophylaxis: Subcutaneous heparin GI Prophylaxis: Ppi Prognosis is guarded Discussed with staff and bedside nurse
[2022-12-08] MEDS: PANTOPRAZOLE 40 MG/10 ML VIAL IVP SCH (09:08)
[2022-12-08] MEDS: ASPIRIN 81 MG PO SCH (09:09)
[2022-12-08] MEDS: DIVALPROEX 250 MG TABLET.DR PO SCH (09:09)
[2022-12-08] MEDS: lamoTRIgine 100 MG TAB PO SCH (09:09)
[2022-12-08] MEDS: MONTELUKAST 10 MG TAB PO SCH (09:09)
[2022-12-08] MEDS: LACOSAMIDE 50 MG TABLET PO SCH ×2 (09:16→20:36)
[2022-12-08] MEDS ORDERED: LACTATED RINGERS 1,000 ML IV ONE ×2 (11:21→13:02)
[2022-12-08] MEDS: ONDANSETRON 4 MG/2 ML VIAL IVP PRN (11:22)
[2022-12-08] MEDS ORDERED: BUPIVACAINE (PF) 0.25% 30 ML VIAL SQ ONE (12:02)
[2022-12-08] MEDS ORDERED: NALOXONE 0.4 MG/ML 1 ML VIAL IV PRN (13:09)
[2022-12-08] MEDS ORDERED: HYDROmorphone 1 MG/ML 1 ML SYRINGE IVP PRN (13:09)
[2022-12-08] MEDS ORDERED: ONDANSETRON 4 MG/2 ML VIAL IVP PRN (13:09)
[2022-12-08] MEDS ORDERED: ACETAMINOPHEN TAB 325 MG TAB PO PRN (13:09)
[2022-12-08] MEDS ORDERED: METOCLOPRAMIDE 5 MG/ML 2 ML VIAL IVP PRN (13:09)
[2022-12-08] MEDS ORDERED: SODIUM CHLORIDE 0.9% 1,000 ML IV ONE (13:14)
[2022-12-08 13:24] LABS: Basophils % (A) 0 %; Eosinophils % (A) 0 %; HCT 29.5 % (34.0-46.0); Lymphocytes # (A) 4.4 k/uL (1.0-4.8); Lymphocytes % (A) 40 %; MCH 32.2 pg (25.0-35.0); MCHC 35.5 g/dL (31.0-37.0); MCV 90.9 fL (80.0-100.0); Mean Platelet Volume 8.2; Monocytes # (A) 0.4 k/uL (0-1.0); Monocytes % (A) 4 %; Neutrophils % (A) 55 %; Platelet Count 257 k/uL (150-450); RBC 3.24 m/uL (3.80-5.40); RDW 12.9 % (11.5-15.5); WBC 10.9 k/uL (3.8-10.6)
[2022-12-08] MEDS ORDERED: NEOSTIGMINE 1 MG/ML 10 ML VIAL ONE (13:27)
[2022-12-08] MEDS ORDERED: fentaNYL (PF) 50 MCG/ML 2 ML AMP ONE (13:27)
[2022-12-08] MEDS ORDERED: ROCURONIUM 10 MG/ML (5 ML VIAL) IV ONE (13:27)
[2022-12-08] MEDS ORDERED: HYDROmorphone (PF) 1 MG/ML ONE (13:27)
[2022-12-08] MEDS ORDERED: PHENYLEPHRINE-0.9% NACL SYG 1,000 MCG/10 ML SYRINGE ONE (13:27)
[2022-12-08] MEDS ORDERED: SUCCINYLCHOLINE CHLORIDE 200 MG/10 ML VIAL IV ONE (13:27)
[2022-12-08] MEDS ORDERED: LIDOCAINE 2% INJ 20 MG/ML (2 ML VIAL) ONE (13:27)
[2022-12-08] MEDS ORDERED: PROPOFOL 10 MG/ML 20 ML VIAL IV ONE (13:27)
[2022-12-08] MEDS ORDERED: ePHEDrine 50 MG/ML 1 ML VIAL ONE (13:27)
[2022-12-08] MEDS ORDERED: GLYCOPYRROLATE 0.2 MG/ML 2 ML VIAL ONE (13:27)
[2022-12-08 13:41] LABS: HGB 10.5 gm/dL (11.4-16.0)
[2022-12-08] MEDS ORDERED: HYDROmorphone 0.5 MG/0.5 ML SYRINGE IVP ONE (13:50)
[2022-12-08] MEDS: SODIUM CHLORIDE 0.9% 1,000 ML IV SCH (16:28)
--- NOTE | 2022-12-08 17:08 | P.OP ---
Date of Procedure: 12/08/22 Preoperative Diagnosis: Cholecystitis Postoperative Diagnosis: Cholecystitis Intrahepatic gallbladder Procedure(s) Performed: Diagnostic laparoscopy Open cholecystectomy Anesthesia: MARILIN Surgeon: Adam Little Estimated Blood Loss (ml): 350 Pathology: other (Gallbladder) Condition: stable Disposition: PACU Operative Findings: Intrahepatic gallbladder. Bleeding from venous sinus on gallbladder bed Description of Procedure: The patient was placed on the operating table. The patient received a general endotracheal tube anesthesia. The patients abdomen was prepped and draped in the usual sterile fashion. Through an infraumbilical stab incision, the fascia of the anterior abdominal wall was grasped with a pair of Kochers and then the Veress needle was placed in the peritoneal cavity. Position of the Veress needle was confirmed with positive drop test. The abdomen was then insufflated. After adequate insufflation, the 10 mm trocar was placed in the peritoneal cavity. Following this the laparoscope was placed in the pe ritoneal cavity. The patient was placed in the head-up, right side up position and then a 5 mm trocar was placed in the right lateral and right subcostal position under direct visualization. A 8 mm trocar was placed in the epigastric position. The gallbladder was grasped in the fundus and infundibulum. Traction on the gallbladder was placed in the lateral and the cephalad positions. The triangle of Calot was visualized.. The cystic duct was bluntly dissected until the union of the cystic duct and common bile duct was seen. A critical view of safety was achieved. The cystic duct was then divided and sealed with the Harmonic scissors. A PDS Endoloop was then placed throughout the cystic duct stump. The cystic artery divided and sealed with the Harmonic scissors. The gallbladder was then removed from the liver bed using Harmonic scissors. During the dissection of the gallbladder from the liver bed with the Harmonic scissors. A venous sinus was encountered. There was bleeding from the venous sinus. Several attempts were made to quiet this area however due to the brisk bleeding the patient was converted to an open cholecystectomy. The patient had a very short liver. The incision was made near the right subcostal margin. Using electrode cautery the abdominal wall was divided. The Bookwalter tract was placed the wound.. There was approximately 300 mL of bl oody fluid in the abdominal cavity. The liver bed was packed. The packings were then removed and bleeding could be seen from the gallbladder fossa. This was packed and held with pressure. The gallbladder then was divided off of the remaining liver bed using electrocautery and sent to pathology. Due to the patient's obesity and short liver it was very hard to visualize the liver bed. The liver was essentially above the costal margin. Sponge packs are placed on the donor liver to push the liver inferiorly. And then the liver bed was inspected. There was some bleeding from a venous sinus. The area was coagulated. And then direct pressure was held on the area for 10 minutes. The sponges were then removed. There is no bleeding seen from the liver bed. Surgicel powder was placed over top the liver bed. This was then held for another 10 minutes. And then the area was irrigated. There is no bleeding seen. At this point the abdominal cavity was irrigated. And the sponge packs were removed. A ESTELA drain was placed at the level of the gallbladder and brought out through a 5 mm trocar site. The liver bed was inspected for hemostasis again. No bleeding was seen. This point the fascia was closed with looped #1 PDS suture. 2 sutures used to close the fascia. Skin was closed shaquille. The ESTELA drain was secured with 3-0 nylon. The patient was sent to recovery room. Her postoperative hemoglobin was 10.9. There was no drainage seen in her ESTELA drain. Patient was sent back to her room in stable condition.
[2022-12-08 17:15] LABS: Basophils % (A) 0 %; Eosinophils % (A) 0 %; HCT 28.3 % (34.0-46.0); HGB 9.5 gm/dL (11.4-16.0); Lymphocytes # (A) 1.4 k/uL (1.0-4.8); Lymphocytes % (A) 14 %; MCH 31.2 pg (25.0-35.0); MCHC 33.5 g/dL (31.0-37.0); MCV 93.2 fL (80.0-100.0); Mean Platelet Volume 8.2; Monocytes # (A) 0.7 k/uL (0-1.0); Monocytes % (A) 7 %; Neutrophils # (A) 7.8 k/uL (1.3-7.7); Neutrophils % (A) 78 %; Platelet Count 224 k/uL (150-450); RBC 3.03 m/uL (3.80-5.40); RDW 12.8 % (11.5-15.5)
[2022-12-08 17:20] LABS: Albumin 3.3 g/dL (3.5-5.0); Albumin/Globulin Ratio 1.5; Globulin 2.2 g/dL; Total Bilirubin 0.4 mg/dL (0.2-1.3); Total Protein 5.5 g/dL (6.3-8.2)
[2022-12-08] MEDS: HYDROmorphone 0.5 MG/0.5 ML SYRINGE IVP PRN ×3 (17:28→23:27)
[2022-12-08] MEDS ORDERED: SODIUM CHLORIDE 0.9% 500 ML 500 ML IV ONE (20:09)
[2022-12-08] MEDS: DOCUSATE 100 MG CAP PO SCH (20:36)
[2022-12-08] MEDS: PRIMIDONE 50 MG TAB PO SCH (21:45)
[2022-12-09] MEDS: HYDROmorphone 0.5 MG/0.5 ML SYRINGE IVP PRN ×3 (02:34→08:42)
--- NOTE | 2022-12-09 03:04 | PN ---
PROGRESS NOTE DATE OF SERVICE: 12/08/2022 SUBJECTIVE: This is a 57-year-old woman, who was admitted with abdominal symptoms, scheduled to have a laparoscopic cholecystectomy today by Surgery. No chest pain. No palpitation. OBJECTIVE: VITAL SIGNS: Pulse is 70, blood pressure n, respirations 20. CHEST: Clear to auscultation. CARDIOVASCULAR: S1, S2 muffled. ABDOMEN: Soft, status post surgery. LABORATORY DATA: Reviewed. ASSESSMENT: 1. Abdominal pain with acute cholecystitis, status post laparoscopic cholecystectomy. 2. Acute urinary tract infection. 3. History of seizure disorder. 4. Depression. 5. Multiple medical issues. RECOMMENDATIONS AND DISCUSSION: Recommend to continue current medications. Continue symptomatic treatment. Repeat labs in the morning. Closely follow with Surgery. Guarded prognosis. Further recommendations to follow. MMODL / IJN: [id number] / MTDD
[2022-12-09] MEDS: SODIUM CHLORIDE 0.9% 1,000 ML IV SCH (08:44)
[2022-12-09] MEDS: DIVALPROEX 250 MG TABLET.DR PO SCH (08:44)
[2022-12-09] MEDS: PANTOPRAZOLE 40 MG/10 ML VIAL IVP SCH ×2 (08:44→20:50)
[2022-12-09] MEDS: ASPIRIN 81 MG PO SCH (08:44)
[2022-12-09] MEDS: MONTELUKAST 10 MG TAB PO SCH (08:44)
[2022-12-09] MEDS: LACOSAMIDE 50 MG TABLET PO SCH ×2 (08:44→20:49)
[2022-12-09] MEDS: DOCUSATE 100 MG CAP PO SCH ×2 (08:44→20:49)
[2022-12-09 08:57] LABS: Basophils % (A) 0 %; Eosinophils % (A) 0 %; HGB 10.7 gm/dL (11.4-16.0); Lymphocytes # (A) 2.3 k/uL (1.0-4.8); Lymphocytes % (A) 27 %; MCH 31.1 pg (25.0-35.0); MCHC 33.6 g/dL (31.0-37.0); MCV 92.7 fL (80.0-100.0); Mean Platelet Volume 8.3; Monocytes # (A) 0.6 k/uL (0-1.0); Monocytes % (A) 8 %; Neutrophils # (A) 5.1 k/uL (1.3-7.7); Neutrophils % (A) 62 %; Platelet Count 212 k/uL (150-450); RBC 3.45 m/uL (3.80-5.40); RDW 13.5 % (11.5-15.5); WBC 8.2 k/uL (3.8-10.6)
[2022-12-09] MEDS ORDERED: ENOXAPARIN 40 MG/0.4 ML SYRINGE SQ SCH (09:00)
[2022-12-09 09:14] LABS: ALT 195 U/L (4-34); AST 183 U/L (14-36); African American GFR (CKD) 43 (>60 ml/min/1.73 sqM); Albumin/Globulin Ratio 1.4; Alkaline Phosphatase 63 U/L (38-126); Anion Gap 11 mmol/L; Blood Urea Nitrogen 19 mg/dL (7-17); Calcium 7.4 mg/dL (8.4-10.2); Carbon Dioxide 21 mmol/L (22-30); Chloride 109 mmol/L (98-107); Globulin 2.2 g/dL; Glucose 105 mg/dL (74-99); Non-African American GFR(CKD) 37 (>60 ml/min/1.73 sqM); Potassium 4.1 mmol/L (3.5-5.1); Sodium 141 mmol/L (137-145); Total Bilirubin 0.4 mg/dL (0.2-1.3); Total Protein 5.2 g/dL (6.3-8.2)
[2022-12-09] MEDS ORDERED: SODIUM CHLORIDE 0.9% 1,000 ML IV ONE (10:08)
[2022-12-09] MEDS ORDERED: HYDROmorphone 0.5 MG/0.5 ML SYRINGE IVP STA (10:08)
[2022-12-09 11:11] VITALS: BMI 39.2
--- NOTE | 2022-12-09 11:26 | XR ---
EXAMINATION TYPE: XR chest 1V portable DATE OF EXAM: 12/09/2022 HISTORY: Shortness of breath. COMPARISON: None. TECHNIQUE: Single view of the chest is submitted. FINDINGS: Demonstrated are scattered senescent parenchymal change. Perihilar infiltrates. The heart is stable. Hilar and mediastinal structures are within normal limits. Degenerative changes are seen of the dorsal spine. IMPRESSION: 1. Perihilar infiltrates.
--- NOTE | 2022-12-09 12:11 | P.PN ---
Subjective Progress Note Date: 12/09/22 Patient was initially seen by Dr. Royal Hernandez. Please refer to his note for details. Patient is a 57-year-old female with history of seizure, who has presented with nausea vomiting. Patient was found to have Lamictal toxicity. Dr. Hernandez has decreased dose of her Lamictal. Patient also had undergone cholecystectomy yesterday. Patient's father was also present at this time. He mentions that patient has history of epilepsy since she was a baby. She used to have grand mal seizures, but none 4 years. She still gets minor seizures, in which she stares off in space. However lately she has been having seizures, in which she "giggles" that lasts for a few seconds. It takes a while for her to come out completely. Patient admits to being depressed. She says that she is taking a lot of medications. She follows up with a neurologist, that starts with letter "S". Patient lives in a longterm. Objective - Vital Signs Vital signs: Vital Signs Temp 97.8 F 12/09/22 07:28 Pulse 87 12/09/22 07:28 Resp 18 12/09/22 07:28 BP 100/72 12/09/22 07:28 Pulse Ox 97 12/09/22 07:28 FiO2 Intake & Output 12/08/22 12/09/22 12/09/22 18:59 06:59 18:59 Intake Total 1500 310 Output Total 500 250 Balance 1000 60 Weight 91.172 kg Intake: IV 1500 Blood Product 310 Rc As-1 Unit 310 [id number] Output: Drainage 0 Lower Abdomen 0 Urine 100 250 Estimated Blood Loss 400 Other: Voiding Method Indwelling Catheter Indwelling Catheter - Exam GENERAL: The patient is lying in bed and is not in acute distress. Patient appears slightly encephalopathic. NEUROLOGICAL: Higher mental function: The patient is in awake, alert, oriented to self, place and time. She knows it is December but thinks the year is 2034 and that she is in [facility] in [place]. She knows her date of . Speech and language functions are normal. Her voice is slightly jerky, like tremors. Following simple commands. No aphasia or neglect. Cranial Nerves: Pupils are round, equal and reactive to light. No facial weakness. No dysarthria. She has nystagmus with end gaze. 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 Strength is normal in the ankles. - Labs CBC & Chem 7: 12/09/22 08:24 12/09/22 08:24 Labs: Abnormal Lab Results - Last 24 Hours (Table) 12/08/22 12/08/22 12/08/22 Range/Units 13:00 13:00 16:47 WBC 10.9 H (3.8-10.6) k/uL RBC 3.24 L 3.03 L (3.80-5.40) m/uL Hgb 10.5 L D 9.5 L (11.4-16.0) gm/dL Hct 29.5 L 28.3 L (34.0-46.0) % Neutrophils # 7.8 H (1.3-7.7) k/uL Chloride (98-107) mmol/L Carbon Dioxide (22-30) mmol/L BUN (7-17) mg/dL Creatinine (0.52-1.04) mg/dL Glucose (74-99) mg/dL Calcium (8.4-10.2) mg/dL AST (14-36) U/L ALT (4-34) U/L Total Protein (6.3-8.2) g/dL Albumin (3.5-5.0) g/dL Crossmatch See Detail 12/08/22 12/09/22 12/09/22 Range/Units 16:47 08:24 08:24 WBC (3.8-10.6) k/uL RBC 3.45 L (3.80-5.40) m/uL Hgb 10.7 L (11.4-16.0) gm/dL Hct 32.0 L (34.0-46.0) % Neutrophils # (1.3-7.7) k/uL Chloride 109 H (98-107) mmol/L Carbon Dioxide 21 L (22-30) mmol/L BUN 19 H (7-17) mg/dL Creatinine 1.53 H (0.52-1.04) mg/dL Glucose 105 H (74-99) mg/dL Calcium 7.4 L (8.4-10.2) mg/dL AST 303 H 183 H (14-36) U/L ALT 247 H 195 H (4-34) U/L Total Protein 5.5 L 5.2 L (6.3-8.2) g/dL Albumin 3.3 L 3.0 L (3.5-5.0) g/dL Crossmatch Assessment and Plan Assessment: This is a 57-year-old woman who presented from her longterm because of nausea and vomiting. She has history of epilepsy and is on multiple antiepileptic drug Nausea vomiting with Abdominal pain. Patient is status post cholecystectomy performed yesterday. Also has evidence of Lamictal toxicity. Lamotrigene toxicity 30.7 (normal is 2-15) History of epilepsy History of reported multiple strokes Seems the patient has fluctuation of mentation (per sister that is old) Plan: * Since has Lamotrigene toxicity, Dr. Hernandez has decreased Lamictal from 250mg 1 tab bid to 200mg bid. * Recheck Lamictal level today. Check ammonia level. Suspect Lamictal toxicity from adding Depakote. Uncertain when Depakote was started. I will try to contact patient's longterm or Tiffany patient's sister, who may know more about it. * According to the patient she stated that the Depakote was started by her neurologist and it was because of tremors. Dr. Hernandez has resumed Depakote and will have her neurologist modify the medication. If Depakote is the culprit of medication interaction then recommend avoiding the medication. * She is on her home dose of Vimpat 100mg 1 tab twice a daily. * Vimpat level is pending. * On seizure precautions and seizure pads * I recommend the patient to follow-up with her neurologist as an outpatient (Dr. France). Consider long-term EEG or epilepsy monitoring unit for her seizures localization and determine but will leave management to her her neurologist. * General surgery following, patient has undergone cholecystectomy yesterday. * We'll defer the rest of the medical management to primary team
--- NOTE | 2022-12-09 12:12 | P.PN ---
Subjective Progress Note Date: 12/09/22 CHIEF COMPLAINT: Cholecystitis HISTORY OF PRESENT ILLNESS: Patient is postop day #1 status post diagnostic laparoscopy with open cholecystectomy. Patient did have bleeding from venous sinus at gallbladder bed. Patient did receive a unit of blood yesterday and fluid bolus. Patient apparently was more lethargic last night. She is more awake this morning. She had low urine output. She does complain of abdominal pain. Denies any nausea or vomiting. She is currently nothing by mouth. Afebrile. BP on the lower side 100/72. WBC 8.2 hemoglobin did go up from 9.5- 10.7 Na 141 potassium 4.1 chloride slightly elevated at 109. creatinine is up at 1.53 total bilirubin 0.4 AST has come down from 303-183 ALT 247 down to 195 Patient seen and examined with Dr. Little PHYSICAL EXAM: VITAL SIGNS: Reviewed. GENERAL: Well-developed in no acute distress. HEENT: No sclera icterus. Extraocular movements grossly intact. Moist buccal mucosa. Head is atraumatic, normocephalic. ABDOMEN: Soft. Nondistended. Incision site with dried blood noted. ESTELA drain with minimal tenderness output NEUROLOGIC: Alert and oriented. Cranial nerves II through XII grossly intact. ASSESSMENT: 1. Cholecystitis and intrahepatic gallbladder status post diagnostic laparoscopy and open cholecystectomy 2. Low urine output 3. Acute kidney injury PLAN: -Patient given 1 L fluid bolus for low urine output -Dilaudid 1 mg IV every 3 hours as needed for pain was ordered -Place patient on D5 half normal saline at 125 mL per hour -Continue to monitor urine output -Clean incision and change dressing -GI prophylaxis Protonix and DVT prophylaxis Lovenox Physician Speeder Hand note has been reviewed by physician. Signing provider agrees with the documented findings, assessment, and plan of care. Objective - Vital Signs Vital signs: Vital Signs Temp 97.8 F 12/09/22 07:28 Pulse 87 12/09/22 07:28 Resp 18 12/09/22 07:28 BP 100/72 12/09/22 07:28 Pulse Ox 97 12/09/22 07:28 FiO2 Intake & Output 12/08/22 12/09/22 12/09/22 18:59 06:59 18:59 Intake Total 1500 310 Output Total 500 250 Balance 1000 60 Weight 91.172 kg Intake: IV 1500 Blood Product 310 Rc As-1 Unit 310 [id number] Output: Drainage 0 Lower Abdomen 0 Urine 100 250 Estimated Blood Loss 400 Other: Voiding Method Indwelling Catheter Indwelling Catheter - Labs CBC & Chem 7: 12/09/22 08:24 12/09/22 08:24 Labs: Abnormal Lab Results - Last 24 Hours (Table) 12/08/22 12/08/22 12/08/22 Range/Units 13:00 13:00 16:47 WBC 10.9 H (3.8-10.6) k/uL RBC 3.24 L 3.03 L (3.80-5.40) m/uL Hgb 10.5 L D 9.5 L (11.4-16.0) gm/dL Hct 29.5 L 28.3 L (34.0-46.0) % Neutrophils # 7.8 H (1.3-7.7) k/uL Chloride (98-107) mmol/L Carbon Dioxide (22-30) mmol/L BUN (7-17) mg/dL Creatinine (0.52-1.04) mg/dL Glucose (74-99) mg/dL Calcium (8.4-10.2) mg/dL AST (14-36) U/L ALT (4-34) U/L Total Protein (6.3-8.2) g/dL Albumin (3.5-5.0) g/dL Crossmatch See Detail 12/08/22 12/09/22 12/09/22 Range/Units 16:47 08:24 08:24 WBC (3.8-10.6) k/uL RBC 3.45 L (3.80-5.40) m/uL Hgb 10.7 L (11.4-16.0) gm/dL Hct 32.0 L (34.0-46.0) % Neutrophils # (1.3-7.7) k/uL Chloride 109 H (98-107) mmol/L Carbon Dioxide 21 L (22-30) mmol/L BUN 19 H (7-17) mg/dL Creatinine 1.53 H (0.52-1.04) mg/dL Glucose 105 H (74-99) mg/dL Calcium 7.4 L (8.4-10.2) mg/dL AST 303 H 183 H (14-36) U/L ALT 247 H 195 H (4-34) U/L Total Protein 5.5 L 5.2 L (6.3-8.2) g/dL Albumin 3.3 L 3.0 L (3.5-5.0) g/dL Crossmatch
[2022-12-09] MEDS: AZTREONAM 2 GM in SODIUM CHLORIDE 0.9% 100 ML IVPB SCH (12:55)
[2022-12-09] MEDS: DEXTROSE 5%-0.45% NACL 1,000 ML IV SCH ×2 (12:55→22:50)
[2022-12-09] MEDS ORDERED: AZTREONAM 2 GM in SODIUM CHLORIDE 0.9% 100 ML IVPB SCH ×3 (13:00)
[2022-12-09] MEDS ORDERED: ALBUTEROL NEBULIZED 2.5 MG/3 ML INHALATION PRN (13:10)
[2022-12-09] MEDS ORDERED: IPRATROPIUM 0.5 MG/2.5 ML NEBU INHALATION PRN (13:14)
--- NOTE | 2022-12-09 14:02 | PN ---
PROGRESS NOTE DATE OF SERVICE: 12/09/2022 SUBJECTIVE: This is a 57-year-old woman who was admitted with abdominal pain with acute cholecystitis, had open cholecystectomy. No chest pain, no palpitations, no fever. Patient has some postoperative shortness of breath also. The chest x-ray showed some atelectasis and some perihilar infiltrates. OBJECTIVE: VITAL SIGNS: Pulse is 82, blood pressure 96/58, respirations 18. CHEST: Few scattered rhonchi, no crackles. ABDOMEN: Soft, obese status post surgery. LABORATORY DATA: Creatinine 1.53, hemoglobin 10.7. LFTs are noted. ASSESSMENT: 1. Abdominal pain with acute cholecystitis, status post open cholecystectomy. 2. Perihilar infiltrate with bilateral atelectasis possibly. 3. Acute urinary tract infection. 4. History of seizure disorder. 5. Depression. 6. Multiple medical issues. RECOMMENDATIONS: Recommend to continue current management, continue symptomatic treatment. Otherwise at this time repeat labs. Would recommend a course of empiric antibiotics, bronchodilators, closely follow. Monitor blood pressure closely. DVT prophylaxis. Further recommendations to follow. MMODL / IJN: [id number] /
[2022-12-09] MEDS: HYDROmorphone 1 MG/ML 1 ML SYRINGE IVP PRN ×3 (14:44→20:50)
[2022-12-09] MEDS ORDERED: LACTATED RINGERS 1,000 ML IV SCH (16:15)
--- NOTE | 2022-12-09 17:37 | P.PN ---
Subjective Progress Note Date: 12/09/22 Principal diagnosis: UTI ?Cholecystitis Patient is a 57-year-old female with multiple comorbidities presented to hospital with nausea and vomiting patient did have a positive UA concerning for a UTI in this patient did have multiple antibiotic allergies ultrasound completed evidence of gallbladder sludge. The patient is status post "nystatin completed on 12/08/2022 On today's evaluation that is 12/09/2022 the patient remains to be afebrile, the patient is breathing comfortably has been complaining of mostly pain to the right upper quadrant area nausea but no vomiting and no diarrhea has been reported Objective - Vital Signs Vital signs: Vital Signs Temp 97.8 F 12/09/22 07:28 Pulse 87 12/09/22 07:28 Resp 18 12/09/22 07:28 BP 100/72 12/09/22 07:28 Pulse Ox 97 12/09/22 07:28 FiO2 Intake & Output 12/08/22 12/09/22 12/09/22 18:59 06:59 18:59 Intake Total 1500 310 Output Total 500 250 Balance 1000 60 Weight 91.172 kg Intake: IV 1500 Blood Product 310 Rc As-1 Unit 310 [id number] Output: Drainage 0 Lower Abdomen 0 Urine 100 250 Estimated Blood Loss 400 Other: Voiding Method Indwelling Catheter Indwelling Catheter - Exam GENERAL DESCRIPTION middle-aged female lying in bed in no distress RESPIRATORY SYSTEM: Unlabored breathing , decreased breath sounds at bases HEART: S1 S2 regular rate and rhythm ,no loud murmurs ABDOMEN: Soft , mild tenderness EXTREMITIES: No edema feet - Labs CBC & Chem 7: 12/09/22 08:24 12/09/22 08:24 Labs: Abnormal Lab Results - Last 24 Hours (Table) 12/08/22 12/08/22 12/08/22 Range/Units 13:00 16:47 16:47 RBC 3.03 L (3.80-5.40) m/uL Hgb 9.5 L (11.4-16.0) gm/dL Hct 28.3 L (34.0-46.0) % Neutrophils # 7.8 H (1.3-7.7) k/uL Chloride (98-107) mmol/L Carbon Dioxide (22-30) mmol/L BUN (7-17) mg/dL Creatinine (0.52-1.04) mg/dL Glucose (74-99) mg/dL Calcium (8.4-10.2) mg/dL AST 303 H (14-36) U/L ALT 247 H (4-34) U/L Total Protein 5.5 L (6.3-8.2) g/dL Albumin 3.3 L (3.5-5.0) g/dL Crossmatch See Detail 12/09/22 12/09/22 Range/Units 08:24 08:24 RBC 3.45 L (3.80-5.40) m/uL Hgb 10.7 L (11.4-16.0) gm/dL Hct 32.0 L (34.0-46.0) % Neutrophils # (1.3-7.7) k/uL Chloride 109 H (98-107) mmol/L Carbon Dioxide 21 L (22-30) mmol/L BUN 19 H (7-17) mg/dL Creatinine 1.53 H (0.52-1.04) mg/dL Glucose 105 H (74-99) mg/dL Calcium 7.4 L (8.4-10.2) mg/dL AST 183 H (14-36) U/L ALT 195 H (4-34) U/L Total Protein 5.2 L (6.3-8.2) g/dL Albumin 3.0 L (3.5-5.0) g/dL Crossmatch Assessment and Plan (1) Allergy to multiple antibiotics Current Visit: Yes Status: Acute Code(s): Z88.1 - ALLERGY STATUS TO OTHER ANTIBIOTIC AGENTS SNOMED Code(s): 118746924 (2) UTI (urinary tract infection) Current Visit: No Status: Acute Code(s): N39.0 - URINARY TRACT INFECTION, SITE NOT SPECIFIED SNOMED Code(s): 24883468 Plan: 1patient presented to hospital with nausea and vomiting in this patient did not have significant tenderness on abdominal examination liver enzymes are normal did not have any fever or elevated white count however did have a positive UA underlying UTI not entirely excluded likely from enteric gram-negative pathogen. 2patient with multiple antibiotic allergies that would limit the number of antibiotics safe to use. 3ultrasound of the abdomin with sludge and ?cholecystitis , patient is status post open cholecystectomy completed on 12/08/2022 4- patient to continue with Azactam because of her multiple antibiotic ALLERGIES and monitor clinical course closely Time with Patient: Less than 30
[2022-12-09] MEDS: IPRATROPIUM 0.5 MG/2.5 ML NEBU INHALATION SCH (18:23)
[2022-12-09] MEDS: ALBUTEROL NEBULIZED 2.5 MG/3 ML INHALATION SCH (18:23)
[2022-12-09] MEDS: PRIMIDONE 50 MG TAB PO SCH (20:49)
[2022-12-10] MEDS: AZTREONAM 2 GM in SODIUM CHLORIDE 0.9% 100 ML IVPB SCH ×2 (00:31→13:54)
[2022-12-10] MEDS: HYDROmorphone 1 MG/ML 1 ML SYRINGE IVP PRN ×2 (00:53→04:08)
[2022-12-10] MEDS: DEXTROSE 5%-0.45% NACL 1,000 ML IV SCH ×3 (04:46→20:29)
[2022-12-10 07:55] LABS: ALT 135 U/L (4-34); AST 93 U/L (14-36); African American GFR (CKD) 66 (>60 ml/min/1.73 sqM); Albumin 2.7 g/dL (3.5-5.0); Albumin/Globulin Ratio 1.2; Alkaline Phosphatase 84 U/L (38-126); Anion Gap 7 mmol/L; Blood Urea Nitrogen 23 mg/dL (7-17); Calcium 7.5 mg/dL (8.4-10.2); Carbon Dioxide 22 mmol/L (22-30); Chloride 107 mmol/L (98-107); Globulin 2.3 g/dL; Glucose 127 mg/dL (74-99); Non-African American GFR(CKD) 57 (>60 ml/min/1.73 sqM); Potassium 3.5 mmol/L (3.5-5.1); Sodium 136 mmol/L (137-145); Total Bilirubin 0.2 mg/dL (0.2-1.3)
[2022-12-10] MEDS: ALBUTEROL NEBULIZED 2.5 MG/3 ML INHALATION SCH ×3 (08:04→18:33)
[2022-12-10] MEDS: IPRATROPIUM 0.5 MG/2.5 ML NEBU INHALATION SCH ×3 (08:04→18:33)
[2022-12-10 09:08] LABS: Basophils % (A) 0 %; Eosinophils % (A) 0 %; HCT 27.3 % (34.0-46.0); Lymphocytes # (A) 1.7 k/uL (1.0-4.8); Lymphocytes % (A) 19 %; MCH 30.9 pg (25.0-35.0); MCHC 33.2 g/dL (31.0-37.0); Mean Platelet Volume 8.9; Monocytes # (A) 0.7 k/uL (0-1.0); Monocytes % (A) 8 %; Neutrophils # (A) 6.1 k/uL (1.3-7.7); Neutrophils % (A) 70 %; Platelet Count 197 k/uL (150-450); RBC 2.93 m/uL (3.80-5.40); RDW 13.6 % (11.5-15.5); WBC 8.7 k/uL (3.8-10.6)
[2022-12-10 09:18] LABS: HGB 9.1 gm/dL (11.4-16.0)
[2022-12-10] MEDS: LACOSAMIDE 50 MG TABLET PO SCH ×2 (09:18→20:24)
[2022-12-10] MEDS: MONTELUKAST 10 MG TAB PO SCH (09:18)
[2022-12-10] MEDS: DOCUSATE 100 MG CAP PO SCH ×2 (09:18→20:24)
[2022-12-10] MEDS: DIVALPROEX 250 MG TABLET.DR PO SCH (09:18)
[2022-12-10] MEDS: ASPIRIN 81 MG PO SCH (09:18)
[2022-12-10] MEDS: ENOXAPARIN 30 MG/0.3 ML SYRINGE SQ SCH (09:18)
[2022-12-10] MEDS: PANTOPRAZOLE 40 MG/10 ML VIAL IVP SCH ×2 (09:18→20:24)
[2022-12-10] MEDS ORDERED: SODIUM CHLORIDE 0.9% 1,000 ML IV ONE (10:10)
[2022-12-10] MEDS: HYDROcodone/APAP 5-325MG 1 EACH TAB PO PRN ×2 (10:15→17:35)
--- NOTE | 2022-12-10 12:39 | PN ---
PROGRESS NOTE DATE OF SERVICE: 12/10/2022 SUBJECTIVE: This is a 57-year-old woman who was admitted with abdominal pain, cholecystitis, and open cholecystectomy. The patient has atelectasis also, postoperative. No chest pain, no palpitation. OBJECTIVE: VITAL SIGNS: Pulse is 90, blood pressure 108/86, respirations 18. HEENT: Conjunctivae normal. CARDIOVASCULAR: S1, S2. RESPIRATIONS: Few scattered rhonchi. ABDOMEN: Soft status post surgery. LABORATORY DATA: Reviewed. ASSESSMENT: 1. Abdominal pain with acute cholecystitis, status post open cholecystectomy. 2. Perihilar infiltrate with bilateral atelectasis possibly. 3. Acute urinary tract infection. 4. History of seizure disorder. 5. Depression. 6. Multiple medical issues. 7. Elevated Lamictal level. RECOMMENDATIONS AND DISCUSSION: Recommended to continue current medications, continue symptomatic treatment. Otherwise at this time, I recommend continue the antibiotics. Lamictal level is also elevated. We will initiate Lamictal at a lower dose. MMODL / IJN: [id number] /
[2022-12-10] MEDS ORDERED: FUROSEMIDE 10 MG/ML 2 ML VIAL IV ONE (13:30)
--- NOTE | 2022-12-10 14:04 | P.PN ---
Progress Note - Text Progress Note Date: 12/10/22 Interval History: Patient was seen at bedside. Next to her is her father Rodrigo and her sister Jeanie. Patient is agreeable to having them present for psychiatric interview. The patient is currently denying any suicidal or homicidal ideation, intention, and/or plan. She is not reporting any auditory or visualizations. She denies any paranoia or other delusions. His sister expresses that there is concern that the patient has verbalized self harm in the form of stating that the patient would "stop taking her medications." However the patient expresses no desire to engage in self harm but rather expresses frustration with taking medications and her housing situation. The patient and family report no significant history of prior attempts at suicide. No reported issues regarding sleep or appetite. Mental Status Exam: General Appearance: Patient appears to be stated age is alert, directable, and cooperative. Behavior: Patient is calmly seated without any agitated behavior. Speech: Patient's speech is fluent and nonpressured. Mood/Affect: Mood is "doing better," affect is congruent and euthymic Suicidality/Homicidality: Patient denies having any suicidal or homicidal ideation intent or plan. Perceptions: Patient denies any visual hallucinations and denies any auditory hallucinations Though content/process: There is no evidence of any delusional thought content and thought process is linear and goal-directed. Memory and concentration: AOX3, grossly intact for the purposes of this session Judgment and insight: Improving mildly Vital Signs Temp 97.9 F 12/10/22 08:00 Pulse 76 12/10/22 12:09 Resp 18 12/10/22 08:00 BP 108/66 12/10/22 08:00 Pulse Ox 98 12/10/22 08:00 FiO2 Intake & Output 12/09/22 12/10/22 12/10/22 18:59 06:59 18:59 Intake Total 330 330 Output Total 150 305 Balance 180 -305 330 Weight 91.172 kg Intake: Oral 330 330 Output: Drainage 5 Lower Abdomen 5 Urine 150 300 Other: Voiding Method Indwelling Catheter Indwelling Catheter Indwelling Catheter Laboratory Results - Last 24 Hours 12/08/22 12/09/22 12/10/22 13:00 12:06 05:51 WBC 8.7 RBC 2.93 L Hgb 9.1 L D Hct 27.3 L MCV 93.0 MCH 30.9 MCHC 33.2 RDW 13.6 Plt Count 197 MPV 8.9 Neutrophils % 70 Lymphocytes % 19 Monocytes % 8 Eosinophils % 0 Basophils % 0 Neutrophils # 6.1 Lymphocytes # 1.7 Monocytes # 0.7 Eosinophils # 0.0 Basophils # 0.0 Sodium Potassium Chloride Carbon Dioxide Anion Gap BUN Creatinine Est GFR (CKD-EPI)AfAm Est GFR (CKD-EPI)NonAf Glucose Calcium Total Bilirubin AST ALT Alkaline Phosphatase Total Protein Albumin Globulin Albumin/Globulin Ratio Lamotrigine 17.2 H Crossmatch See Detail 12/10/22 05:51 WBC RBC Hgb Hct MCV MCH MCHC RDW Plt Count MPV Neutrophils % Lymphocytes % Monocytes % Eosinophils % Basophils % Neutrophils # Lymphocytes # Monocytes # Eosinophils # Basophils # Sodium 136 L Potassium 3.5 Chloride 107 Carbon Dioxide 22 Anion Gap 7 BUN 23 H Creatinine 1.07 H Est GFR (CKD-EPI)AfAm 66 Est GFR (CKD-EPI)NonAf 57 Glucose 127 H Calcium 7.5 L Total Bilirubin 0.2 AST 93 H ALT 135 H Alkaline Phosphatase 84 Total Protein 5.0 L Albumin 2.7 L Globulin 2.3 Albumin/Globulin Ratio 1.2 Lamotrigine Crossmatch Assessment Depression, unspecified Intellectual disability PLAN: -At this time patient DOES NOT meet criteria for inpatient psychiatric admission. Patient is not reporting any imminent risk of harm to self or others. She is not overtly manic or psychotic. Patient's family do not express any acute concerns. -Would recommend the following medication changes/additions: No medication recommendations at this time. a -Recommend outpatient psychotherapy and psychiatry follow-up to address intermittent episodes of agitation and frustration. -Psychiatry will sign off at this point, please contact with any questions.
--- NOTE | 2022-12-10 14:44 | P.PN ---
Subjective Progress Note Date: 12/10/22 Principal diagnosis: UTI ?Cholecystitis Patient is a 57-year-old female with multiple comorbidities presented to hospital with nausea and vomiting patient did have a positive UA concerning for a UTI in this patient did have multiple antibiotic allergies ultrasound completed evidence of gallbladder sludge. The patient is status post "nystatin completed on 12/08/2022 On today's evaluation that is 12/10/2022 the patient continues to be afebrile, the patient is breathing comfortably on room air, the patient denies any chest pain shortness of breath or cough, the patient pain to the right upper quadrant area has decreased in intensity nausea but no vomiting and no diarrhea has been reported Objective - Vital Signs Vital signs: Vital Signs Temp 97.9 F 12/10/22 08:00 Pulse 76 12/10/22 12:09 Resp 18 12/10/22 08:00 BP 108/66 12/10/22 08:00 Pulse Ox 98 12/10/22 08:00 FiO2 Intake & Output 12/09/22 12/10/22 12/10/22 18:59 06:59 18:59 Intake Total 330 330 Output Total 150 305 Balance 180 -305 330 Weight 91.172 kg Intake: Oral 330 330 Output: Drainage 5 Lower Abdomen 5 Urine 150 300 Other: Voiding Method Indwelling Catheter Indwelling Catheter Indwelling Catheter - Exam GENERAL DESCRIPTION middle-aged female lying in bed in no distress RESPIRATORY SYSTEM: Unlabored breathing , decreased breath sounds at bases HEART: S1 S2 regular rate and rhythm ,no loud murmurs ABDOMEN: Soft , mild tenderness EXTREMITIES: No edema feet - Labs CBC & Chem 7: 12/10/22 05:51 12/10/22 05:51 Labs: Abnormal Lab Results - Last 24 Hours (Table) 12/08/22 12/09/22 12/10/22 Range/Units 13:00 12:06 05:51 RBC 2.93 L (3.80-5.40) m/uL Hgb 9.1 L D (11.4-16.0) gm/dL Hct 27.3 L (34.0-46.0) % Sodium (137-145) mmol/L BUN (7-17) mg/dL Creatinine (0.52-1.04) mg/dL Glucose (74-99) mg/dL Calcium (8.4-10.2) mg/dL AST (14-36) U/L ALT (4-34) U/L Total Protein (6.3-8.2) g/dL Albumin (3.5-5.0) g/dL Lamotrigine 17.2 H (2.0-15.0) ug/mL Crossmatch See Detail 12/10/22 Range/Units 05:51 RBC (3.80-5.40) m/uL Hgb (11.4-16.0) gm/dL Hct (34.0-46.0) % Sodium 136 L (137-145) mmol/L BUN 23 H (7-17) mg/dL Creatinine 1.07 H (0.52-1.04) mg/dL Glucose 127 H (74-99) mg/dL Calcium 7.5 L (8.4-10.2) mg/dL AST 93 H (14-36) U/L ALT 135 H (4-34) U/L Total Protein 5.0 L (6.3-8.2) g/dL Albumin 2.7 L (3.5-5.0) g/dL Lamotrigine (2.0-15.0) ug/mL Crossmatch Assessment and Plan (1) Allergy to multiple antibiotics Current Visit: Yes Status: Acute Code(s): Z88.1 - ALLERGY STATUS TO OTHER ANTIBIOTIC AGENTS SNOMED Code(s): 600801613 (2) UTI (urinary tract infection) Current Visit: No Status: Acute Code(s): N39.0 - URINARY TRACT INFECTION, SITE NOT SPECIFIED SNOMED Code(s): 09329792 Plan: 1patient presented to hospital with nausea and vomiting in this patient did not have significant tenderness on abdominal examination liver enzymes are normal did not have any fever or elevated white count however did have a positive UA underlying UTI not entirely excluded likely from enteric gram-negative pathogen. 2patient with multiple antibiotic allergies that would limit the number of antibiotics safe to use. 3ultrasound of the abdomin with sludge and ?cholecystitis , patient is status post open cholecystectomy completed on 12/08/2022 4- patient is currently afebrile her white count is normal, patient to continue with Azactam because of her multiple antibiotic ALLERGIES and monitor clinical course closely Time with Patient: Less than 30
--- NOTE | 2022-12-10 15:14 | P.PN ---
Subjective Progress Note Date: 12/10/22 CHIEF COMPLAINT: Cholecystitis HISTORY OF PRESENT ILLNESS: Patient is postop day #2 status post diagnostic laparoscopy with open cholecystectomy. Patient did have bleeding from venous sinus at gallbladder bed. Patient did receive a unit of blood. Patient is awake and alert sitting in bedside chair. She does report pain at incision site. Denies any nausea or vomiting. She has been eating better appetite is been diminished. She continues to have low urine output. She had minimal bleeding at incision site. Afebrile. WBC 8.7 Hgb 10.7-9.1 platelets [id number] creatinine 1.07 ESTELA drain 5 mL serosanguineous output Patient seen and examined with Dr. Little PHYSICAL EXAM: VITAL SIGNS: Reviewed. GENERAL: Well-developed in no acute distress. HEENT: No sclera icterus. Extraocular movements grossly intact. Moist buccal mucosa. Head is atraumatic, normocephalic. ABDOMEN: Soft. Nondistended. Incision site with very minimal bleeding noted. ESTELA drain with serosanguineous output NEUROLOGIC: Alert and oriented. Cranial nerves II through XII grossly intact. ASSESSMENT: 1. Cholecystitis and intrahepatic gallbladder status post diagnostic laparoscopy and open cholecystectomy 2. Low urine output 3. Acute kidney injury PLAN: -Advance diet to regular -Patient given another 1 L fluid bolus for low urine output -Continue pain management -[place] added for oral pain medication -Continue IV fluids -Continue to monitor urine output -Encouraged patient to use incentive spirometer -GI prophylaxis Protonix and DVT prophylaxis Lovenox Physician Hurricane Tracker note has been reviewed by physician. Signing provider agrees with the documented findings, assessment, and plan of care. Objective - Vital Signs Vital signs: Vital Signs Temp 98 F 12/10/22 14:00 Pulse 87 12/10/22 14:00 Resp 20 12/10/22 14:00 BP 106/69 12/10/22 14:00 Pulse Ox 96 12/10/22 14:00 FiO2 Intake & Output 12/09/22 12/10/22 12/10/22 18:59 06:59 18:59 Intake Total 330 330 Output Total 150 305 800 Balance 180 -305 -470 Weight 91.172 kg Intake: Oral 330 330 Output: Drainage 5 Lower Abdomen 5 Urine 150 300 800 Other: Voiding Method Indwelling Catheter Indwelling Catheter Indwelling Catheter - Labs CBC & Chem 7: 12/10/22 05:51 12/10/22 05:51 Labs: Abnormal Lab Results - Last 24 Hours (Table) 12/08/22 12/09/22 12/10/22 Range/Units 13:00 12:06 05:51 RBC 2.93 L (3.80-5.40) m/uL Hgb 9.1 L D (11.4-16.0) gm/dL Hct 27.3 L (34.0-46.0) % Sodium (137-145) mmol/L BUN (7-17) mg/dL Creatinine (0.52-1.04) mg/dL Glucose (74-99) mg/dL Calcium (8.4-10.2) mg/dL AST (14-36) U/L ALT (4-34) U/L Total Protein (6.3-8.2) g/dL Albumin (3.5-5.0) g/dL Lamotrigine 17.2 H (2.0-15.0) ug/mL Crossmatch See Detail 12/10/22 Range/Units 05:51 RBC (3.80-5.40) m/uL Hgb (11.4-16.0) gm/dL Hct (34.0-46.0) % Sodium 136 L (137-145) mmol/L BUN 23 H (7-17) mg/dL Creatinine 1.07 H (0.52-1.04) mg/dL Glucose 127 H (74-99) mg/dL Calcium 7.5 L (8.4-10.2) mg/dL AST 93 H (14-36) U/L ALT 135 H (4-34) U/L Total Protein 5.0 L (6.3-8.2) g/dL Albumin 2.7 L (3.5-5.0) g/dL Lamotrigine (2.0-15.0) ug/mL Crossmatch
[2022-12-10] MEDS: PRIMIDONE 50 MG TAB PO SCH (20:24)
[2022-12-10] MEDS: HYDROmorphone 0.5 MG/0.5 ML SYRINGE IVP PRN (22:57)
[2022-12-11] MEDS: HYDROcodone/APAP 5-325MG 1 EACH TAB PO PRN (00:52)
[2022-12-11] MEDS: AZTREONAM 2 GM in SODIUM CHLORIDE 0.9% 100 ML IVPB SCH ×3 (00:53→19:30)
[2022-12-11] MEDS: DEXTROSE 5%-0.45% NACL 1,000 ML IV SCH ×3 (05:28→19:30)
--- NOTE | 2022-12-11 08:20 | XR ---
EXAMINATION TYPE: XR chest 1V portable DATE OF EXAM: 12/11/2022 Comparison: 12/09/2022 Clinical History: 57-year-old female short of breath Findings: Very low lung volumes with crowded cardiovascular markings. Mild interstitial prominence. No dona co nsolidation or sizable pleural effusion. Asymmetric elevation right hemidiaphragm. A right-sided surg ical drain is present with overlying skin shaquille. Heart upper limits of normal in size. Impression: Persistent marked hypoventilatory changes. Opacities in the lungs favored to represent prominent band s of atelectasis. Correlate to exclude mild pulmonary vascular congestion. Consider incentive spirome try.
[2022-12-11] MEDS: IPRATROPIUM 0.5 MG/2.5 ML NEBU INHALATION SCH ×3 (09:39→18:24)
[2022-12-11] MEDS: ALBUTEROL NEBULIZED 2.5 MG/3 ML INHALATION SCH ×3 (09:39→18:24)
[2022-12-11] MEDS: ENOXAPARIN 30 MG/0.3 ML SYRINGE SQ SCH (10:43)
[2022-12-11] MEDS: DOCUSATE 100 MG CAP PO SCH ×2 (10:43→19:30)
[2022-12-11] MEDS: ASPIRIN 81 MG PO SCH (10:43)
[2022-12-11] MEDS: MONTELUKAST 10 MG TAB PO SCH (10:43)
[2022-12-11] MEDS: DIVALPROEX 250 MG TABLET.DR PO SCH ×2 (10:43→11:21)
[2022-12-11] MEDS: LACOSAMIDE 50 MG TABLET PO SCH ×2 (10:43→19:30)
[2022-12-11] MEDS: cloNIDine 0.1 MG/24HR PATCH TRANSDERM SCH (10:43)
--- NOTE | 2022-12-11 10:44 | P.PN ---
Subjective Progress Note Date: 12/10/22 12/10/2022: Patient was seen for a follow-up. Patient's sister Cielo was present. Patient's dad was also present. Patient's sister mentions that patient does have developmental delays since childhood. She has noted that for last 1 year patient has gone downhill and she is delusional at times. Patient's sister has noticed that at times she cannot walk and her memory is getting worse. She does not understand enough. The doctors have mentioned that she cannot live alone. At present patient complains of abdominal pain 7/10 at baseline, but if she moves, goes up to 10/10. She however looks more comfortable, smiling. 12/09/2022: Patient was initially seen by Dr. Royal Hernandez. Please refer to his note for details. Patient is a 57-year-old female with history of seizure, who has presented with nausea vomiting. Patient was found to have Lamictal toxicity. Dr. Hernandez has decreased dose of her Lamictal. Patient also had undergone cholecystectomy yesterday. Patient's father was also present at this time. He mentions that patient has history of epilepsy since she was a baby. She used to have grand mal seizures, but none 4 years. She still gets minor seizures, in which she stares off in space. However lately she has been having seizures, in which she "giggles" that lasts for a few seconds. It takes a while for her to come out completely. Patient admits to being depressed. She says that she is taking a lot of medications. She follows up with a neurologist, that starts with letter "S". Patient lives in a longterm. Objective - Vital Signs Vital signs: Vital Signs Temp 97.9 F 12/10/22 08:00 Pulse 76 12/10/22 12:09 Resp 18 12/10/22 08:00 BP 108/66 12/10/22 08:00 Pulse Ox 98 12/10/22 08:00 FiO2 Intake & Output 12/09/22 12/10/22 12/10/22 18:59 06:59 18:59 Intake Total 330 330 Output Total 150 305 Balance 180 -305 330 Weight 91.172 kg Intake: Oral 330 330 Output: Drainage 5 Lower Abdomen 5 Urine 150 300 Other: Voiding Method Indwelling Catheter Indwelling Catheter Indwelling Catheter - Exam GENERAL: The patient is lying in bed and is not in acute distress. Patient is more alert and awake. NEUROLOGICAL: Higher mental function: The patient is in awake, alert, oriented to self, place and time. Speech and language functions are normal. Her voice is slightly jerky, like tremors. Following simple commands. No aphasia or neglect. Cranial Nerves: Pupils are round, equal and reactive to light. No facial weakness. No dysarthria. She has nystagmus with end gaze. 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 Strength is normal in the ankles. - Labs CBC & Chem 7: 12/10/22 05:51 12/10/22 05:51 Labs: Abnormal Lab Results - Last 24 Hours (Table) 12/08/22 12/09/22 12/10/22 Range/Units 13:00 12:06 05:51 RBC 2.93 L (3.80-5.40) m/uL Hgb 9.1 L D (11.4-16.0) gm/dL Hct 27.3 L (34.0-46.0) % Sodium (137-145) mmol/L BUN (7-17) mg/dL Creatinine (0.52-1.04) mg/dL Glucose (74-99) mg/dL Calcium (8.4-10.2) mg/dL AST (14-36) U/L ALT (4-34) U/L Total Protein (6.3-8.2) g/dL Albumin (3.5-5.0) g/dL Lamotrigine 17.2 H (2.0-15.0) ug/mL Crossmatch See Detail 12/10/22 Range/Units 05:51 RBC (3.80-5.40) m/uL Hgb (11.4-16.0) gm/dL Hct (34.0-46.0) % Sodium 136 L (137-145) mmol/L BUN 23 H (7-17) mg/dL Creatinine 1.07 H (0.52-1.04) mg/dL Glucose 127 H (74-99) mg/dL Calcium 7.5 L (8.4-10.2) mg/dL AST 93 H (14-36) U/L ALT 135 H (4-34) U/L Total Protein 5.0 L (6.3-8.2) g/dL Albumin 2.7 L (3.5-5.0) g/dL Lamotrigine (2.0-15.0) ug/mL Crossmatch Assessment and Plan Assessment: This is a 57-year-old woman with history of developmental delays, who presented from her longterm because of nausea and vomiting. She has history of epilepsy and is on multiple antiepileptic drug Nausea vomiting with Abdominal pain. Patient is status post cholecystectomy performed 12/09/2022. Also has evidence of Lamictal toxicity. Lamotrigene toxicity 30.7 (normal is 2-15) History of epilepsy History of reported multiple strokes Seems the patient has fluctuation of mentation (per sister that is old) Plan: * Since has Lamotrigene toxicity, Dr. Hernandez has decreased Lamictal from 250mg 1 tab bid to 200mg bid. * Repeat Lamictal level is improved 17.2 (2-15) Ammonia level < 9. Suspect Lamictal toxicity from adding Depakote. Uncertain when Depakote was started. * I called patient's caregiver Africa Choi twice and left message on the voicemail. * According to the patient she stated that the Depakote was started by her neurologist and it was because of tremors. Dr. Hernandez has resumed Depakote and will have her neurologist modify the medication. If Depakote is the culprit of medication interaction then recommend avoiding the medication. * She is on her home dose of Vimpat 100mg 1 tab twice a daily. * Vimpat level is pending. * On seizure precautions and seizure pads * I recommend the patient to follow-up with her neurologist as an outpatient (Dr. [place]). Consider long-term EEG or epilepsy monitoring unit for her seizures localization and determine but will leave management to her her neurologist. * General surgery following, patient has undergone cholecystectomy 12/09/2022. * We'll defer the rest of the medical management to primary team
[2022-12-11] MEDS: PANTOPRAZOLE 40 MG/10 ML VIAL IVP SCH ×2 (11:07→19:30)
--- NOTE | 2022-12-11 13:00 | P.PN ---
Progress Note - Text Progress Note Date: 12/11/22 The patient feels better today. She still is quite some incisional pain. She has been hemodialysis stable. On exam vital signs are stable. Abdomen is soft incision is clean dry tach. Status post open cholecystectomy. Patient will continue receive supportive care.
--- NOTE | 2022-12-11 15:30 | P.PN ---
Subjective Progress Note Date: 12/11/22 Principal diagnosis: UTI ?Cholecystitis Patient is a 57-year-old female with multiple comorbidities presented to hospital with nausea and vomiting patient did have a positive UA concerning for a UTI in this patient did have multiple antibiotic allergies ultrasound completed evidence of gallbladder sludge. The patient is status post "nystatin completed on 12/08/2022 On today's evaluation that is 12/11/2022 the patient remains to be afebrile, the patient is breathing comfortably on room air, the patient denies any chest pain shortness of breath or cough, the patient pain to the right upper quadrant area has decreased in intensity, the patient complaining of nausea but no vomiting and no diarrhea has been reported Objective - Vital Signs Vital signs: Vital Signs Temp 97.7 F 12/11/22 08:00 Pulse 84 12/11/22 12:55 Resp 20 12/11/22 08:00 BP 137/74 12/11/22 08:00 Pulse Ox 95 12/11/22 08:00 FiO2 Intake & Output 12/10/22 12/11/22 12/11/22 18:59 06:59 18:59 Intake Total 330 Output Total 800 1800 Balance -470 -1800 Intake: Oral 330 Output: Urine 800 1800 Other: Voiding Method Indwelling Catheter Indwelling Catheter - Exam GENERAL DESCRIPTION middle-aged female lying in bed in no distress RESPIRATORY SYSTEM: Unlabored breathing , decreased breath sounds at bases HEART: S1 S2 regular rate and rhythm ,no loud murmurs ABDOMEN: Soft , mild tenderness EXTREMITIES: No edema feet - Labs CBC & Chem 7: 12/10/22 05:51 12/10/22 05:51 Assessment and Plan (1) Allergy to multiple antibiotics Current Visit: Yes Status: Acute Code(s): Z88.1 - ALLERGY STATUS TO OTHER ANTIBIOTIC AGENTS SNOMED Code(s): 172036035 (2) UTI (urinary tract infection) Current Visit: No Status: Acute Code(s): N39.0 - URINARY TRACT INFECTION, SITE NOT SPECIFIED SNOMED Code(s): 52259110 Plan: 1patient presented to hospital with nausea and vomiting in this patient did not have significant tenderness on abdominal examination liver enzymes are normal did not have any fever or elevated white count however did have a positive UA underlying UTI not entirely excluded likely from enteric gram-negative pathogen. 2patient with multiple antibiotic allergies that would limit the number of antibiotics safe to use. 3ultrasound of the abdomin with sludge and ?cholecystitis , patient is status post open cholecystectomy completed on 12/08/2022 4- patient is currently afebrile her white count is normal, patient seemed to have some clinical improvement and will continue with Azactam because of her multiple antibiotic ALLERGIES and continue supportive care Time with Patient: Less than 30
[2022-12-11] MEDS: FUROSEMIDE 10 MG/ML 4 ML VIAL IV SCH (16:37)
[2022-12-11] MEDS: PRIMIDONE 50 MG TAB PO SCH (19:30)
[2022-12-11] MEDS ORDERED: IPRATROPIUM-ALBUTEROL 3 ML NEB INHALATION SCH (20:00)
--- NOTE | 2022-12-11 20:19 | P.PN ---
Subjective Progress Note Date: 12/11/22 This is a 57-year-old female who was recently admitted with abdominal pain with cholecystitis and underwent open cholecystectomy. Patient had some postoperative atelectasis and will continue on some DuoNeb treatments along with daily IV Lasix and close monitoring. Patient encouraged to continue with i ncentive spirometer use at least 10 times every hour while awake. Patient is currently afebrile denies chest pain or worsening shortness of breath and reports some abdominal discomfort at the site otherwise reports to tolerating diet and is passing gas. Case management following as patient will be returning to [facility] once stabilized. Will follow-up with repeat labs with possible discharge in 24 hours. Review of systems: Constitutional: No reports of fatigue, fever, or chills Cardiovascular: No reports of chest pain or palpitations Respiratory: No reports of shortness of breath or cough GI: reports of nausea, no reports of of vomiting, : No reports of dysuria or retention Neurovascular: reports of generalized weakness, All medications have been reviewed Active Medications Acetaminophen (Acetaminophen Tab 325 Mg Tab) 650 mg PO Q6HR PRN PRN Reason: Mild Pain or Fever >= 100.5 Hydrocodone Bitart/Acetaminophen (Hydrocodone/Apap 5-325mg 1 Each Tab) 1 each PO Q4HR PRN PRN Reason: Pain Last Admin: 12/11/22 00:52 Dose: 1 each Albuterol Sulfate (Albuterol Nebulized 2.5 Mg/3 Ml) 2.5 mg INHALATION RT-TID [facility] Last Admin: 12/11/22 18:24 Dose: 2.5 mg Albuterol Sulfate (Albuterol Nebulized 2.5 Mg/3 Ml) 2.5 mg INHALATION RT-TID PRN PRN Reason: Shortness Of Breath Or Wheezing Aspirin (Aspirin 81 Mg) 81 mg PO DAILY [facility] Last Admin: 12/11/22 10:43 Dose: 81 mg Clonidine HCl (Clonidine 0.1 Mg/24hr Patch) 1 patch TRANSDERM Q7D [facility] Last Admin: 12/11/22 10:43 Dose: 1 patch Divalproex Sodium (Divalproex 250 Mg Tablet.Dr) 250 mg PO DAILY [facility] Last Admin: 12/11/22 11:21 Dose: 250 mg Docusate Sodium (Docusate 100 Mg Cap) 100 mg PO BID [facility] Last Admin: 12/11/22 19:30 Dose: 100 mg Enoxaparin Sodium (Enoxaparin 30 Mg/0.3 Ml Syringe) 30 mg SQ DAILY [facility] Last Admin: 12/11/22 10:43 Dose: 30 mg Furosemide (Furosemide 10 Mg/Ml 4 Ml Vial) 40 mg IV DAILY [facility] Last Admin: 12/11/22 16:37 Dose: 40 mg Hydromorphone HCl (Hydromorphone 0.5 Mg/0.5 Ml Syringe) 0.5 mg IVP Q3HR PRN PRN Reason: Moderate Pain (Scale 4 to 6) Last Admin: 12/10/22 22:57 Dose: 0.5 mg Hydromorphone HCl (Hydromorphone 1 Mg/Ml 1 Ml Syringe) 1 mg IVP Q3HR PRN PRN Reason: Severe Pain (Scale 7 to 10) Last Admin: 12/10/22 04:08 Dose: 1 mg Dextrose/Sodium Chloride (Dextrose 5%-1/2ns Iv Soln) 1,000 mls @ 125 mls/hr IV .Q8H [facility] Last Admin: 12/11/22 19:30 Dose: 125 mls/hr Aztreonam 2 gm/ Sodium (Chloride) 100 mls @ 33.3 mls/hr IVPB Q8H [facility]; Protocol Last Admin: 12/11/22 19:30 Dose: 33.3 mls/hr Ipratropium Crowley (Ipratropium 0.5 Mg/2.5 Ml Nebu) 0.5 mg INHALATION RT-TID [facility] Last Admin: 12/11/22 18:24 Dose: 0.5 mg Ipratropium Crowley (Ipratropium 0.5 Mg/2.5 Ml Nebu) 0.5 mg INHALATION RT-TID PRN PRN Reason: Shortness Of Breath Or Wheezing Lacosamide (Lacosamide 50 Mg Tablet) 100 mg PO BID [facility] Last Admin: 12/11/22 19:30 Dose: 100 mg Metoclopramide HCl (Metoclopramide 5 Mg/Ml 2 Ml Vial) 10 mg IVP Q6H PRN PRN Reason: Nausea And Vomiting Miscellaneous Information (Potassium Replacement Protocol 1 Each Misc) 1 each MISCELLANE DAILY PRN; Protocol PRN Reason: Per Protocol Miscellaneous Information (Magnesium Replacement Protocol 1 Each Misc) 1 each MISCELLANE DAILY PRN; Protocol PRN Reason: Per Protocol Montelukast Sodium (Montelukast 10 Mg Tab) 10 mg PO DAILY [facility] Last Admin: 12/11/22 10:43 Dose: 10 mg Naloxone HCl (Naloxone 0.4 Mg/Ml 1 Ml Vial) 0.2 mg IV Q2M PRN PRN Reason: Opioid Reversal Ondansetron HCl (Ondansetron 4 Mg/2 Ml Vial) 4 mg IVP Q8HR PRN PRN Reason: Nausea And Vomiting Last Admin: 12/08/22 11:22 Dose: 4 mg Ondansetron HCl (Ondansetron 4 Mg/2 Ml Vial) 4 mg IVP Q6HR PRN PRN Reason: Nausea And Vomiting Last Admin: 12/08/22 20:18 Dose: 4 mg Pantoprazole Sodium (Pantoprazole 40 Mg/10 Ml Vial) 40 mg IVP BID [facility] Last Admin: 12/11/22 19:30 Dose: 40 mg Primidone (Primidone 50 Mg Tab) 50 mg PO HS [facility] Last Admin: 12/11/22 19:30 Dose: 50 mg Prochlorperazine Maleate (Prochlorperazine Suppository 25 Mg Supp) 25 mg RECTAL Q12HR PRN PRN Reason: Nausea And Vomiting Last Admin: 12/04/22 05:30 Dose: 25 mg Prochlorperazine Maleate (Prochlorperazine 5 Mg Tab) 5 mg PO Q8HR PRN PRN Reason: Nausea And Vomiting Last Admin: 12/05/22 14:06 Dose: 5 mg PHYSICAL EXAMINATION: GENERAL: The patient is alert and oriented x4, Well developed, well nourished. Obese HEENT: Pupils are round and equally reacting to light. EOMI. no scleral icterus. No conjunctival pallor. Normocephalic, atraumatic. No pharyngeal erythema. No thyromegaly. CARDIOVASCULAR: S1 and S2 muffled PULMONARY: diminished breath sounds bilaterally with coarse rhonchi noted. ABDOMEN: soft. mildly tender on exam. obese. non-distended, normoactive bowel sounds. No palpable organomegaly. MUSCULOSKELETAL: No joint swelling or deformity. EXTREMITIES: No cyanosis, clubbing, or pedal edema. NEUROLOGICAL: Gross neurological examination did not reveal any focal deficits. Diffuse weakness SKIN: No rashes. Assessment: Abdominal pain with acute cholecystitis, status post open cholecystectomy Perihilar infiltrate with bilateral atelectasis Acute urinary tract infection, present on admission History of seizure disorder History of depression Elevated Lamictal level GI prophylaxis DVT prophylaxis Full code Plan: Recommend to continue with current medications and management with Gen. surgery following. Patient is status post open cholecystectomy and continues to report some abdominal discomfort Patient did have a chest x-ray which showed some congestion and will continue with IV Lasix daily and follow-up Recommend repeat labs in the a.m. and close monitoring Encouraged increase activity as tolerated. Patient reports is passing gas and tolerating diet Patient will be returning to [facility] once stabilized Recommend continue with breathing treatments Due to multiple complex medical issues, prognosis is guarded Possible discharge in the next 24-48 hours The impression and plan of care has been dictated by Laura Malone, nurse practitioner as directed. Dr. Dru MD I have performed a history and examination and MDM of this patient, discussed the same with the dictator, and agree with the dictator's assessment and plan as written ,documented as a scribe. Based on total visit time, I have performed more than 50% of the visit. Any additional findings or plans will be noted. Objective - Vital Signs Vital signs: Vital Signs Temp 97.9 F 12/11/22 16:41 Pulse 88 12/11/22 18:39 Resp 17 12/11/22 16:41 BP 117/66 12/11/22 16:41 Pulse Ox 95 12/11/22 16:41 FiO2 Intake & Output 12/11/22 12/11/22 12/12/22 06:59 18:59 06:59 Output Total 1800 1005 2600 Balance -1800 -1005 -2600 Weight 91.172 kg Output: Drainage 5 Lower Abdomen 5 Urine 1800 1000 2600 Other: Voiding Method Indwelling Catheter Indwelling Catheter Indwelling Catheter - Labs CBC & Chem 7: 12/10/22 05:51 12/10/22 05:51
[2022-12-12] MEDS: AZTREONAM 2 GM in SODIUM CHLORIDE 0.9% 100 ML IVPB SCH ×3 (05:47→20:28)
[2022-12-12] MEDS: DEXTROSE 5%-0.45% NACL 1,000 ML IV SCH ×3 (05:48→20:29)
[2022-12-12] MEDS: ENOXAPARIN 30 MG/0.3 ML SYRINGE SQ SCH (07:58)
[2022-12-12] MEDS: FUROSEMIDE 10 MG/ML 4 ML VIAL IV SCH (07:58)
[2022-12-12] MEDS: PANTOPRAZOLE 40 MG/10 ML VIAL IVP SCH ×2 (07:58→20:30)
[2022-12-12] MEDS: DOCUSATE 100 MG CAP PO SCH ×2 (07:59→20:30)
[2022-12-12] MEDS: LACOSAMIDE 50 MG TABLET PO SCH ×2 (07:59→20:30)
[2022-12-12] MEDS: ASPIRIN 81 MG PO SCH (07:59)
[2022-12-12] MEDS: ONDANSETRON 4 MG/2 ML VIAL IVP PRN (07:59)
[2022-12-12] MEDS: MONTELUKAST 10 MG TAB PO SCH (07:59)
[2022-12-12] MEDS: DIVALPROEX 250 MG TABLET.DR PO SCH (07:59)
[2022-12-12] MEDS: HYDROcodone/APAP 5-325MG 1 EACH TAB PO PRN ×2 (08:01→12:19)
[2022-12-12] MEDS: ALBUTEROL NEBULIZED 2.5 MG/3 ML INHALATION SCH ×3 (08:12→20:48)
[2022-12-12] MEDS: IPRATROPIUM 0.5 MG/2.5 ML NEBU INHALATION SCH ×3 (08:12→20:48)
--- NOTE | 2022-12-12 09:50 | CDI ---
Documentation Clarification Form Date: 12/12/2022 9:09:00 AM From: Riana Leroy RN, CCDS Admit Date: 12/05/2022 6:10:00 AM Patient Name: Luli Gay Visit Number: [id number] Discharge Date: ATTENTION: The Clinical Documentation Specialists (CDI) and [facility] Coding Staff appreciate your assistance in clarifying documentation. Please respond to the clarification below the line at the bottom and electronically sign. The CDI & [facility] Coding staff will review the response and follow-up if needed. Please note: Queries are made part of the Legal Health Record. If you have any questions, please contact the author of this message via ITS. Dr. Adam Aldrichania Your patient has an abnormal lab value: [insert lab value, date]. Please clarify if there is an additional diagnosis and/or clinical significance related to this value. History/Risk Factors: GERD, Seizure disorder Clinical indicators: 57-year-old female present with nausea, vomiting and diarrhea. Ultrasound of the gallbladder shown internal echoes within the gallbladder may reflect artifact however sludge material is not excluded. LFTS are normal. She was ruled in for cholecystitis. 12/08 Open cholecystectomy due to bleeding form the venous sinus. There was approximately 300ml of bloody fluid in the abdominal cavity. Postoperative hemoglobin was 10.9. 12/08 Vital signs: (16:10) 108/64 7818 97.4 95 % 3/L 12/09 Surgery progress note: Patient did have bleeding from venous sinus at gallbladder bed. Patient did receive a unit of blood yesterday and fluid bolus. 12/03 HGB 14.0 HCT 42.7 12/04 HGB 12.1 HCT 37.5 12/08 HGB 10.5 HCT 29.5 12/08 HGB 9.5 HCT 28.3 12/10 HGB 9.1 HCT 27.3 12/09 HGB 10.7 HCT 32.0 Treatment: Monitor CBC Daily per orders 12/08 Transfuse 1 unit PRBC .9 NS 1L fluid bolus 12/08 D5.9NS@125 ML/HR 12/09-12/12 Is there an additional diagnosis and/or clinical significance related to the above lab result/information? [ xx] Acute blood loss anemia [ ] No additional diagnosis/Not clinically significant [ ] Other, please specify [ ] Unable to determine (Template Last Revised: October 2020) MTDD
--- NOTE | 2022-12-12 10:35 | P.PN ---
Subjective Progress Note Date: 12/11/22 12/11/2022: Patient was seen for a follow-up. Patient's dad was present. No further seizures. Still complaining of pain 9/10 at rest in the right upper abdominal region, goes up to 10/10 on coughing. 12/10/2022: Patient was seen for a follow-up. Patient's sister Cielo was pr esent. Patient's dad was also present. Patient's sister mentions that patient does have developmental delays since childhood. She has noted that for last 1 year patient has gone downhill and she is delusional at times. Patient's sister has noticed that at times she cannot walk and her memory is getting worse. She does not understand enough. The doctors have mentioned that she cannot live marshal ne. At present patient complains of abdominal pain 7/10 at baseline, but if she moves, goes up to 10/10. She however looks more comfortable, smiling. 12/09/2022: Patient was initially seen by Dr. Royal Hernandez. Please refer to his note for details. Patient is a 57-year-old female with history of seizure, who has presented with nausea vomiting. Patient was found to have Lamictal toxicity. Dr. Hernandez has decreased dose of her Lamictal. Patient also had undergone cholecystectomy yesterday. Patient's father was also present at this time. He mentions that patient has h istory of epilepsy since she was a baby. She used to have grand mal seizures, but none 4 years. She still gets minor seizures, in which she stares off in space. However lately she has been having seizures, in which she "giggles" that lasts for a few seconds. It takes a while for her to come out completely. Patient admits to being depressed. She says that she is taking a lot of medications. She follows up with a neurologist, that starts with letter "S". Patient lives in a custodial. Objective - Vital Signs Vital signs: Vital Signs Temp 97.9 F 12/11/22 16:41 Pulse 78 12/11/22 16:41 Resp 17 12/11/22 16:41 BP 117/66 12/11/22 16:41 Pulse Ox 95 12/11/22 16:41 FiO2 Intake & Output 12/10/22 12/11/22 12/11/22 18:59 06:59 18:59 Intake Total 330 Output Total 800 1800 1005 Balance -470 1800 1007 Weight 91.172 kg Intake: Oral 330 Output: Drainage 5 Lower Abdomen 5 Urine 800 1800 1000 Other: Voiding Method Indwelling Catheter Indwelling Catheter Indwelling Catheter - Exam GENERAL: The patient is lying in bed and is not in acute distress. Patient is more alert and awake. NEUROLOGICAL: Higher mental function: The patient is in awake, alert, oriented to self, place and time. Speech and language functions are normal. Her voice is slightly jerky, like tremors. Following simple commands. No aphasia or neglect. Cranial Nerves: Pupils are round, equal and reactive to light. No facial weakness. No dysarthria. She has nystagmus with end gaze. Motor: Muscle strength is normal in the human resources manager, biceps. Strength is normal in the ankles. - Labs CBC & Chem 7: 12/10/22 05:51 12/10/22 05:51 Assessment and Plan Assessment: This is a 57-year-old woman with history of mild developmental delays, who presented from her custodial because of nausea and vomiting. She has history of epilepsy and is on multiple antiepileptic drug Nausea vomiting with Abdominal pain. Patient is status post cholecystectomy performed 12/09/2022. Also has evidence of Lamictal toxicity. Lamotrigene toxicity 30.7 (normal is 2-15) History of epilepsy History of reported multiple strokes Seems the patient has fluctuation of mentation (per sister that is old) Plan: * Since has Lamotrigene toxicity, Dr. Hernandez has decreased Lamictal from 250mg 1 tab bid to 200mg bid. * Repeat Lamictal level is improved 17.2 (2-15) Ammonia level < 9. Suspect Lamictal toxicity from adding Depakote. Uncertain when Depakote was started. * I called patient's caregiver Africa Choi twice and left message on the voicemail. We will try to contact her in a.m. * According to the patient she stated that the Depakote was started by her neurologist and it was because of tremors. Dr. Hernandez has resumed Depakote and will have her neurologist modify the medication. If Depakote is the culprit of medication interaction then recommend avoiding the medication. * She is on her home dose of Vimpat 100mg 1 tab twice a daily. * Vimpat level is pending. * On seizure precautions and seizure pads * I recommend the patient to follow-up with her neurologist as an outpatient (Dr. France). Consider long-term EEG or epilepsy monitoring unit for her seizures localization and determine but will leave management to her her neurologist. * General surgery following, patient has undergone cholecystectomy 12/09/2022. * We'll defer the rest of the medical management to primary team
--- NOTE | 2022-12-12 10:44 | CDI ---
Documentation Clarification Form Date: 12/12/2022 10:18:32 AM From: Riana Leroy RN, CCDS Admit Date: 12/05/2022 6:10:00 AM Patient Name: Luli Gay Visit Number: [id number] Discharge Date: ATTENTION: The Clinical Documentation Specialists (CDI) and [facility] Coding Staff appreciate your assistance in clarifying documentation. Please respond to the clarification below the line at the bottom and electronically sign. The CDI & [facility] Coding staff will review the response and follow-up if needed. Please note: Queries are made part of the Legal Health Record. If you have any questions, please contact the author of this message via ITS. Dr. Primitivo Gonsales Postoperative atelectasis is documented in the progress note on 12/11/22 and patient had open cholecystectomy on 12/08/22. Additional clarification is requested regarding the relationship, if any, that exists between the diagnosis and the procedure. Patients Admitting Diagnosis: Abdominal pain with acute cholecystitis. Post-Operative Diagnosis: Same Procedure performed: Open cholecystectomy. History/Risk Factors: GERD, Seizure disorder Clinical Indicators: 57-year-old female present with nausea, vomiting and diarrhea. Ultrasound of the gallbladder shown internal echoes within the gallbladder may reflect artifact however sludge material is not excluded. LFTS are normal. She was ruled in for cholecystitis. 12/08 Vital signs :( 16:10) 108/64 7818 97.4 95 % 3/L 12/12 Vital signs: 134/77 75 16 98.0 94 % RA 12/09 CXR: Perihilar infiltrates. 12/11 CXR: Persistent marked hyperventilator changes. Opacities in the lungs favored to represent prominent bands of atelectasis. Correlate to exclude mild pulmonary vascular congestion. Treatment: IV Lasix 40 MG IV Daily Incentive spirometer use at least 10 times every hour while awake Encouraged increased activity as tolerated What relationship, if any, exists between the diagnosis of postoperative atelectasis and the procedure? [ ] Postoperative atelectasis is a complication of surgical procedure [ ] Postoperative atelectasis is an expected outcome of the surgical procedure [ ] Postoperative atelectasis is related to patients co-morbid condition(s) of [insert co-morbid dxs] & not a complication of the procedure [ ] Other please specify ____ [ ] Unable to determine (Template Last Revised: November 2020) Postoperative atelectasis is an expected outcome of the surgical procedure MTDD
--- NOTE | 2022-12-12 11:33 | P.PN ---
Subjective Progress Note Date: 12/12/22 12/12/2022: Patient was seen for follow-up. Patient laying comfortably in the bed. I spoke to patient's caregiver on the phone. She mentions that patient has mild mental impairment, but is not delayed. She can hold a normal conversation. She is slightly forgetful. She does not use any assistive device and walks well. She mostly lives on her own. Patient's caregiver is not aware of any previous history of strokes. She states that patient was seen by her neurologist at [facility] on 11/11/2022. It was reported by patient's sister that patient is having episodes in which she becomes weak, shaky. At that point patient was started on Depakote to help with "tremors". Apparently the medication were [facility] the jail and she took her first dose on 11/26/2022. She took Depakote only for 6 days, but then patient became very lethargic therefore Depakote was discontinued on 12/02/2022. (Last dose on 12/01/2022). The caregiver mentions that patient was brought to the hospital because she was lethargic, mental status changes, couldn't feed, couldn't bring food from table to the mouth. Patient has not had any seizure at least for one year that she knows her. The caregiver also mentions that patient has been taken to [facility] recently and she was diagnosed with UTI. 12/11/2022: Patient was seen for a follow-up. Patient's dad was present. No further seizures. Still complaining of pain 9/10 at rest in the right upper abdominal region, goes up to 10/10 on coughing. 12/10/2022: Patient was seen for a follow-up. Patient's sister Cielo was present. Patient's dad was also present. Patient's sister mentions that patient does have developmental delays since childhood. She has noted that for last 1 year patient has gone downhill and she is delusional at times. Patient's sister has noticed that at times she cannot walk and her memory is getting worse. She does not understand enough. The doctors have mentioned that she cannot live alone. At present patient complains of abdominal pain 7/10 at baseline, but if she moves, goes up to 10/10. She however looks more comfortable, smiling. 12/09/2022: Patient was initially seen by Dr. Royal Hernandez. Please refer to his note for details. Patient is a 57-year-old female with history of seizure, who has presented with nausea vomiting. Patient was found to have Lamictal toxicity. Dr. Hernandez has decreased dose of her Lamictal. Patient also had undergone cholecystectomy yesterday. Patient's father was also present at this time. He mentions that patient has history of epilepsy since she was a baby. She used to have grand mal seizures, but none 4 years. She still gets minor seizures, in which she stares off in space. However lately she has been having seizures, in which she "giggles" that lasts for a few seconds. It takes a while for her to come out completely. Patient admits to being depressed. She says that she is taking a lot of medications. She follows up with a neurologist, that starts with letter "S". [facility]. Objective - Vital Signs Vital signs: Vital Signs Temp 98.0 F 12/12/22 07:10 Pulse 75 12/12/22 07:10 Resp 16 12/12/22 07:10 BP 134/77 12/12/22 07:10 Pulse Ox 94 L 12/12/22 07:10 FiO2 Intake & Output 12/11/22 12/12/22 12/12/22 18:59 06:59 18:59 Output Total 1005 4000 1750 Balance -1005 -4000 -1750 Weight 91.172 kg Output: Drainage 5 Lower Abdomen 5 Urine 1000 4000 1750 Other: Voiding Method Indwelling Catheter Toilet Indwelling Catheter - Labs CBC & Chem 7: 12/10/22 05:51 12/10/22 05:51 Assessment and Plan Assessment: This is a 57-year-old woman with history of mild mental impairment, who presented from her jail because of nausea and vomiting. Acute cholecystitis, status post cholecystectomy 12/09/2022 Lamictal toxicity 30.7 (normal is 2-15), likely due to adding Depakote to pre- existing Lamictal regimen. History of epilepsy No previous history of strokes. Plan: * Patient's Lamictal toxicity occurred because she was started on Depakote on 11/26/2022. Depakote displaced Lamictal producing Lamictal toxicity. Patient was taking Lamictal 250mg 1 tab bid, and Dr. Hernandez has decrease it to 200mg bid. Apparently Lamictal has been on hold. We will resume Lamictal 200 mg twice a day. Discontinue Depakote. Continue Vimpat 100 mg twice a day. Continue primidone 50 mg. * Repeat Lamictal level is normal 8.5 (2-15) as of today. Resume Lamictal at 200 mg twice a day. Ammonia level < 9. Patient's seizures are in remission, none since last 1 year. * Discussed with patient's caregiver on the phone in detail. Please refer to the above. * Vimpat level is pending. * On seizure precautions and seizure pads * I recommend the patient to follow-up with her neurologist as an outpatient (Dr. France). Patient has not had any seizures for at least one year. * General surgery following, patient has undergone cholecystectomy 12/09/2022. * We'll defer the rest of the medical management to primary team * Dr. Pleitez will be available for any concerns over the weekend. Dr. Royal Hernandez will start neurology service on Thursday.
[2022-12-12] MEDS: lamoTRIgine 100 MG TAB PO SCH ×2 (11:38→20:30)
--- NOTE | 2022-12-12 12:19 | P.PN ---
Progress Note - Text Progress Note Date: 12/12/22 Patient feels slightly better today. She has complaints of incisional pain. On exam vital signs are stable. Abdomen is soft incision is clean dry intact. ESTELA drain has some minimal output. [place] status post open cholecystitis. Patient will have her ESTELA drain removed today.
--- NOTE | 2022-12-12 16:00 | P.PN ---
Subjective Progress Note Date: 12/12/22 This is a 57-year-old female who was recently admitted with abdominal pain with cholecystitis and underwent open cholecystectomy. Patient had some postoperative atelectasis and will continue on some DuoNeb treatments along with daily IV Lasix and close monitoring. Patient encouraged to continue with i ncentive spirometer use at least 10 times every hour while awake. Patient is currently afebrile denies chest pain or worsening shortness of breath and reports some abdominal discomfort at the site otherwise reports to tolerating diet and is passing gas. Case management following as patient will be returning to [facility] once stabilized. Will follow-up with repeat labs with possible discharge in 24 hours. 12/12/2022 Patient is seen and evaluated and follow-up with general surgery following closely as patient is status post open cholecystectomy and was quite extensive. Patient having some shortness of breath although reports improved and has been doing the incentive spirometer. We'll continue DuoNeb treatments and IV Lasix with potassium supplementation. Patient reports she did not have a good night last night as she felt the nursing staff was taking too long getting her pain medications and her pain was uncontrolled. Patient reports incisional pain at the surgical site. Patient is currently sitting up in the chair and is also on antibiotics with infectious disease following and will receive a midline for outpatient IV antibiotics for short course. Patient diet has been advanced to regular and tolerating and reports has been passing gas. Gen. surgery recommends closely monitoring over the next few days with possible discharge on Thursday. Patient is currently afebrile denies chest pain and reports improvement in her shortness of breath. Will follow up with repeat labs in closely monitor. Review of systems: Constitutional: No reports of fatigue, fever, or chills Cardiovascular: No reports of chest pain or palpitations Respiratory: No reports of shortness of breath or cough GI: reports of occasional nausea, no reports of vomiting, reports passing gas : No reports of dysuria or retention Neurovascular: reports of generalized weakness All medications have been reviewed Active Medications Acetaminophen (Acetaminophen Tab 325 Mg Tab) 650 mg PO Q6HR PRN PRN Reason: Mild Pain or Fever >= 100.5 Hydrocodone Bitart/Acetaminophen (Hydrocodone/Apap 5-325mg 1 Each Tab) 1 each PO Q4HR PRN PRN Reason: Pain Last Admin: 12/12/22 12:19 Dose: 1 each Albuterol Sulfate (Albuterol Nebulized 2.5 Mg/3 Ml) 2.5 mg INHALATION RT-TID [facility] Last Admin: 12/12/22 12:56 Dose: 2.5 mg Albuterol Sulfate (Albuterol Nebulized 2.5 Mg/3 Ml) 2.5 mg INHALATION RT-TID PRN PRN Reason: Shortness Of Breath Or Wheezing Aspirin (Aspirin 81 Mg) 81 mg PO DAILY [facility] Last Admin: 12/12/22 07:59 Dose: 81 mg Clonidine HCl (Clonidine 0.1 Mg/24hr Patch) 1 patch TRANSDERM Q7D [facility] Last Admin: 12/11/22 10:43 Dose: 1 patch Docusate Sodium (Docusate 100 Mg Cap) 100 mg PO BID [facility] Last Admin: 12/12/22 07:59 Dose: 100 mg Enoxaparin Sodium (Enoxaparin 30 Mg/0.3 Ml Syringe) 30 mg SQ DAILY [facility] Last Admin: 12/12/22 07:58 Dose: 30 mg Furosemide (Furosemide 10 Mg/Ml 4 Ml Vial) 40 mg IV DAILY [facility] Last Admin: 12/12/22 07:58 Dose: 40 mg Hydromorphone HCl (Hydromorphone 0.5 Mg/0.5 Ml Syringe) 0.5 mg IVP Q3HR PRN PRN Reason: Moderate Pain (Scale 4 to 6) Last Admin: 12/10/22 22:57 Dose: 0.5 mg Hydromorphone HCl (Hydromorphone 1 Mg/Ml 1 Ml Syringe) 1 mg IVP Q3HR PRN PRN Reason: Severe Pain (Scale 7 to 10) Last Admin: 12/10/22 04:08 Dose: 1 mg Dextrose/Sodium Chloride (Dextrose 5%-1/2ns Iv Soln) 1,000 mls @ 125 mls/hr IV .Q8H [facility] Last Admin: 12/12/22 13:13 Dose: 125 mls/hr Aztreonam 2 gm/ Sodium (Chloride) 100 mls @ 33.3 mls/hr IVPB Q8H [facility]; Protocol Last Admin: 12/12/22 13:13 Dose: 33.3 mls/hr Ipratropium [place] (Ipratropium 0.5 Mg/2.5 Ml Nebu) 0.5 mg INHALATION RT-TID [facility] Last Admin: 12/12/22 12:56 Dose: 0.5 mg Ipratropium [place] (Ipratropium 0.5 Mg/2.5 Ml Nebu) 0.5 mg INHALATION RT-TID PRN PRN Reason: Shortness Of Breath Or Wheezing Lacosamide (Lacosamide 50 Mg Tablet) 100 mg PO BID [facility] Last Admin: 12/12/22 07:59 Dose: 100 mg Lamotrigine (Lamotrigine 100 Mg Tab) 200 mg PO BID [facility] Last Admin: 12/12/22 11:38 Dose: 200 mg Metoclopramide HCl (Metoclopramide 5 Mg/Ml 2 Ml Vial) 10 mg IVP Q6H PRN PRN Reason: Nausea And Vomiting Miscellaneous Information (Potassium Replacement Protocol 1 Each Misc) 1 each MISCELLANE DAILY PRN; Protocol PRN Reason: Per Protocol Miscellaneous Information (Magnesium Replacement Protocol 1 Each Misc) 1 each MISCELLANE DAILY PRN; Protocol PRN Reason: Per Protocol Montelukast Sodium (Montelukast 10 Mg Tab) 10 mg PO DAILY [facility] Last Admin: 12/12/22 07:59 Dose: 10 mg Naloxone HCl (Naloxone 0.4 Mg/Ml 1 Ml Vial) 0.2 mg IV Q2M PRN PRN Reason: Opioid Reversal Ondansetron HCl (Ondansetron 4 Mg/2 Ml Vial) 4 mg IVP Q8HR PRN PRN Reason: Nausea And Vomiting Last Admin: 12/12/22 07:59 Dose: 4 mg Ondansetron HCl (Ondansetron 4 Mg/2 Ml Vial) 4 mg IVP Q6HR PRN PRN Reason: Nausea And Vomiting Last Admin: 12/08/22 20:18 Dose: 4 mg Pantoprazole Sodium (Pantoprazole 40 Mg/10 Ml Vial) 40 mg IVP BID [facility] Last Admin: 12/12/22 07:58 Dose: 40 mg Primidone (Primidone 50 Mg Tab) 50 mg PO [facility] Last Admin: 12/11/22 19:30 Dose: 50 mg Prochlorperazine Maleate (Prochlorperazine Suppository 25 Mg Supp) 25 mg RECTAL Q12HR PRN PRN Reason: Nausea And Vomiting Last Admin: 12/04/22 05:30 Dose: 25 mg Prochlorperazine Maleate (Prochlorperazine 5 Mg Tab) 5 mg PO Q8HR PRN PRN Reason: Nausea And Vomiting Last Admin: 12/05/22 14:06 Dose: 5 mg PHYSICAL EXAMINATION: GENERAL: The patient is alert and oriented x4, Well developed, well nourished. Obese HEENT: Pupils are round and equally reacting to light. EOMI. no scleral icterus. No conjunctival pallor. Normocephalic, atraumatic. No pharyngeal erythema. No thyromegaly. CARDIOVASCULAR: S1 and S2 muffled PULMONARY: diminished breath sounds bilaterally with coarse rhonchi noted. ABDOMEN: soft. mildly tender on exam. obese. non-distended, normoactive bowel sounds. No palpable organomegaly. MUSCULOSKELETAL: No joint swelling or deformity. EXTREMITIES: No cyanosis, clubbing, or pedal edema. NEUROLOGICAL: Gross neurological examination did not reveal any focal deficits. Diffuse weakness SKIN: No rashes. Assessment: Abdominal pain with acute cholecystitis, status post open cholecystectomy Perihilar infiltrate with bilateral atelectasis, postoperative atelectasis is an expected outcome of the surgical procedure Acute urinary tract infection, present on admission History of seizure disorder History of depression Elevated Lamictal level GI prophylaxis DVT prophylaxis Full code Plan: Recommend to continue with current medications and management with Gen. surgery following. Patient is status post open cholecystectomy and continues to report some abdominal discomfort Patient did have a chest x-ray which showed some congestion and will continue with IV Lasix daily and follow-up Recommend repeat labs in the a.m. and close monitoring Encouraged increase activity as tolerated. Patient reports is passing gas and tolerating diet Patient will be returning to [facility] once stabilized Patient will require a midline and outpatient IV antibiotics for UTI with infectious disease following Recommend to continue with breathing treatments Recommend PT/OT therapy daily and encouraged increase activity as tolerated Due to multiple complex medical issues, prognosis is guarded Possible discharge on Thursday per surgery recommendations The impression and plan of care has been dictated by Laura Malone nurse practitioner as directed. Dr. Dru MD I have performed a history and examination and MDM of this patient, discussed the same with the dictator, and agree with the dictator's assessment and plan as written ,documented as a scribe. Based on total visit time, I have performed more than 50% of the visit. Any additional findings or plans will be noted. Objective - Vital Signs Vital signs: Vital Signs Temp 98.0 F 12/12/22 07:10 Pulse 88 12/12/22 13:06 Resp 16 12/12/22 07:10 BP 134/77 12/12/22 07:10 Pulse Ox 94 L 12/12/22 07:10 FiO2 Intake & Output 12/11/22 12/12/22 12/12/22 18:59 06:59 18:59 Intake Total 118 Output Total 1005 4000 1760 Balance -1005 -4000 -1642 Weight 91.172 kg 91.172 kg Intake: Oral 118 Output: Drainage 5 10 Lower Abdomen 5 10 Urine 1000 4000 1750 Other: Voiding Method Indwelling Catheter Toilet Indwelling Catheter - Labs CBC & Chem 7: 12/10/22 05:51 12/10/22 05:51
--- NOTE | 2022-12-12 18:25 | P.PN ---
Subjective Progress Note Date: 12/12/22 Principal diagnosis: UTI ?Cholecystitis Patient is a 57-year-old female with multiple comorbidities presented to hospital with nausea and vomiting patient did have a positive UA concerning for a UTI in this patient did have multiple antibiotic allergies ultrasound completed evidence of gallbladder sludge. The patient is status post "nystatin completed on 12/08/2022 On today's evaluation that is 12/12/2022 the patient continues to be afebrile, the patient is breathing comfortably on room air, the patient denies any chest pain shortness of breath or cough, the patient right upper quadrant pain has decreased in intensity, the patient complaining of nausea but no vomiting and no diarrhea has been reported by the nursing staff Objective - Vital Signs Vital signs: Vital Signs Temp 98.0 F 12/12/22 07:10 Pulse 88 12/12/22 13:06 Resp 16 12/12/22 07:10 BP 134/77 12/12/22 07:10 Pulse Ox 94 L 12/12/22 07:10 FiO2 Intake & Output 12/11/22 12/12/22 12/12/22 18:59 06:59 18:59 Intake Total 118 Output Total 1005 4000 1760 Balance -1005 -4000 -1642 Weight 91.172 kg 91.172 kg Intake: Oral 118 Output: Drainage 5 10 Lower Abdomen 5 10 Urine 1000 4000 1750 Other: Voiding Method Indwelling Catheter Toilet Indwelling Catheter - Exam GENERAL DESCRIPTION middle-aged female lying in bed in no distress RESPIRATORY SYSTEM: Unlabored breathing , decreased breath sounds at bases HEART: S1 S2 regular rate and rhythm ,no loud murmurs ABDOMEN: Soft , mild tenderness EXTREMITIES: No edema feet - Labs CBC & Chem 7: 12/10/22 05:51 12/10/22 05:51 Assessment and Plan (1) Allergy to multiple antibiotics Current Visit: Yes Status: Acute Code(s): Z88.1 - ALLERGY STATUS TO OTHER ANTIBIOTIC AGENTS SNOMED Code(s): 396793402 (2) UTI (urinary tract infection) Current Visit: No Status: Acute Code(s): N39.0 - URINARY TRACT INFECTION, SITE NOT SPECIFIED SNOMED Code(s): 94973520 Plan: 1patient presented to hospital with nausea and vomiting in this patient did not have significant tenderness on abdominal examination liver enzymes are normal did not have any fever or elevated white count however did have a positive UA underlying UTI not entirely excluded likely from enteric gram-negative pathogen. 2patient with multiple antibiotic allergies that would limit the number of antibiotics safe to use. 3ultrasound of the abdomin with sludge and ?cholecystitis , patient is status post open cholecystectomy completed on 12/08/2022 4- patient is currently afebrile her white count is normal, patient seemed to have some clinical improvement, consider short course of IV Invanz on discharge, discussed with the admitting team working on discharge Time with Patient: Less than 30
[2022-12-12] MEDS: PRIMIDONE 50 MG TAB PO SCH (20:30)
[2022-12-13] MEDS: DEXTROSE 5%-0.45% NACL 1,000 ML IV SCH ×3 (03:13→20:38)
[2022-12-13] MEDS: AZTREONAM 2 GM in SODIUM CHLORIDE 0.9% 100 ML IVPB SCH ×2 (03:13→14:52)
[2022-12-13] MEDS: IPRATROPIUM 0.5 MG/2.5 ML NEBU INHALATION SCH ×3 (07:25→19:59)
[2022-12-13] MEDS: ALBUTEROL NEBULIZED 2.5 MG/3 ML INHALATION SCH ×3 (07:25→19:59)
[2022-12-13] MEDS: ASPIRIN 81 MG PO SCH (08:15)
[2022-12-13] MEDS: FUROSEMIDE 10 MG/ML 4 ML VIAL IV SCH (08:15)
[2022-12-13] MEDS: PANTOPRAZOLE 40 MG/10 ML VIAL IVP SCH ×2 (08:15→19:50)
[2022-12-13] MEDS: MONTELUKAST 10 MG TAB PO SCH (08:16)
[2022-12-13] MEDS: lamoTRIgine 100 MG TAB PO SCH ×2 (08:16→19:50)
[2022-12-13] MEDS: DOCUSATE 100 MG CAP PO SCH ×2 (08:16→19:50)
[2022-12-13] MEDS: ENOXAPARIN 30 MG/0.3 ML SYRINGE SQ SCH (08:16)
[2022-12-13 08:26] LABS: African American GFR (CKD) >90 (>60 ml/min/1.73 sqM); Anion Gap 7 mmol/L; Blood Urea Nitrogen 12 mg/dL (7-17); Calcium 7.4 mg/dL (8.4-10.2); Carbon Dioxide 33 mmol/L (22-30); Chloride 95 mmol/L (98-107); Glucose 115 mg/dL (74-99); Magnesium 1.7 mg/dL (1.6-2.3); Non-African American GFR(CKD) >90 (>60 ml/min/1.73 sqM); Potassium 2.9 mmol/L (3.5-5.1); Sodium 135 mmol/L (137-145)
[2022-12-13 08:27] LABS: Basophils % (A) 0 %; Eosinophils % (A) 0 %; HCT 27.2 % (34.0-46.0); HGB 9.2 gm/dL (11.4-16.0); Lymphocytes # (A) 1.5 k/uL (1.0-4.8); Lymphocytes % (A) 28 %; MCHC 33.8 g/dL (31.0-37.0); Mean Platelet Volume 8.1; Monocytes # (A) 0.5 k/uL (0-1.0); Monocytes % (A) 9 %; Neutrophils # (A) 3.2 k/uL (1.3-7.7); Neutrophils % (A) 60 %; Platelet Count 323 k/uL (150-450); RBC 2.96 m/uL (3.80-5.40); RDW 13.8 % (11.5-15.5); WBC 5.3 k/uL (3.8-10.6)
[2022-12-13] MEDS: HYDROcodone/APAP 5-325MG 1 EACH TAB PO PRN (09:11)
[2022-12-13] MEDS: LACOSAMIDE 50 MG TABLET PO SCH ×2 (09:11→19:50)
--- NOTE | 2022-12-13 09:13 | P.PN ---
Subjective Progress Note Date: 12/13/22 Principal diagnosis: Cholecystitis Patient doing fairly well. Complains of mild right upper quadrant pain. She is afebrile. White blood cell count is normal. Objective - Vital Signs Vital signs: Vital Signs Temp 97.8 F 12/13/22 07:50 Pulse 85 12/13/22 07:50 Resp 16 12/13/22 07:50 BP 115/70 12/13/22 07:50 Pulse Ox 94 L 12/13/22 07:50 FiO2 Intake & Output 12/12/22 12/13/22 12/13/22 18:59 06:59 18:59 Intake Total 598 100 Output Total 2160 Balance -1562 100 Weight 91.172 kg Intake: Intake, IV Titration 100 Amount Aztreonam 2 gm In Sodium 100 Chloride 0.9% 100 ml @ 33 .3 mls/hr IVPB Q8H [facility] Rx #:[id number] Oral 598 Output: Drainage 10 Lower Abdomen 10 Urine 2150 Other: Voiding Method Indwelling Catheter Indwelling Catheter - Exam Abdomen: Soft, nondistended, mild right upper quadrant tenderness, dressing clean and dry - Labs CBC & Chem 7: 12/13/22 07:19 12/13/22 07:19 Labs: Abnormal Lab Results - Last 24 Hours (Table) 12/13/22 12/13/22 Range/Units 07:19 07:19 RBC 2.96 L (3.80-5.40) m/uL Hgb 9.2 L (11.4-16.0) gm/dL Hct 27.2 L (34.0-46.0) % Sodium 135 L (137-145) mmol/L Potassium 2.9 L (3.5-5.1) mmol/L Chloride 95 L (98-107) mmol/L Carbon Dioxide 33 H (22-30) mmol/L Glucose 115 H (74-99) mg/dL Calcium 7.4 L (8.4-10.2) mg/dL Assessment and Plan (1) Acute cholecystitis Narrative/Plan: 57-year-old female with acute cholecystitis. Patient seems to be gradually improving. Continue increasing activity. May shower. May keep dressing off per patient's request. Current Visit: Yes Status: Acute Code(s): K81.0 - ACUTE CHOLECYSTITIS SNOMED Code(s): 81199853
--- NOTE | 2022-12-13 14:07 | P.PN ---
Subjective Progress Note Date: 12/13/22 Principal diagnosis: UTI ?Cholecystitis Patient is a 57-year-old female with multiple comorbidities presented to hospital with nausea and vomiting patient did have a positive UA concerning for a UTI in this patient did have multiple antibiotic allergies ultrasound completed evidence of gallbladder sludge. The patient is status post "nystatin completed on 12/08/2022 On today's evaluation that is 12/13/2022 the patient remains to be afebrile, the patient is breathing comfortably on room air, the patient denies any chest pain shortness of breath or cough, the patient right upper quadrant pain has decreased in intensity, denies nausea or vomiting and no diarrhea Objective - Vital Signs Vital signs: Vital Signs Temp 97.8 F 12/13/22 07:50 Pulse 85 12/13/22 07:50 Resp 16 12/13/22 07:50 BP 115/70 12/13/22 07:50 Pulse Ox 94 L 12/13/22 07:50 FiO2 Intake & Output 12/12/22 12/13/22 12/13/22 18:59 06:59 18:59 Intake Total 598 100 Output Total 2160 1400 Balance -1562 100 -1400 Weight 91.172 kg Intake: Intake, IV Titration 100 Amount Aztreonam 2 gm In Sodium 100 Chloride 0.9% 100 ml @ 33 .3 mls/hr IVPB Q8H [facility] BEDS AT [facility] Rx #:[id number] Oral 598 Output: Drainage 10 Lower Abdomen 10 Urine 2150 1400 Other: Voiding Method Indwelling Catheter Indwelling Catheter - Exam GENERAL DESCRIPTION middle-aged female lying in bed in no distress RESPIRATORY SYSTEM: Unlabored breathing , decreased breath sounds at bases HEART: S1 S2 regular rate and rhythm ,no loud murmurs ABDOMEN: Soft , mild tenderness EXTREMITIES: No edema feet - Labs CBC & Chem 7: 12/13/22 07:19 12/13/22 07:19 Labs: Abnormal Lab Results - Last 24 Hours (Table) 12/13/22 12/13/22 Range/Units 07:19 07:19 RBC 2.96 L (3.80-5.40) m/uL Hgb 9.2 L (11.4-16.0) gm/dL Hct 27.2 L (34.0-46.0) % Sodium 135 L (137-145) mmol/L Potassium 2.9 L (3.5-5.1) mmol/L Chloride 95 L (98-107) mmol/L Carbon Dioxide 33 H (22-30) mmol/L Glucose 115 H (74-99) mg/dL Calcium 7.4 L (8.4-10.2) mg/dL Assessment and Plan (1) Allergy to multiple antibiotics Current Visit: Yes Status: Acute Code(s): Z88.1 - ALLERGY STATUS TO OTHER ANTIBIOTIC AGENTS SNOMED Code(s): 329227220 (2) UTI (urinary tract infection) Current Visit: No Status: Acute Code(s): N39.0 - URINARY TRACT INFECTION, SITE NOT SPECIFIED SNOMED Code(s): 83529996 Plan: 1patient presented to hospital with nausea and vomiting in this patient did not have significant tenderness on abdominal examination liver enzymes are normal did not have any fever or elevated white count however did have a positive UA un derlying UTI not entirely excluded likely from enteric gram-negative pathogen. 2patient with multiple antibiotic allergies that would limit the number of antibiotics safe to use. 3ultrasound of the abdomin with sludge and ?cholecystitis , patient is status post open cholecystectomy completed on 12/08/2022 4- patient is currently afebrile her white count is normal, patient seemed to have some clinical improvement, we will switch her over to Invanz and discontinue Azactam Family the bedside they were updated about her condition Time with Patient: Less than 30
[2022-12-13] MEDS: ERTAPENEM 1 GM in SODIUM CHLORIDE 0.9% 50 ML IVPB SCH (16:03)
[2022-12-13] MEDS ORDERED: Magnesium Replacement Protocol 1 EACH MISC MISCELLANE PRN (16:19)
[2022-12-13] MEDS ORDERED: Potassium Replacement Protocol 1 EACH MISC MISCELLANE PRN (16:19)
--- NOTE | 2022-12-13 16:27 | P.PN ---
Subjective Progress Note Date: 12/13/22 This is a 57-year-old female who was recently admitted with abdominal pain with cholecystitis and underwent open cholecystectomy. Patient had some postoperative atelectasis and will continue on some DuoNeb treatments along with daily IV Lasix and close monitoring. Patient encouraged to continue with i ncentive spirometer use at least 10 times every hour while awake. Patient is currently afebrile denies chest pain or worsening shortness of breath and reports some abdominal discomfort at the site otherwise reports to tolerating diet and is passing gas. Case management following as patient will be returning to ECF once stabilized. Will follow-up with repeat labs with possible discharge in 24 hours. 12/12/2022 Patient is seen and evaluated and follow-up with general surgery following closely as patient is status post open cholecystectomy and was quite extensive. Patient having some shortness of breath although reports improved and has been doing the incentive spirometer. We'll continue DuoNeb treatments and IV Lasix with potassium supplementation. Patient reports she did not have a good night last night as she felt the nursing staff was taking too long getting her pain medications and her pain was uncontrolled. Patient reports incisional pain at the surgical site. Patient is currently sitting up in the chair and is also on antibiotics with infectious disease following and will receive a midline for outpatient IV antibiotics for short course. Patient diet has been advanced to regular and tolerating and reports has been passing gas. Gen. surgery recommends closely monitoring over the next few days with possible discharge on Thursday. Patient is currently afebrile denies chest pain and reports improvement in her shortness of breath. Will follow up with repeat labs in closely monitor. 12/13/2022 Patient seen and evaluated and follow-up currently resting although easily arousable. Patient is status post "we continues with extensive abdominal pain. Patient reports the abdominal binder was causing increased discomfort and has it off currently. Patient does continue significant weakness although feels is slowly improving. Patient does continue on IV antibiotics with infectious disease following closely and white count has normalized patient remains afebrile. Patient is being switched over to Invanz. Patient is planning on returning to ECF once stabilized. A.m. labs currently pending and will follow- up and replace electrolytes per protocol Review of systems: Constitutional: reports of fatigue, no fever, or chills Cardiovascular: No reports of chest pain or palpitations Respiratory: No reports of shortness of breath or cough GI: reports of occasional nausea, no reports of vomiting, reports passing gas : No reports of dysuria or retention Neurovascular: reports of generalized weakness All medications have been reviewed Active Medications Acetaminophen (Acetaminophen Tab 325 Mg Tab) 650 mg PO Q6HR PRN PRN Reason: Mild Pain or Fever >= 100.5 Hydrocodone Bitart/Acetaminophen (Hydrocodone/Apap 5-325mg 1 Each Tab) 1 each PO Q4HR PRN PRN Reason: Pain Last Admin: 12/13/22 09:11 Dose: 1 each Albuterol Sulfate (Albuterol Nebulized 2.5 Mg/3 Ml) 2.5 mg INHALATION RT-TID [facility] Last Admin: 12/13/22 11:14 Dose: Not Given Albuterol Sulfate (Albuterol Nebulized 2.5 Mg/3 Ml) 2.5 mg INHALATION RT-TID PRN PRN Reason: Shortness Of Breath Or Wheezing Aspirin (Aspirin 81 Mg) 81 mg PO DAILY [facility] Last Admin: 12/13/22 08:15 Dose: 81 mg Clonidine HCl (Clonidine 0.1 Mg/24hr Patch) 1 patch TRANSDERM Q7D [facility] Last Admin: 12/11/22 10:43 Dose: 1 patch Docusate Sodium (Docusate 100 Mg Cap) 100 mg PO BID [facility] Last Admin: 12/13/22 08:16 Dose: Not Given Enoxaparin Sodium (Enoxaparin 40 Mg/0.4 Ml Syringe) 40 mg SQ DAILY [facility] Furosemide (Furosemide 10 Mg/Ml 4 Ml Vial) 40 mg IV DAILY [facility] Last Admin: 12/13/22 08:15 Dose: 40 mg Hydromorphone HCl (Hydromorphone 0.5 Mg/0.5 Ml Syringe) 0.5 mg IVP Q3HR PRN PRN Reason: Moderate Pain (Scale 4 to 6) Last Admin: 12/10/22 22:57 Dose: 0.5 mg Hydromorphone HCl (Hydromorphone 1 Mg/Ml 1 Ml Syringe) 1 mg IVP Q3HR PRN PRN Reason: Severe Pain (Scale 7 to 10) Last Admin: 12/10/22 04:08 Dose: 1 mg Dextrose/Sodium Chloride (Dextrose 5%-1/2ns Iv Soln) 1,000 mls @ 125 mls/hr IV .Q8H [facility] Last Admin: 12/13/22 14:52 Dose: Not Given Ertapenem 1 gm/ Sodium (Chloride) 50 mls @ 100 mls/hr IVPB DAILY [facility]; Protocol Last Admin: 12/13/22 16:03 Dose: 100 mls/hr Magnesium Sulfate/Dextrose 1 (gm/ IV Solution) 100 mls @ 100 mls/hr IVPB Q1H [facility]; Protocol Stop: 12/13/22 18:29 Ipratropium Raiford (Ipratropium 0.5 Mg/2.5 Ml Nebu) 0.5 mg INHALATION RT-TID [facility] Last Admin: 12/13/22 11:14 Dose: Not Given Ipratropium Raiford (Ipratropium 0.5 Mg/2.5 Ml Nebu) 0.5 mg INHALATION RT-TID PRN PRN Reason: Shortness Of Breath Or Wheezing Lacosamide (Lacosamide 50 Mg Tablet) 100 mg PO BID [facility] Last Admin: 12/13/22 09:11 Dose: 100 mg Lamotrigine (Lamotrigine 100 Mg Tab) 200 mg PO BID [facility] Last Admin: 12/13/22 08:16 Dose: 200 mg Metoclopramide HCl (Metoclopramide 5 Mg/Ml 2 Ml Vial) 10 mg IVP Q6H PRN PRN Reason: Nausea And Vomiting Miscellaneous Information (Potassium Replacement Protocol 1 Each Misc) 1 each MISCELLANE DAILY PRN; Protocol PRN Reason: Per Protocol Miscellaneous Information (Magnesium Replacement Protocol 1 Each Misc) 1 each MISCELLANE DAILY PRN; Protocol PRN Reason: Per Protocol Miscellaneous Information (Magnesium Replacement Protocol 1 Each Misc) 1 each MISCELLANE DAILY PRN; Protocol PRN Reason: Per Protocol Miscellaneous Information (Potassium Replacement Protocol 1 Each Misc) 1 each MISCELLANE DAILY PRN; Protocol PRN Reason: Per Protocol Montelukast Sodium (Montelukast 10 Mg Tab) 10 mg PO DAILY [facility] Last Admin: 12/13/22 08:16 Dose: 10 mg Naloxone HCl (Naloxone 0.4 Mg/Ml 1 Ml Vial) 0.2 mg IV Q2M PRN PRN Reason: Opioid Reversal Ondansetron HCl (Ondansetron 4 Mg/2 Ml Vial) 4 mg IVP Q8HR PRN PRN Reason: Nausea And Vomiting Last Admin: 12/12/22 07:59 Dose: 4 mg Ondansetron HCl (Ondansetron 4 Mg/2 Ml Vial) 4 mg IVP Q6HR PRN PRN Reason: Nausea And Vomiting Last Admin: 12/08/22 20:18 Dose: 4 mg Pantoprazole Sodium (Pantoprazole 40 Mg/10 Ml Vial) 40 mg IVP BID WOO Last Admin: 12/13/22 08:15 Dose: 40 mg Potassium Chloride (Potassium Chloride Er 20 Meq Tab.Er) 20 meq PO Q1HR WOO; P rotocol Stop: 12/13/22 21:01 Primidone (Primidone 50 Mg Tab) 50 mg PO HS WOO Last Admin: 12/12/22 20:30 Dose: 50 mg Prochlorperazine Maleate (Prochlorperazine Suppository 25 Mg Supp) 25 mg RECTAL Q12HR PRN PRN Reason: Nausea And Vomiting Last Admin: 12/04/22 05:30 Dose: 25 mg Prochlorperazine Maleate (Prochlorperazine 5 Mg Tab) 5 mg PO Q8HR PRN PRN Reason: Nausea And Vomiting Last Admin: 12/05/22 14:06 Dose: 5 mg PHYSICAL EXAMINATION: GENERAL: The patient is alert and oriented x4, lethargic although easily arousable. Well developed, well nourished. Obese HEENT: Pupils are round and equally reacting to light. EOMI. no scleral icterus. No conjunctival pallor. Normocephalic, atraumatic. No pharyngeal erythema. No thyromegaly. CARDIOVASCULAR: S1 and S2 muffled PULMONARY: diminished breath sounds bilaterally with coarse rhonchi noted. ABDOMEN: soft. mildly tender on exam. obese. non-distended, normoactive bowel sounds. No palpable organomegaly. MUSCULOSKELETAL: No joint swelling or deformity. EXTREMITIES: No cyanosis, clubbing, or pedal edema. NEUROLOGICAL: Gross neurological examination did not reveal any focal deficits. Diffuse weakness SKIN: No rashes. Assessment: Abdominal pain with acute cholecystitis, status post open cholecystectomy Perihilar infiltrate with bilateral atelectasis, postoperative atelectasis is an expected outcome of the surgical procedure Acute urinary tract infection, present on admission History of seizure disorder History of depression Elevated Lamictal level GI prophylaxis DVT prophylaxis Full code Plan: Recommend to continue with current medications and management with Gen. surgery following. Patient is status post open cholecystectomy and continues to report some abdominal discomfort. Patient reports her binder was causing some discomfort and okay to have off while lying. Patient reports generalized fatigue and reports she was able to get up and shower today which made her more tired. Recommend repeat labs in the a.m. and close monitoring as electrolyte abnormalities were noted today his potassium was 2.9 and magnesium was 1.6. Will replace and follow-up Encouraged increase activity as tolerated. Patient reports is passing gas and tolerating diet patient is maintained on IV antibiotics and has received a midline is patient will require IV antibiotics on discharge. Infectious disease following changing antibiotics to Invanz Recommend PT/OT therapy daily and encouraged increase activity as tolerated. Patient will be going to [facility] once stabilized Due to multiple complex medical issues, prognosis is guarded Possible discharge on Thursday per surgery recommendations The impression and plan of care has been dictated by Laura Malone, nurse practitioner as directed. Dr. Dru MD I have performed a history and examination and MDM of this patient, discussed the same with the dictator, and agree with the dictator's assessment and plan as written ,documented as a scribe. Based on total visit time, I have performed more than 50% of the visit. Any additional findings or plans will be noted. Objective - Vital Signs Vital signs: Vital Signs Temp 97.8 F 12/13/22 07:50 Pulse 85 12/13/22 07:50 Resp 16 12/13/22 07:50 BP 115/70 12/13/22 07:50 Pulse Ox 94 L 12/13/22 07:50 FiO2 Intake & Output 12/12/22 12/13/22 12/13/22 18:59 06:59 18:59 Intake Total 598 100 Output Total 2160 Balance -1562 100 Weight 91.172 kg Intake: Intake, IV Titration 100 Amount Aztreonam 2 gm In Sodium 100 Chloride 0.9% 100 ml @ 33 .3 mls/hr IVPB Q8H [facility] Rx #:[id number] Oral 598 Output: Drainage 10 Lower Abdomen 10 Urine 2150 Other: Voiding Method Indwelling Catheter Indwelling Catheter - Labs CBC & Chem 7: 12/13/22 07:19 12/13/22 07:19 Labs: Abnormal Lab Results - Last 24 Hours (Table) 12/13/22 12/13/22 Range/Units 07:19 07:19 RBC 2.96 L (3.80-5.40) m/uL Hgb 9.2 L (11.4-16.0) gm/dL Hct 27.2 L (34.0-46.0) % Sodium 135 L (137-145) mmol/L Potassium 2.9 L (3.5-5.1) mmol/L Chloride 95 L (98-107) mmol/L Carbon Dioxide 33 H (22-30) mmol/L Glucose 115 H (74-99) mg/dL Calcium 7.4 L (8.4-10.2) mg/dL
[2022-12-13] MEDS: MAGNESIUM SULFATE-D5W PMX 1 GM in DEXTROSE/WATER 1 100ML.BAG IVPB SCH ×2 (17:14→18:27)
[2022-12-13] MEDS: POTASSIUM CHLORIDE ER 20 MEQ TAB.ER PO SCH ×6 (17:14→21:56)
[2022-12-13] MEDS: PRIMIDONE 50 MG TAB PO SCH (19:50)
[2022-12-14] MEDS: POTASSIUM CHLORIDE ER 20 MEQ TAB.ER PO SCH ×5 (01:05→20:09)
[2022-12-14] MEDS: HYDROcodone/APAP 5-325MG 1 EACH TAB PO PRN ×3 (01:08→20:08)
[2022-12-14] MEDS: DEXTROSE 5%-0.45% NACL 1,000 ML IV SCH ×3 (03:26→20:15)
[2022-12-14] MEDS: ALBUTEROL NEBULIZED 2.5 MG/3 ML INHALATION SCH ×3 (07:36→20:33)
[2022-12-14] MEDS: IPRATROPIUM 0.5 MG/2.5 ML NEBU INHALATION SCH ×3 (07:37→20:33)
[2022-12-14 07:48] LABS: African American GFR (CKD) >90 (>60 ml/min/1.73 sqM); Anion Gap 4 mmol/L; Blood Urea Nitrogen 9 mg/dL (7-17); Calcium 7.7 mg/dL (8.4-10.2); Carbon Dioxide 34 mmol/L (22-30); Chloride 98 mmol/L (98-107); Glucose 129 mg/dL (74-99); Magnesium 2.4 mg/dL (1.6-2.3); Non-African American GFR(CKD) >90 (>60 ml/min/1.73 sqM); Potassium 3.8 mmol/L (3.5-5.1); Sodium 136 mmol/L (137-145)
[2022-12-14] MEDS: ERTAPENEM 1 GM in SODIUM CHLORIDE 0.9% 50 ML IVPB SCH (08:27)
[2022-12-14] MEDS: ASPIRIN 81 MG PO SCH (08:28)
[2022-12-14] MEDS: FUROSEMIDE 10 MG/ML 4 ML VIAL IV SCH (08:28)
[2022-12-14] MEDS: lamoTRIgine 100 MG TAB PO SCH ×2 (08:28→20:08)
[2022-12-14] MEDS: DOCUSATE 100 MG CAP PO SCH ×2 (08:29→20:08)
[2022-12-14] MEDS: ENOXAPARIN 40 MG/0.4 ML SYRINGE SQ SCH (08:29)
[2022-12-14] MEDS: MONTELUKAST 10 MG TAB PO SCH (08:29)
[2022-12-14] MEDS: PANTOPRAZOLE 40 MG/10 ML VIAL IVP SCH ×2 (08:29→20:09)
[2022-12-14] MEDS: LACOSAMIDE 50 MG TABLET PO SCH ×2 (08:49→20:08)
--- NOTE | 2022-12-14 08:49 | P.PN ---
Subjective Progress Note Date: 12/14/22 Principal diagnosis: Cholecystitis Patient doing well today. She was able to shower yesterday. No significant pain. Tolerating diet. Objective - Vital Signs Vital signs: Vital Signs Temp 97.6 F 12/14/22 07:25 Pulse 84 12/14/22 07:58 Resp 16 12/14/22 07:25 BP 116/60 12/14/22 07:25 Pulse Ox 97 12/14/22 07:25 FiO2 Intake & Output 12/13/22 12/14/22 12/14/22 18:59 06:59 18:59 Intake Total 936 Output Total 1400 900 Balance -464 -900 Intake: Oral 236 Tube Feeding 700 Output: Urine 1400 900 Other: Voiding Method Indwelling Catheter - Exam Abdomen: Soft, nondistended, mild tenderness along incision, incision clean and dry - Labs CBC & Chem 7: 12/13/22 07:19 12/14/22 06:42 Labs: Abnormal Lab Results - Last 24 Hours (Table) 12/13/22 12/14/22 Range/Units 23:42 06:42 Sodium 136 L (137-145) mmol/L Potassium 3.0 L (3.5-5.1) mmol/L Carbon Dioxide 34 H (22-30) mmol/L Glucose 129 H (74-99) mg/dL Calcium 7.7 L (8.4-10.2) mg/dL Magnesium 2.4 H (1.6-2.3) mg/dL Assessment and Plan (1) Acute cholecystitis Narrative/Plan: Patient doing well at this time. Continue increasing activity. Continue regular diet. Anticipate transfer to rehab tomorrow. Current Visit: Yes Status: Acute Code(s): K81.0 - ACUTE CHOLECYSTITIS SNOMED Code(s): 36724246
[2022-12-14 11:06] LABS: Basophils # (A) 0.02 X 10*3/uL (0.00-0.10); Basophils % (A) 0.3 %; Eosinophils # (A) 0 X 10*3/uL (0.04-0.35); Eosinophils % (A) 0 %; HCT 25.9 % (37.2-46.3); HGB 8.3 g/dL (12.0-15.0); Immature Grans, Automated 0.6 %; Lymphocytes # (A) 2.28 X 10*3/uL (0.90-5.00); Lymphocytes % (A) 36.6 %; MCH 30.5 pg (27.0-32.0); MCV 95.2 fL (80.0-97.0); Monocytes # (A) 0.84 X 10*3/uL (0.20-1.00); Monocytes % (A) 13.5 %; NRBC Per 100 WBC 0 /100 WBCS (0.0-0.0); Neutrophils # (A) 3.05 X 10*3/uL (1.80-7.70); Platelet Count 310 X 10*3/uL (140-440); RBC 2.72 X 10*6/uL (4.10-5.20); RDW 13.9 % (11.5-14.5); WBC 6.23 X 10*3/uL (4.50-10.00)
--- NOTE | 2022-12-14 16:35 | P.PN ---
Subjective Progress Note Date: 12/14/22 Principal diagnosis: UTI ?Cholecystitis Patient is a 57-year-old female with multiple comorbidities presented to hospital with nausea and vomiting patient did have a positive UA concerning for a UTI in this patient did have multiple antibiotic allergies ultrasound completed evidence of gallbladder sludge. The patient is status post "nystatin completed on 12/08/2022 On today's evaluation that is 12/14/2022 the patient continues to be afebrile, the patient is breathing comfortably on room air, the patient denies any chest pain shortness of breath or cough, the patient right upper quadrant pain has decreased in intensity, the patient denies nausea or vomiting and no diarrhea, feeling better Objective - Vital Signs Vital signs: Vital Signs Temp 98.0 F 12/14/22 14:00 Pulse 81 12/14/22 14:00 Resp 16 12/14/22 14:00 BP 120/78 12/14/22 14:00 Pulse Ox 98 12/14/22 14:00 FiO2 Intake & Output 12/13/22 12/14/22 12/14/22 18:59 06:59 18:59 Intake Total 936 236 Output Total 0337 451 4296 Balance -645 -876 -4696 Intake: Oral 236 236 Tube Feeding 700 Output: Urine 4569 062 2094 Other: Voiding Method Indwelling Catheter Indwelling Catheter - Exam GENERAL DESCRIPTION middle-aged female lying in bed in no distress RESPIRATORY SYSTEM: Unlabored breathing , decreased breath sounds at bases HEART: S1 S2 regular rate and rhythm ,no loud murmurs ABDOMEN: Soft , mild tenderness EXTREMITIES: No edema feet - Labs CBC & Chem 7: 12/14/22 06:42 12/14/22 06:42 Labs: Abnormal Lab Results - Last 24 Hours (Table) 12/13/22 12/14/22 12/14/22 Range/Units 23:42 06:42 06:42 RBC 2.72 L (4.10-5.20) X 10*6/uL Hgb 8.3 L (12.0-15.0) g/dL Hct 25.9 L (37.2-46.3) % Eosinophils # 0 L (0.04-0.35) X 10*3/uL Sodium 136 L (137-145) mmol/L Potassium 3.0 L (3.5-5.1) mmol/L Carbon Dioxide 34 H (22-30) mmol/L Glucose 129 H (74-99) mg/dL Calcium 7.7 L (8.4-10.2) mg/dL Magnesium 2.4 H (1.6-2.3) mg/dL Assessment and Plan (1) Allergy to multiple antibiotics Current Visit: Yes Status: Acute Code(s): Z88.1 - ALLERGY STATUS TO OTHER ANTIBIOTIC AGENTS SNOMED Code(s): 790512080 (2) UTI (urinary tract infection) Current Visit: No Status: Acute Code(s): N39.0 - URINARY TRACT INFECTION, SITE NOT SPECIFIED SNOMED Code(s): 90046795 Plan: 1patient presented to hospital with nausea and vomiting in this patient did not have significant tenderness on abdominal examination liver enzymes are normal did not have any fever or elevated white count however did have a positive UA underlying UTI not entirely excluded likely from enteric gram-negative pathogen. 2patient with multiple antibiotic allergies that would limit the number of antibiotics safe to use. 3ultrasound of the abdomin with sludge and ?cholecystitis , patient is status post open cholecystectomy completed on 12/08/2022 4- patient is currently afebrile her white count is normal, patient slowly clinically improving she will continue with Invanz 1 g daily for about 5 days on discharge Time with Patient: Less than 30
[2022-12-14 20:13] LABS: Glucose,Whole Blood 114 mg/dL (70-110)
[2022-12-14] MEDS: PRIMIDONE 50 MG TAB PO SCH (20:15)
--- NOTE | 2022-12-14 22:18 | PN ---
PROGRESS NOTE DATE OF SERVICE: 12/14/2022 SUBJECTIVE: This is a 57-year-old woman who was admitted with abdominal pain and acute cholecystitis and open cholecystectomy. The patient had multiple complex medical issues including fluid overload and shortness of breath. OBJECTIVE: VITAL SIGNS: Pulse is 84, blood pressure is 116/60, respirations 16. CHEST: A few scattered rhonchi. ABDOMEN: Soft, status post surgery. LEGS: No edema. NERVOUS SYSTEM: No focal deficits. LABORATORY DATA: Reviewed. ASSESSMENT: 1. Acute cholecystitis, status post open cholecystectomy. 2. Perihilar infiltrate with possible bilateral atelectasis. 3. Acute urinary tract infection. 4. Seizure disorder. 5. Depression. 6. Multiple medical issues. RECOMMENDATIONS: Recommend to continue current management and continue symptomatic treatment. Recommend repeat labs in the morning and PT/OT evaluation. I would also recommend a chest x-ray and if the patient is stable and cleared by consultants, the patient might be able to go to the rehab, but again overall prognosis remains extremely guarded because of above- mentioned multiple complex medical issues. MMODL / IJN: [id number] /
[2022-12-15 02:44] VITALS: RESP 18; TEMP 98
[2022-12-15] MEDS: DEXTROSE 5%-0.45% NACL 1,000 ML IV SCH ×2 (03:06→08:42)
[2022-12-15 05:41] LABS: Glucose,Whole Blood 115 mg/dL (70-110)
--- NOTE | 2022-12-15 07:19 | XR ---
EXAMINATION TYPE: XR chest 1V portable DATE OF EXAM: 12/15/2022 HISTORY: Shortness of breath. COMPARISON: 12/11/2022 TECHNIQUE: Single view of the chest is submitted. FINDINGS: Demonstrated are scattered senescent parenchymal change. Chronic elevation right hemidiaphragm. Basilar increased density may reflect atelectasis, infiltrate and/or parenchymal scar. Overall stable chest. The heart is stable. Hilar and mediastinal structures are within normal limits. Degenerative changes are seen of the dorsal spine. IMPRESSION: 1. Chronic elevation right hemidiaphragm. Basilar increased density may reflect atelectasis, infiltr ate and/or parenchymal scar. Overall stable chest.
[2022-12-15 08:21] VITALS: BP 105/67
[2022-12-15] MEDS: ERTAPENEM 1 GM in SODIUM CHLORIDE 0.9% 50 ML IVPB SCH (08:42)
[2022-12-15] MEDS: ENOXAPARIN 40 MG/0.4 ML SYRINGE SQ SCH (08:43)
[2022-12-15] MEDS: ASPIRIN 81 MG PO SCH (08:43)
[2022-12-15] MEDS: DOCUSATE 100 MG CAP PO SCH (08:43)
[2022-12-15] MEDS: FUROSEMIDE 10 MG/ML 4 ML VIAL IV SCH (08:43)
[2022-12-15] MEDS: LACOSAMIDE 50 MG TABLET PO SCH (08:43)
[2022-12-15] MEDS: PANTOPRAZOLE 40 MG/10 ML VIAL IVP SCH (08:43)
[2022-12-15] MEDS: POTASSIUM CHLORIDE ER 20 MEQ TAB.ER PO SCH (08:44)
[2022-12-15] MEDS: lamoTRIgine 100 MG TAB PO SCH (08:44)
[2022-12-15] MEDS: MONTELUKAST 10 MG TAB PO SCH (08:44)
[2022-12-15] MEDS: IPRATROPIUM 0.5 MG/2.5 ML NEBU INHALATION SCH ×2 (08:47→12:13)
[2022-12-15] MEDS: ALBUTEROL NEBULIZED 2.5 MG/3 ML INHALATION SCH ×2 (08:47→12:13)
[2022-12-15 10:57] LABS: African American GFR (CKD) 99.2 (60.0-200.0); Anion Gap 9.4 mmol/L (10.00-18.00); BUN/Creat Ratio 8.45 Ratio (12.00-20.00); Blood Urea Nitrogen 6.4 mg/dL (9.0-27.0); Calcium 8.3 mg/dL (8.7-10.3); Carbon Dioxide 28.1 mmol/L (20.0-27.5); Non-African American GFR(CKD) 85.6 (60.0-200.0); Potassium 4.3 mmol/L (3.5-5.5)
[2022-12-15 11:12] LABS: Basophils # (A) 0.02 X 10*3/uL (0.00-0.10); Basophils % (A) 0.3 %; Eosinophils # (A) 0.11 X 10*3/uL (0.04-0.35); Eosinophils % (A) 1.7 %; HCT 30.2 % (37.2-46.3); HGB 9.2 g/dL (12.0-15.0); Immature Grans, Automated 1.1 %; Lymphocytes # (A) 2.33 X 10*3/uL (0.90-5.00); Lymphocytes % (A) 36.2 %; MCHC 30.5 g/dL (32.0-37.0); MCV 98.4 fL (80.0-97.0); Mean Platelet Volume 9.8 fL (9.5-12.2); Monocytes # (A) 0.82 X 10*3/uL (0.20-1.00); Monocytes % (A) 12.8 %; NRBC Per 100 WBC 0 /100 WBCS (0.0-0.0); Neutrophils # (A) 3.08 X 10*3/uL (1.80-7.70); Neutrophils % (A) 47.9 %; Platelet Count 383 X 10*3/uL (140-440); RBC 3.07 X 10*6/uL (4.10-5.20); RDW 14.3 % (11.5-14.5); WBC 6.43 X 10*3/uL (4.50-10.00)
[2022-12-15 12:21] VITALS: PULSE 76
--- NOTE | 2022-12-15 14:07 | P.DS ---
Providers Date of admission: 12/05/22 06:10 Expected date of discharge: 12/15/22 Attending physician: Primitivo Gonsales Consults: 12/03/22 19:41 Consult Physician Routine Consulting Provider: Royal Hernandez Consult Reason/Comments: Seizure D/O. Not tolerating medication Do you want consulting provider notified?: Yes 12/04/22 10:33 Consult Physician Routine Consulting Provider: Antonette Pinto Consult Reason/Comments: uti, possible Do you want consulting provider notified?: Yes 12/05/22 11:24 Consult Physician Routine Consulting Provider: Adam Little Consult Reason/Comments: Abdominal pain/nausea Do you want consulting provider notified?: Yes 12/05/22 11:35 Consult Physician Urgent Consulting Provider: Psychiatry - [facility] Psych[facility] Consult Reason/Comments: depression and suicidal ideation Do you want consulting provider notified?: Yes Primary care physician: Stated None Hospital Course: Final diagnosis Abdominal pain with acute cholecystitis, status post open cholecystectomy Perihilar infiltrate with bilateral atelectasis, postoperative atelectasis is an expected outcome of the surgical procedure Acute urinary tract infection, present on admission History of seizure disorder History of depression Elevated Lamictal level GI prophylaxis DVT prophylaxis Full code Discharge disposition Patient is being discharged in a stable condition with guarded prognosis to [facility] . Patient will follow-up with Dr. Fragoso in the outpatient setting upon discharge. Patient is to continue with IV Invanz daily for the next 5 days and close outpatient follow-up with surgery as scheduled. Total time taken is greater than 35 minutes. Hospital course This is a 57-year-old female who was recently admitted with abdominal pain with cholecystitis and underwent open cholecystectomy. Patient also with concerns of possible bilateral atelectasis and urinary tract infection with infectious disease and surgery following closely. Patient with continued weakness will be going to [facility] and will continue on IV Invanz daily for the next 5 days to complete the course. Patient will also need close outpatient follow-up with surgery in the next 1 week. Patient has been cleared by consultations for discharge and will continue on current regimen and medications as mentioned below. Please refer to other consultation notes for further HPI. Currently no reports of chest pain, shortness of breath, or palpitations. Patient is afebrile. No reports of nausea or vomiting and patient is tolerating diet. Patient will be going to [facility] on the [facility] today. Guarded prognosis. Physical exam: Gen: This is a 57-year-old female who is awake, alert and oriented 3, well- developed, well-nourished, obese HEENT: Head is atraumatic, normocephalic. Pupils equal, round. Sclerae is anicteric. NECK: Supple. No JVD. No lymphadenopathy. No thyromegaly. LUNGS: Diminished breath sounds bilaterally with no wheezes or rhonchi. No intercostal retractions. HEART: Regular rate and rhythm. No murmur. ABDOMEN: Soft. Mildly tender on palpation. Bowel sounds are present. No masses. EXTREMITIES: No pedal edema. No calf tenderness. NEUROLOGICAL: Patient is awake, alert and oriented x3. Cranial nerves 2 through 12 are grossly intact. Diffusely weak Please refer to medication reconciliation sheet for a list of medications. The impression and plan of care has been dictated by Laura Malone, Nurse Practitioner as directed. Dr. Irene MD I have performed a history and examination and MDM of this patient, discussed the same with the dictator, and agree with the dictator's assessment and plan as written ,documented as a scribe. Based on total visit time, I have performed more than 50% of the visit. Patient Condition at Discharge: Stable Plan - Discharge Summary Discharge Rx Participant: No New Discharge Prescriptions: New cloNIDine 0.1 MG/24HR PATCH [Catapres-TTS] 1 patch TRANSDERM Q7D patch Prochlorperazine [Compazine] 5 mg PO Q8HR PRN tab PRN Reason: Nausea And Vomiting Furosemide [Lasix] 20 mg PO DAILY 7 Days #7 tab Enoxaparin [Lovenox] 30 mg SQ DAILY each Budesonide-Formot 160-4.5 Mcg [Symbicort 160-4.5 Mcg Inhaler] 2 puff INHALATION BID #10.2 gm Ertapenem [INVanz] 1 gm IVPB DAILY 5 Days #5 each Potassium Chloride ER [K-Dur 20] 20 meq PO BID tab Lacosamide [Vimpat] 100 mg PO BID #6 tab Ipratropium Nebulized [Atrovent Nebulized 0.2 MG/ML] 0.5 mg INHALATION RT-TID ml Ipratropium Nebulized [Atrovent Nebulized 0.2 MG/ML] 0.5 mg INHALATION RT-TID PRN ml PRN Reason: Shortness Of Breath Or Wheezing Docusate [Colace] 100 mg PO BID cap Budesonide [Pulmicort] 0.25 mg INHALATION BID #60 ml Acetaminophen Tab [Tylenol] 650 mg PO Q6HR PRN tab PRN Reason: Mild Pain Or Fever >= 100.5 Albuterol Nebulized [Ventolin Nebulized] 2.5 mg INHALATION RT-TID PRN ml PRN Reason: Shortness Of Breath Or Wheezing Sucralfate [Carafate] 1 gm PO ACHS #120 tab HYDROcodone/APAP 5-325MG [Hamilton 5-325] 1 tab PO Q8H PRN 3 Days #6 tab PRN Reason: Pain Continue lamoTRIgine [LaMICtal] 200 mg PO BID Montelukast [Singulair] 10 mg PO DAILY Loratadine 10 mg PO DAILY Tylenol (Unknown Dose) 1 tab PO Q6H PRN PRN Reason: Fever And/ Or Pain Primidone [Mysoline] 50 mg PO HS Potassium (Unknown Dose) 1 tab PO DAILY polyethylene glycoL 3350 [Miralax] 17 gm PO DAILY PRN PRN Reason: Constipation Vitamin D3 (Unknown Dose) 1 cap PO DAILY Aspirin EC [Ecotrin Low Dose] 81 mg PO DAILY Changed Pantoprazole Sodium [Protonix] 40 mg PO BID #0 Ondansetron Odt [Zofran ODT] 4 mg PO Q6H PRN #10 tab PRN Reason: Nausea Discontinued lamoTRIgine [LaMICtal] 50 mg PO BID Divalproex [Depakote] 250 mg PO DIRECTED Discharge Medication List lamoTRIgine [LaMICtal] 200 mg PO BID 09/29/14 [History] Montelukast [Singulair] 10 mg PO DAILY 07/26/20 [History] Loratadine 10 mg PO DAILY 10/17/21 [History] Aspirin EC [Ecotrin Low Dose] 81 mg PO DAILY 12/03/22 [History] Potassium (Unknown Dose) 1 tab PO DAILY 12/03/22 [History] Primidone [Mysoline] 50 mg PO HS 12/03/22 [History] Tylenol (Unknown Dose) 1 tab PO Q6H PRN 12/03/22 [History] Vitamin D3 (Unknown Dose) 1 cap PO DAILY 12/03/22 [History] polyethylene glycoL 3350 [Miralax] 17 gm PO DAILY PRN 12/03/22 [History] Acetaminophen Tab [Tylenol] 650 mg PO Q6HR PRN tab 12/12/22 [Rx] Albuterol Nebulized [Ventolin Nebulized] 2.5 mg INHALATION RT-TID PRN ml 12/12/22 [Rx] Budesonide [Pulmicort] 0.25 mg INHALATION BID #60 ml 12/12/22 [Rx] Budesonide-Formot 160-4.5 Mcg [Symbicort 160-4.5 Mcg Inhaler] 2 puff INHALATION BID #10.2 gm 12/12/22 [Rx] Docusate [Colace] 100 mg PO BID cap 12/12/22 [Rx] Enoxaparin [Lovenox] 30 mg SQ DAILY each 12/12/22 [Rx] Furosemide [Lasix] 20 mg PO DAILY 7 Days #7 tab 12/12/22 [Rx] Ipratropium Nebulized [Atrovent Nebulized 0.2 MG/ML] 0.5 mg INHALATION RT-TID ml 12/12/22 [Rx] Ipratropium Nebulized [Atrovent Nebulized 0.2 MG/ML] 0.5 mg INHALATION RT-TID PRN ml 12/12/22 [Rx] Ondansetron Odt [Zofran ODT] 4 mg PO Q6H PRN #10 tab 12/12/22 [Rx] Pantoprazole Sodium [Protonix] 40 mg PO BID #0 12/12/22 [Rx] Prochlorperazine [Compazine] 5 mg PO Q8HR PRN tab 12/12/22 [Rx] Sucralfate [Carafate] 1 gm PO ACHS #120 tab 12/12/22 [Rx] cloNIDine 0.1 MG/24HR PATCH [Catapres-TTS] 1 patch TRANSDERM Q7D patch 12/12/22 [Rx] Ertapenem [INVanz] 1 gm IVPB DAILY 5 Days #5 each 12/15/22 [Rx] HYDROcodone/APAP 5-325MG [Hamilton 5-325] 1 tab PO Q8H PRN 3 Days #6 tab 12/15/22 [Rx] Lacosamide [Vimpat] 100 mg PO BID #6 tab 12/15/22 [Rx] Potassium Chloride ER [K-Dur 20] 20 meq PO BID tab 12/15/22 [Rx] Follow up Appointment(s)/Referral(s): None,Stated [Primary Care Provider] - 1-2 days Adam Little MD [STAFF PHYSICIAN] - 1 Week Ambulatory/Diagnostic Orders: Complete Blood Count w/diff [LAB.AMB] Time Frame: 3 Days, Location: None Selected Patient Instructions/Handouts: Epilepsy (DC) Activity/Diet/Wound Care/Special Instructions: Patient is going to [facility] as tolerated Continue current medications Recommend continue with Lasix 20 mg daily for 1 week and then may discontinue Follow-up with surgery in the outpatient setting in 1 week Patient to continue on IV Invanz with a midline for 5 days and then may discontinue Follow-up with primary care provider on discharge Discharge Disposition: TRANSFER TO SNF/ECF
--- NOTE | 2022-12-15 15:04 | P.PN ---
Subjective Progress Note Date: 12/15/22 The patient is sitting in a recliner chair and feels is doing well. She is known to me. Since I have seen her last it was felt Depakote was the culprit of Lamictal toxicity which Depakote has been discontinued. Objective - Vital Signs Vital signs: Vital Signs Temp 98.0 F 12/15/22 08:00 Pulse 76 12/15/22 12:20 Resp 18 12/15/22 08:00 BP 105/67 12/15/22 08:00 Pulse Ox 97 12/15/22 08:00 FiO2 Intake & Output 12/14/22 12/15/22 12/15/22 18:59 06:59 18:59 Intake Total 236 1000 711 Output Total 2900 450 1000 Balance -2664 550 -289 Weight 91.172 kg Intake: Intake, IV Titration 1000 Amount Dextrose 5%-0.45% NaCl 1, 1000 000 ml @ 125 mls/hr IV . Q8H [facility] Rx#:[id number] Oral 236 711 Output: Urine 2900 450 1000 Other: Voiding Method Indwelling Catheter Indwelling Catheter Indwelling Catheter # Bowel Movements 1 - Exam GENERAL: The patient is lying in bed and is not in acute distress. NEUROLOGICAL: Higher mental function: The patient is in awake, alert, oriented to self, place and time. Following simple commands. No aphasia or neglect. Cranial Nerves: Pupils are round, equal and reactive to light. No facial weakness. No dysarthria. Motor: Strength is lifting all extremities above gravity and no noticeable focality. - Labs CBC & Chem 7: 12/15/22 06:37 12/15/22 06:37 Labs: Abnormal Lab Results - Last 24 Hours (Table) 12/14/22 12/15/22 12/15/22 Range/Units 20:11 05:40 06:37 RBC 3.07 L (4.10-5.20) X 10*6/uL Hgb 9.2 L (12.0-15.0) g/dL Hct 30.2 L (37.2-46.3) % MCV 98.4 H (80.0-97.0) fL MCHC 30.5 L (32.0-37.0) g/dL Immature Gran # 0.07 H (0.00-0.04) X 10*3/uL Carbon Dioxide (20.0-27.5) mmol/L Anion Gap (10.00-18.00) mmol/L BUN (9.0-27.0) mg/dL BUN/Creatinine Ratio (12.00-20.00) Ratio POC Glucose (mg/dL) 114 H 115 H (70-110) mg/dL Calcium (8.7-10.3) mg/dL 12/15/22 Range/Units 06:37 RBC (4.10-5.20) X 10*6/uL Hgb (12.0-15.0) g/dL Hct (37.2-46.3) % MCV (80.0-97.0) fL MCHC (32.0-37.0) g/dL Immature Gran # (0.00-0.04) X 10*3/uL Carbon Dioxide 28.1 H (20.0-27.5) mmol/L Anion Gap 9.40 L (10.00-18.00) mmol/L BUN 6.4 L (9.0-27.0) mg/dL BUN/Creatinine Ratio 8.45 L (12.00-20.00) Ratio POC Glucose (mg/dL) (70-110) mg/dL Calcium 8.3 L (8.7-10.3) mg/dL Assessment and Plan Assessment: This is a 57-year-old woman with mental impairement who presented from her [facility] because of evaluation for nausea and vomiting. Acute cholecystitis, status post cholecystectomy 12/09/2022 Lamictal toxicity 30.7 (normal is 2-15), likely due to adding Depakote to pre- existing Lamictal regimen. History of epilepsy No previous history of strokes Seems the patient has fluctuation of mentation (per sister that is old) Plan: * Patient's Lamictal toxicity occurred because she was started on Depakote on 11/26/2022. Depakote displaced Lamictal producing Lamictal toxicity. Patient was taking Lamictal 250mg 1 tab bid, and Dr. Hernandez has decrease it to 200mg bid. Apparently Lamictal has been on hold. We will resume Lamictal 200 mg twice a day. Discontinue Depakote. Continue Vimpat 100 mg twice a day. Continue primidone 50 mg. * Repeat Lamictal level is normal 8.5 (2-15) as of today. Resume Lamictal at 200 mg twice a day. Ammonia level < 9. Patient's seizures are in remission, none since last 1 year. * Discussed with patient's caregiver on the phone in detail. Please refer to the above. * Vimpat level 6.3. * On seizure precautions and seizure pads * I recommend the patient to follow-up with her neurologist as an outpatient (Dr. France). Patient has not had any seizures for at least one year. * General surgery following, patient has undergone cholecystectomy 12/09/2022. * We'll defer the rest of the medical management to primary team * There is no further neurological work-up. Will sign off. Please reconsult if needed. Time with Patient: Less than 30
--- NOTE | 2022-12-15 16:53 | P.PN ---
Subjective Progress Note Date: 12/15/22 Principal diagnosis: UTI ?Cholecystitis Patient is a 57-year-old female with multiple comorbidities presented to hospital with nausea and vomiting patient did have a positive UA concerning for a UTI in this patient did have multiple antibiotic allergies ultrasound completed evidence of gallbladder sludge. The patient is status post "nystatin completed on 12/08/2022 On today's evaluation that is 12/15/2022 the patient remains to be afebrile, the patient is breathing comfortably on room air, the patient denies any chest pain shortness of breath or cough, the patient right upper quadrant pain has decreased in intensity, the patient denies nausea or vomiting and no diarrhea, patient mentioned slowly feeling better and is scheduled to go to a [facility] today Objective - Vital Signs Vital signs: Vital Signs Temp 98.0 F 12/15/22 08:00 Pulse 76 12/15/22 12:20 Resp 18 12/15/22 08:00 BP 105/67 12/15/22 08:00 Pulse Ox 97 12/15/22 08:00 FiO2 Intake & Output 12/14/22 12/15/22 12/15/22 18:59 06:59 18:59 Intake Total 236 1000 711 Output Total 2900 450 Balance -2664 550 711 Weight 91.172 kg Intake: Intake, IV Titration 1000 Amount Dextrose 5%-0.45% NaCl 1, 1000 000 ml @ 125 mls/hr IV . [facility]H [facility] Rx#:[id number] Oral 236 711 Output: Urine 2900 450 Other: Voiding Method Indwelling Catheter Indwelling Catheter Indwelling Catheter # Bowel Movements 1 - Exam GENERAL DESCRIPTION middle-aged female lying in bed in no distress RESPIRATORY SYSTEM: Unlabored breathing , decreased breath sounds at bases HEART: S1 S2 regular rate and rhythm ,no loud murmurs ABDOMEN: Soft , mild tenderness EXTREMITIES: No edema feet - Labs CBC & Chem 7: 12/15/22 06:37 12/15/22 06:37 Labs: Abnormal Lab Results - Last 24 Hours (Table) 12/14/22 12/15/22 12/15/22 Range/Units 20:11 05:40 06:37 RBC 3.07 L (4.10-5.20) X 10*6/uL Hgb 9.2 L (12.0-15.0) g/dL Hct 30.2 L (37.2-46.3) % MCV 98.4 H (80.0-97.0) fL MCHC 30.5 L (32.0-37.0) g/dL Immature Gran # 0.07 H (0.00-0.04) X 10*3/uL Carbon Dioxide (20.0-27.5) mmol/L Anion Gap (10.00-18.00) mmol/L BUN (9.0-27.0) mg/dL BUN/Creatinine Ratio (12.00-20.00) Ratio POC Glucose (mg/dL) 114 H 115 H (70-110) mg/dL Calcium (8.7-10.3) mg/dL 12/15/22 Range/Units 06:37 RBC (4.10-5.20) X 10*6/uL Hgb (12.0-15.0) g/dL Hct (37.2-46.3) % MCV (80.0-97.0) fL MCHC (32.0-37.0) g/dL Immature Gran # (0.00-0.04) X 10*3/uL Carbon Dioxide 28.1 H (20.0-27.5) mmol/L Anion Gap 9.40 L (10.00-18.00) mmol/L BUN 6.4 L (9.0-27.0) mg/dL BUN/Creatinine Ratio 8.45 L (12.00-20.00) Ratio POC Glucose (mg/dL) (70-110) mg/dL Calcium 8.3 L (8.7-10.3) mg/dL Assessment and Plan (1) Allergy to multiple antibiotics Status: Acute Code(s): Z88.1 - ALLERGY STATUS TO OTHER ANTIBIOTIC AGENTS SNOMED Code(s): 901248701 (2) UTI (urinary tract infection) Status: Acute Code(s): N39.0 - URINARY TRACT INFECTION, SITE NOT SPECIFIED SNOMED Code(s): 65657291 Plan: 1patient presented to hospital with nausea and vomiting in this patient did not have significant tenderness on abdominal examination liver enzymes are normal did not have any fever or elevated white count however did have a positive UA underlying UTI not entirely excluded likely from enteric gram-negative pathogen. 2patient with multiple antibiotic allergies that would limit the number of antibiotics safe to use. 3ultrasound of the abdomin with sludge and ?cholecystitis , patient is status post open cholecystectomy completed on 12/08/2022 4- patient is currently afebrile her white count is normal, patient has shown overall clinical improvement with Invanz 1 g daily , which will be continued for about 5 days on discharge Time with Patient: Less than 30
== END 2022-12-15 15:55 | DRG 414 ==
LOC: EC 14:20 → 6NMEDSUR 19:41 → OBSVTOIN 12-05 06:10
PROVIDERS: ADMIT Hospitalist; ATTEND Hospitalist
PROC: 30233N1 Transfusion of Nonautologous Red Blood Cells into Peripheral Vein, Percutaneous Approach (ICD-10-PCS; 2022-12-08)
PROC: 0W3P0ZZ Control Bleeding in Gastrointestinal Tract, Open Approach (ICD-10-PCS; principal; 2022-12-08 11:30)
PROC: 0FJ44ZZ Inspection of Gallbladder, Percutaneous Endoscopic Approach (ICD-10-PCS; principal; 2022-12-08 11:30)
PROC: 0FT40ZZ Resection of Gallbladder, Open Approach (ICD-10-PCS; principal; 2022-12-08 11:30)
PROC: 05HF33Z Insertion of Infusion Device into Left Cephalic Vein, Percutaneous Approach (ICD-10-PCS; 2022-12-12)
DX: K81.0 Acute cholecystitis (principal); G92.8 Other toxic encephalopathy; J98.11 Atelectasis; N17.9 Acute kidney failure, unspecified; Q44.1 Other congenital malformations of gallbladder; D62 Acute posthemorrhagic anemia; N39.0 Urinary tract infection, site not specified; K91.61 Intraoperative hemorrhage and hematoma of a digestive system organ or structure complicating a digestive system procedure; G40.409 Other generalized epilepsy and epileptic syndromes, not intractable, without status epilepticus; Z20.822 Contact with and (suspected) exposure to COVID-19; Z28.310 Unvaccinated for COVID-19; K82.8 Other specified diseases of gallbladder; I10 Essential (primary) hypertension; G58.8 Other specified mononeuropathies; K21.9 Gastro-esophageal reflux disease without esophagitis; F32.A Depression, unspecified; E87.70 Fluid overload, unspecified; F79 Unspecified intellectual disabilities; E66.9 Obesity, unspecified; Z68.39 Body mass index [BMI] 39.0-39.9, adult; R25.1 Tremor, unspecified; Z53.31 Laparoscopic surgical procedure converted to open procedure; Z79.82 Long term (current) use of aspirin; Z79.899 Other long term (current) drug therapy; Z87.442 Personal history of urinary calculi; Z86.16 Personal history of COVID-19; Z86.73 Personal history of transient ischemic attack (TIA), and cerebral infarction without residual deficits; Z71.3 Dietary counseling and surveillance; Z88.6 Allergy status to analgesic agent; Y83.8 Other surgical procedures as the cause of abnormal reaction of the patient, or of later complication, without mention of misadventure at the time of the procedure; Y92.234 Operating room of hospital as the place of occurrence of the external cause; Z88.1 Allergy status to other antibiotic agents; Z88.0 Allergy status to penicillin; Z88.2 Allergy status to sulfonamides; Z88.8 Allergy status to other drugs, medicaments and biological substances
CPT/HCPCS: 36410; 36415; 70450; 71045; 74018; 76700; 76937; 80048; 80053; 80076; 80164; 80175; 80235; 80306; 81001; 82140; 83690; 83735; 84132; 85025; 86850; 86900; 86901; 86920; 87086; 87635; 88304; 94640; 95816; 96361; 96374; 99285

== ENCOUNTER 2023-01-20 16:29 | Emergency (ER) | payer MEDICARE, OTHER ==
[2023-01-20 16:44] VITALS: TEMP 97.9
[2023-01-20] MEDS ORDERED: SODIUM CHLORIDE 0.9% 1,000 ML IV STA (17:59)
[2023-01-20] MEDS ORDERED: diphenhydrAMINE 50 MG/ML 1 ML VIAL IVP STA (17:59)
[2023-01-20] MEDS ORDERED: KETOROLAC 15 MG/ML 1 ML VIAL IVP STA (17:59)
[2023-01-20] MEDS ORDERED: ONDANSETRON 4 MG/2 ML VIAL IVP STA (17:59)
--- NOTE | 2023-01-20 18:05 | ED ---
General Adult HPI - General Chief complaint: Weakness Stated complaint: High Blood pressure Time Seen by Provider: 01/20/23 17:37 Source: patient Mode of arrival: ambulatory Limitations: no limitations - History of Present Illness Initial comments: Dictation was produced using [employer] dictation software. please excuse any grammatical, word or spelling errors. Chief Complaint: 57-year-old female presents emergency department for 2 weeks of headache, weakness and shaking History of Present Illness: Patient is 57-year-old female she has past medical history of seizure disorder. Patient recently had open cholecystectomy. Patient states since she was discharged from rehab facility 2-3 weeks ago she's been having headaches intermittently. She has a history of headaches. This headache however feels slightly different. Headaches frontal throbbing in nature. Not worse out today. She states that her headaches sometimes lasts as long. Similar paresthesias. She's had poor appetite. The ROS documented in this emergency department record has been reviewed and confirmed by me. Those systems with pertinent positive or negative responses have been documented in the HPI. All other systems are other negative and/or noncontributory. - Related Data Home Medications Medication Instructions Recorded Confirmed lamoTRIgine [LaMICtal] 200 mg PO BID 09/29/14 12/03/22 Montelukast [Singulair] 10 mg PO DAILY 07/26/20 12/03/22 Loratadine 10 mg PO DAILY 10/17/21 12/03/22 Aspirin EC [Ecotrin Low Dose] 81 mg PO DAILY 12/03/22 12/03/22 Potassium (Unknown Dose) 1 tab PO DAILY 12/03/22 12/03/22 Primidone [Mysoline] 50 mg PO HS 12/03/22 12/03/22 Tylenol (Unknown Dose) 1 tab PO Q6H PRN 12/03/22 12/03/22 Vitamin D3 (Unknown Dose) 1 cap PO DAILY 12/03/22 12/03/22 polyethylene glycoL 3350 [Miralax] 17 gm PO DAILY PRN 12/03/22 12/03/22 Previous Rx's Medication Instructions Recorded Acetaminophen Tab [Tylenol] 650 mg PO Q6HR PRN tab 12/12/22 Albuterol Nebulized [Ventolin 2.5 mg INHALATION RT-TID PRN ml 12/12/22 Nebulized] Budesonide [Pulmicort] 0.25 mg INHALATION BID #60 ml 12/12/22 Budesonide-Formot 160-4.5 Mcg 2 puff INHALATION BID #10.2 gm 12/12/22 [Symbicort 160-4.5 Mcg Inhaler] Docusate [Colace] 100 mg PO BID cap 12/12/22 Enoxaparin [Lovenox] 30 mg SQ DAILY each 12/12/22 Furosemide [Lasix] 20 mg PO DAILY 7 Days #7 tab 12/12/22 Ipratropium Nebulized [Atrovent 0.5 mg INHALATION RT-TID ml 12/12/22 Nebulized 0.2 MG/ML] Ipratropium Nebulized [Atrovent 0.5 mg INHALATION RT-TID PRN ml 12/12/22 Nebulized 0.2 MG/ML] Ondansetron Odt [Zofran ODT] 4 mg PO Q6H PRN #10 tab 12/12/22 Pantoprazole Sodium [Protonix] 40 mg PO BID #0 12/12/22 Prochlorperazine [Compazine] 5 mg PO Q8HR PRN tab 12/12/22 Sucralfate [Carafate] 1 gm PO ACHS #120 tab 12/12/22 cloNIDine 0.1 MG/24HR PATCH 1 patch TRANSDERM Q7D patch 12/12/22 [Catapres-TTS] Ertapenem [INVanz] 1 gm IVPB DAILY 5 Days #5 each 12/15/22 HYDROcodone/APAP 5-325MG [[place] 1 tab PO Q8H PRN 3 Days #6 tab 12/15/22 5-325] Lacosamide [Vimpat] 100 mg PO BID #6 tab 12/15/22 Potassium Chloride ER [K-Dur 20] 20 meq PO BID tab 12/15/22 Allergies Allergy/AdvReac Type Severity Reaction Status Date / Time amoxicillin Allergy Unknown Verified 01/20/23 16:39 cephalexin Allergy Unknown Verified 01/20/23 16:39 cetirizine Allergy Unknown Verified 01/20/23 16:39 erythromycin base Allergy Unknown Verified 01/20/23 16:39 escitalopram oxalate Allergy Unknown Verified 01/20/23 16:39 [From Lexapro] Penicillins Allergy Unknown Verified 01/20/23 16:39 Sulfa (Sulfonamide Allergy Unknown Verified 01/20/23 16:39 Antibiotics) naproxen [From Naprosyn] AdvReac dry, runny Verified 01/20/23 16:39 nose tamsulosin AdvReac dry, runny Verified 01/20/23 16:39 nose Review of Systems ROS Statement: Those systems with pertinent positive or pertinent negative responses have been documented in the HPI. ROS Other: All systems not noted in ROS Statement are negative. 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 COVID 10/16/21, History of Any Multi-Drug Resistant Organisms: None Reported Past Surgical History: Breast Surgery, Orthopedic Surgery Additional Past Surgical History / Comment(s): LITHOTRIPSY , BREAST BX X 1 -PT NOT SURE WHICH ONE, LT KNEE SURGERY Past Anesthesia/Blood Transfusion Reactions: No Reported Reaction Past Psychological History: No Psychological Hx Reported Smoking Status: Never smoker Past Alcohol Use History: None Reported Past Drug Use History: None Reported - Past Family History Father Additional Family Medical History / Comment(s): HEART PROBLEMS heart stint placed Mother Family Medical History: Diabetes Mellitus General Exam - General Exam Comments Initial Comments: PHYSICAL EXAM: General Impression: Alert and oriented x3, not in acute distress HEENT: Normocephalic atraumatic, extra-ocular movements intact, pupils equal and reactive to light bilaterally, mucous membranes moist. Cardiovascular: Heart regular rate and rhythm Chest: Able to complete full sentences, no retractions, no tachypnea Abdomen: abdomen soft, non-tender, non-distended, no organomegaly Musculoskeletal: Pulses present and equal in all extremities, no peripheral edema Motor: no focal deficits noted Neurological: CN II-XII grossly intact, no focal motor or sensory deficits noted Skin: Intact with no visualized rashes Psych: Normal affect and mood Limitations: no limitations Course Vital Signs 01/20/23 16:40 Temperature 97.9 F Pulse Rate 94 Respiratory 18 Rate Blood Pressure 124/73 O2 Sat by Pulse 96 Oximetry Medical Decision Making - Medical Decision Making Was pt. sent in by a medical professional or institution (, PA, BILLING AUDITOR, urgent care, hospital, or skilled nursing...) When possible be specific @ -No Did you speak to anyone other than the patient for history (EMS, parent, family, police, friend...)? What history was obtained from this source @ -some history obtained from custodial staff member states that patient has been having poor appetite and has been seemingly weak since being discharged from rehab facility Did you review nursing and triage notes (agree or disagree)? Why? @ -I reviewed and agree with nursing and triage notes Were old charts reviewed (outside hosp., previous admission, EMS record, old EKG, old radiological studies, urgent care reports/EKG's, skilled nursing records)? Report findings @ -Operative charts reviewed showing the patient had complicated laparoscopic cholecystectomy which is converted to open due to bleeding Differential Diagnosis (chest pain, altered mental status, abdominal pain women, abdominal pain men, vaginal bleeding, musculoskeletal, weakness, fever, dyspnea, syncope, headache, dizziness, GI bleed, back pain, seizure, CVA, palpatations, mental health)? @ -Differential Weakness: Hypoglycemia, shock, sepsis, hyponatremia, anemia, infection, LA, ETOH, adverse medicine reaction, overdose, stroke, this is not meant to be an all-inclusive list. EKG interpreted by me (3pts min.). @ -None done X-rays interpreted by me (1pt min.). @ -None done CT interpreted by me (1pt min.). @ -Computed tomography scan of the brain is unremarkable U/S interpreted by me (1pt. min.). @ -None done What testing was considered but not performed or refused? (CT, X-rays, U/S, labs)? Why? @ -None What meds were considered but not given or refused? Why? @ -None Did you discuss the management of the patient with other professionals (professionals i.e. , PA, BILLING AUDITOR, lab, RT, psych nurse, social media marketer, head of maintenance, teacher, marketing and communications officer, upper caser)? Give summary @ -No Was smoking cessation discussed for >3mins.? @ -No Was critical care preformed (if so, how long)? @ -No Were there social determinants of health that impacted care today? How? (Homele ssness, low income, unemployed, alcoholism, drug addiction, transportation, low edu. Level, literacy, decrease access to med. care, usp, rehab)? @ -No Was there de-escalation of care discussed even if they declined (Discuss DNR or withdrawal of care, Hospice)? DNR status @ -No What co-morbidities impacted this encounter? (DM, HTN, Smoking, COPD, CAD, Cancer, CVA, ARF, Chemo, Hep., AIDS, mental health diagnosis, sleep apnea, morbid obesity)? @ -None Was patient admitted / discharged? Hospital course, mention meds given and route, prescriptions, significant lab abnormalities, going to OR and other pertinent info. @ -57-year-old female presents emergency department with headache weakness. Vital signs upon arrival are within acceptable limits. Laboratory evaluation obtained. CBC metabolic panel is unremarkable. Computed tomography scan of brain was obtained due to headache. She does not have any high-risk features. CT is unremarkable. Patient reevaluated after administration headache cocktail with improvement. Patient discharged advised follow-up with primary care doctor. Undiagnosed new problem with uncertain prognosis? @ -No Drug Therapy requiring intensive monitoring for toxicity (Heparin, Nitro, Insulin, Cardizem)? @ -No Were any procedures done? @ -No Diagnosis/symptom? Acute, or Chronic, or Acute on Chronic? Uncomplicated (without systemic symptoms) or Complicated (systemic symptoms)? @ -1. Subacute weakness, no obvious source, no high-risk features Side effects of treatment? @ -No Exacerbation, Progression, or Severe Exacerbation? @ -No Poses a threat to life or bodily function? How? (Chest pain, USA, LA, pneumonia, PE, COPD, DKA, ARF, appy, cholecystitis, CVA, Diverticulitis, Homicidal, Suicidal, threat to staff... and all critical care pts) @ -No - Lab Data Result diagrams: 01/20/23 18:04 01/20/23 18:04 Lab Results 01/20/23 01/20/23 01/20/23 Range/Units 18:04 18:04 18:04 WBC 6.3 (3.8-10.6) k/uL RBC 4.17 (3.80-5.40) m/uL Hgb 12.7 D (11.4-16.0) gm/dL Hct 39.0 (34.0-46.0) % MCV 93.4 (80.0-100.0) fL MCH 30.5 (25.0-35.0) pg MCHC 32.7 (31.0-37.0) g/dL RDW 13.1 (11.5-15.5) % Plt Count 365 (150-450) k/uL MPV 7.6 Neutrophils % 49 % Lymphocytes % 39 % Monocytes % 9 % Eosinophils % 0 % Basophils % 0 % Neutrophils # 3.1 (1.3-7.7) k/uL Lymphocytes # 2.5 (1.0-4.8) k/uL Monocytes # 0.6 (0-1.0) k/uL Eosinophils # 0.0 (0-0.7) k/uL Basophils # 0.0 (0-0.2) k/uL Sodium 139 (137-145) mmol/L Potassium 4.9 (3.5-5.1) mmol/L Chloride 103 (98-107) mmol/L Carbon Dioxide 26 (22-30) mmol/L Anion Gap 10 mmol/L BUN 11 (7-17) mg/dL Creatinine 0.86 (0.52-1.04) mg/dL Est GFR (CKD-EPI)AfAm 86 (>60 ml/min/1.73 sqM) Est GFR (CKD-EPI)NonAf 75 (>60 ml/min/1.73 sqM) Glucose 99 (74-99) mg/dL Plasma Lactic Acid Ronal 0.9 (0.7-2.0) mmol/L Calcium 8.9 (8.4-10.2) mg/dL Magnesium 2.2 (1.6-2.3) mg/dL Total Bilirubin 0.6 (0.2-1.3) mg/dL AST 30 (14-36) U/L ALT 15 (4-34) U/L Alkaline Phosphatase 103 (38-126) U/L Total Protein 7.7 (6.3-8.2) g/dL Albumin 4.2 (3.5-5.0) g/dL Disposition Clinical Impression: Headache Disposition: HOME SELF-CARE Condition: Good Instructions (If sedation given, give patient instructions): Weakness (ED) Is patient prescribed a controlled substance at d/c from ED?: No Referrals: Marie Ye III, MD [Primary Care Provider] - 1-2 days Time of Disposition: 20:23
[2023-01-20 18:27] LABS: Basophils % (A) 0 %; Eosinophils % (A) 0 %; Lymphocytes # (A) 2.5 k/uL (1.0-4.8); Lymphocytes % (A) 39 %; MCH 30.5 pg (25.0-35.0); MCHC 32.7 g/dL (31.0-37.0); MCV 93.4 fL (80.0-100.0); Mean Platelet Volume 7.6; Monocytes # (A) 0.6 k/uL (0-1.0); Monocytes % (A) 9 %; Neutrophils # (A) 3.1 k/uL (1.3-7.7); Neutrophils % (A) 49 %; Platelet Count 365 k/uL (150-450); RBC 4.17 m/uL (3.80-5.40); RDW 13.1 % (11.5-15.5); WBC 6.3 k/uL (3.8-10.6)
--- NOTE | 2023-01-20 18:27 | CT ---
EXAMINATION TYPE: CT brain wo con DATE OF EXAM: 01/20/2023 HISTORY: headache x2 weeks CT DLP: 1117 mGycm. Automated Exposure Control for Dose Reduction was Utilized. TECHNIQUE: CT scan of the head is performed without contrast. COMPARISON: CT brain December 04, 2022. FINDINGS: There is no acute intracranial hemorrhage or midline shift identified. Ventricles and sul ci within normal limits in size for patient's age. Hayes-white matter differentiation is maintained. H yperostosis frontalis is redemonstrated. The globes are intact and the visualized sinuses are clear. IMPRESSION: No acute intracranial hemorrhage or midline shift.
[2023-01-20 18:33] LABS: HGB 12.7 gm/dL (11.4-16.0)
[2023-01-20 18:48] LABS: Albumin 4.2 g/dL (3.5-5.0); Calcium 8.9 mg/dL (8.4-10.2); Magnesium 2.2 mg/dL (1.6-2.3); Potassium 4.9 mmol/L (3.5-5.1); Total Bilirubin 0.6 mg/dL (0.2-1.3); Total Protein 7.7 g/dL (6.3-8.2)
[2023-01-20 21:44] VITALS: BP 122/94; PULSE 72; RESP 16
== END 2023-01-20 20:30 | disposition home or self-care (01) ==
LOC: EC 16:29
DX: R51.9 Headache, unspecified (principal); Z79.82 Long term (current) use of aspirin; Z79.899 Other long term (current) drug therapy; Z88.0 Allergy status to penicillin; Z88.1 Allergy status to other antibiotic agents; Z88.2 Allergy status to sulfonamides; Z88.6 Allergy status to analgesic agent; Z88.8 Allergy status to other drugs, medicaments and biological substances
CPT/HCPCS: 36415; 80053; 83605; 83735; 85025; 70450; 99285; 96374; 96375 ×2; 96361; J1200; J2405; J1885

== ENCOUNTER 2023-01-21 09:53 | Emergency (ER) | payer MEDICARE, OTHER ==
[2023-01-21] MEDS ORDERED: SODIUM CHLORIDE 0.9% 1,000 ML IV STA (10:40)
[2023-01-21 11:06] LABS: Basophils % (A) 0 %; Eosinophils % (A) 0 %; HCT 38.3 % (34.0-46.0); HGB 12.5 gm/dL (11.4-16.0); Lymphocytes % (A) 34 %; MCH 30.5 pg (25.0-35.0); MCHC 32.6 g/dL (31.0-37.0); MCV 93.5 fL (80.0-100.0); Mean Platelet Volume 7.8; Monocytes # (A) 0.4 k/uL (0-1.0); Monocytes % (A) 7 %; Neutrophils # (A) 3.2 k/uL (1.3-7.7); Neutrophils % (A) 56 %; Platelet Count 347 k/uL (150-450); RBC 4.09 m/uL (3.80-5.40); RDW 13.2 % (11.5-15.5); WBC 5.8 k/uL (3.8-10.6)
[2023-01-21 11:20] LABS: Albumin 3.9 g/dL (3.5-5.0); Calcium 8.7 mg/dL (8.4-10.2); Potassium 4.8 mmol/L (3.5-5.1); Total Bilirubin 0.3 mg/dL (0.2-1.3); Total Protein 7.1 g/dL (6.3-8.2)
[2023-01-21] MEDS ORDERED: METOCLOPRAMIDE 5 MG/ML 2 ML VIAL IVP STA (12:02)
[2023-01-21] MEDS ORDERED: diphenhydrAMINE 50 MG/ML 1 ML VIAL IVP STA (12:02)
[2023-01-21 12:13] LABS: Appearance,Urine Clear (Clear); Bacteria,Urine Rare /hpf; Bilirubin,Urine Negative (Negative); Blood,Urine Negative (Negative); Color,Urine Light Yellow; Glucose,Urine (UA) Negative (Negative); Ketones,Urine Negative (Negative); Leukocyte Esterase,Urine Trace (Negative); Nitrite,Urine Negative (Negative); Protein,Urine Negative (Negative); RBC,Urine <1 /hpf (0-5); Specific Gravity,Urine 1.012 (1.001-1.035); Squamous Epithelial Cell,Urine 1 /hpf (0-4); Urobilinogen,Urine <2.0 mg/dL (<2.0); WBC,Urine 3 /hpf (0-5)
--- NOTE | 2023-01-21 14:51 | CT ---
EXAMINATION TYPE: CT abdomen pelvis w con CT DLP: 1551.1 mGycm, Automated exposure control for dose reduction was used. DATE OF EXAM: 01/21/2023 2:40 PM COMPARISON: Abdominal ultrasound 12/05/2022, CT abdomen pelvis 02/18/2021. CLINICAL INDICATION:Female, 57 years old with history of nausea, vomiting, recent open lap oscar; N a nd V. recent open lap oscar. TECHNIQUE: Standard CT of the abdomen and pelvis following the administration of 100 cc of Isovue 3 00 IV contrast material. Coronal and sagittal reformats were performed. FINDINGS: LOWER CHEST: The visualized lungs are clear. Mild prominence of the heart. ABDOMEN LIVER: Subcentimeter hypodense focus within the inferior right hepatic lobe which is too small charac terize. GALLBLADDER AND BILE DUCTS: Post surgical changes from cholecystectomy with small amount of fluid in the gallbladder fossa. No gas identified within this. No enhancement. PANCREAS: Fatty infiltration. SPLEEN: Unremarkable. ADRENAL GLANDS: Unremarkable. KIDNEYS AND URETERS: No evidence of hydronephrosis or renal calculus. The knees enhance symmetrically without suspicious focal lesion. Contrast is demonstrated within both collecting systems on the jay yed phase. PELVIS BLADDER: Under distended, limiting evaluation. REPRODUCTIVE: Unremarkable. ABDOMEN & PELVIS STOMACH AND BOWEL: Stomach and duodenum are unremarkable. No focal bowel wall thickening or surroundi ng inflammatory changes. The appendix is within normal limits. No evidence of bowel obstruction. PERITONEUM: No evidence of pneumoperitoneum. Small amount of fluid in the gallbladder fossa. Trace pe rihepatic free fluid. VASCULATURE: No evidence of aortic aneurysm. MUSCULOSKELETAL: No acute osseous abnormalities LYMPH NODES: No gross evidence for lymphadenopathy. SOFT TISSUE/ABDOMINAL WALL: Postsurgical changes of the anterior abdominal wall with fat stranding id entified. No significant organized fluid collection. IMPRESSION: Postsurgical changes from open cholecystectomy with small amount of fluid identified within the gallb ladder fossa. No rim enhancement or foci gas to definitively suggest abscess.
[2023-01-21] MEDS ORDERED: METOCLOPRAMIDE 10 MG TAB PO STA (15:47)
--- NOTE | 2023-01-21 15:50 | ED ---
General Adult HPI - General Chief complaint: Nausea/Vomiting/Diarrhea Stated complaint: nausea Time Seen by Provider: 01/21/23 10:31 Source: patient, EMS Mode of arrival: EMS Limitations: no limitations - History of Present Illness Initial comments: 57-year-old female past history of seizure disorder who presents to the emergency department reporting nausea. Patient has had this issue for several weeks. She did have gallbladder removal in December because of the issue. Candy Puller states that the patient continues to have episodes of nausea and vomiting. For the past 2 weeks the patient has been unable to hold down any food. EMS provided patient with formal grams of Zofran. Arrives and continues to be nauseated. She admits to and also stomach but denies any overt pain. No fevers. No changes in her bowel or bladder habits. No other alleviating, precipitating or modifying factors - Related Data Home Medications Medication Instructions Recorded Confirmed lamoTRIgine [LaMICtal] 200 mg PO BID@0800,209909/29/14 01/21/23 Montelukast [Singulair] 10 mg PO DAILY@0800 07/26/20 01/21/23 Loratadine 10 mg PO DAILY@0800 10/17/21 01/21/23 Aspirin EC [Ecotrin Low Dose] 81 mg PO DAILY@0800 12/03/22 01/21/23 Primidone [Mysoline] 50 mg PO BID@0800,209912/03/22 01/21/23 polyethylene glycoL 3350 [Miralax] 17 gm PO DAILY PRN 12/03/22 01/21/23 Acetaminophen Tab [Tylenol] 325 mg PO Q4H PRN 01/20/23 01/21/23 Cholecalciferol [Vitamin D3 (25 25 mcg PO DAILY@0800 01/20/23 01/21/23 Mcg = 1000 Iu)] Divalproex Sodium 250 mg PO BID@0800,209901/20/23 01/21/23 Pantoprazole Sodium [Protonix] 40 mg PO BID@0800,209901/20/23 01/21/23 Potassium Chloride ER [K-Dur 20] 20 meq PO DAILY@0800 01/20/23 01/21/23 lamoTRIgine [LaMICtal] 50 mg PO BID@0800,209901/20/23 01/21/23 Lacosamide [Vimpat] 100 mg PO BID@0800,2100 01/21/23 01/21/23 Ondansetron [Zofran] 4 mg PO Q6H PRN 01/21/23 01/21/23 Previous Rx's Medication Instructions Recorded Sucralfate [Carafate] 1 gm PO ACHS #120 tab 12/12/22 Metoclopramide [Reglan] 10 mg PO TID PRN #30 tab 01/21/23 Allergies Allergy/AdvReac Type Severity Reaction Status Date / Time amoxicillin Allergy Unknown Verified 01/21/23 11:54 cephalexin Allergy Unknown Verified 01/21/23 11:54 cetirizine Allergy Unknown Verified 01/21/23 11:54 erythromycin base Allergy Unknown Verified 01/21/23 11:54 escitalopram oxalate Allergy Unknown Verified 01/21/23 11:54 [From Lexapro] Penicillins Allergy Unknown Verified 01/21/23 11:54 Sulfa (Sulfonamide Allergy Unknown Verified 01/21/23 11:54 Antibiotics) naproxen [From Naprosyn] AdvReac dry, runny Verified 01/21/23 11:54 nose tamsulosin AdvReac dry, runny Verified 01/21/23 11:54 nose Review of Systems ROS Statement: Those systems with pertinent positive or pertinent negative responses have been documented in the HPI. ROS Other: All systems not noted in ROS Statement are negative. 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 COVID 10/16/21, History of Any Multi-Drug Resistant Organisms: None Reported Past Surgical History: Breast Surgery, Orthopedic Surgery Additional Past Surgical History / Comment(s): LITHOTRIPSY , BREAST BX X 1 -PT NOT SURE WHICH ONE, LT KNEE SURGERY Past Anesthesia/Blood Transfusion Reactions: No Reported Reaction Past Psychological History: No Psychological Hx Reported Smoking Status: Never smoker Past Alcohol Use History: None Reported Past Drug Use History: None Reported - Past Family History Father Additional Family Medical History / Comment(s): HEART PROBLEMS heart stint placed Mother Family Medical History: Diabetes Mellitus General Exam Limitations: no limitations General appearance: alert, in no apparent distress Head exam: Present: atraumatic, normocephalic, normal inspection Eye exam: Present: normal appearance, PERRL, EOMI. Absent: scleral icterus, conjunctival injection, periorbital swelling ENT exam: Present: normal exam, mucous membranes moist Neck exam: Present: normal inspection. Absent: tenderness, meningismus, lymphadenopathy Respiratory exam: Present: normal lung sounds bilaterally. Absent: respiratory distress, wheezes, rales, rhonchi, stridor Cardiovascular Exam: Present: regular rate, normal rhythm, normal heart sounds. Absent: systolic murmur, diastolic murmur, rubs, gallop, clicks GI/Abdominal exam: Present: soft, tenderness (generalized), normal bowel sounds. Absent: distended, guarding, rebound, rigid Extremities exam: Present: normal inspection, full ROM, normal capillary refill. Absent: tenderness, pedal edema, joint swelling, calf tenderness Back exam: Present: normal inspection Neurological exam: Present: alert, oriented X3, CN II-XII intact Psychiatric exam: Present: normal affect, normal mood Skin exam: Present: warm, dry, intact, normal color. Absent: rash Course Vital Signs 01/21/23 01/21/23 01/21/23 09:59 11:00 12:00 Temperature 98.2 F Pulse Rate 76 77 73 Respiratory 20 20 20 Rate Blood Pressure 120/85 145/72 157/72 O2 Sat by Pulse 100 98 98 Oximetry 01/21/23 01/21/23 01/21/23 13:00 14:00 16:00 Temperature 98.7 F Pulse Rate 70 67 70 Respiratory 20 21 19 Rate Blood Pressure 154/69 146/79 137/69 O2 Sat by Pulse 99 100 99 Oximetry EKG Findings - EKG Comments: EKG Findings:: EKG interpreted by myself demonstrates sinus rhythm with a rate of 77. WA interval 169. QRS 97. QTC of 437. No acute ST segment elevations or depressions Medical Decision Making - Medical Decision Making Was pt. sent in by a medical professional or institution (, PA, OIL WELL LOGGER, urgent care, hospital, or alf...) When possible be specific @ -[facility] Did you speak to anyone other than the patient for history (EMS, parent, family, police, friend...)? 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 Why? @ -I reviewed and agree with nursing and triage notes Were old charts reviewed (outside hosp., previous admission, EMS record, old EKG, old radiological studies, urgent care reports/EKG's, alf records)? Report findings @ -No Differential Diagnosis (chest pain, altered mental status, abdominal pain women, abdominal pain men, vaginal bleeding, weakness, fever, dyspnea, syncope, headache, dizziness, GI bleed, back pain, seizure, CVA, palpatations, mental health, musculoskeletal)? @ -gastroenteritis, influenza, covid, pancreatitis, gastritis, gastric ulcer, vertigo EKG interpreted by me (3pts min.). @ -Interpreted by me - see EKG box X-rays interpreted by me (1pt min.). @ -Not done CT interpreted by me (1pt min.). @ -yes - no acute findings U/S interpreted by me (1pt. min.). @ -None done What testing was considered but not performed or refused? (CT, X-rays, U/S, labs)? Why? @ -None What meds were considered but not given or refused? Why? @ -None Did you discuss the management of the patient with other professionals (professionals i.e. , PA, OIL WELL LOGGER, lab, RT, psych nurse, social media designer, station operator, teacher, chairman & chief executive officer, counseling case manager)? Give summary @ -No Was smoking cessation discussed for >3mins.? @ -No Was critical care preformed (if so, how long)? @ -No Were there social determinants of health that impacted care today? How? (Homelessness, low income, unemployed, alcoholism, drug addiction, transportation, low edu. Level, literacy, decrease access to med. care, correction, rehab)? @ -intellectual disability - patient has hard time discussing medical history and symptoms Was there de-escalation of care discussed even if they declined (Discuss DNR or withdrawal of care, Hospice)? DNR status @ -No What co-morbidities impacted this encounter? (DM, HTN, Smoking, COPD, CAD, Cancer, CVA, ARF, Chemo, Hep., AIDS, mental health diagnosis, sleep apnea, morbid obesity)? @ -None Was patient admitted / discharged? Hospital course, mention meds given and route, prescriptions, significant lab abnormalities, going to OR and other pertinent info. @ -Upon arrival patient was placed into room 2. Thorough history of physical exam is performed. IV access was established laboratory studies are conducted. Patient was given Reglan and Benadryl for nausea. CT is performed as the patient is recently postop. Imaging and labs are unremarkable. Patient feels improved with Reglan. Did discuss treatment options with the patient and her caregiver. Patient home at this time. Given a prescription for Reglan. Instructed that they need to follow-up with GI for further evaluation of her chronic nausea and return for any new or worsening symptoms. Patient agreeable to treatment plan was discharged in stable condition Undiagnosed new problem with uncertain prognosis? @ -yes Drug Therapy requiring intensive monitoring for toxicity (Heparin, Nitro, Insulin, Cardizem)? @ -No Were any procedures done? @ -No Diagnosis/symptom? @ -acute nausea and vomiting Acute, or Chronic, or Acute on Chronic? @ -acute Uncomplicated (without systemic symptoms) or Complicated (systemic symptoms)? @ -complicated Side effects of treatment? @ -No Exacerbation, Progression, or Severe Exacerbation? @ -No Poses a threat to life or bodily function? How? (Chest pain, [place], [place], pneumonia, PE, COPD, DKA, ARF, appy, cholecystitis, CVA, Diverticulitis, Homicidal, Suicidal, threat to staff... and all critical care pts) @ -No - Lab Data Result diagrams: 01/21/23 10:50 01/21/23 10:50 Lab Results 01/21/23 01/21/23 01/21/23 Range/Units 10:50 10:50 10:50 WBC 5.8 (3.8-10.6) k/uL RBC 4.09 (3.80-5.40) m/uL Hgb 12.5 (11.4-16.0) gm/dL Hct 38.3 (34.0-46.0) % MCV 93.5 (80.0-100.0) fL MCH 30.5 (25.0-35.0) pg MCHC 32.6 (31.0-37.0) g/dL RDW 13.2 (11.5-15.5) % Plt Count 347 (150-450) k/uL MPV 7.8 Neutrophils % 56 % Lymphocytes % 34 % Monocytes % 7 % Eosinophils % 0 % Basophils % 0 % Neutrophils # 3.2 (1.3-7.7) k/uL Lymphocytes # 2.0 (1.0-4.8) k/uL Monocytes # 0.4 (0-1.0) k/uL Eosinophils # 0.0 (0-0.7) k/uL Basophils # 0.0 (0-0.2) k/uL Sodium 140 (137-145) mmol/L Potassium 4.8 (3.5-5.1) mmol/L Chloride 108 H (98-107) mmol/L Carbon Dioxide 25 (22-30) mmol/L Anion Gap 7 mmol/L BUN 12 (7-17) mg/dL Creatinine 0.86 (0.52-1.04) mg/dL Est GFR (CKD-EPI)AfAm 86 (>60 ml/min/1.73 sqM) Est GFR (CKD-EPI)NonAf 75 (>60 ml/min/1.73 sqM) Glucose 106 H (74-99) mg/dL Plasma Lactic Acid Ronal (0.7-2.0) mmol/L Calcium 8.7 (8.4-10.2) mg/dL Total Bilirubin 0.3 (0.2-1.3) mg/dL AST 17 (14-36) U/L ALT 13 (4-34) U/L Alkaline Phosphatase 143 H (38-126) U/L Total Protein 7.1 (6.3-8.2) g/dL Albumin 3.9 (3.5-5.0) g/dL Lipase 61 (23-300) U/L Urine Color Light Yellow Urine Appearance Clear (Clear) Urine pH 7.0 (5.0-8.0) Ur Specific Revere 1.012 (1.001-1.035) Urine Protein Negative (Negative) Urine Glucose (UA) Negative (Negative) Urine Ketones Negative (Negative) Urine Blood Negative (Negative) Urine Nitrite Negative (Negative) Urine Bilirubin Negative (Negative) Urine Urobilinogen <2.0 (<2.0) mg/dL Ur Leukocyte Esterase Trace H (Negative) Urine RBC <1 (0-5) /hpf Urine WBC 3 (0-5) /hpf Ur Squamous Epith Cells 1 (0-4) /hpf Urine Bacteria Rare H (None) /hpf 05/17/23 Range/Units 10:50 WBC (3.8-10.6) k/uL RBC (3.80-5.40) m/uL Hgb (11.4-16.0) gm/dL Hct (34.0-46.0) % MCV (80.0-100.0) fL MCH (25.0-35.0) pg MCHC (31.0-37.0) g/dL RDW (11.5-15.5) % Plt Count (150-450) k/uL MPV Neutrophils % % Lymphocytes % % Monocytes % % Eosinophils % % Basophils % % Neutrophils # (1.3-7.7) k/uL Lymphocytes # (1.0-4.8) k/uL Monocytes # (0-1.0) k/uL Eosinophils # (0-0.7) k/uL Basophils # (0-0.2) k/uL Sodium (137-145) mmol/L Potassium (3.5-5.1) mmol/L Chloride (98-107) mmol/L Carbon Dioxide (22-30) mmol/L Anion Gap mmol/L BUN (7-17) mg/dL Creatinine (0.52-1.04) mg/dL Est GFR (CKD-EPI)AfAm (>60 ml/min/1.73 sqM) Est GFR (CKD-EPI)NonAf (>60 ml/min/1.73 sqM) Glucose (74-99) mg/dL Plasma Lactic Acid Ronal 1.0 (0.7-2.0) mmol/L Calcium (8.4-10.2) mg/dL Total Bilirubin (0.2-1.3) mg/dL AST (14-36) U/L ALT (4-34) U/L Alkaline Phosphatase (38-126) U/L Total Protein (6.3-8.2) g/dL Albumin (3.5-5.0) g/dL Lipase (23-300) U/L Urine Color Urine Appearance (Clear) Urine pH (5.0-8.0) Ur Specific Re[place] (1.001-1.035) Urine Protein (Negative) Urine Glucose (UA) (Negative) Urine Ketones (Negative) Urine Blood (Negative) Urine Nitrite (Negative) Urine Bilirubin (Negative) Urine Urobilinogen (<2.0) mg/dL Ur Leukocyte Esterase (Negative) Urine RBC (0-5) /hpf Urine WBC (0-5) /hpf Ur Squamous Epith Cells (0-4) /hpf Urine Bacteria (None) /hpf Disposition Clinical Impression: Nausea and vomiting Disposition: HOME SELF-CARE Condition: Stable Instructions (If sedation given, give patient instructions): Acute Nausea and Vomiting (ED) Additional Instructions: Attempt the Reglan every 8 hours as needed for nausea. Follow up with GI for the continued vomiting and return for any new or worsening symptoms Prescriptions: Metoclopramide [Reglan] 10 mg PO TID PRN #30 tab PRN Reason: Nausea Is patient prescribed a controlled substance at d/c from ED?: No Referrals: Marie Ye III, MD [Primary Care Provider] - 1-2 days Teri Daniel MD [STAFF PHYSICIAN] - 1-2 days Giovanny Joseph DO [REFERRING] - 1-2 days Time of Disposition: 15:50
[2023-01-21 16:44] VITALS: BP 137/69; PULSE 70; RESP 19; TEMP 98.7
== END 2023-01-21 16:32 | disposition home or self-care (01) ==
LOC: EC 09:53
DX: R11.2 Nausea with vomiting, unspecified (principal); K21.9 Gastro-esophageal reflux disease without esophagitis; Z79.899 Other long term (current) drug therapy; Z79.82 Long term (current) use of aspirin; Z88.0 Allergy status to penicillin; Z88.2 Allergy status to sulfonamides; Z88.6 Allergy status to analgesic agent; Z88.1 Allergy status to other antibiotic agents; Z88.8 Allergy status to other drugs, medicaments and biological substances
CPT/HCPCS: 36415; 93005; 80053; 83605; 83690; 85025; 81001; 74177; 99284; 96374; 96375; 96361; J1200; J2765; Q9967

== ENCOUNTER → 2023-03-11 | Outpatient (CLI) | payer MEDICARE, OTHER ==
--- NOTE | 2023-03-11 12:37 | NM ---
EXAMINATION TYPE: NM gastric emptying static DATE OF EXAM: 03/11/2023 COMPARISON: NONE CLINICAL INDICATION: Female, 57 years old with history of R10.13; Following administration of 2.2 mCi Tc 99m Sulfur Colloid with 4 ounces eggs, 2 pieces of toast w/but ter & jelly and 6 ounces of water, projection images of the abdomen were obtained 10 minutes post ing estion. Patient Emptying Values 1 Hour 15 % 2 Hours 37 % 3 Hours 70 % 4 Hours 94 % Gastroesophagel reflux: None IMPRESSION: Gastric emptying: Within normal limits Gastroesophageal reflux: None Gastric emptying normal percentage values: 30 minutes: <70% of retention (> 30% emptying) suggests abnormally fast emptying. 60 minutes: <90% retention (>10% emptying) is normal; less than 30% retention (>70% emptying) suggest s abnormally rapid empying. 90 minutes: <65% retention (> 35% emptying) is normal. 120 minutes: <60% retention (> 40% emptying) is normal. 180 minutes: <30% retention (> 70% emptying) is normal. Gastric emptying T-1/2: Solid: The normal range is 60-105 minutes Liquid only: Normal range is 10-45 minutes. Liquid only-children: At 60 minutes, normal range is 44-58 % . Liquid only-infants: At 60 minutes, normal range is 32-64 %. Additional references: Gastric Emptying Scintigraphy [email or web address]://[email or web address]
== END | disposition home or self-care (01) ==
LOC: RADNMMAIN 02-23 06:45
PROVIDERS: ATTEND Internal Medicine Gastroenterology
DX: R10.13 Epigastric pain (principal)
CPT/HCPCS: 78264; A9541

== ENCOUNTER 2023-08-26 22:31 | Observation (INO) | payer MEDICARE, OTHER ==
--- NOTE | 2023-08-26 23:51 | ED ---
Fall HPI - General Chief Complaint: Fall Stated Complaint: Fall Time Seen by Provider: 08/26/23 22:54 Source: EMS Mode of arrival: EMS - History of Present Illness Initial Comments: 57-year-old female presenting for evaluation post fall. Patient reports that she has been sick recently, she admits to cough congestion and body aches and fatigue. States that today she was coughing when she fell to the ground. She was unable to get herself up and had to crawl on the ground. She states that she did hit her head. No loss of consciousness or blood thinners. No other inj uries. She admits to shortness of breath which has been ongoing. No chest pain. No nausea vomiting abdominal pain or diarrhea. - Related Data Home Medications Medication Instructions Recorded Confirmed lamoTRIgine [LaMICtal] 200 mg PO BID@0800,209909/29/14 01/21/23 Montelukast [Singulair] 10 mg PO DAILY@0800 07/26/20 01/21/23 Loratadine 10 mg PO DAILY@0800 10/17/21 01/21/23 Aspirin EC [Ecotrin Low Dose] 81 mg PO DAILY@0800 12/03/22 01/21/23 Primidone [Mysoline] 50 mg PO BID@0800,209912/03/22 01/21/23 polyethylene glycoL 3350 [Miralax] 17 gm PO DAILY PRN 12/03/22 01/21/23 Acetaminophen Tab [Tylenol] 325 mg PO Q4H PRN 01/20/23 01/21/23 Cholecalciferol [Vitamin D3 (25 25 mcg PO DAILY@0800 01/20/23 01/21/23 Mcg = 1000 Iu)] Divalproex Sodium 250 mg PO BID@0800,209901/20/23 01/21/23 Pantoprazole Sodium [Protonix] 40 mg PO BID@0800,209901/20/23 01/21/23 Potassium Chloride ER [K-Dur 20] 20 meq PO DAILY@0800 01/20/23 01/21/23 lamoTRIgine [LaMICtal] 50 mg PO BID@0800,209901/20/23 01/21/23 Lacosamide [Vimpat] 100 mg PO BID@0800,209901/21/23 01/21/23 Ondansetron [Zofran] 4 mg PO Q6H PRN 01/21/23 01/21/23 Previous Rx's Medication Instructions Recorded Sucralfate [Carafate] 1 gm PO ACHS #120 tab 12/12/22 Metoclopramide [Reglan] 10 mg PO TID PRN #30 tab 01/21/23 Allergies Allergy/AdvReac Type Severity Reaction Status Date / Time amoxicillin Allergy Unknown Verified 08/26/23 22:36 cephalexin Allergy Unknown Verified 08/26/23 22:36 cetirizine Allergy Unknown Verified 08/26/23 22:36 erythromycin base Allergy Unknown Verified 08/26/23 22:36 escitalopram oxalate Allergy Unknown Verified 08/26/23 22:36 [From Lexapro] Penicillins Allergy Unknown Verified 08/26/23 22:36 Sulfa (Sulfonamide Allergy Unknown Verified 08/26/23 22:36 Antibiotics) naproxen [From Naprosyn] AdvReac dry, runny Verified 08/26/23 22:36 nose tamsulosin AdvReac dry, runny Verified 08/26/23 22:36 nose Review of Systems ROS Statement: Those systems with pertinent positive or pertinent negative responses have been documented in the HPI. ROS Other: All systems not noted in ROS Statement are negative. 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 COVID 10/16/21, History of Any Multi-Drug Resistant Organisms: None Reported Past Surgical History: Breast Surgery, Orthopedic Surgery Additional Past Surgical History / Comment(s): LITHOTRIPSY , BREAST BX X 1 -PT N OT SURE WHICH ONE, LT KNEE SURGERY Past Anesthesia/Blood Transfusion Reactions: No Reported Reaction Past Psychological History: No Psychological Hx Reported Smoking Status: Never smoker Past Alcohol Use History: None Reported Past Drug Use History: None Reported - Past Family History Father Additional Family Medical History / Comment(s): HEART PROBLEMS heart stint placed Mother Family Medical History: Diabetes Mellitus General Exam Limitations: no limitations General appearance: alert, in no apparent distress Head exam: Present: atraumatic, normocephalic, normal inspection Eye exam: Present: normal appearance Neck exam: Present: normal inspection Respiratory exam: Present: wheezes. Absent: respiratory distress, rales, rhonchi, stridor Cardiovascular Exam: Present: regular rate, normal rhythm, normal heart sounds. Absent: systolic murmur, diastolic murmur, rubs, gallop, clicks Neurological exam: Present: alert, oriented X3 Expanded Speech: Present: fluid speech Eye Response: (4) open spontaneously Motor Response: (6) obeys commands Verbal Response: (5) oriented [place] Total: 15 Psychiatric exam: Present: normal affect, normal mood Skin exam: Present: warm, dry Course Vital Signs 08/26/23 08/27/23 08/27/23 22:32 00:37 00:46 Temperature 99.7 F H Pulse Rate 95 67 88 Respiratory 20 18 Rate Blood Pressure 110/80 113/50 O2 Sat by Pulse 100 98 Oximetry 08/27/23 00:55 Temperature Pulse Rate 88 Respiratory Rate Blood Pressure O2 Sat by Pulse Oximetry Medical Decision Making - Medical Decision Making Was pt. sent in by a medical professional or institution (Dr. PA, STRESS ENGINEER, urgent care, hospital, or jail...) When possible be specific @ -No Did you speak to anyone other than the patient for history (EMS, parent, family, police, friend...)? What history was obtained from this source @ -No Did you review nursing and triage notes (agree or disagree)? Why? @ -I reviewed and agree with nursing and triage notes Were old charts reviewed (outside hosp., previous admission, EMS record, old EKG , old radiological studies, urgent care reports/EKG's, jail records)? Report findings @ -No old charts were reviewed Differential Diagnosis (chest pain, altered mental status, abdominal pain women, abdominal pain men, vaginal bleeding, weakness, fever, dyspnea, syncope, headache, dizziness, GI bleed, back pain, seizure, CVA, palpatations, mental health, musculoskeletal)? @ -MDM Differential Weakness: Hypoglycemia, shock, sepsis, hyponatremia, anemia, infection, CT, ETOH, adverse medicine reaction, overdose, stroke. ... This is not meant to be an all- inclusive list EKG interpreted by me (3pts min.). @ -As above X-rays interpreted by me (1pt min.). @ -Chest x-ray shows no acute process CT interpreted by me (1pt min.). @ -CT shows no acute intracranial process or cervical spine fracture U/S interpreted by me (1pt. min.). @ -None done What testing was considered but not performed or refused? (CT, X-rays, U/S, labs)? Why? @ -None What meds were considered but not given or refused? Why? @ -None Did you discuss the management of the patient with other professionals (professionals i.e. , PA, STRESS ENGINEER, lab, RT, psych nurse, social research assistant, incoming freight clerk, teacher, engineering officer, egg caser)? Give summary @ -I spoke with Dr. garrido who accepted admission Was smoking cessation discussed for >3mins.? @ -No Was critical care preformed (if so, how long)? @ -No Were there social determinants of health that impacted care today? How? (Homelessness, low income, unemployed, alcoholism, drug addiction, transportation, low edu. Level, literacy, decrease access to med. care, intermediate, rehab)? @ -No Was there de-escalation of care discussed even if they declined (Discuss DNR or withdrawal of care, Hospice)? DNR status @ -No What co-morbidities impacted this encounter? (DM, HTN, Smoking, COPD, CAD, Cance r, CVA, ARF, Chemo, Hep., AIDS, mental health diagnosis, sleep apnea, morbid obesity)? @ -None Was patient admitted / discharged? Hospital course, mention meds given and route, prescriptions, significant lab abnormalities, going to OR and other pertinent info. @ -57-year-old female presenting for evaluation post fall. She admits to generalized weakness, cough, shortness of breath. History and physical exam were conducted. Expiratory wheezes are heard on auscultation. Negative CT of the brain and cervical spine and negative chest x-ray. Laboratory shows no leukocytosis or anemia. Patient appears dehydrated with BUN 22 and creatinine 1.17. She is positive for Covid 19. She is given DuoNeb, Solu-Medrol, and Tylenol. Given the patient's generalized weakness she'll be admitted. Patient is agreeable with this plan. I discussed this case with my attending Dr. Escobedo Undiagnosed new problem with uncertain prognosis? @ -No Drug Therapy requiring intensive monitoring for toxicity (Heparin, Nitro, Insulin, Cardizem)? @ -No Were any procedures done? @ -No Diagnosis/symptom? @ -Generalized weakness Acute, or Chronic, or Acute on Chronic? @ -Acute Uncomplicated (without systemic symptoms) or Complicated (systemic symptoms)? @ -Complicated Side effects of treatment? @ -No Exacerbation, Progression, or Severe Exacerbation? @ -No Poses a threat to life or bodily function? How? (Chest pain, USA, CT, pneumonia, PE, COPD, DKA, ARF, appy, cholecystitis, CVA, Diverticulitis, Homicidal, Suicidal, threat to staff... and all critical care pts) @ -yes Diagnosis/symptom? @Dehydration Acute, or Chronic, or Acute on Chronic? @Acute Uncomplicated (without systemic symptoms) or Complicated (systemic symptoms)? @Complicated Side effects of treatment? @ none Exacerbation, Progression, or Severe Exacerbation] @ no Poses a threat to life or bodily function? @ yes - Lab Data Result diagrams: 08/27/23 00:56 08/27/23 00:56 Lab Results 08/27/23 08/27/23 08/27/23 Range/Units 00:10 00:56 00:56 WBC 9.8 (3.8-10.6) k/uL RBC 4.24 (3.80-5.40) m/uL Hgb 13.4 (11.4-16.0) gm/dL Hct 39.5 (34.0-46.0) % MCV 93.0 (80.0-100.0) fL MCH 31.6 (25.0-35.0) pg MCHC 33.9 (31.0-37.0) g/dL RDW 12.6 (11.5-15.5) % Plt Count 220 (150-450) k/uL MPV 8.4 Neutrophils % 54 % Lymphocytes % 35 % Monocytes % 8 % Eosinophils % 0 % Basophils % 0 % Neutrophils # 5.3 (1.3-7.7) k/uL Lymphocytes # 3.4 (1.0-4.8) k/uL Monocytes # 0.7 (0-1.0) k/uL Eosinophils # 0.0 (0-0.7) k/uL Basophils # 0.0 (0-0.2) k/uL Sodium 137 (137-145) mmol/L Potassium 4.0 (3.5-5.1) mmol/L Chloride 104 (98-107) mmol/L Carbon Dioxide 18 L (22-30) mmol/L Anion Gap 15 mmol/L BUN 22 H (7-17) mg/dL Creatinine 1.17 H (0.52-1.04) mg/dL Est GFR (CKD-EPI)AfAm 59 (>60 ml/min/1.73 sqM) Est GFR (CKD-EPI)NonAf 51 (>60 ml/min/1.73 sqM) Glucose 96 (74-99) mg/dL Calcium 9.0 (8.4-10.2) mg/dL Total Bilirubin 0.5 (0.2-1.3) mg/dL AST 29 (14-36) U/L ALT 18 (4-34) U/L Alkaline Phosphatase 120 (38-126) U/L Total Protein 7.7 (6.3-8.2) g/dL Albumin 4.1 (3.5-5.0) g/dL Urine Color Urine Appearance (Clear) Urine pH (5.0-8.0) Ur Specific [place] (1.001-1.035) Urine Protein (Negative) Urine Glucose (UA) (Negative) Urine Ketones (Negative) Urine Blood (Negative) Urine Nitrite (Negative) Urine Bilirubin (Negative) Urine Urobilinogen (<2.0) mg/dL Ur Leukocyte Esterase (Negative) Urine RBC (0-5) /hpf Urine WBC (0-5) /hpf Ur Squamous Epith Cells (0-4) /hpf Urine Bacteria (None) /hpf Hyaline Casts (0-2) /lpf Urine Mucus (None) /hpf Influenza Type A (PCR) Not Detected (Not Detectd) Influenza Type B (PCR) Not Detected (Not Detectd) RSV (PCR) Not Detected (Not Detectd) SARS-CoV-2 (PCR) Detected A (Not Detectd) 08/27/23 Range/Units 02:03 WBC (3.8-10.6) k/uL RBC (3.80-5.40) m/uL Hgb (11.4-16.0) gm/dL Hct (34.0-46.0) % MCV (80.0-100.0) fL MCH (25.0-35.0) pg MCHC (31.0-37.0) g/dL RDW (11.5-15.5) % Plt Count (150-450) k/uL MPV Neutrophils % % Lymphocytes % % Monocytes % % Eosinophils % % Basophils % % Neutrophils # (1.3-7.7) k/uL Lymphocytes # (1.0-4.8) k/uL Monocytes # (0-1.0) k/uL Eosinophils # (0-0.7) k/uL Basophils # (0-0.2) k/uL Sodium (137-145) mmol/L Potassium (3.5-5.1) mmol/L Chloride (98-107) mmol/L Carbon Dioxide (22-30) mmol/L Anion Gap mmol/L BUN (7-17) mg/dL Creatinine (0.52-1.04) mg/dL Est GFR (CKD-EPI)AfAm (>60 ml/min/1.73 sqM) Est GFR (CKD-EPI)NonAf (>60 ml/min/1.73 sqM) Glucose (74-99) mg/dL Calcium (8.4-10.2) mg/dL Total Bilirubin (0.2-1.3) mg/dL AST (14-36) U/L ALT (4-34) U/L Alkaline Phosphatase (38-126) U/L Total Protein (6.3-8.2) g/dL Albumin (3.5-5.0) g/dL Urine Color Yellow Urine Appearance Clear (Clear) Urine pH 5.5 (5.0-8.0) Ur Specific [place] >1.030 (1.001-1.035) Urine Protein 1+ H (Negative) Urine Glucose (UA) Negative (Negative) Urine Ketones 1+ H (Negative) Urine Blood Negative (Negative) Urine Nitrite Negative (Negative) Urine Bilirubin Negative (Negative) Urine Urobilinogen <2.0 (<2.0) mg/dL Ur Leukocyte Esterase Moderate (Negative) Urine RBC 1 (0-5) /hpf Urine WBC 14 H (0-5) /hpf Ur Squamous Epith Cells 5 H (0-4) /hpf Urine Bacteria Rare H (None) /hpf Hyaline Casts 11 H (0-2) /lpf Urine Mucus Many H (None) /hpf Influenza Type A (PCR) (Not Detectd) Influenza Type B (PCR) (Not Detectd) RSV (PCR) (Not Detectd) SARS-CoV-2 (PCR) (Not Detectd) Disposition Clinical Impression: Generalized weakness, Dehydration, COVID-19 Disposition: ADMITTED IP TO THIS HOSP Condition: Fair
[2023-08-26] MEDS ORDERED: IPRATROPIUM-ALBUTEROL 3 ML NEB INHALATION STA (23:53)
[2023-08-26] MEDS ORDERED: methylPREDNISolone SOD SUCCI 125 MG/2 ML VIAL IV STA (23:53)
--- NOTE | 2023-08-27 00:39 | XR ---
EXAM: XR Chest, 2 Views CLINICAL HISTORY: ITS.REASON XR Reason: fall TECHNIQUE: Frontal and lateral views of the chest. COMPARISON: No relevant prior studies available. FINDINGS: Lungs: Unremarkable. No consolidation. Pleural space: Unremarkable. No pneumothorax. Heart: Unremarkable. No cardiomegaly. Mediastinum: Unremarkable. Normal mediastinal contour. Bones/joints: Unremarkable. No acute fracture. IMPRESSION: No focal infiltrate.
--- NOTE | 2023-08-27 00:48 | CT ---
EXAM: CT Head Without Intravenous Contrast CLINICAL HISTORY: ITS.REASON CT Reason: fall TECHNIQUE: Axial computed tomography images of the head/brain without intravenous contrast. CTDI is 45.3 mGy and DLP is 1017 mGy-cm. This CT exam was performed using one or more of the following dose reduction techniques: automated exposure control, adjustment of the mA and/or kV according to patient size, and/or use of iterative reconstruction technique. COMPARISON: No relevant prior studies available. FINDINGS: No acute intracranial hemorrhage. No midline shift or mass effect. The territorial morocho-white matter differentiation is maintained throughout. The ventricles and sulci are commensurate with age. The visualized orbits appear grossly unremarkable. The calvarium is intact. The visualized paranasal sinuses and mastoid air cells are grossly clear. IMPRESSION: No acute intracranial hemorrhage, midline shift, or mass effect. EXAM: CT Cervical Spine Without Intravenous Contrast CLINICAL HISTORY: ITS.REASON CT Reason: fall TECHNIQUE: Axial computed tomography images of the cervical spine without intravenous contrast. CTDI is 16.8 mGy and DLP is 461.5 mGy-cm. This CT exam was performed using one or more of the following dose reduction techniques: automated exposure control, adjustment of the mA and/or kV according to patient size, and/or use of iterative reconstruction technique. COMPARISON: No relevant prior studies available. FINDINGS: The vertebral body heights are maintained. The craniocervical junction is intact. The atlanto-dens interval is maintained. The dens is intact. There is no spondylolisthesis. The intervertebral disc spaces are preserved. There is no spinal canal or neural foraminal stenosis. The unenhanced neck soft tissues are grossly unremarkable. The visualized lung apices are grossly clear. IMPRESSION: No acute fracture or subluxation of the cervical spine.
[2023-08-27] MEDS ORDERED: ACETAMINOPHEN TAB 325 MG TAB PO STA (00:51)
[2023-08-27 01:10] LABS: Basophils % (A) 0 %; Eosinophils % (A) 0 %; HCT 39.5 % (34.0-46.0); HGB 13.4 gm/dL (11.4-16.0); Lymphocytes # (A) 3.4 k/uL (1.0-4.8); Lymphocytes % (A) 35 %; MCH 31.6 pg (25.0-35.0); MCHC 33.9 g/dL (31.0-37.0); Mean Platelet Volume 8.4; Monocytes # (A) 0.7 k/uL (0-1.0); Monocytes % (A) 8 %; Neutrophils # (A) 5.3 k/uL (1.3-7.7); Neutrophils % (A) 54 %; Platelet Count 220 k/uL (150-450); RBC 4.24 m/uL (3.80-5.40); RDW 12.6 % (11.5-15.5); WBC 9.8 k/uL (3.8-10.6)
[2023-08-27 01:21] LABS: ALT 18 U/L (4-34); AST 29 U/L (14-36); African American GFR (CKD) 59 (>60 ml/min/1.73 sqM); Albumin 4.1 g/dL (3.5-5.0); Alkaline Phosphatase 120 U/L (38-126); Anion Gap 15 mmol/L; Blood Urea Nitrogen 22 mg/dL (7-17); Carbon Dioxide 18 mmol/L (22-30); Chloride 104 mmol/L (98-107); Glucose 96 mg/dL (74-99); Non-African American GFR(CKD) 51 (>60 ml/min/1.73 sqM); Sodium 137 mmol/L (137-145); Total Bilirubin 0.5 mg/dL (0.2-1.3); Total Protein 7.7 g/dL (6.3-8.2)
[2023-08-27] MEDS ORDERED: SODIUM CHLORIDE 0.9% 1,000 ML IV ONE (01:33)
[2023-08-27] MEDS ORDERED: ACETAMINOPHEN TAB 325 MG TAB PO PRN ×2 (01:54→08:59)
[2023-08-27] MEDS ORDERED: NALOXONE 0.4 MG/ML 1 ML VIAL IV PRN (01:54)
[2023-08-27] MEDS ORDERED: IBUPROFEN 400 MG TAB PO PRN (01:54)
[2023-08-27] MEDS ORDERED: IPRATROPIUM-ALBUTEROL 3 ML NEB INHALATION PRN (01:57)
[2023-08-27 02:40] LABS: Appearance,Urine Clear (Clear); Color,Urine Yellow; PH, Urine 5.5 (5.0-8.0); Specific Gravity,Urine >1.030 (1.001-1.035)
[2023-08-27 02:41] LABS: Bilirubin,Urine Negative (Negative); Blood,Urine Negative (Negative); Glucose,Urine (UA) Negative (Negative); Ketones,Urine 1+ (Negative); Leukocyte Esterase,Urine Moderate (Negative); Nitrite,Urine Negative (Negative); Protein,Urine 1+ (Negative); Urobilinogen,Urine <2.0 mg/dL (<2.0)
[2023-08-27 02:45] LABS: Bacteria,Urine Rare /hpf; Hyaline Casts,Urine 11 /lpf (0-2); Mucus,Urine Many /hpf; RBC,Urine 1 /hpf (0-5); Squamous Epithelial Cell,Urine 5 /hpf (0-4); WBC,Urine 14 /hpf (0-5)
[2023-08-27] MEDS: SODIUM CHLORIDE 0.9% 1,000 ML IV SCH ×2 (03:23→13:49)
[2023-08-27] MEDS ORDERED: dexAMETHasone 2 MG TAB PO STA (03:43)
--- NOTE | 2023-08-27 03:44 | P.HPIM ---
History of Present Illness H&P Date: 08/27/23 Patient is a 57-year-old female with a PMH of seizure disorder and GERD who presents to the emergency room with complaints of URI like symptoms with a nonproductive cough, myalgias, sore throat, and generalized weakness. Patient notes that her bowel symptoms have gradually been worsening over the past 3 days at that earlier today she was coughing, she fell to the ground and that it was difficult for her to stand back up due to her weakness. She also notes mild shortness of breath. Denies experiencing loss of consciousness or head trauma. Does also report subjective fever and chills. Also denied experiencing chest discomfort, shortness of breath, nausea, vomiting. Head/cervical spine CT in the emergency room was unremarkable with a chest x-ray also unremarkable. Laboratory evaluation revealed BUN of 22, creatinine 1.17, contaminated UA, and COVID PCR positive. The patient's SpO2 in the emergency room was 91% on room air. ED documentation reviewed and case discussed with ED provider. Review of systems: Pertinent positives and negatives as discussed in HPI, a complete review of systems was performed and all other systems are negative. Physical examination: Vital signs reviewed General: non toxic, no distress, appears at stated age, obese Derm: no unusual rashes/lesions, warm Head: atraumatic, normocephalic, symmetric Eyes: EOMI, no lid lag, anicteric sclera, pupils equal round reactive to light ENT: Nose and ears atraumatic Neck: No cervical lymphadenopathy, trachea midline, supple Mouth: no lip lesion, mucus membranes moist Cardiovascular: S1S2 reg, no murmur, positive dorsalis pedis pulse bilateral, no edema Lungs: Scattered coarse breath sounds without wheezing, no accessory muscle use Abdominal: soft, nontender to palpation, no guarding Ext: muscle strength 5 out of 5 in all 4 extremities grossly, no gross muscle atrophy, no contractures, Neuro: CN II-XI grossly intact, no gross focal neuro deficits Psych: Alert, oriented, appropriate affect Assessment: COVID-19 pneumonitis with acute hypoxic respiratory failure BEAR, likely secondary to above Chronic conditions: Seizure disorder, GERD Imaging: Head/cervical spine CT in the emergency room was unremarkable with a chest x-ray also unremarkable. Data Review: Laboratory evaluation revealed BUN of 22, creatinine 1.17, contaminated UA, and COVID PCR positive. The patient's SpO2 in the emergency room was 91% on room air. Plan: Continue supplemental oxygen Start patient on Decadron Cardiac monitoring Patient denied history of COPD and has never smoked Continue with IV fluids normal saline 95 mL per hour and monitor BMP Continue with patient's home medications once reconciled DVT prophylaxis: Lovenox subcu The patient is admitted with an anticipated greater than 2 midnight stay for evaluation of COVID peumonitis CODE STATUS: Full Code Discussed with: Patient Anticipated discharge place: Home Past Medical History Past Medical History: GERD/Reflux, Seizure Disorder Additional Past Medical History / Comment(s): HX NUMEROUS KIDNEY STONES- HX EPILEPSY (unsure of last seizure) -HAS PUBLIC GUARDIAN, STATES BRUISES EASILY, POOR HISTORIAN., STATES CARPAL TUNNEL IN HANDS AND ELBOWS. COVID 10/16/21, History of Any Multi-Drug Resistant Organisms: None Reported Past Surgical History: Breast Surgery, Orthopedic Surgery Additional Past Surgical History / Comment(s): LITHOTRIPSY , BREAST BX X 1 -PT NOT SURE WHICH ONE, LT KNEE SURGERY Past Anesthesia/Blood Transfusion Reactions: No Reported Reaction Past Psychological History: No Psychological Hx Reported Smoking Status: Never smoker Past Alcohol Use History: None Reported Past Drug Use History: None Reported - Past Family History Father Additional Family Medical History / Comment(s): HEART PROBLEMS heart stint placed Mother Family Medical History: Diabetes Mellitus Medications and Allergies Home Medications Medication Instructions Recorded Confirmed Type lamoTRIgine [LaMICtal] 200 mg PO BID@0800,2100 09/29/14 01/21/23 History Montelukast [Singulair] 10 mg PO DAILY@0800 07/26/20 01/21/23 History Loratadine 10 mg PO DAILY@0800 10/17/21 01/21/23 History Aspirin EC [Ecotrin Low Dose] 81 mg PO DAILY@0800 12/03/22 01/21/23 History Primidone [Mysoline] 50 mg PO BID@0800,2100 12/03/22 01/21/23 History polyethylene glycoL 3350 [Miralax] 17 gm PO DAILY PRN 12/03/22 01/21/23 History Sucralfate [Carafate] 1 gm PO ACHS #120 tab 12/12/22 01/21/23 Rx Acetaminophen Tab [Tylenol] 325 mg PO Q4H PRN 01/20/23 01/21/23 History Cholecalciferol [Vitamin D3 (25 25 mcg PO DAILY@0800 01/20/23 01/21/23 History Mcg = 1000 Iu)] Divalproex Sodium 250 mg PO BID@0800,209901/20/23 01/21/23 History Pantoprazole Sodium [Protonix] 40 mg PO BID@0800,209901/20/23 01/21/23 History Potassium Chloride ER [K-Dur 20] 20 meq PO DAILY@0800 01/20/23 01/21/23 History lamoTRIgine [LaMICtal] 50 mg PO BID@0800,209901/20/23 01/21/23 History Lacosamide [Vimpat] 100 mg PO BID@0800,209901/21/23 01/21/23 History Metoclopramide [Reglan] 10 mg PO TID PRN #30 tab 01/21/23 Rx Ondansetron [Zofran] 4 mg PO Q6H PRN 01/21/23 01/21/23 History Allergies Allergy/AdvReac Type Severity Reaction Status Date / Time amoxicillin Allergy Unknown Verified 08/26/23 22:36 cephalexin Allergy Unknown Verified 08/26/23 22:36 cetirizine Allergy Unknown Verified 08/26/23 22:36 erythromycin base Allergy Unknown Verified 08/26/23 22:36 escitalopram oxalate Allergy Unknown Verified 08/26/23 22:36 [From Lexapro] Penicillins Allergy Unknown Verified 08/26/23 22:36 Sulfa (Sulfonamide Allergy Unknown Verified 08/26/23 22:36 Antibiotics) naproxen [From Naprosyn] AdvReac dry, runny Verified 08/26/23 22:36 nose tamsulosin AdvReac dry, runny Verified 08/26/23 22:36 nose Physical Exam Vitals: Vital Signs Temp Pulse Resp BP Pulse Ox 08/27/23 00:55 88 08/27/23 00:46 88 08/27/23 00:37 67 18 113/50 98 08/26/23 22:32 99.7 F H 95 20 110/80 100 Intake and Output 08/26/23 08/26/23 08/27/23 14:59 22:59 06:59 Other: Weight 95.254 kg Results CBC & Chem 7: 08/27/23 00:56 08/27/23 00:56 Labs: Abnormal Lab Results - Last 24 Hours (Table) 08/27/23 08/27/23 08/27/23 Range/Units 00:10 00:56 02:03 Carbon Dioxide 18 L (22-30) mmol/L BUN 22 H (7-17) mg/dL Creatinine 1.17 H (0.52-1.04) mg/dL Urine Protein 1+ H (Negative) Urine Ketones 1+ H (Negative) Urine WBC 14 H (0-5) /hpf Ur Squamous Epith Cells 5 H (0-4) /hpf Urine Bacteria Rare H (None) /hpf Hyaline Casts 11 H (0-2) /lpf Urine Mucus Many H (None) /hpf SARS-CoV-2 (PCR) Detected A (Not Detectd)
[2023-08-27] MEDS ORDERED: ALBUTEROL HFA INHALER INHALATION PRN ×2 (08:32→08:33)
[2023-08-27] MEDS ORDERED: METOCLOPRAMIDE 10 MG TAB PO PRN (08:59)
[2023-08-27] MEDS ORDERED: ONDANSETRON ODT 4 MG TAB PO PRN (08:59)
[2023-08-27] MEDS ORDERED: FAMOTIDINE 20 MG TAB PO PRN (08:59)
[2023-08-27] MEDS ORDERED: polyethylene glycoL 3350 17 GM POWD.PACK PO PRN (08:59)
[2023-08-27] MEDS ORDERED: ENOXAPARIN 40 MG/0.4 ML SYRINGE SQ SCH (09:00)
[2023-08-27] MEDS ORDERED: dexAMETHasone 2 MG TAB PO SCH (09:00)
[2023-08-27] MEDS ORDERED: PROMETHAZINE 25 MG TAB PO SCH (12:00)
[2023-08-27 14:17] VITALS: BP 116/69; PULSE 69; RESP 17; TEMP 98
--- NOTE | 2023-08-27 17:06 | P.DS ---
Providers Date of admission: 08/27/23 02:52 Expected date of discharge: 08/27/23 Attending physician: Javi Boone MD Primary care physician: [facility] Course: COVID-19 pneumonitis with acute hypoxic respiratory failure BEAR, likely secondary to above Chronic conditions: Seizure disorder, GERD Hospital Course: Patient is a 57-year-old female with a PMH of seizure disorder and GERD who presents to the emergency room with complaints of URI like symptoms with a nonproductive cough, myalgias, sore throat, and generalized weakness. Head/cervical spine CT in the emergency room was unremarkable with a chest x-ray also unremarkable. Laboratory evaluation revealed BUN of 22, creatinine 1.17, contaminated UA, and COVID PCR positive. The patient's SpO2 in the emergency room was 91% on room air. Pt recovered to baseline quicklly and was saturating 96% on room air by time of discharge. She was given dexamethasone for an additional 7 days on discharge and returned to her correction. I spent 35 minutes coordinating this discharge on 08/27 Gen: awake, alert HEENT: normocephalic, atraumatic, good hearing acuity, moist mucous membranes Resp: good air exchange, breathing comfortably with no accessory muscle use CVS: good distal perfusion x 4, GI: soft, NTTP, ND : no SPT, no CVAT, romero catheter not present MSK: no pitting edema, no clubbing Neuro: non-focal, moving all extremities Psych: cooperative, euthymic mood Patient Condition at Discharge: Good Plan - Discharge Summary Discharge Rx Participant: Yes New Discharge Prescriptions: New dexAMETHasone ORAL [Hexadrol] 6 mg PO DAILY 7 Days #21 tab Albuterol Inhaler [Ventolin Hfa Inhaler] 2 puff INHALATION RT-QID PRN each PRN Reason: Shortness Of Breath Or Wheezing Continue lamoTRIgine [LaMICtal] 200 mg PO BID@0700,1900 Montelukast [Singulair] 10 mg PO DAILY@0700 Loratadine 10 mg PO DAILY@0700 Primidone [Mysoline] 50 mg PO BID@0700,1900 Cholecalciferol [Vitamin D3 (25 Mcg = 1000 Iu)] 25 mcg PO DAILY@0700 Pantoprazole Sodium [Protonix] 40 mg PO BID@0700,1900 Lacosamide [Vimpat] 100 mg PO BID@0700,1900 Promethazine [Phenergan] 12.5 mg PO AC-TID@ Rosuvastatin [Crestor] 10 mg PO DAILY@0700 Famotidine [Pepcid] 20 mg PO BID PRN PRN Reason: Gi Upset Doxycycline Hyclate 100 mg PO BID@0700,1900 polyethylene glycoL 3350 [Miralax] 17 gm PO DAILY PRN PRN Reason: Constipation Aspirin EC [Ecotrin Low Dose] 81 mg PO DAILY@0700 Acetaminophen Tab [Tylenol] 325 mg PO Q4H PRN PRN Reason: Fever And/ Or Pain Metoclopramide [Reglan] 10 mg PO TID PRN #30 tab PRN Reason: Nausea Ondansetron Odt [Zofran ODT] 4 mg PO Q8HR PRN PRN Reason: Nausea And Vomiting Discharge Medication List lamoTRIgine [LaMICtal] 200 mg PO BID@0700,1900 09/29/14 [History] Montelukast [Singulair] 10 mg PO DAILY@0700 07/26/20 [History] Loratadine 10 mg PO DAILY@0700 10/17/21 [History] Aspirin EC [Ecotrin Low Dose] 81 mg PO DAILY@0700 12/03/22 [History] Primidone [Mysoline] 50 mg PO BID@0700,189912/03/22 [History] polyethylene glycoL 3350 [Miralax] 17 gm PO DAILY PRN 12/03/22 [History] Acetaminophen Tab [Tylenol] 325 mg PO Q4H PRN 01/20/23 [History] Cholecalciferol [Vitamin D3 (25 Mcg = 1000 Iu)] 25 mcg PO DAILY@0701/20/23 [History] Pantoprazole Sodium [Protonix] 40 mg PO BID@0700,189901/20/23 [History] Lacosamide [Vimpat] 100 mg PO BID@0700,189901/21/23 [History] Metoclopramide [Reglan] 10 mg PO TID PRN #30 tab 01/21/23 [Rx] Albuterol Inhaler [Ventolin Hfa Inhaler] 2 puff INHALATION RT-QID PRN each 08/27/23 [Rx] Doxycycline Hyclate 100 mg PO BID@0700,1900 08/27/23 [History] Famotidine [Pepcid] 20 mg PO BID PRN 08/27/23 [History] Ondansetron Odt [Zofran ODT] 4 mg PO Q8HR PRN 08/27/23 [History] Promethazine [Phenergan] 12.5 mg PO AC-TID@07,12,17 08/27/23 [History] Rosuvastatin [Crestor] 10 mg PO DAILY@0700 08/27/23 [History] dexAMETHasone ORAL [Hexadrol] 6 mg PO DAILY 7 Days #21 tab 08/27/23 [Rx] Follow up Appointment(s)/Referral(s): [facility] [Primary Care Provider] - 1-2 days Patient Instructions/Handouts: Coronavirus Disease 2019 (COVID-19), Droplet Precautions (ED) Discharge Disposition: DC/TRNS INTERMEDIATE CARE FAC
[2023-08-27] MEDS ORDERED: LACOSAMIDE 50 MG TABLET PO SCH (19:00)
[2023-08-27] MEDS ORDERED: lamoTRIgine 100 MG TAB PO SCH (19:00)
[2023-08-27] MEDS ORDERED: PRIMIDONE 50 MG TAB PO SCH (19:00)
[2023-08-27] MEDS ORDERED: PANTOPRAZOLE 40 MG TABLET PO SCH (19:00)
[2023-08-28] MEDS ORDERED: CHOLECALCIFEROL 25 MCG (1000 IU) TABLET PO SCH (07:00)
[2023-08-28] MEDS ORDERED: LORATADINE 10 MG TAB PO SCH (07:00)
[2023-08-28] MEDS ORDERED: ATORVASTATIN 20 MG TAB PO SCH (07:00)
[2023-08-28] MEDS ORDERED: ASPIRIN 81 MG PO SCH (07:00)
[2023-08-28] MEDS ORDERED: MONTELUKAST 10 MG TAB PO SCH (07:00)
== END 2023-08-27 15:14 ==
LOC: EC 22:31 → 6NMEDSUR 08-27 02:52
PROVIDERS: ADMIT Internal Medicine; ATTEND Internal Medicine
DX: U07.1 COVID-19 (principal); J12.82 Pneumonia due to coronavirus disease 2019; N17.9 Acute kidney failure, unspecified; J96.01 Acute respiratory failure with hypoxia; E86.0 Dehydration; J44.0 Chronic obstructive pulmonary disease with (acute) lower respiratory infection; K21.9 Gastro-esophageal reflux disease without esophagitis; G40.909 Epilepsy, unspecified, not intractable, without status epilepticus; W19.XXXA Unspecified fall, initial encounter; Z79.899 Other long term (current) drug therapy; Z79.82 Long term (current) use of aspirin; Z88.0 Allergy status to penicillin; Z88.1 Allergy status to other antibiotic agents; Z88.2 Allergy status to sulfonamides; Z88.8 Allergy status to other drugs, medicaments and biological substances; Z87.442 Personal history of urinary calculi; Z83.3 Family history of diabetes mellitus
CPT/HCPCS: 96372; 96374; 99285; 36415; 94640; 80053; 85025; 81001; 87086; 87077; 87186; 87636; 71046; 72125; 70450; G0378; J2930; J1650; J8540

== ENCOUNTER 2024-01-31 23:08 | Observation (INO) | payer MEDICARE, OTHER ==
[2024-01-31 23:37] LABS: Basophils # (A) 0.1 k/uL (0-0.2); Basophils % (A) 1 %; Eosinophils # (A) 0.1 k/uL (0-0.7); Eosinophils % (A) 1 %; HCT 43.8 % (34.0-46.0); HGB 14.6 gm/dL (11.4-16.0); Lymphocytes # (A) 4.7 k/uL (1.0-4.8); Lymphocytes % (A) 45 %; MCH 31.1 pg (25.0-35.0); MCHC 33.2 g/dL (31.0-37.0); MCV 93.7 fL (80.0-100.0); Mean Platelet Volume 8.2; Monocytes # (A) 0.6 k/uL (0-1.0); Monocytes % (A) 5 %; Neutrophils % (A) 47 %; Platelet Count 288 k/uL (150-450); RBC 4.68 m/uL (3.80-5.40); RDW 12.5 % (11.5-15.5); WBC 10.6 k/uL (3.8-10.6)
[2024-01-31 23:47] LABS: ALT 16 U/L (4-34); AST 19 U/L (14-36); African American GFR (CKD) 79 (>60 ml/min/1.73 sqM); Albumin 3.7 g/dL (3.5-5.0); Alkaline Phosphatase 187 U/L (38-126); Anion Gap 7 mmol/L; Blood Urea Nitrogen 27 mg/dL (7-17); Calcium 8.7 mg/dL (8.4-10.2); Carbon Dioxide 25 mmol/L (22-30); Chloride 105 mmol/L (98-107); Glucose 102 mg/dL (74-99); Non-African American GFR(CKD) 69 (>60 ml/min/1.73 sqM); Potassium 4.2 mmol/L (3.5-5.1); Sodium 137 mmol/L (137-145); Total Bilirubin 0.6 mg/dL (0.2-1.3); Total Protein 7.4 g/dL (6.3-8.2)
--- NOTE | 2024-02-01 00:04 | ED ---
Abdominal Pain HPI - General Source: patient Mode of arrival: EMS Limitations: no limitations <Nicola West - Last Filed: 02/01/24 00:04> - General Source: patient, RN notes reviewed, old records reviewed <Aquiles Marte - Last Filed: 02/01/24 04:43> - General Chief Complaint: Abdominal Pain Stated Complaint: Abd pain Time Seen by Provider: 02/01/24 00:00 - History of Present Illness Initial Comments: Quicknote 58-year-old female presented to the ED with complaints of abdominal pain onset 5 days ago. Pain affects her entire abdomen. Reports onset of nausea and vomiting upon arrival to the ED today. Reports over the past few days has had smaller than usual bowel movements. No blood in the stool. Denies urinary symptoms. (Nicola West) Patient is a 58-year-old female originally seen as a quick note. Presents emergency department complaining of diffuse abdominal pain. Has been ongoing for a total of 5 days, but worse over the last 12 hours or so. Endorses nausea and 1 episode of nonbilious nonbloody emesis. Denies any constipation or significant diarrhea. No urinary symptoms. No chest pain or shortness of breath. No cardiac history. Past medical history includes GERD, reflux as well as seizure disorder. Presents for further evaluation at this time. (Aquiles Marte) - Related Data Home Medications Medication Instructions Recorded Confirmed lamoTRIgine [LaMICtal] 200 mg PO BID@0700,1900 09/29/14 08/27/23 Montelukast [Singulair] 10 mg PO DAILY@0700 07/26/20 08/27/23 Loratadine 10 mg PO DAILY@0700 10/17/21 08/27/23 Aspirin EC [Ecotrin Low Dose] 81 mg PO DAILY@0700 12/03/22 08/27/23 Primidone [Mysoline] 50 mg PO BID@0700,1900 12/03/22 08/27/23 polyethylene glycoL 3350 [Miralax] 17 gm PO DAILY PRN 12/03/22 08/27/23 Acetaminophen Tab [Tylenol] 325 mg PO Q4H PRN 01/20/23 08/27/23 Cholecalciferol [Vitamin D3 (25 25 mcg PO DAILY@0700 01/20/23 08/27/23 Mcg = 1000 Iu)] Pantoprazole Sodium [Protonix] 40 mg PO BID@0700,1900 01/20/23 08/27/23 Lacosamide [Vimpat] 100 mg PO BID@0700,1900 01/21/23 08/27/23 Doxycycline Hyclate 100 mg PO BID@0700,1900 08/27/23 08/27/23 Famotidine [Pepcid] 20 mg PO BID PRN 08/27/23 08/27/23 Ondansetron Odt [Zofran ODT] 4 mg PO Q8HR PRN 08/27/23 08/27/23 Promethazine [Phenergan] 12.5 mg PO AC-TID@07,,08/27/23 08/27/23 Rosuvastatin [Crestor] 10 mg PO DAILY@0700 08/27/23 08/27/23 Previous Rx's Medication Instructions Recorded Metoclopramide [Reglan] 10 mg PO TID PRN #30 tab 01/21/23 Albuterol Inhaler [Ventolin Hfa 2 puff INHALATION RT-QID PRN each 08/27/23 Inhaler] dexAMETHasone ORAL [Hexadrol] 6 mg PO DAILY 7 Days #21 tab 08/27/23 Allergies Allergy/AdvReac Type Severity Reaction Status Date / Time amoxicillin Allergy Unknown Verified 01/31/24 23:12 cephalexin Allergy Unknown Verified 01/31/24 23:12 cetirizine Allergy Unknown Verified 01/31/24 23:12 erythromycin base Allergy Unknown Verified 01/31/24 23:12 escitalopram oxalate Allergy Unknown Verified 01/31/24 23:12 [From Lexapro] Penicillins Allergy Unknown Verified 01/31/24 23:12 Sulfa (Sulfonamide Allergy Unknown Verified 01/31/24 23:12 Antibiotics) naproxen [From Naprosyn] AdvReac dry, runny Verified 01/31/24 23:12 nose tamsulosin AdvReac dry, runny Verified 01/31/24 23:12 nose Review of Systems ROS Other: All systems not noted in ROS Statement are negative. <Nicola West - Last Filed: 02/01/24 00:04> ROS Other: All systems not noted in ROS Statement are negative. <Aquiles Marte - Last Filed: 02/01/24 04:43> ROS Statement: Those systems with pertinent positive or pertinent negative responses have been documented in the HPI. Review of Systems: CONST: Denies fever EYES: Denies blurry vision ENT: Denies nasal congestion C/V: Denies Chest pain RESP: Denies shortness of breath GI: Endorses abdominal pain : Denies dysuria SKIN: Denies rash. MSK: Denies joint pain. 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 COVID 10/16/21, History of Any Multi-Drug Resistant Organisms: None Reported Past Surgical History: Breast Surgery, Orthopedic Surgery Additional Past Surgical History / Comment(s): LITHOTRIPSY , BREAST BX X 1 -PT NOT SURE WHICH ONE, LT KNEE SURGERY Past Anesthesia/Blood Transfusion Reactions: No Reported Reaction Past Psychological History: No Psychological Hx Reported Smoking Status: Never smoker Past Alcohol Use History: None Reported Past Drug Use History: None Reported - Past Family History Father Additional Family Medical History / Comment(s): HEART PROBLEMS heart stint placed Mother Family Medical History: Diabetes Mellitus <Nicola West - Last Filed: 02/01/24 00:04> General Exam Limitations: no limitations <Nicola West - Last Filed: 02/01/24 00:04> <Aquiles Marte - Last Filed: 02/01/24 04:43> - General Exam Comments Initial Comments: Visual Physical Exam Vital signs reviewed General: nontoxic, no acute distress. Head: Normocephalic, atraumatic Eyes: PERRLA, EOMI ENT: Airway patent Chest: Nonlabored breathing Skin: No visual rash, normal skin tone Neuro: Alert and oriented 3 Musculoskeletal: No gross abnormalities (Nicloa West) General: Peers to moderate distress secondary to abdominal discomfort. HEAD: Normal with no signs of head trauma. EYES: PERRLA, EOMI, conjunctiva normal, no discharge. ENT: Hearing grossly intact, normal oropharynx. RESPIRATORY: Clear breath sounds bilaterally. No wheezes, rales, or rhonchi. C/V: Regular rate and rhythm. S1 and S2 auscultated, no edema, peripheral pulses 2+ and intact throughout ABD: Abdomen is soft, nondistended. Tender to palpation somewhat diffusely. Primarily periumbilically. No guarding. No rebound tenderness. No peritoneal signs. EXT: Normal range of motion, no obvious deformity SKIN: No rashes or lesions observed on exposed skin. NEURO: Alert and oriented x 4. (Aquiles Marte) Course Vital Signs 01/31/24 02/01/24 02/01/24 23:09 01:42 02:51 Temperature 98.3 F Pulse Rate 91 84 81 Respiratory 18 18 17 Rate Blood Pressure 117/79 138/78 133/72 O2 Sat by Pulse 96 99 100 Oximetry Medical Decision Making - Lab Data Result diagrams: 01/31/24 23:24 01/31/24 23:24 <Nicola West - Last Filed: 02/01/24 00:04> - Lab Data Result diagrams: 01/31/24 23:24 01/31/24 23:24 - EKG Data -: EKG Interpreted by Me <Aquiles Marte - Last Filed: 02/01/24 04:43> - Medical Decision Making Quicknote portion performed. Signed Nicola West PA-C (Nicola West) Was pt. sent in by a medical professional or institution (ELIDA Saenz, HOSPICE AIDE, urgent care, hospital, or halfway...) When possible be specific @ -No Did you speak to anyone other than the patient for history (EMS, parent, family, police, friend...)? What history was obtained from this source @ -No Did you review nursing and triage notes (agree or disagree)? Why? @ -I reviewed and agree with nursing and triage notes Were old charts reviewed (outside hosp., previous admission, EMS record, old EKG, old radiological studies, urgent care reports/EKG's, halfway records)? Report findings @ -No old charts were reviewed Differential Diagnosis (chest pain, altered mental status, abdominal pain women, abdominal pain men, vaginal bleeding, weakness, fever, dyspnea, syncope, headache, dizziness, GI bleed, back pain, seizure, CVA, palpatations, mental health, musculoskeletal)? @ -Differential Abdominal Pain Women: Appendicitis, Cholecystitis, diverticulosis, ischemic bowel, pancreatitis, hepatitis, UTI, gastroenteritis, AAA, incarcerated hernia, bowel obstruction, constipation, inflammatory bowel, hepatitis, peptic ulcer disease, splenic infarction, perforated viscus, vulvitis, ovarian torsion, PID, kidney stone, placenta abruption, this is not meant to be an all-inclusive list EKG interpreted by me (3pts min.). @ -As above X-rays interpreted by me (1pt min.). @ -None done CT interpreted by me (1pt min.). @ -CT abdomen pelvis reveals no obvious acute intra-abdominal process to explain the patient's symptoms. U/S interpreted by me (1pt. min.). @ -None done What testing was considered but not performed or refused? (CT, X-rays, U/S, labs)? Why? @ -None What meds were considered but not given or refused? Why? @ -None Did you discuss the management of the patient with other professionals (professionals i.e. , PA, HOSPICE AIDE, lab, RT, psych nurse, social insurance specialist, insurance analyst, teacher, sheriffs officer, caser shoe parts)? Give summary @ -Discussed with admitting team, Dr. Gonzalez of [facility] who accepted the admission. Was smoking cessation discussed for >3mins.? @ -No Was critical care preformed (if so, how long)? @ -No Were there social determinants of health that impacted care today? How? (Homelessness, low income, unemployed, alcoholism, drug addiction, transportation, low edu. Level, literacy, decrease access to med. care, retirement, rehab)? @ -No Was there de-escalation of care discussed even if they declined (Discuss DNR or withdrawal of care, Hospice)? DNR status @ -No What co-morbidities impacted this encounter? (DM, HTN, Smoking, COPD, CAD, Cancer, CVA, ARF, Chemo, Hep., AIDS, mental health diagnosis, sleep apnea, mor bid obesity)? @ -None Was patient admitted / discharged? Hospital course, mention meds given and ro biju, prescriptions, significant lab abnormalities, going to OR and other pertinent info. @ -Patient presents with abdominal pain. She has a history of cholecystectomy. Workup started as a quick note. Abdominal pain seems somewhat diffuse and seems to be primarily focused at this time periumbilically. We will obtain abdominal labs as well as CT imaging. Patient in agreement this plan. She will receive IV analgesia medication, fluid, nausea meds. Vital signs within acceptable limits. Labs are all within acceptable limits. Urinalysis is a contaminated catch. CT imaging shows no findings of acute intra-abdominal process to explain the patient's symptoms. EKG shows no signs of acute ischemia. Troponin undetectable. At this time, patient is still complaining of pain. States there is no improvement despite IV opiate medications. Due to the intractable abdominal pain requiring multiple doses of IV medications I did offer observation admission which she did accept. Surgery will be consulted. Patient was in agreement this plan. I spoke with the admitting physician, Dr. Gonzalez who accepted the admission. Undiagnosed new problem with uncertain prognosis? @ -No Drug Therapy requiring intensive monitoring for toxicity (Heparin, Nitro, Insulin, Cardizem)? @ -No Were any procedures done? @ -No Diagnosis/symptom? @ -Abdominal pain of unknown etiology, intractable abdominal pain Acute, or Chronic, or Acute on Chronic? @ -Acute Uncomplicated (without systemic symptoms) or Complicated (systemic symptoms)? @ -Complicated Side effects of treatment? @ -No Exacerbation, Progression, or Severe Exacerbation? @ -No Poses a threat to life or bodily function? How? (Chest pain, USA, NC, pneumonia, PE, COPD, DKA, ARF, appy, cholecystitis, CVA, Diverticulitis, Homicidal, Roman icidal, threat to staff... and all critical care pts) @ -Yes (Aquiles Marte) - Lab Data Lab Results 01/31/24 01/31/24 01/31/24 Range/Units 23:24 23:24 23:24 WBC 10.6 (3.8-10.6) k/uL RBC 4.68 (3.80-5.40) m/uL Hgb 14.6 (11.4-16.0) gm/dL Hct 43.8 (34.0-46.0) % MCV 93.7 (80.0-100.0) fL MCH 31.1 (25.0-35.0) pg MCHC 33.2 (31.0-37.0) g/dL RDW 12.5 (11.5-15.5) % Plt Count 288 (150-450) k/uL MPV 8.2 Neutrophils % 47 % Lymphocytes % 45 % Monocytes % 5 % Eosinophils % 1 % Basophils % 1 % Neutrophils # 5.0 (1.3-7.7) k/uL Lymphocytes # 4.7 (1.0-4.8) k/uL Monocytes # 0.6 (0-1.0) k/uL Eosinophils # 0.1 (0-0.7) k/uL Basophils # 0.1 (0-0.2) k/uL Sodium 137 (137-145) mmol/L Potassium 4.2 (3.5-5.1) mmol/L Chloride 105 (98-107) mmol/L Carbon Dioxide 25 (22-30) mmol/L Anion Gap 7 mmol/L BUN 27 H (7-17) mg/dL Creatinine 0.91 (0.52-1.04) mg/dL Est GFR (CKD-EPI)AfAm 79 (>60 ml/min/1.73 sqM) Est GFR (CKD-EPI)NonAf 69 (>60 ml/min/1.73 sqM) Glucose 102 H (74-99) mg/dL Plasma Lactic Acid Ronal 1.1 (0.7-2.0) mmol/L Calcium 8.7 (8.4-10.2) mg/dL Total Bilirubin 0.6 (0.2-1.3) mg/dL AST 19 (14-36) U/L ALT 16 (4-34) U/L Alkaline Phosphatase 187 H (38-126) U/L Troponin I (0.000-0.034) ng/mL Total Protein 7.4 (6.3-8.2) g/dL Albumin 3.7 (3.5-5.0) g/dL Urine Color Urine Appearance (Clear) Urine pH (5.0-8.0) Ur Specific [place] (1.001-1.035) Urine Protein (Negative) Urine Glucose (UA) (Negative) Urine Ketones (Negative) Urine Blood (Negative) Urine Nitrite (Negative) Urine Bilirubin (Negative) Urine Urobilinogen (<2.0) mg/dL Ur Leukocyte Esterase (Negative) Urine RBC (0-5) /hpf Urine WBC (0-5) /hpf Ur Squamous Epith Cells (0-4) /hpf Urine Bacteria (None) /hpf Urine Mucus (None) /hpf 01/31/24 02/01/24 Range/Units 23:24 02:53 WBC (3.8-10.6) k/uL RBC (3.80-5.40) m/uL Hgb (11.4-16.0) gm/dL Hct (34.0-46.0) % MCV (80.0-100.0) fL MCH (25.0-35.0) pg MCHC (31.0-37.0) g/dL RDW (11.5-15.5) % Plt Count (150-450) k/uL MPV Neutrophils % % Lymphocytes % % Monocytes % % Eosinophils % % Basophils % % Neutrophils # (1.3-7.7) k/uL Lymphocytes # (1.0-4.8) k/uL Monocytes # (0-1.0) k/uL Eosinophils # (0-0.7) k/uL Basophils # (0-0.2) k/uL Sodium (137-145) mmol/L Potassium (3.5-5.1) mmol/L Chloride (98-107) mmol/L Carbon Dioxide (22-30) mmol/L Anion Gap mmol/L BUN (7-17) mg/dL Creatinine (0.52-1.04) mg/dL Est GFR (CKD-EPI)AfAm (>60 ml/min/1.73 sqM) Est GFR (CKD-EPI)NonAf (>60 ml/min/1.73 sqM) Glucose (74-99) mg/dL Plasma Lactic Acid Ronal (0.7-2.0) mmol/L Calcium (8.4-10.2) mg/dL Total Bilirubin (0.2-1.3) mg/dL AST (14-36) U/L ALT (4-34) U/L Alkaline Phosphatase (38-126) U/L Troponin I <0.012 (0.000-0.034) ng/mL Total Protein (6.3-8.2) g/dL Albumin (3.5-5.0) g/dL Urine Color Yellow Urine Appearance Cloudy H (Clear) Urine pH 6.0 (5.0-8.0) Ur Specific [place] >1.050 H (1.001-1.035) Urine Protein Trace H (Negative) Urine Glucose (UA) Negative (Negative) Urine Ketones Negative (Negative) Urine Blood Negative (Negative) Urine Nitrite Negative (Negative) Urine Bilirubin Negative (Negative) Urine Urobilinogen <2.0 (<2.0) mg/dL Ur Leukocyte Esterase Large H (Negative) Urine RBC 8 H (0-5) /hpf Urine WBC 10 H (0-5) /hpf Ur Squamous Epith Cells 11 H (0-4) /hpf Urine Bacteria Rare H (None) /hpf Urine Mucus Few H (None) /hpf - EKG Data EKG Comments: 12-lead Electrocardiogram Interpretation Note EKG was reviewed and interpreted by myself. 12-lead ECG performed at [facility] is interpreted by me as revealing normal sinus rhythm at a rate of 80 beats per minute. [place] is normal. [place] interval is 171 ms, QRS duration is 99 ms, QTc is 424 ms.. There were no ST or T wave abnormalities to suggest myocardial ischemia or injury. R wave progression across the precordium was satisfactory. By my interpretation this EKG is non-diagnostic for acute ischemia. (Aquiles Marte) Disposition <Nicola West - Last Filed: 02/01/24 00:04> Time of Disposition: 04:40 <Aquiles Marte - Last Filed: 02/01/24 04:43> Clinical Impression: Abdominal pain of unknown etiology Disposition: ADMITTED IP TO THIS HOSP Condition: Stable [facility] [[facility]] - 1-2 days
[2024-02-01] MEDS: SODIUM CHLORIDE 0.9% 1,000 ML IV STA ×2 (02:44→04:31)
[2024-02-01] MEDS: ONDANSETRON 4 MG/2 ML VIAL IVP STA (02:45)
[2024-02-01] MEDS: MORPHINE SULFATE 4 MG/ML SYRINGE IVP STA (02:49)
[2024-02-01 03:27] LABS: Appearance,Urine Cloudy (Clear); Bacteria,Urine Rare /hpf; Bilirubin,Urine Negative (Negative); Blood,Urine Negative (Negative); Color,Urine Yellow; Glucose,Urine (UA) Negative (Negative); Ketones,Urine Negative (Negative); Leukocyte Esterase,Urine Large (Negative); Mucus,Urine Few /hpf; Nitrite,Urine Negative (Negative); Protein,Urine Trace (Negative); RBC,Urine 8 /hpf (0-5); Squamous Epithelial Cell,Urine 11 /hpf (0-4); Urobilinogen,Urine <2.0 mg/dL (<2.0); WBC,Urine 10 /hpf (0-5)
[2024-02-01 03:48] LABS: Specific Gravity,Urine >1.050 (1.001-1.035)
--- NOTE | 2024-02-01 03:55 | CT ---
EXAM: CT Abdomen and Pelvis With Intravenous Contrast CLINICAL HISTORY: ITS.REASON CT Reason: diffuse abd pain, n/v, decreased BMs TECHNIQUE: Axial computed tomography images of the abdomen and pelvis with intravenous contrast. CTDI is 26.8 mGy and DLP is 1273.5 mGy-cm. This CT exam was performed using one or more of the following dose reduction techniques: automated exposure control, adjustment of the mA and/or kV according to patient size, and/or use of iterative reconstruction technique. COMPARISON: No relevant prior studies available. FINDINGS: Lung bases: Unremarkable. No mass. No consolidation. ABDOMEN: Liver: Hepatic steatosis. Gallbladder and bile ducts: Cholecystectomy. No ductal dilation. Pancreas: Atrophy of the pancreas. No ductal dilation. Spleen: Unremarkable. No splenomegaly. Adrenals: Unremarkable. No mass. Kidneys and ureters: Unremarkable. No hydronephrosis or delayed nephrogram. Stomach and bowel: Diverticulosis, without acute diverticulitis. No small bowel obstruction. No free intraperitoneal air. PELVIS: Appendix: No findings to suggest acute appendicitis. Bladder: Decompressed urinary bladder. Reproductive: Atrophy of the uterus. ABDOMEN and PELVIS: Intraperitoneal space: Unremarkable. No free air. No significant fluid collection. Bones/joints: Degenerative changes of the spine. No acute fracture. No dislocation. Soft tissues: Unremarkable. Vasculature: Atherosclerotic changes of the aorta. No abdominal aortic aneurysm. Lymph nodes: Unremarkable. No enlarged lymph nodes. Other findings: Small, cystic focus in segment 6 measures 4 mm, too small to characterize. IMPRESSION: 1. Hepatic steatosis. 2. Cholecystectomy. 3. Diverticulosis, without acute diverticulitis. No small bowel obstruction. No free intraperitoneal air.
[2024-02-01] MEDS: PANTOPRAZOLE 40 MG/10 ML VIAL IVP STA (04:31)
[2024-02-01] MEDS: METOCLOPRAMIDE 5 MG/ML 2 ML VIAL IVP STA (04:32)
[2024-02-01] MEDS ORDERED: NALOXONE 0.4 MG/ML 1 ML VIAL IV PRN (04:41)
[2024-02-01] MEDS ORDERED: MORPHINE SULFATE 4 MG/ML SYRINGE IV PRN (04:41)
[2024-02-01] MEDS: SODIUM CHLORIDE 0.9% 1,000 ML IV SCH (04:51)
--- NOTE | 2024-02-01 05:11 | P.HPIM ---
History of Present Illness H&P Date: 02/01/24 Chief Complaint: Abdominal pain 58-year-old female with epilepsy Patient coming in for couple day history of diffuse abdominal pain colicky in nature this has been progressive over the past couple days she has tried nothing at home today the pain became more of an epigastric stabbing pain rated 6-8 out of 10 in severity usually worse with food associated with repeated nausea vomiting nonbilious nonbloody denies any GI bleeding denies any diarrhea however she has noticed that her stool has became of small caliber which is unusual she has never had colonoscopy in her life she denies any weight loss she denies any vaginal bleed denies any fevers chills denies anyone else sick in her family. Denies any known sick contact recent travel or unsanitary food. Patient casually mentions that she probably had a breakthrough seizure this morning she claims to be compliant with her medications she is not sure what type of seizures she has but the reason she believes she had a seizure this morning is because she was feeling weak and that is typical for her when she gets a seizure she denies any tongue biting head injury loss bowel or bladder control Patient denies tobacco smoking illicit drugs or heavy alcohol Overall patient is a very poor historian with very poor insight of her clinical conditions review of systems Pertinent positives as noted in HPI. All other systems were reviewed and are negative on exam Constitutional: No acute distress, Eyes: Anicteric sclerae, moist conjunctiva, Pupils equal round reactive to light ENMT: NC/AT Oropharynx clear, no erythema, or exudates Neck: Supple, no masses, or JVD No carotid bruits No thyromegaly Lungs: Clear to auscultation Clear to percussion Normal respiratory effort, no accessory muscle use Cardiovascular: Heart regular in rate and rhythm, No murmurs, gallops, or rubs No peripheral edema Abdominal: Soft Nontender, no guarding, rebound or rigidity Abdomen moving with respiration Normoactive bowel sounds No hepatomegaly, No splenomegaly No palpable mass Extremities: No digital cyanosis No clubbing Pedal pulses intact and symmetrical Radial pulses intact and symmetrical No calf tenderness Psychiatric: Alert and oriented to person, place and time Neuro Muscles Strength 5/5 in all 4 extremities Sensation to light touch grossly present throughout Cranial nerves II-XII grossly intact Past Medical History Past Medical History: GERD/Reflux, Seizure Disorder Additional Past Medical History / Comment(s): HX NUMEROUS KIDNEY STONES- HX EPILEPSY. -HAS PUBLIC GUARDIAN, STATES BRUISES EASILY, POOR HISTORIAN., STATES CARPAL TUNNEL IN HANDS AND ELBOWS. COVID 10/16/21, History of Any Multi-Drug Resistant Organisms: None Reported Past Surgical History: Breast Surgery, Orthopedic Surgery Additional Past Surgical History / Comment(s): LITHOTRIPSY , BREAST BX X 1 -PT NOT SURE WHICH ONE, LT KNEE SURGERY Past Anesthesia/Blood Transfusion Reactions: No Reported Reaction Past Psychological History: No Psychological Hx Reported Smoking Status: Never smoker Past Alcohol Use History: None Reported Past Drug Use History: None Reported - Past Family History Father Additional Family Medical History / Comment(s): HEART PROBLEMS heart stint placed Mother Family Medical History: Diabetes Mellitus Medications and Allergies Home Medications Medication Instructions Recorded Confirmed Type lamoTRIgine [LaMICtal] 200 mg PO BID@0700,1900 09/29/14 08/27/23 History Montelukast [Singulair] 10 mg PO DAILY@0700 07/26/20 08/27/23 History Loratadine 10 mg PO DAILY@0700 10/17/21 08/27/23 History Aspirin EC [Ecotrin Low Dose] 81 mg PO DAILY@0700 12/03/22 08/27/23 History Primidone [Mysoline] 50 mg PO BID@0700,189912/03/22 08/27/23 History polyethylene glycoL 3350 [Miralax] 17 gm PO DAILY PRN 12/03/22 08/27/23 History Acetaminophen Tab [Tylenol] 325 mg PO Q4H PRN 01/20/23 08/27/23 History Cholecalciferol [Vitamin D3 (25 25 mcg PO DAILY@0700 01/20/23 08/27/23 History Mcg = 1000 Iu)] Pantoprazole Sodium [Protonix] 40 mg PO BID@0700,189901/20/23 08/27/23 History Lacosamide [Vimpat] 100 mg PO BID@0700,189901/21/23 08/27/23 History Metoclopramide [Reglan] 10 mg PO TID PRN #30 tab 01/21/23 08/27/23 Rx Albuterol Inhaler [Ventolin Hfa 2 puff INHALATION RT-QID PRN each 08/27/23 Rx Inhaler] Doxycycline Hyclate 100 mg PO BID@0700,1900 08/27/23 08/27/23 History Famotidine [Pepcid] 20 mg PO BID PRN 08/27/23 08/27/23 History Ondansetron Odt [Zofran ODT] 4 mg PO Q8HR PRN 08/27/23 08/27/23 History Promethazine [Phenergan] 12.5 mg PO AC-TID@,,17 08/27/23 08/27/23 History Rosuvastatin [Crestor] 10 mg PO DAILY@0700 08/27/23 08/27/23 History dexAMETHasone ORAL [Hexadrol] 6 mg PO DAILY 7 Days #21 tab 08/27/23 Rx Allergies Allergy/AdvReac Type Severity Reaction Status Date / Time amoxicillin Allergy Unknown Verified 01/31/24 23:12 cephalexin Allergy Unknown Verified 01/31/24 23:12 cetirizine Allergy Unknown Verified 01/31/24 23:12 erythromycin base Allergy Unknown Verified 01/31/24 23:12 escitalopram oxalate Allergy Unknown Verified 01/31/24 23:12 [From Lexapro] Penicillins Allergy Unknown Verified 01/31/24 23:12 Sulfa (Sulfonamide Allergy Unknown Verified 01/31/24 23:12 Antibiotics) naproxen [From Naprosyn] AdvReac dry, runny Verified 01/31/24 23:12 nose tamsulosin AdvReac dry, runny Verified 01/31/24 23:12 nose Physical Exam Vitals: Vital Signs Temp Pulse Resp BP Pulse Ox 02/01/24 02:51 81 17 133/72 100 02/01/24 01:42 84 18 138/78 99 01/31/24 23:09 98.3 F 91 18 117/79 96 Intake and Output 01/31/24 01/31/24 02/01/24 14:59 22:59 06:59 Other: Weight 95.254 kg Results CBC & Chem 7: 01/31/24 23:24 01/31/24 23:24 Labs: Abnormal Lab Results - Last 24 Hours (Table) 01/31/24 02/01/24 Range/Units 23:24 02:53 BUN 27 H (7-17) mg/dL Glucose 102 H (74-99) mg/dL Alkaline Phosphatase 187 H (38-126) U/L Urine Appearance Cloudy H (Clear) Ur Specific [place] >1.050 H (1.001-1.035) Urine Protein Trace H (Negative) Ur Leukocyte Esterase Large H (Negative) Urine RBC 8 H (0-5) /hpf Urine WBC 10 H (0-5) /hpf Ur Squamous Epith Cells 11 H (0-4) /hpf Urine Bacteria Rare H (None) /hpf Urine Mucus Few H (None) /hpf Assessment and Plan Assessment: 58-year-old female with epilepsy coming in for epigastric abdominal pain with repeated nausea vomiting I discussed case with ED doctor accepted the admission for symptomatic control of severe nausea vomiting and abdominal pain with anticipated length of stay less than 2 midnights Epigastric abdominal pain rule out gastritis versus peptic ulcer disease Protonix 40 mg p.o. twice daily Pain control with opiates IV fluid hydration normal saline 130 cc/h CT scan of the abdomen no acute intra-abdominal pathology White count 10.6 hemoglobin 14.6 unremarkable Renal function unremarkable sodium 137 potassium 4.2 BUN 27 creatinine 0.9 lactic acid 1.1 Small caliber stool Patient never had colonoscopy Patient counseled regarding the importance of having a colonoscopy for age- appropriate cancer screening of colon cancer Urine analysis positive for leukocyte esterase however had large amount of squamous epithelium Patient denies urinary symptoms If high suspicion of UTI consider repeating urine analysis Epilepsy with breakthrough seizure frequent Continue home antiepileptic meds Full code DVT prophylaxis heparin subcu 3 times daily
[2024-02-01] MEDS ORDERED: ONDANSETRON 4 MG/2 ML VIAL IVP PRN (05:12)
[2024-02-01] MEDS ORDERED: PANTOPRAZOLE 40 MG/10 ML VIAL IV SCH (09:00)
[2024-02-01] MEDS: MONTELUKAST 10 MG TAB PO SCH (09:35)
[2024-02-01] MEDS: PANTOPRAZOLE 40 MG TABLET PO SCH (09:35)
[2024-02-01] MEDS: lamoTRIgine 100 MG TAB PO SCH (09:35)
[2024-02-01] MEDS: LACOSAMIDE 50 MG TABLET PO SCH (09:35)
[2024-02-01] MEDS: ATORVASTATIN 20 MG TAB PO SCH (09:35)
[2024-02-01] MEDS: HEPARIN SODIUM,PORCINE 5,000 UNIT/ML 1 ML VIAL SQ SCH (09:36)
--- NOTE | 2024-02-01 10:51 | P.GSCN ---
History of Present Illness Consult date: 02/01/24 Reason for Consult: Abdominal pain History of present illness: 58-year-old female presents complaining of abdominal pain and bloating. Patient states she was bloated everywhere however most of her pain was in the upper abdomen and felt like a pressure sensation. Slightly better today. Describes chronic reflux. She had 1 episode of vomiting when she arrived in the hospital. Last bowel movement 1 to 2 days ago. Denies rectal bleeding or melena. Patient with history of previous cholecystectomy. Some of the symptoms remind her of the symptoms she was having back then. No recent EGD. Underwent CAT scan abdomen pelvis without definite abnormalities. Review of Systems The patient denies any acute changes in vision or hearing, no dysphagia or odynophagia, no chest pain or shortness of breath, no dysuria or hematuria, no headache, no runny nose, no rectal bleeding or melena, no unexplained weight loss Past Medical History Past Medical History: GERD/Reflux, Seizure Disorder Additional Past Medical History / Comment(s): HX NUMEROUS KIDNEY STONES- HX EPILEPSY. -HAS PUBLIC GUARDIAN, STATES BRUISES EASILY, POOR HISTORIAN., STATES CARPAL TUNNEL IN HANDS AND ELBOWS. COVID 10/16/21, History of Any Multi-Drug Resistant Organisms: None Reported Past Surgical History: Breast Surgery, Orthopedic Surgery Additional Past Surgical History / Comment(s): LITHOTRIPSY , BREAST BX X 1 -PT NOT SURE WHICH ONE, LT KNEE SURGERY Past Anesthesia/Blood Transfusion Reactions: No Reported Reaction Past Psychological History: No Psychological Hx Reported Smoking Status: Never smoker Past Alcohol Use History: None Reported Past Drug Use History: None Reported - Past Family History Father Additional Family Medical History / Comment(s): HEART PROBLEMS heart stint placed Mother Family Medical History: Diabetes Mellitus Medications and Allergies Home Medications Medication Instructions Recorded Confirmed Type lamoTRIgine [LaMICtal] 200 mg PO BID@0700,1900 09/29/14 08/27/23 History Montelukast [Singulair] 10 mg PO DAILY@0700 07/26/20 08/27/23 History Loratadine 10 mg PO DAILY@0700 10/17/21 08/27/23 History Aspirin EC [Ecotrin Low Dose] 81 mg PO DAILY@0700 12/03/22 08/27/23 History Primidone [Mysoline] 50 mg PO BID@0700,1900 12/03/22 08/27/23 History polyethylene glycoL 3350 [Miralax] 17 gm PO DAILY PRN 12/03/22 08/27/23 History Acetaminophen Tab [Tylenol] 325 mg PO Q4H PRN 01/20/23 08/27/23 History Cholecalciferol [Vitamin D3 (25 25 mcg PO DAILY@0700 01/20/23 08/27/23 History Mcg = 1000 Iu)] Pantoprazole Sodium [Protonix] 40 mg PO BID@0700,1900 01/20/23 08/27/23 History Lacosamide [Vimpat] 100 mg PO BID@0700,1900 01/21/23 08/27/23 History Metoclopramide [Reglan] 10 mg PO TID PRN #30 tab 01/21/23 08/27/23 Rx Albuterol Inhaler [Ventolin Hfa 2 puff INHALATION RT-QID PRN each 08/27/23 Rx Inhaler] Doxycycline Hyclate 100 mg PO BID@0700,1900 08/27/23 08/27/23 History Famotidine [Pepcid] 20 mg PO BID PRN 08/27/23 08/27/23 History Ondansetron Odt [Zofran ODT] 4 mg PO Q8HR PRN 08/27/23 08/27/23 History Promethazine [Phenergan] 12.5 mg PO AC-TID@07,12,08/27/23 08/27/23 History Rosuvastatin [Crestor] 10 mg PO DAILY@0700 08/27/23 08/27/23 History dexAMETHasone ORAL [Hexadrol] 6 mg PO DAILY 7 Days #21 tab 08/27/23 Rx Allergies Allergy/AdvReac Type Severity Reaction Status Date / Time amoxicillin Allergy Unknown Verified 01/31/24 23:12 cephalexin Allergy Unknown Verified 01/31/24 23:12 cetirizine Allergy Unknown Verified 01/31/24 23:12 erythromycin base Allergy Unknown Verified 01/31/24 23:12 escitalopram oxalate Allergy Unknown Verified 01/31/24 23:12 [From Lexapro] Penicillins Allergy Unknown Verified 01/31/24 23:12 Sulfa (Sulfonamide Allergy Unknown Verified 01/31/24 23:12 Antibiotics) naproxen [From Naprosyn] AdvReac dry, runny Verified 01/31/24 23:12 nose tamsulosin AdvReac dry, runny Verified 01/31/24 23:12 nose Surgical - Exam Vital Signs Temp Pulse Resp BP Pulse Ox 98.3 F 91 18 117/79 96 01/31/24 23:09 01/31/24 23:09 01/31/24 23:09 01/31/24 23:09 01/31/24 23:09 Physical exam: General: Well-developed, well-nourished HEENT: Normocephalic, sclerae nonicteric Abdomen: Mild epigastric tenderness, nondistended Extremities: No edema Neuro: Alert and oriented Results - Labs 01/31/24 23:24 01/31/24 23:24 Abnormal Lab Results - Last 24 Hours (Table) 01/31/24 02/01/24 Range/Units 23:24 02:53 BUN 27 H (7-17) mg/dL Glucose 102 H (74-99) mg/dL Alkaline Phosphatase 187 H (38-126) U/L Urine Appearance Cloudy H (Clear) Ur Specific [place] >1.050 H (1.001-1.035) Urine Protein Trace H (Negative) Ur Leukocyte Esterase Large H (Negative) Urine RBC 8 H (0-5) /hpf Urine WBC 10 H (0-5) /hpf Ur Squamous Epith Cells 11 H (0-4) /hpf Urine Bacteria Rare H (None) /hpf Urine Mucus Few H (None) /hpf Diabetes panel 01/31/24 Range/Units 23:24 Sodium 137 (137-145) mmol/L Potassium 4.2 (3.5-5.1) mmol/L Chloride 105 (98-107) mmol/L Carbon Dioxide 25 (22-30) mmol/L BUN 27 H (7-17) mg/dL Creatinine 0.91 (0.52-1.04) mg/dL Glucose 102 H (74-99) mg/dL Calcium 8.7 (8.4-10.2) mg/dL AST 19 (14-36) U/L ALT 16 (4-34) U/L Alkaline Phosphatase 187 H (38-126) U/L Total Protein 7.4 (6.3-8.2) g/dL Albumin 3.7 (3.5-5.0) g/dL Calcium panel 01/31/24 Range/Units 23:24 Calcium 8.7 (8.4-10.2) mg/dL Albumin 3.7 (3.5-5.0) g/dL Pituitary panel 01/31/24 Range/Units 23:24 Sodium 137 (137-145) mmol/L Potassium 4.2 (3.5-5.1) mmol/L Chloride 105 (98-107) mmol/L Carbon Dioxide 25 (22-30) mmol/L BUN 27 H (7-17) mg/dL Creatinine 0.91 (0.52-1.04) mg/dL Glucose 102 H (74-99) mg/dL Calcium 8.7 (8.4-10.2) mg/dL Adrenal panel 01/31/24 Range/Units 23:24 Sodium 137 (137-145) mmol/L Potassium 4.2 (3.5-5.1) mmol/L Chloride 105 (98-107) mmol/L Carbon Dioxide 25 (22-30) mmol/L BUN 27 H (7-17) mg/dL Creatinine 0.91 (0.52-1.04) mg/dL Glucose 102 H (74-99) mg/dL Calcium 8.7 (8.4-10.2) mg/dL Total Bilirubin 0.6 (0.2-1.3) mg/dL AST 19 (14-36) U/L ALT 16 (4-34) U/L Alkaline Phosphatase 187 H (38-126) U/L Total Protein 7.4 (6.3-8.2) g/dL Albumin 3.7 (3.5-5.0) g/dL Assessment and Plan (1) Abdominal pain of unknown etiology Narrative/Plan: 58-year-old female with complaints of upper abdominal pain and bloating. Etiology unclear. May benefit from upper endoscopy. Will notify Dr. Little. Current Visit: Yes Status: Acute Code(s): R10.9 - UNSPECIFIED ABDOMINAL PAIN SNOMED Code(s): 510318330
--- NOTE | 2024-02-01 14:12 | P.PN ---
Subjective Progress Note Date: 02/01/24 Hospital course: Patient is a 58-year-old female with a past medical history of GERD status post cholecystectomy on 12/08/2022, asthma, hyperlipidemia, and seizure disorder. She presented to the emergency department on 02/01/2024 secondary to severe epigastric pain/discomfort accompanied by nausea and vomiting. Upon arrival to the emergency department patient underwent evaluation. Vital signs showing blood pressure 117/79, heart rate 91, respiratory rate 18, temp 98.3 F, and SpO2 of 96% on room air. EKG was completed showing normal sinus rhythm at 80 bpm with no significant T wave or ST abnormalities showing no signs of acute ischemia upon personal review and interpretation. Labs completed and reviewed. CBC unremarkable. BMP showing prerenal azotemia with BUN of 27 otherwise normal findings. Blood glucose 102. Liver profile showing elevated alkaline phosphatase of 187 otherwise normal findings. Troponin less than 0.012. Urinalysis was a contaminated specimen although showing no concerns for infection at this time. CT abdomen and pelvis completed negative for acute intra-abdominal process showing mild hepatic steatosis and diverticulosis without acute diverticulitis. Patient was admitted under our services with consultation to general surgery. Physical exam: Vital signs reviewed and stable. General: Nontoxic, no distress and appears stated age. Derm: Skin warm and dry, normal coloration for ethnicity. Head: Atraumatic, normocephalic and symmetric. Eyes: EOMs intact, no lid lag, and anicteric sclera Mouth: no lip lesions, mucus membranes moist Cardiovascular: regular rate and rhythm with normal S1S2, no murmur, positive posterior tibial pulses bilaterally, and cap refill < 2 seconds. Lungs: Respirations even, regular, and unlabored on room air. Lungs CTA bilaterally, no rhonchi, no rales, no wheezing, and no accessory muscle usage. Abdominal: soft, tenderness reported to epigastric region upon palpation. No guarding, no appreciable organomegaly Ext: ROM intact. No gross muscle atrophy, no edema, no contractures Neuro: Speech clear, face symmetrical and CN II-XII grossly intact with no noted focal neuro deficits Psych: Alert and oriented to person, place, time, and situation. Appropriate and pleasant affect. Assessment and Plan of Care: Intractable epigastric pain GERD -Order placed for GI cocktail and patient to continue with Protonix 40 mg twice daily -Decreased diet to clear liquids as patient reported pain increasing after eating. -General surgery following, stating patient may benefit from EGD. -Continue gentle IV fluid hydration with 0.9% normal saline at 75 cc/h Seizure disorder Continue Vimpat 100 mg twice daily and Lamictal 200 mg twice daily. Continue seizure precautions. Hyperlipidemia Continue daily medication regimen with atorvastatin 20 mg daily. Asthma, not in acute exacerbation. Continue Singulair 10 mg daily. Data and imaging reviewed: -EKG was completed showing normal sinus rhythm at 80 bpm with no significant T wave or ST abnormalities showing no signs of acute ischemia upon personal review and interpretation. -Labs completed and reviewed. CBC unremarkable. BMP showing prerenal azotemia with BUN of 27 otherwise normal findings. Blood glucose 102. Liver profile showing elevated alkaline phosphatase of 187 otherwise normal findings. Troponin less than 0.012. -Urinalysis was a contaminated specimen although showing no concerns for infection at this time. -CT abdomen and pelvis completed negative for acute intra-abdominal process showing mild hepatic steatosis and diverticulosis without acute diverticulitis. -Vital signs reviewed. Blood pressure 133/58, heart rate 81, respiratory rate 16, and SpO2 of 97% on room air. CODE STATUS: Full code DVT prophylaxis: Heparin Anticipated discharge date: Pending clinical course Anticipated discharge place: Pending clinical course Patient was seen independently by Nurse Pracitioner. This document was prepared using [employer] dictation software. Please allow for errors in manager r d, while rare they do occur. I reviewed the documentation as provided by the KEVIN above, who is the original author of this note. I agree with the documented assessment and plan, with the following changes: none Objective - Vital Signs Vital signs: Vital Signs Temp 97.8 F 02/01/24 07:00 Pulse 78 02/01/24 07:00 Resp 17 02/01/24 07:00 BP 121/72 02/01/24 07:00 Pulse Ox 100 02/01/24 07:00 FiO2 Intake & Output 01/31/24 02/01/24 02/01/24 18:59 06:59 18:59 Weight 95.254 kg - Labs CBC & Chem 7: 01/31/24 23:24 01/31/24 23:24 Labs: Abnormal Lab Results - Last 24 Hours (Table) 01/31/24 02/01/24 Range/Units 23:24 02:53 BUN 27 H (7-17) mg/dL Glucose 102 H (74-99) mg/dL Alkaline Phosphatase 187 H (38-126) U/L Urine Appearance Cloudy H (Clear) Ur Specific [place] >1.050 H (1.001-1.035) Urine Protein Trace H (Negative) Ur Leukocyte Esterase Large H (Negative) Urine RBC 8 H (0-5) /hpf Urine WBC 10 H (0-5) /hpf Ur Squamous Epith Cells 11 H (0-4) /hpf Urine Bacteria Rare H (None) /hpf Urine Mucus Few H (None) /hpf
[2024-02-01] MEDS: MAG HYDROX/AL HYDROX/SIMETH 30 ML, HYOSCYAMINE ELIXIR 10 ML, LIDOCAINE VISCOUS 2% 10 ML PO ONE (15:36)
[2024-02-01] MEDS: ACETAMINOPHEN TAB 325 MG TAB PO PRN (19:52)
[2024-02-02 08:47] VITALS: RESP 17; TEMP 97.6
[2024-02-02 10:43] LABS: Basophils # (A) 0.02 X 10*3/uL (0.00-0.10); Basophils % (A) 0.3 %; Eosinophils # (A) 0.05 X 10*3/uL (0.04-0.35); Eosinophils % (A) 0.9 %; HCT 37.9 % (37.2-46.3); HGB 12.1 g/dL (12.0-15.0); Lymphocytes # (A) 3.66 X 10*3/uL (0.90-5.00); Lymphocytes % (A) 63.4 %; MCH 30.9 pg (27.0-32.0); MCHC 31.9 g/dL (32.0-37.0); MCV 96.9 FL (80.0-97.0); Mean Platelet Volume 10.9 FL (9.5-12.2); Monocytes # (A) 0.62 X 10*3/uL (0.20-1.00); Monocytes % (A) 10.7 %; NRBC Per 100 WBC 0 X 10*3/uL (0.00-0.01); Neutrophils # (A) 1.41 X 10*3/uL (1.80-7.70); Neutrophils % (A) 24.5 %; Platelet Count 233 X 10*3/uL (140-440); RBC 3.91 X 10*6/uL (4.10-5.20); RDW 13.1 % (11.5-14.5); WBC 5.77 X 10*3/uL (4.50-10.00)
[2024-02-02 11:33] LABS: ALT 17 U/L (8-44); AST 18 U/L (13-35); Albumin 3.2 g/dL (3.8-4.9); Albumin/Globulin Ratio 1.23 Ratio (1.60-3.17); Alkaline Phosphatase 134 U/L (41-126); Blood Urea Nitrogen 16.2 mg/dL (9.0-27.0); Calcium 8.1 mg/dL (8.7-10.3); Carbon Dioxide 23.5 mmol/L (21.6-31.8); Chloride 104 mmol/L (96-109); Globulin 2.6 g/dL (1.6-3.3); Glucose 79 mg/dL (70-110); Potassium 4.2 mmol/L (3.5-5.5); Sodium 137 mmol/L (135-145); Total Bilirubin 0.4 mg/dL (0.3-1.2); Total Protein 5.8 g/dL (6.2-8.2)
[2024-02-02] MEDS: IV FLUID CONTINUATION 1,000 ML IV ONE (12:48)
[2024-02-02] MEDS ORDERED: LIDOCAINE 1% INJ 10MG/ML (20 ML MDV) ONE (13:10)
[2024-02-02] MEDS ORDERED: PROPOFOL 10 MG/ML 20 ML VIAL IV ONE (13:10)
--- NOTE | 2024-02-02 13:18 | P.OP ---
Date of Procedure: 02/02/24 Preoperative Diagnosis: abdominal pain Postoperative Diagnosis: gastritis Hiatal hernia Procedure(s) Performed: EGD Anesthesia: MAC Surgeon: Adam Little Pathology: other (antrum, esophagus) Condition: stable Disposition: PACU Description of Procedure: the patient's placed on the endoscopy table in the lateral position. She received IV sedation. The gastroscope placed oropharynx passed in the esophagus and stomach. Scope was then placed through the pylorus. The first and second portion of the duodenum appeared normal. Scope was then brought back the antrum this. Mildly inflamed. A biopsies performed. The scope was unretroflexed and remainder of the stomach appeared normal. The patient had a sliding hiatal hernia. The GE junction was at 38 cm. The distal esophagus was minimal inflamed. A biopsies performed. The proximal esophagus appeared normal. Scope withdrawn for patient.
--- NOTE | 2024-02-02 13:48 | P.PN ---
Subjective Progress Note Date: 02/02/24 CHIEF COMPLAINT: Epigastric abdominal pain HISTORY OF PRESENT ILLNESS: Patient continues to complain of epigastric abdominal pain with nausea and acid reflux. She does report having bloating. History of cholecystectomy. Afebrile. WBC 5.77 PHYSICAL EXAM: VITAL SIGNS: Reviewed. GENERAL: Well-developed in no acute distress. HEENT: No sclera icterus. Extraocular movements grossly intact. Moist buccal mucosa. Head is atraumatic, normocephalic. ABDOMEN: Soft. Nondistended. Epigastric discomfort with palpation NEUROLOGIC: Alert and oriented. Cranial nerves II through XII grossly intact. ASSESSMENT: 1. Epigastric abdominal pain with nausea and bloating PLAN: -Patient scheduled for EGD today with Dr. Little Physician Leaf Tinner note has been reviewed by physician. Signing provider agrees with the documented findings, assessment, and plan of care. Objective - Vital Signs Vital signs: Vital Signs Temp 97.6 F 02/02/24 07:20 Pulse 73 02/02/24 07:20 Resp 17 02/02/24 07:20 BP 122/80 02/02/24 07:20 Pulse Ox 98 02/02/24 07:20 FiO2 Intake & Output 02/01/24 02/02/24 02/02/24 18:59 06:59 18:59 Intake Total 759 Balance 759 Intake: Oral 759 Other: Voiding Method Toilet # Voids 2 2 - Labs CBC & Chem 7: 02/02/24 06:33 02/02/24 06:33 Labs: Abnormal Lab Results - Last 24 Hours (Table) 02/02/24 02/02/24 Range/Units 06:33 06:33 RBC 3.91 L (4.10-5.20) X 10*6/uL MCHC 31.9 L (32.0-37.0) g/dL Neutrophils # 1.41 L (1.80-7.70) X 10*3/uL Calcium 8.1 L (8.7-10.3) mg/dL Alkaline Phosphatase 134 H (41-126) U/L Total Protein 5.8 L (6.2-8.2) g/dL Albumin 3.2 L (3.8-4.9) g/dL Albumin/Globulin Ratio 1.23 L (1.60-3.17) Ratio
--- NOTE | 2024-02-02 15:10 | P.DS ---
Providers Date of admission: 02/01/24 04:43 Expected date of discharge: 02/02/24 Attending physician: Carolyne Gonzalez MD Consults: 02/02/24 10:52 Consult Physician Routine Consulting Provider: Adam Little Consult Reason/Comments: abdominal pain Do you want consulting provider notified?: Yes Primary care physician: [facility] Hospital Course: Discharge Diagnosis: Intractable epigastric pain. Labs completed and reviewed. CBC unremarkable. BMP showing prerenal azotemia with BUN of 27 otherwise normal findings. Blood glucose 102. Liver profile showing elevated alkaline phosphatase of 187 otherwise normal findings. Troponin less than 0.012. CT abdomen and pelvis completed negative for acute intra-abdominal process showing mild hepatic steatosis and diverticulosis without acute diverticulitis. EGD was completed showing gastric antritis with mildly inflamed antrum and biopsies were obtained along with a sliding hiatal hernia with distal esophagus minimally inflamed and biopsies also obtained in this area as well. Patient cleared from general surgery perspective recommending outpatient follow-up in their office in 1 week. Medically, patient is stable for discharge at this time. Patient to continue Protonix 40 mg twice daily and was started on Carafate 1 g ACHS. GERD. Patient to continue Protonix 40 mg twice daily and was started on Carafate 1 g ACHS. Seizure disorder. Continue Vimpat 100 mg twice daily and Lamictal 200 mg twice daily.. Hyperlipidemia. Continue daily medication regimen with atorvastatin 20 mg daily. Asthma, not in acute exacerbation. Continue Singulair 10 mg daily. Hospital Course: Patient is a 58-year-old female with a past medical history of GERD status post cholecystectomy on 12/08/2022, asthma, hyperlipidemia, and seizure disorder. She presented to the emergency department on 02/01/2024 secondary to severe epigastric pain/discomfort accompanied by nausea and vomiting. Upon arrival to the emergency department patient underwent evaluation. Vital signs showing blood pressure 117/79, heart rate 91, respiratory rate 18, temp 98.3 F, and SpO2 of 96% on room air. EKG was completed showing normal sinus rhythm at 80 bpm with no significant T wave or ST abnormalities showing no signs of acute ischemia upon personal review and interpretation. Labs completed and reviewed. CBC unremarkable. BMP showing prerenal azotemia with BUN of 27 otherwise normal findings. Blood glucose 102. Liver profile showing elevated alkaline phosphatase of 187 otherwise normal findings. Troponin less than 0.012. Urinalysis was a contaminated specimen although showing no concerns for infection at this time. CT abdomen and pelvis completed negative for acute intra-abdominal process showing mild hepatic steatosis and diverticulosis without acute diverticulitis. Patient was admitted under our services with consultation to general surgery. Physical exam: Vital signs reviewed and stable. General: Nontoxic, no distress and appears stated age. Derm: Skin warm and dry, normal coloration for ethnicity. Head: Atraumatic, normocephalic and symmetric. Eyes: EOMs intact, no lid lag, and anicteric sclera Mouth: no lip lesions, mucus membranes moist Cardiovascular: regular rate and rhythm with normal S1S2, no murmur, positive posterior tibial pulses bilaterally, and cap refill < 2 seconds. Lungs: Respirations even, regular, and unlabored on room air. Lungs CTA bilaterally, no rhonchi, no rales, no wheezing, and no accessory muscle usage. Abdominal: soft, mild tenderness reported to epigastric region upon palpation. No guarding, no appreciable organomegaly Ext: ROM intact. No gross muscle atrophy, no edema, no contractures Neuro: Speech clear, face symmetrical and CN II-XII grossly intact with no noted focal neuro deficits Psych: Alert and oriented to person, place, time, and situation. Appropriate and pleasant affect. A total of 31 minutes of time were spent preparing this complex discharge summary. Pt was discharged on 02/02/2024 at 3:13 PM. Patient was seen independently by Nurse Practitioner. This document was prepared using [employer] dictation software. Please allow for errors in economic forecaster while rare they do occur. Robert Raymundo NP rendered care for this patient independently, reviewed the findings and plan as documented in the note above. I did not physically speak with or examine the patient on this date. Patient Condition at Discharge: Stable Plan - Discharge Summary Discharge Rx Participant: Yes New Discharge Prescriptions: New Sucralfate [Carafate] 1 gm PO ACHS 30 Days #120 g Continue lamoTRIgine [LaMICtal] 200 mg PO BID Montelukast [Singulair] 10 mg PO HS Loratadine 10 mg PO DAILY Primidone [Mysoline] 50 mg PO BID Pantoprazole Sodium [Protonix] 40 mg PO BID Lacosamide [Vimpat] 100 mg PO BID Rosuvastatin [Crestor] 10 mg PO DAILY Cholecalciferol [Vitamin D3 (125 Mcg = 5000 Iu)] 125 mcg PO DAILY Aspirin EC [Ecotrin Low Dose] 81 mg PO DAILY Discharge Medication List lamoTRIgine [LaMICtal] 200 mg PO BID 09/29/14 [History] Montelukast [Singulair] 10 mg PO HS 07/26/20 [History] Loratadine 10 mg PO DAILY 10/17/21 [History] Primidone [Mysoline] 50 mg PO BID 12/03/22 [History] Pantoprazole Sodium [Protonix] 40 mg PO BID 01/20/23 [History] Lacosamide [Vimpat] 100 mg PO BID 01/21/23 [History] Rosuvastatin [Crestor] 10 mg PO DAILY 08/27/23 [History] Aspirin EC [Ecotrin Low Dose] 81 mg PO DAILY 02/01/24 [History] Cholecalciferol [Vitamin D3 (125 Mcg = 5000 Iu)] 125 mcg PO DAILY 02/01/24 [History] Sucralfate [Carafate] 1 gm PO ACHS 30 Days #120 g 02/02/24 [Rx] Follow up Appointment(s)/Referral(s): [facility] [Primary Care Provider] - 1-2 days Adam Little MD [STAFF PHYSICIAN] - 02/09/24 2:40 pm Patient Instructions/Handouts: Hiatal Hernia (DC), Gastritis (DC), Diet for Stomach Ulcers and Gastritis (GEN) Activity/Diet/Wound Care/Special Instructions: Activity: As tolerated. Take breaks as needed. Diet: Heart healthy and carb consistent diet. Avoid salts, or foods with hidden salts such as canned or boxed foods and frozen dinners. Extra salt makes your heart work harder and traps the fluid in your body for longer. Special Instructions: Take all of your medications as directed and remember to keep all of your doctor's appointments and follow-up as needed. Thank you for allowing us to participate in your care, it was truly a pleasure having you for our patient!!! Discharge Disposition: HOME SELF-CARE
[2024-02-02 15:41] VITALS: BP 140/77; PULSE 79
== END 2024-02-02 17:15 | disposition home or self-care (01) ==
LOC: EC 23:08 → 6NMEDSUR 02-01 04:43
PROVIDERS: ADMIT Internal Medicine; ATTEND Internal Medicine
DX: K29.50 Unspecified chronic gastritis without bleeding (principal); K44.9 Diaphragmatic hernia without obstruction or gangrene; K21.9 Gastro-esophageal reflux disease without esophagitis; K76.0 Fatty (change of) liver, not elsewhere classified; K57.90 Diverticulosis of intestine, part unspecified, without perforation or abscess without bleeding; G40.909 Epilepsy, unspecified, not intractable, without status epilepticus; J45.909 Unspecified asthma, uncomplicated; E78.5 Hyperlipidemia, unspecified; R79.89 Other specified abnormal findings of blood chemistry; R74.8 Abnormal levels of other serum enzymes; Z79.82 Long term (current) use of aspirin; Z79.899 Other long term (current) drug therapy; Z88.0 Allergy status to penicillin; Z88.1 Allergy status to other antibiotic agents; Z88.2 Allergy status to sulfonamides; Z88.6 Allergy status to analgesic agent; Z88.8 Allergy status to other drugs, medicaments and biological substances; Z90.49 Acquired absence of other specified parts of digestive tract
CPT/HCPCS: 96361 ×3; 96372 ×2; 96374; 96375; 99285; 36415; 93005; 88305; 80053 ×2; 83605; 84484; 85025 ×2; 81001; 74177; 43239; G0378 ×2; J2270; J1644 ×2; J2765; J2405; J2001; J2704; C9113; Q9967

== ENCOUNTER 2024-06-01 17:50 | Observation (INO) | payer MEDICARE, OTHER ==
--- NOTE | 2024-06-01 20:09 | XR ---
EXAMINATION TYPE: XR chest 2V DATE OF EXAM: 06/01/2024 8:04 PM CLINICAL INDICATION:Female, 58 years old with history of cough; H COMPARISON: Chest radiographs from 08/27/2023. TECHNIQUE: XR chest 2V Frontal and lateral views of the chest. FINDINGS: Lungs/Pleura: Hazy airspace opacities noted involving the medial right lung adjacent to the heart bor griselda. No pleural effusion or pneumothorax. Pulmonary vascularity: Unremarkable. Heart/mediastinum: Cardiomediastinal silhouette is unremarkable. Musculoskeletal: No acute osseous pathology. IMPRESSION: Findings concerning for right middle lung developing infectious/inflammatory airspace disease. [facility], , 06/01/2024 8:07 PM
--- NOTE | 2024-06-01 20:46 | ED ---
General Adult HPI - General Chief complaint: Shortness of Breath Stated complaint: SOB Time Seen by Provider: 06/01/24 20:43 Source: patient Mode of arrival: ambulatory Limitations: no limitations - History of Present Illness Initial comments: Patient is a 58-year-old female with past medical history of epilepsy, asthma presenting today for persistent cough, congestion and subjective fevers x 1 week. Patient presented to an outpatient clinic about a week ago where she received 5 days of doxycycline and prednisone as well as inhalers. Despite completing her antibiotics and steroids her symptoms worsened today. Describes a persistent cough productive of white sputum, no hemoptysis. Subjective fevers and chills. Endorses chest soreness, no lower extremity edema. Endorses shortness of breath. States that she had return to the clinic where she had been seen initially and she was told that she looked pale and should come to the emergency department. - Related Data Home Medications Medication Instructions Recorded Confirmed lamoTRIgine [LaMICtal] 200 mg PO BID 09/29/14 06/01/24 Montelukast [Singulair] 10 mg PO HS 07/26/20 06/01/24 Loratadine 10 mg PO DAILY 10/17/21 06/01/24 Primidone [Mysoline] 50 mg PO BID 12/03/22 06/01/24 Lacosamide [Vimpat] 100 mg PO BID 01/21/23 06/01/24 Rosuvastatin [Crestor] 10 mg PO DAILY 08/27/23 06/01/24 Cholecalciferol [Vitamin D3 (125 125 mcg PO DAILY 02/01/24 06/01/24 Mcg = 5000 Iu)] Promethazine HCl 12.5 mg PO DAILY 06/01/24 06/01/24 Allergies Allergy/AdvReac Type Severity Reaction Status Date / Time amoxicillin Allergy Unknown Verified 06/01/24 21:17 cephalexin Allergy Unknown Verified 06/01/24 21:17 cetirizine Allergy Unknown Verified 06/01/24 21:17 erythromycin base Allergy Unknown Verified 06/01/24 21:17 escitalopram oxalate Allergy Unknown Verified 06/01/24 21:17 [From Lexapro] Penicillins Allergy Unknown Verified 06/01/24 21:17 Sulfa (Sulfonamide Allergy Unknown Verified 06/01/24 21:17 Antibiotics) naproxen [From Naprosyn] AdvReac dry, runny Verified 06/01/24 21:17 nose tamsulosin AdvReac dry, runny Verified 06/01/24 21:17 nose Review of Systems ROS Statement: Those systems with pertinent positive or pertinent negative responses have been documented in the HPI. ROS Other: All systems not noted in ROS Statement are negative. Constitutional: Reports: fever, chills ENT: Reports: congestion Respiratory: Reports: cough, dyspnea, wheezes. Denies: hemoptysis Cardiovascular: Reports: chest pain. Denies: edema Gastrointestinal: Denies: nausea, vomiting, diarrhea Past Medical History Past Medical History: GERD/Reflux, Seizure Disorder Additional Past Medical History / Comment(s): HX NUMEROUS KIDNEY STONES- HX EPILEPSY. -HAS PUBLIC GUARDIAN, STATES BRUISES EASILY, POOR HISTORIAN., STATES CARPAL TUNNEL IN HANDS AND ELBOWS. COVID 10/16/21, History of Any Multi-Drug Resistant Organisms: None Reported Past Surgical History: Breast Surgery, Orthopedic Surgery Additional Past Surgical History / Comment(s): LITHOTRIPSY , BREAST BX X 1 -PT NOT SURE WHICH ONE, LT KNEE SURGERY Past Anesthesia/Blood Transfusion Reactions: No Reported Reaction Past Psychological History: No Psychological Hx Reported Smoking Status: Never smoker Past Alcohol Use History: None Reported Past Drug Use History: None Reported - Past Family History Father Additional Family Medical History / Comment(s): HEART PROBLEMS heart stint placed Mother Family Medical History: Diabetes Mellitus General Exam - General Exam Comments Initial Comments: PE: CONSTITUTIONAL: No apparent distress, ill appearing but notoxic, frequent persistent cough SKIN: Warm, dry, no jaundice, hives or petechiae EYES: Pupils are equally round, extraocular movements intact without nystagmus, clear conjunctiva, non-icteric sclera HENT: Normocephalic, atraumatic, dry mucus membranes, oropharynx clear without exudates NECK: , Full range of motion, normal appearance PULMONARY: Limited by patient's persistent cough, scant wheezes throughout, rhonci right mid-loower lung field, mild tachypnea, RR ~20, no accessory muscle use, no stridor CARDIOVASCULAR: Regular rate, rhythm, normal S1 and S2. No appreciated murmurs, rubs or gallops. Strong radial pulses with intact distal perfusion. No lower extremity edema GASTROINTESTINAL: Soft, non-tender, non-distended, no palpable masses, no rebound or guarding. No hepatosplenomegaly MUSCULOSKELETAL: Extremities have no gross deformity, no edema, redness, or swelling. No calf swelling NEUROLOGIC:_a/o x 3, GCS 15, normal mentation and speech. Moves all extremities x 4 without motor or sensory deficit PSYCHIATRIC:_normal mood and affect, thought process is clear and linear Limitations: no limitations Course Vital Signs 06/01/24 17:53 Temperature 98.3 F Pulse Rate 95 Respiratory 18 Rate O2 Sat by Pulse 99 Oximetry EKG Findings - EKG Comments: EKG Findings:: Sinus rhythm, rate 83 bpm, KS interval 152 seconds, QRS duration 100 ms QT/QTc 363/403 ms, normal axis elevation or depression, no arrhythmia Medical Decision Making - Medical Decision Making Was pt. sent in by a medical professional or institution (, PA, HYSTER DRIVER, urgent care, hospital, or senior living...) When possible be specific @ -No Did you speak to anyone other than the patient for history (EMS, parent, family, police, friend...)? What history was obtained from this source @ -No Did you review nursing and triage notes (agree or disagree)? Why? @ -I reviewed and agree with nursing and triage notes Were old charts reviewed (outside hosp., previous admission, EMS record, old EKG, old radiological studies, urgent care reports/EKG's, senior living records)? Report findings @Reviewed discharge summary from 2023 when patient had presented for cholecystectomy Differential Diagnosis (chest pain, altered mental status, abdominal pain women, abdominal pain men, vaginal bleeding, weakness, fever, dyspnea, syncope, headache, dizziness, GI bleed, back pain, seizure, CVA, palpatations, mental health, musculoskeletal)? @ -Differential Dyspnea: Differential diagnose remains broad over top considerations include pneumonia, viral infection, bronchitis, CHF, ACS, this is not all inclusive list EKG interpreted by me (3pts min.). @ -As above X-rays interpreted by me (1pt min.). @ -Mid right lung consolidation CT interpreted by me (1pt min.). @ -None done U/S interpreted by me (1pt. min.). @ -None done What testing was considered but not performed or refused? (CT, X-rays, U/S, labs)? Why? @ -None What meds were considered but not given or refused? Why? @ -None Did you discuss the management of the patient with other professionals (professionals i.e. , ELIDA, HYSTER DRIVER, lab, RT, psych nurse, social worker palliative care, enterprise systems engineer, teacher, digital controls technical officer, director of casework department)? Give summary @ -No Was smoking cessation discussed for >3mins.? @ -No Was critical care preformed (if so, how long)? @ -No Were there social determinants of health that impacted care today? How? (Homelessness, low income, unemployed, alcoholism, drug addiction, transportation, low edu. Level, literacy, decrease access to med. care, alf, rehab)? @ -No Was there de-escalation of care discussed even if they declined (Discuss DNR or withdrawal of care, Hospice)? @ -No What co-morbidities impacted this encounter? (DM, HTN, Smoking, COPD, CAD, Cancer, CVA, ARF, Chemo, Hep., AIDS, mental health diagnosis, sleep apnea, morbid obesity)? @ -Seizure disorder Was patient admitted / discharged? Hospital course, mention meds given and route, prescriptions, significant lab abnormalities, going to OR and other pertinent info. @ -Hospital course admission- Patient is a pleasant 58-year-old female presenting for cough, subjective fevers and chills, congestion 1 week after completing outpatient prednisone and 5 days of doxycycline. On assessment patient is ill-appearing but in no acute distress . Has persistent dry cough. Scant wheezes in the lung bases with rhonchi in the right lung exam is limited though by patient's persistent coughing. No accessory muscle use. Dry MM. Given patient has completed outpatient antibiotics with symptoms plan for admission for observation for failed outpatient treatment of pneumonia. Added basic labs in addition to an EKG, and BNP, though patient's presentation is highly suspicious for pneumonia will ensure no evidence of cardiac involvement. Home meds ordered. Patient's multiple allergies discussed with pharmacy, recommends clindamycin. Patient does not meet SIRS criteria and appears nontoxic at this time so sepsis bundle was not ordered. Viral Panel negative. Case discussed with Dr. [facility], who kindly accepts for admission. Pt admitted in stable condition. Labs pending at time of admission. Undiagnosed new problem with uncertain prognosis? @ -No Drug Therapy requiring intensive monitoring for toxicity (Heparin, Nitro, Insulin, Cardizem)? @ -No Were any procedures done? @ -No Diagnosis/symptom? @ -Community-acquired pneumonia Acute, or Chronic, or Acute on Chronic? @ -Acute Uncomplicated (without systemic symptoms) or Complicated (systemic symptoms)? @ -Complicated Side effects of treatment? @ -No Exacerbation, Progression, or Severe Exacerbation? @ -No Poses a threat to life or bodily function? How? (Chest pain, [place], [place], pneumonia, PE, COPD, DKA, ARF, appy, cholecystitis, CVA, Diverticulitis, Homicidal, Suicidal, threat to staff... and all critical care pts) @ -Eventually, if left untreated could progress to sepsis and septic shock - Lab Data Lab Results 06/01/24 Range/Units 19:48 Influenza Type A (PCR) Not Detected (Not Detectd) Influenza Type B (PCR) Not Detected (Not Detectd) RSV (PCR) Not Detected (Not Detectd) SARS-CoV-2 (PCR) Not Detected (Not Detectd) Disposition Clinical Impression: Community acquired bacterial pneumonia Disposition: ADMITTED IP TO THIS HOSP Condition: Good
[2024-06-01] MEDS ORDERED: MAG HYDROX/AL HYDROX/SIMETH 30 ML CUP PO PRN (23:12)
[2024-06-01] MEDS ORDERED: CALCIUM CARBONATE 500 MG CHEWABLE PO PRN (23:12)
[2024-06-01] MEDS ORDERED: NALOXONE 0.4 MG/ML 1 ML VIAL IV PRN (23:12)
[2024-06-01] MEDS: SODIUM CHLORIDE 0.9% 1,000 ML IV ONE (23:50)
[2024-06-01] MEDS: PRIMIDONE 50 MG TAB PO SCH (23:52)
[2024-06-01] MEDS: MONTELUKAST 10 MG TAB PO SCH (23:52)
[2024-06-01] MEDS: lamoTRIgine 100 MG TAB PO SCH (23:52)
[2024-06-01] MEDS: LACOSAMIDE 50 MG TABLET PO SCH (23:52)
[2024-06-02 00:42] LABS: Basophils % (A) 0 %; Eosinophils % (A) 0 %; HCT 41.3 % (34.0-46.0); HGB 13.3 gm/dL (11.4-16.0); Lymphocytes # (A) 3.7 k/uL (1.0-4.8); Lymphocytes % (A) 38 %; MCH 30.4 pg (25.0-35.0); MCHC 32.2 g/dL (31.0-37.0); MCV 94.3 fL (80.0-100.0); Mean Platelet Volume 8.3; Monocytes # (A) 0.8 k/uL (0-1.0); Monocytes % (A) 9 %; Neutrophils # (A) 4.8 k/uL (1.3-7.7); Neutrophils % (A) 50 %; Platelet Count 289 k/uL (150-450); RBC 4.37 m/uL (3.80-5.40); RDW 12.5 % (11.5-15.5); WBC 9.6 k/uL (3.8-10.6)
[2024-06-02] MEDS: BENZONATATE 100 MG CAP PO STA (00:51)
[2024-06-02] MEDS: CLINDAMYCIN 600 MG in DEXTROSE 5% IN WATER 50 ML IVPB ONE (00:51)
[2024-06-02] MEDS: ACETAMINOPHEN TAB 325 MG TAB PO PRN (00:52)
--- NOTE | 2024-06-02 01:26 | P.HPIM ---
History of Present Illness H&P Date: 06/01/24 Chief Complaint: Cough, sorethroat Patient is a 58-year-old female with past medical history of asthma presenting to the ED with cough and sore throat. Cough and sore throat started about a week ago when she went to a walk-in clinic where she was prescribed doxycycline, prednisone and albuterol inhaler. She took the last dose of these medications yesterday. She mentions that these medications did not help at all with her symptoms. She continues to have shortness of breath, congested cough along with white phlegm production as well as headache. Reported pleuritic sternal chest pain, brought on with coughing. Denies hemoptysis, palpitations, nausea, vomiting, abdominal pain, rashes. ED workup revealed Chest X-Ray that shows hazy airspace opacities in the right middle lung and the Respiratory Panel is negative. Procalcitonin was ordered and she was treated with clindamycin and 0.9 normal saline in the ED. Vitals: T 98.3F, P 95 bpm, RR 18, O2 sat at 99% on room air CBC: WBC 9.6, hemoglobin 13.3, platelet 289 CMP: Cl 109, BUN 28, Creatinine 1.10, ALP 163 proBNP: 42 Troponin: <0.012 EKG: Independently interpreted shows sinus rhythm; T-waveflattening diffusely; rate of 83 bpm; ETc923 ms. ED documentation reviewed. Review of systems: Pertinent positives and negatives as discussed in HPI, a complete review of systems was performed and all other systems are negative. 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 Physical examination: Vital signs reviewed General: Mild distress from coughing, appears at stated age, obese Derm: no unusual rashes/lesions, warm Head: atraumatic, normocephalic, symmetric Eyes: EOMI, no lid lag, anicteric sclera, pupils equal round reactive to light ENT: Nose and ears atraumatic Neck: No cervical lymphadenopathy, supple Mouth: no lip lesion, mucus membranes moist Cardiovascular: S1S2 reg, no murmur Lungs: Wheezing bilaterally, no rales Abdominal: soft, nontender to palpation, no guarding Ext: muscle strength 5 out of 5 in all 4 extremities grossly, no gross muscle atrophy, no contractures, Neuro: CN II-XI grossly intact, no gross focal neuro deficits Psych: Alert, oriented, appropriate affect Assessment/Plan: Patient is a 58-year-old female with past medical history of asthma presenting to the ED with cough and sore throat. #. Community acquired pneumonia - Initiated Levaquin 750 mg q12h (penicillin and cephalosporins allergy) - F/u procalcitonin levels #. Acute asthma exacerbation, likely secondary to pneumonia - Initiated Duonebs RTC and PRN along with Prednisone 40 mg po qd - C/w Singulair 10 mg p.o. at bedtime, Robitussin 200 mg p.o. 3 times daily as needed, Promethazine 12.5 mg p.o. daily and Loratadine 10 mg p.o. daily - C/w Benzonatate 200 mg p.o. 3 times daily as needed and incentive spirometer Q1H #. BEAR - BUN 28, Creatinine 1.10 - Monitor BMP #. H/o Seizure Disorder C/w Lamotrigine 200 mg p.o. daily, Primidone 50 mg p.o. twice daily and Lacosamide 100 mg p.o. twice daily #. Hyperlipidemia - C/w Atorvastatin #. GERD - C/w Famotidine 20 mg p.o. twice daily #. Indigestion - C/w Maalox 15 mL p.o. every 6 hours as needed and Tums 1000 mg p.o. every 4 hours as needed F:no fluids E:Replete as required N:Regular diet A:Ambulatory DVT prophylaxis: SCD The patient is admitted with an anticipated more than 2 midnight stay for evaluation of cough CODE STATUS: Full Code Discussed with: Patient Anticipated discharge place: Home Past Medical History Past Medical History: GERD/Reflux, Seizure Disorder Additional Past Medical History / Comment(s): HX NUMEROUS KIDNEY STONES- HX EPILEPSY. -HAS PUBLIC GUARDIAN, STATES BRUISES EASILY, POOR HISTORIAN., STATES CARPAL TUNNEL IN HANDS AND ELBOWS. COVID 10/16/21, History of Any Multi-Drug Resistant Organisms: None Reported Past Surgical History: Breast Surgery, Orthopedic Surgery Additional Past Surgical History / Comment(s): LITHOTRIPSY , BREAST BX X 1 -PT NOT SURE WHICH ONE, LT KNEE SURGERY Past Anesthesia/Blood Transfusion Reactions: No Reported Reaction Past Psychological History: No Psychological Hx Reported Smoking Status: Never smoker Past Alcohol Use History: None Reported Past Drug Use History: None Reported - Past Family History Father Additional Family Medical History / Comment(s): HEART PROBLEMS heart stint placed Mother Family Medical History: Diabetes Mellitus Medications and Allergies Home Medications Medication Instructions Recorded Confirmed Type lamoTRIgine [LaMICtal] 200 mg PO BID 09/29/14 06/01/24 History Montelukast [Singulair] 10 mg PO HS 07/26/20 06/01/24 History Loratadine 10 mg PO DAILY 10/17/21 06/01/24 History Primidone [Mysoline] 50 mg PO BID 12/03/22 06/01/24 History Lacosamide [Vimpat] 100 mg PO BID 01/21/23 06/01/24 History Rosuvastatin [Crestor] 10 mg PO DAILY 08/27/23 06/01/24 History Cholecalciferol [Vitamin D3 (125 125 mcg PO DAILY 02/01/24 06/01/24 History Mcg = 5000 Iu)] Promethazine HCl 12.5 mg PO DAILY 06/01/24 06/01/24 History Allergies Allergy/AdvReac Type Severity Reaction Status Date / Time amoxicillin Allergy Unknown Verified 06/01/24 21:17 cephalexin Allergy Unknown Verified 06/01/24 21:17 cetirizine Allergy Unknown Verified 06/01/24 21:17 erythromycin base Allergy Unknown Verified 06/01/24 21:17 escitalopram oxalate Allergy Unknown Verified 06/01/24 21:17 [From Lexapro] Penicillins Allergy Unknown Verified 06/01/24 21:17 Sulfa (Sulfonamide Allergy Unknown Verified 06/01/24 21:17 Antibiotics) naproxen [From Naprosyn] AdvReac dry, runny Verified 06/01/24 21:17 nose tamsulosin AdvReac dry, runny Verified 06/01/24 21:17 nose Physical Exam Vitals: Vital Signs Temp Pulse Resp Pulse Ox 06/01/24 17:53 98.3 F 95 18 99 Intake and Output 06/01/24 06/01/24 06/02/24 14:59 22:59 06:59 Other: Weight 96.162 kg Results CBC & Chem 7: 06/01/24 23:59 06/01/24 23:59
[2024-06-02 01:27] LABS: ALT 34 U/L (4-34); AST 33 U/L (14-36); African American GFR (CKD) 63 (>60 ml/min/1.73 sqM); Albumin 3.9 g/dL (3.5-5.0); Alkaline Phosphatase 163 U/L (38-126); Anion Gap 5 mmol/L; Blood Urea Nitrogen 28 mg/dL (7-17); Calcium 9.2 mg/dL (8.4-10.2); Carbon Dioxide 24 mmol/L (22-30); Chloride 109 mmol/L (98-107); Glucose 89 mg/dL (74-99); Non-African American GFR(CKD) 55 (>60 ml/min/1.73 sqM); Potassium 3.7 mmol/L (3.5-5.1); Sodium 138 mmol/L (137-145); Total Bilirubin 0.5 mg/dL (0.2-1.3); Total Protein 7.3 g/dL (6.3-8.2)
[2024-06-02 01:29] LABS: NT-Pro-B-Type Natriuretic Pept 42 pg/mL
[2024-06-02] MEDS: IBUPROFEN 400 MG TAB PO STA (02:41)
[2024-06-02] MEDS ORDERED: IPRATROPIUM-ALBUTEROL 3 ML NEB INHALATION PRN (03:06)
[2024-06-02] MEDS: predniSONE 20 MG TAB PO STA (03:34)
[2024-06-02] MEDS: LEVOFLOXACIN 750MG-D5W PMX 750 MG in DEXTROSE/WATER 1 150ML.BAG IVPB SCH (03:37)
[2024-06-02] MEDS: FAMOTIDINE 20 MG TAB PO SCH (08:20)
[2024-06-02] MEDS: LORATADINE 10 MG TAB PO SCH (08:21)
[2024-06-02] MEDS: predniSONE 20 MG TAB PO SCH (08:21)
[2024-06-02] MEDS: ATORVASTATIN 20 MG TAB PO SCH (08:21)
[2024-06-02] MEDS: guaiFENesin SYRUP 100MG/5ML 200 MG/10 ML CUP PO PRN (08:22)
[2024-06-02] MEDS: PROMETHAZINE 25 MG TAB PO SCH (08:40)
[2024-06-02] MEDS: IPRATROPIUM-ALBUTEROL 3 ML NEB INHALATION SCH (09:17)
--- NOTE | 2024-06-02 16:11 | P.PN ---
Subjective Progress Note Date: 06/02/24 Patient is a 58-year-old female with past medical history of asthma presenting to the ED with cough and sore throat. Cough and sore throat started about a week ago when she went to a walk-in clinic where she was prescribed doxycycline, prednisone and albuterol inhaler. She took the last dose of these medications yesterday. She mentions that these medications did not help at all with her symptoms. She continues to have shortness of breath, congested cough along with white phlegm production as well as headache. Reported pleuritic sternal chest pain, brought on with coughing. Denies hemoptysis, palpitations, nausea, vomiting, abdominal pain, rashes. ED workup revealed Chest X-Ray that shows hazy airspace opacities in the right middle lung and the Respiratory Panel is negative. Procalcitonin was ordered and she was treated with clindamycin and 0.9 normal saline in the ED. Vitals: T 98.3F, P 95 bpm, RR 18, O2 sat at 99% on room air CBC: WBC 9.6, hemoglobin 13.3, platelet 289 CMP: Cl 109, BUN 28, Creatinine 1.10, ALP 163 proBNP: 42 Troponin: <0.012 EKG: Independently interpreted shows sinus rhythm; T-waveflattening diffusely; rate of 83 bpm; [id number] ms. Progress note 4patient seen and examined at bedside. No acute events overnight. Patient states she is uncomfortable with continuous coughing. No shortness of breath or fever. She states she is otherwise well. Physical examination: Vital signs reviewed General: Mild distress from coughing, appears at stated age, obese Derm: no unusual rashes/lesions, warm Head: atraumatic, normocephalic, symmetric Eyes: EOMI, no lid lag, anicteric sclera, pupils equal round reactive to light ENT: Nose and ears atraumatic Neck: No cervical lymphadenopathy, supple Mouth: no lip lesion, mucus membranes moist Cardiovascular: S1S2 reg, no murmur Lungs: Wheezing bilaterally, no rales Abdominal: soft, nontender to palpation, no guarding Ext: muscle strength 5 out of 5 in all 4 extremities grossly, no gross muscle atrophy, no contractures, Neuro: CN II-XI grossly intact, no gross focal neuro deficits Psych: Alert, oriented, appropriate affect Labs reviewed today: CBC is WNL, sodium 138, potassium 3.7, chloride 109, carbon dioxide 24, BUN 28, creatinine 1.10 Assessment/Plan: Patient is a 58-year-old female with past medical history of asthma presenting to the ED with cough and sore throat. #. Community acquired pneumonia Respiratory panel negative - Procalcitonin 0.04 is WNL Chest x-ray with right hazy opacities in medial right lung -Continue Levaquin 750 mg q12h (penicillin and cephalosporins allergy) #. Acute asthma exacerbation, likely secondary to pneumonia - Initiated Duonebs RTC and PRN al 06/02ong with Prednisone 40 mg po qd - C/w Singulair 10 mg p.o. at bedtime, Robitussin 200 mg p.o. 3 times daily as needed, Promethazine 12.5 mg p.o. daily and Loratadine 10 mg p.o. daily - C/w Benzonatate 200 mg p.o. 3 times daily as needed and incentive spirometer Q1H #. H/o Seizure Disorder C/w Lamotrigine 200 mg p.o. daily, Primidone 50 mg p.o. twice daily and Lacosamide 100 mg p.o. twice daily #. Hyperlipidemia - C/w Atorvastatin #. GERD - C/w Famotidine 20 mg p.o. twice daily #. Indigestion - C/w Maalox 15 mL p.o. every 6 hours as needed and Tums 1000 mg p.o. every 4 ho urs as needed F:no fluids E:Replete as required N:Regular diet A:Ambulatory DVT prophylaxis: SCD CODE STATUS: Full Code Discussed with: Patient Anticipated discharge place: Home I have seen and evaluated the patient today. Discussed with the resident and agree with the residents finding and plan as documented in the resident's note. Changes highlighted in blue font. Objective - Vital Signs Vital signs: Vital Signs Temp 98.9 F 06/02/24 08:18 Pulse 68 06/02/24 15:46 Resp 18 06/02/24 08:18 BP 138/72 06/02/24 08:18 Pulse Ox 98 06/02/24 08:18 FiO2 Intake & Output 06/01/24 06/02/24 06/02/24 18:59 06:59 18:59 Weight 96.162 kg - Labs CBC & Chem 7: 06/01/24 23:59 06/01/24 23:59 Labs: Abnormal Lab Results - Last 24 Hours (Table) 06/01/24 Range/Units 23:59 Chloride 109 H (98-107) mmol/L BUN 28 H (7-17) mg/dL Creatinine 1.10 H (0.52-1.04) mg/dL Alkaline Phosphatase 163 H (38-126) U/L
[2024-06-03 07:44] LABS: Basophils % (A) 0 %; Eosinophils % (A) 0 %; HCT 36.5 % (34.0-46.0); HGB 12.4 gm/dL (11.4-16.0); Lymphocytes # (A) 3.3 k/uL (1.0-4.8); Lymphocytes % (A) 35 %; MCH 31.7 pg (25.0-35.0); MCV 93.1 fL (80.0-100.0); Mean Platelet Volume 8.5; Monocytes # (A) 0.7 k/uL (0-1.0); Monocytes % (A) 7 %; Neutrophils # (A) 5.1 k/uL (1.3-7.7); Neutrophils % (A) 55 %; Platelet Count 267 k/uL (150-450); RBC 3.92 m/uL (3.80-5.40); RDW 13.3 % (11.5-15.5); WBC 9.3 k/uL (3.8-10.6)
[2024-06-03 08:01] LABS: ALT 24 U/L (4-34); AST 19 U/L (14-36); African American GFR (CKD) 73 (>60 ml/min/1.73 sqM); Albumin 3.2 g/dL (3.5-5.0); Albumin/Globulin Ratio 1.1; Alkaline Phosphatase 123 U/L (38-126); Anion Gap 5 mmol/L; Blood Urea Nitrogen 18 mg/dL (7-17); Carbon Dioxide 24 mmol/L (22-30); Chloride 108 mmol/L (98-107); Glucose 92 mg/dL (74-99); Non-African American GFR(CKD) 63 (>60 ml/min/1.73 sqM); Potassium 3.5 mmol/L (3.5-5.1); Sodium 137 mmol/L (137-145); Total Bilirubin 0.4 mg/dL (0.2-1.3); Total Protein 6.2 g/dL (6.3-8.2)
[2024-06-03 08:31] VITALS: BP 153/75; RESP 18; TEMP 97.8
[2024-06-03] MEDS: BENZONATATE 100 MG CAP PO PRN (08:53)
[2024-06-03] MEDS: FAMOTIDINE 20 MG TAB PO SCH (08:54)
[2024-06-03 11:52] VITALS: PULSE 81
--- NOTE | 2024-06-03 14:37 | P.DS ---
Providers Date of admission: 06/01/24 23:14 Expected date of discharge: 06/03/24 Attending physician: Javi Boone MD Primary care physician: [facility] Hospital Course: Discharge diagnoses; #. Community acquired pneumonia #. Acute asthma exacerbation, likely secondary to pneumonia #. H/o Seizure Disorder #. Hyperlipidemia #. GERD #. Indigestion Hospital course; Patient is a 58-year-old female with past medical history of asthma presenting to the ED with cough and sore throat. Cough and sore throat started about a week ago when she went to a walk-in clinic where she was prescribed doxycycline, prednisone and albuterol inhaler. She took the last dose of these medications yesterday. She mentions that these medications did not help at all with her symptoms. She continues to have shortness of breath, congested cough along with white phlegm production as well as headache. Reported pleuritic sternal chest pain, brought on with coughing. Denies hemoptysis, palpitations, nausea, vo miting, abdominal pain, rashes. ED workup revealed Chest X-Ray that shows hazy airspace opacities in the right middle lung and the Respiratory Panel is negative. Procalcitonin was ordered and she was treated with clindamycin and 0.9 normal saline in the ED. Vitals: T 98.3F, P 95 bpm, RR 18, O2 sat at 99% on room air CBC: WBC 9.6, hemoglobin 13.3, platelet 289 CMP: Cl 109, BUN 28, Creatinine 1.10, ALP 163 proBNP: 42 Troponin: <0.012 EKG: Independently interpreted shows sinus rhythm; T-wave flattening diffusely; rate of 83 bpm; GMm330 ms. During hospital stay patient diagnosed with community-acquired pneumonia. She was treated with Levaquin 750 every 12 hours, for 1 day. CBC was WNL. She was also treated for acute asthma exacerbation with DuoNebs, prednisone 40 mg, Singulair 10 mg, Robitussin 200 mg 3 times a day as needed, promethazine 12.5 mg, lower denied 10 mg daily, benzonatate 200 mg 3 times daily as needed and incentive spirometer every 1 hour. Treatment regiment improved her cough and wheezing. Patient is discharged stable to home. On discharge she is prescribed Advair [id number], prednisone 40 mg, benzonatate 200 mg, Ventolin FHA inhaler, Levaquin 750 mg for 4 days. Patient to follow-up with PCP. Physical examination: Vital signs reviewed General: Mild distress from coughing, appears at stated age, obese Derm: no unusual rashes/lesions, warm Head: atraumatic, normocephalic, symmetric Eyes: EOMI, no lid lag, anicteric sclera, pupils equal round reactive to light ENT: Nose and ears atraumatic Neck: No cervical lymphadenopathy, supple Mouth: no lip lesion, mucus membranes moist Cardiovascular: S1S2 reg, no murmur Lungs: Occasional wheezing, no rales Abdominal: soft, nontender to palpation, no guarding Ext: muscle strength 5 out of 5 in all 4 extremities grossly, no gross muscle atrophy, no contractures, Neuro: CN II-XI grossly intact, no gross focal neuro deficits Psych: Alert, oriented, appropriate affect Dictation was produced using [employer] dictation software. please excuse any grammatical, word or spelling errors. A total of 33 minutes of time were spent preparing this complex discharge summary. Patient was discharged on 06/03/2024 at 932. I have seen and evaluated the patient today. Discussed with the resident and agree with the residents finding and plan as documented in the resident's note. Changes highlighted in blue font. Patient Condition at Discharge: Stable Plan - Discharge Summary Discharge Rx Participant: No New Discharge Prescriptions: New Fluticasone Propion/Salmeterol [Advair 100-50 Diskus] 1 inhalation PO BID #1 each predniSONE [Deltasone] 40 mg PO DAILY #6 tab Benzonatate [Tessalon Perles] 200 mg PO TID PRN #20 cap PRN Reason: Cough Albuterol Inhaler [Ventolin Hfa Inhaler] 1 - 2 puff INHALATION Q6H PRN #1 each PRN Reason: Shortness Of Breath Levofloxacin [Levaquin] 750 mg PO DAILY 4 Days #4 tab Continue lamoTRIgine [LaMICtal] 200 mg PO BID Montelukast [Singulair] 10 mg PO HS Loratadine 10 mg PO DAILY Primidone [Mysoline] 50 mg PO BID Lacosamide [Vimpat] 100 mg PO BID Rosuvastatin [Crestor] 10 mg PO DAILY Cholecalciferol [Vitamin D3 (125 Mcg = 5000 Iu)] 125 mcg PO DAILY Promethazine HCl 12.5 mg PO DAILY Discharge Medication List lamoTRIgine [LaMICtal] 200 mg PO BID 09/29/14 [History] Montelukast [Singulair] 10 mg PO HS 07/26/20 [History] Loratadine 10 mg PO DAILY 10/17/21 [History] Primidone [Mysoline] 50 mg PO BID 12/03/22 [History] Lacosamide [Vimpat] 100 mg PO BID 01/21/23 [History] Rosuvastatin [Crestor] 10 mg PO DAILY 08/27/23 [History] Cholecalciferol [Vitamin D3 (125 Mcg = 5000 Iu)] 125 mcg PO DAILY 02/01/24 [History] Promethazine HCl 12.5 mg PO DAILY 06/01/24 [History] Albuterol Inhaler [Ventolin Hfa Inhaler] 1 - 2 puff INHALATION Q6H PRN #1 each 06/03/24 [Rx] Benzonatate [Tessalon Perles] 200 mg PO TID PRN #20 cap 06/03/24 [Rx] Fluticasone Propion/Salmeterol [Advair 100-50 Diskus] 1 inhalation PO BID #1 ea ch 06/03/24 [Rx] Levofloxacin [Levaquin] 750 mg PO DAILY 4 Days #4 tab 06/03/24 [Rx] predniSONE [Deltasone] 40 mg PO DAILY #6 tab 06/03/24 [Rx] Follow up Appointment(s)/Referral(s): [facility] [Primary Care Provider] - 1-2 days Patient Instructions/Handouts: Asthma (DC), Community Acquired Pneumonia (DC) Activity/Diet/Wound Care/Special Instructions: Please follow with your PCP Discharge Disposition: HOME SELF-CARE
[2024-06-04] MEDS ORDERED: LEVOFLOXACIN 750MG-D5W PMX 750 MG in DEXTROSE/WATER 1 150ML.BAG IVPB SCH (06:00)
== END 2024-06-03 14:08 | disposition home or self-care (01) ==
LOC: EC 17:50 → 6NMEDSUR 23:14
PROVIDERS: ADMIT Internal Medicine; ATTEND Internal Medicine
DX: J15.9 Unspecified bacterial pneumonia (principal); J45.901 Unspecified asthma with (acute) exacerbation; N17.9 Acute kidney failure, unspecified; G40.909 Epilepsy, unspecified, not intractable, without status epilepticus; E78.5 Hyperlipidemia, unspecified; K21.9 Gastro-esophageal reflux disease without esophagitis; K30 Functional dyspepsia; J02.9 Acute pharyngitis, unspecified; R51.9 Headache, unspecified; Z11.52 Encounter for screening for COVID-19; Z11.59 Encounter for screening for other viral diseases; Z79.899 Other long term (current) drug therapy; Z88.0 Allergy status to penicillin; Z88.1 Allergy status to other antibiotic agents; Z88.2 Allergy status to sulfonamides; Z88.6 Allergy status to analgesic agent; Z88.8 Allergy status to other drugs, medicaments and biological substances; Z90.49 Acquired absence of other specified parts of digestive tract
CPT/HCPCS: 71046; 80053; 83880; 84145; 84484; 85025; 87636; 93005; 94640; 96361; 96365; 96366; 96367; 99285

== ENCOUNTER → 2024-07-15 | Outpatient (CLI) | payer MEDICARE, OTHER ==
--- NOTE | 2024-07-15 21:50 | XR ---
EXAMINATION TYPE: XR knee complete RT DATE OF EXAM: 07/15/2024 9:57 AM COMPARISON: None. CLINICAL INDICATION: Female, 58 years old with history of M25.561 PAIN IN RIGHT KNEE, TECHNIQUE: XR knee complete RT view(s) obtained. FINDINGS: Three-view right knee. Joint spaces are preserved. No joint effusion is evident. No acute fracture or dislocation. IMPRESSION: 1. No acute osseous abnormality right knee [facility], Workstation: [facility], 07/15/2024 9:48 PM
== END | disposition home or self-care (01) ==
LOC: RADXRMAIN 09:38
PROVIDERS: ATTEND Internal Medicine Pulmonary Disease
DX: M25.561 Pain in right knee (principal)

== ENCOUNTER → 2025-01-27 | Outpatient (CLI) | payer MEDICARE, OTHER ==
--- NOTE | 2025-01-27 15:40 | CT ---
EXAMINATION TYPE: CT abdomen pelvis w con CT DLP: 1474 mGycm, Automated exposure control for dose reduction was used. DATE OF EXAM: 01/27/2025 3:17 PM COMPARISON: CT abdomen pelvis 01/21/2023, 09/03/2020 CLINICAL INDICATION:Female, 59 years old with history of R10.84 AB PAIN K44.9 HERNIA; upper abd pain TECHNIQUE: Standard CT of the abdomen and pelvis following the administration of 100 cc of Isovue 3 00 IV contrast material and oral contrast. Coronal and sagittal reformats were performed. FINDINGS: LOWER CHEST: Linear scarring and/or atelectasis within the right lower lobe. ABDOMEN LIVER: Inferior right hepatic lobe subcentimeter hypodense focus which is too small to characterize b ut likely represents a cyst. GALLBLADDER AND BILE DUCTS: The gallbladder is surgically absent. No biliary ductal dilatation. PANCREAS: Lipomatous pseudohypertrophy changes. SPLEEN: Unremarkable. ADRENAL GLANDS: Unremarkable. KIDNEYS AND URETERS: No evidence of hydronephrosis. No left renal calculi. Approximately 4 punctate n onobstructive right renal calculi measuring up to 2 mm. The kidneys enhance symmetrically. Contrast i s demonstrated within both collecting systems and proximal ureters on the delayed phase. PELVIS BLADDER: Unremarkable REPRODUCTIVE: Unremarkable. ABDOMEN & PELVIS STOMACH AND BOWEL: Stomach and duodenum are unremarkable. Enteric contrast reaches the sigmoid colon. No focal bowel wall thickening or surrounding inflammatory changes. No evidence of bowel obstruction . PERITONEUM: No evidence of pneumoperitoneum or free fluid. VASCULATURE: Minimal atherosclerotic calcifications are present throughout the abdominal aorta and it s branches. No evidence of aortic aneurysm. MUSCULOSKELETAL: No acute osseous abnormalities LYMPH NODES: No evidence for lymphadenopathy. SOFT TISSUE/ABDOMINAL WALL: Epigastric broad-based ventral hernia containing fat and a portion of the transverse colon. The defect measures up to 7.8 cm in diameter which is about the size of the hernia . Additionally there is a just right of this another fat-containing hernia with defect measuring up t o 2.4 cm in diameter. The hernia sac measures up to 5.0 cm. Adjacent right lateral epigastric region Spigelian broad-based hernia containing nonobstructing ascending colon with defect measuring up to 5. 9 cm in diameter. These are overall similar to prior exam. No evidence for inguinal hernia or umbilic al hernia. IMPRESSION: 1. No CT evidence for acute abdominal/pelvic process. 2. Redemonstration of complex mid to right ventral abdominal epigastric region hernias containing non obstructive colon as described above. 3. Nonobstructing right renal calculi. [facility], , 01/27/2025 3:37 PM
== END | disposition home or self-care (01) ==
LOC: RADCTMAIN 13:08
PROVIDERS: ATTEND Surgery
DX: N20.0 Calculus of kidney (principal); K44.9 Diaphragmatic hernia without obstruction or gangrene
CPT/HCPCS: 74177; Q9967

== ENCOUNTER 2025-02-06 05:40 | Inpatient (IN) | payer MEDICARE, OTHER ==
[2025-02-06] MEDS: IV FLUID CONTINUATION 1,000 ML IV ONE ×2 (06:21→10:25)
[2025-02-06] MEDS: ACETAMINOPHEN TAB 500 MG TAB PO PRN (06:52)
[2025-02-06] MEDS: LACTATED RINGERS 1,000 ML IV SCH (06:52)
[2025-02-06 06:54] LABS: Basophils # (A) 0.01 10*3/uL (0.00-0.10); Basophils % (A) 0.2 %; HCT 41.2 % (37.2-46.3); HGB 13.5 g/dL (12.0-15.0); Lymphocytes # (A) 2.78 10*3/uL (0.90-5.00); Lymphocytes % (A) 42.4 %; MCH 30.8 pg (27.0-32.0); MCHC 32.8 g/dL (32.0-37.0); MCV 93.8 fL (80.0-97.0); Mean Platelet Volume 10.3 fL (9.5-12.2); Monocytes # (A) 0.62 10*3/uL (0.20-1.00); Monocytes % (A) 9.5 %; Neutrophils # (A) 3.14 10*3/uL (1.80-7.70); Neutrophils % (A) 47.7 %; Platelet Count 282 10*3/uL (140-440); RBC 4.39 10*6/uL (4.10-5.20); RDW 12.6 % (11.5-14.5); WBC 6.56 10*3/uL (4.50-10.00)
[2025-02-06] MEDS: ONDANSETRON 4 MG/2 ML VIAL IVP ONE (06:54)
[2025-02-06] MEDS: DEXAMETHASONE SOD PHOSPHATE 4 MG/ML 1 ML VIAL IV ONE (06:54)
[2025-02-06 07:06] LABS: ALT 17 U/L (4-34); AST 18 U/L (14-36); African American GFR (CKD) 67 (>60 ml/min/1.73 sqM); Albumin 4.4 g/dL (3.5-5.0); Alkaline Phosphatase 140 U/L (38-126); Anion Gap 13 mmol/L; Blood Urea Nitrogen 12 mg/dL (7-17); Calcium 9.8 mg/dL (8.4-10.2); Carbon Dioxide 27 mmol/L (22-30); Chloride 101 mmol/L (98-107); Glucose 105 mg/dL (74-99); Non-African American GFR(CKD) 58 (>60 ml/min/1.73 sqM); Potassium 3.8 mmol/L (3.5-5.1); Sodium 141 mmol/L (137-145); Total Bilirubin 0.5 mg/dL (0.2-1.3); Total Protein 7.7 g/dL (6.3-8.2)
[2025-02-06] MEDS: HEPARIN SODIUM,PORCINE 5,000 UNIT/ML 1 ML VIAL SQ PRN (07:11)
[2025-02-06] MEDS ORDERED: KETAMINE HCL IN 0.9 % NACL 50 MG/5 ML SYRINGE ONE (07:30)
[2025-02-06] MEDS ORDERED: ROCURONIUM 10 MG/ML (5 ML VIAL) IV ONE (07:30)
[2025-02-06] MEDS ORDERED: fentaNYL (PF) 50 MCG/ML 2 ML AMP ONE (07:30)
[2025-02-06] MEDS ORDERED: GLYCOPYRROLATE 0.2 MG/ML 2 ML VIAL ONE (07:30)
[2025-02-06] MEDS ORDERED: HYDROmorphone (PF) 1 MG/ML ONE (07:30)
[2025-02-06] MEDS ORDERED: MIDAZOLAM 2 MG/2 ML VIAL ONE (07:30)
[2025-02-06] MEDS ORDERED: LIDOCAINE 1% INJ 10MG/ML (20 ML MDV) ONE (07:30)
[2025-02-06] MEDS ORDERED: SUCCINYLCHOLINE CHLORIDE 200 MG/10 ML VIAL IV ONE (07:30)
[2025-02-06] MEDS ORDERED: PROPOFOL 10 MG/ML 20 ML VIAL IV ONE (07:30)
[2025-02-06] MEDS ORDERED: PHENYLEPHRINE 10 MG/ML VIAL ONE (07:30)
[2025-02-06] MEDS ORDERED: NEOSTIGMINE 1 MG/ML 10 ML VIAL ONE (07:30)
--- NOTE | 2025-02-06 07:34 | P.GSHP ---
History of Present Illness H&P Date: 02/06/25 Chief Complaint: Incisional hernia This a 59-year-old female who has developed an incisional hernia related to her open cholecystectomy incision. Patient presents today for repair. Her recent CAT scan shows a large both incisional hernia containing omentum and colon. Past Medical History Past Medical History: GERD/Reflux, Renal Disease, Seizure Disorder Additional Past Medical History / Comment(s): HX NUMEROUS KIDNEY STONES, HX EPILEPSY-unknown when last seizure. hx. COVID 10/16/21, some decreased kidney function, will be seeing nephrology next month History of Any Multi-Drug Resistant Organisms: None Reported Past Surgical History: Breast Surgery, Cholecystectomy, Orthopedic Surgery Additional Past Surgical History / Comment(s): LITHOTRIPSY , BREAST BX, LT KNEE SURGERY Past Anesthesia/Blood Transfusion Reactions: No Reported Reaction Smoking Status: Never smoker - Past Family History Father Additional Family Medical History / Comment(s): HEART PROBLEMS heart stent placed Mother Family Medical History: Diabetes Mellitus Medications and Allergies Home Medications Medication Instructions Recorded Confirmed Type lamoTRIgine [LaMICtal] 200 mg PO BID 09/29/14 02/06/25 History Montelukast [Singulair] 10 mg PO HS 07/26/20 02/06/25 History Loratadine 10 mg PO DAILY 10/17/21 02/06/25 History Primidone [Mysoline] 50 mg PO BID 12/03/22 02/06/25 History Lacosamide [Vimpat] 100 mg PO BID 01/21/23 02/06/25 History Rosuvastatin [Crestor] 10 mg PO HS 08/27/23 02/06/25 History Cholecalciferol [Vitamin D3 (125 125 mcg PO DAILY 02/01/24 02/06/25 History Mcg = 5000 Iu)] Multivitamins, Thera [Multivitamin 1 tab PO DAILY 02/02/25 02/06/25 History (formulary)] Pantoprazole Sodium [Protonix] 40 mg PO BID 02/02/25 02/06/25 History Allergies Allergy/AdvReac Type Severity Reaction Status Date / Time amoxicillin Allergy Unknown Verified 02/06/25 06:22 cephalexin Allergy Unknown Verified 02/06/25 06:22 cetirizine Allergy Unknown Verified 02/06/25 06:22 codeine Allergy Unknown Verified 02/06/25 06:22 erythromycin base Allergy Unknown Verified 02/06/25 06:22 escitalopram oxalate Allergy Unknown Verified 02/06/25 06:22 [From Lexapro] Penicillins Allergy Unknown Verified 02/06/25 06:22 Sulfa (Sulfonamide Allergy Unknown Verified 02/06/25 06:22 Antibiotics) naproxen [From Naprosyn] AdvReac dry, runny Verified 02/06/25 06:22 nose tamsulosin AdvReac dry, runny Verified 02/06/25 06:22 nose Surgical - Exam Vital Signs Temp Pulse Resp BP Pulse Ox 97.4 F L 88 18 141/72 96 02/06/25 06:20 02/06/25 06:20 02/06/25 06:20 02/06/25 06:20 02/06/25 06:20 - General well developed, no distress - Eyes PERRL - ENT normal pinna - Neck no masses - Respiratory normal expansion - Cardiovascular Rhythm: regular - Abdomen Abdomen: soft Hernia: incisional (10 cm incisional hernia located at the medial portion of her open cholecystectomy scar) Results - Labs 02/06/25 06:40 02/06/25 06:40 Abnormal Lab Results - Last 24 Hours (Table) 02/06/25 02/06/25 Range/Units 06:40 06:40 Eosinophils # 0.00 L (0.04-0.35) 10*3/uL Glucose 105 H (74-99) mg/dL Alkaline Phosphatase 140 H (38-126) U/L Diabetes panel 02/06/25 Range/Units 06:40 Sodium 141 (137-145) mmol/L Potassium 3.8 (3.5-5.1) mmol/L Chloride 101 (98-107) mmol/L Carbon Dioxide 27 (22-30) mmol/L BUN 12 (7-17) mg/dL Creatinine 1.04 (0.52-1.04) mg/dL Glucose 105 H (74-99) mg/dL Calcium 9.8 (8.4-10.2) mg/dL AST 18 (14-36) U/L ALT 17 (4-34) U/L Alkaline Phosphatase 140 H (38-126) U/L Total Protein 7.7 (6.3-8.2) g/dL Albumin 4.4 (3.5-5.0) g/dL Calcium panel 02/06/25 Range/Units 06:40 Calcium 9.8 (8.4-10.2) mg/dL Albumin 4.4 (3.5-5.0) g/dL Pituitary panel 02/06/25 Range/Units 06:40 Sodium 141 (137-145) mmol/L Potassium 3.8 (3.5-5.1) mmol/L Chloride 101 (98-107) mmol/L Carbon Dioxide 27 (22-30) mmol/L BUN 12 (7-17) mg/dL Creatinine 1.04 (0.52-1.04) mg/dL Glucose 105 H (74-99) mg/dL Calcium 9.8 (8.4-10.2) mg/dL Adrenal panel 02/06/25 Range/Units 06:40 Sodium 141 (137-145) mmol/L Potassium 3.8 (3.5-5.1) mmol/L Chloride 101 (98-107) mmol/L Carbon Dioxide 27 (22-30) mmol/L BUN 12 (7-17) mg/dL Creatinine 1.04 (0.52-1.04) mg/dL Glucose 105 H (74-99) mg/dL Calcium 9.8 (8.4-10.2) mg/dL Total Bilirubin 0.5 (0.2-1.3) mg/dL AST 18 (14-36) U/L ALT 17 (4-34) U/L Alkaline Phosphatase 140 H (38-126) U/L Total Protein 7.7 (6.3-8.2) g/dL Albumin 4.4 (3.5-5.0) g/dL Assessment and Plan Assessment: Cursory incisional hernia with incarcerated omentum and transverse colon. Patient undergo open repair.
[2025-02-06] MEDS: ceFAZolin 2 GM in DEXTROSE 5% IN WATER 50 ML IVPB PRN (07:39)
--- NOTE | 2025-02-06 09:02 | P.OP ---
Date of Procedure: 02/06/25 Preoperative Diagnosis: Incarcerated incisional hernia Postoperative Diagnosis: Incarcerated incisional hernia Procedure(s) Performed: Open repair of incarcerated incisional hernia with mesh Anesthesia: MARILIN Surgeon: Adam Little Estimated Blood Loss (ml): 10 Pathology: none sent Condition: stable Disposition: PACU Operative Findings: Hernia approximately 14 cm in length Description of Procedure: The patient was placed on the operative table in the supine position. She received general endotracheal tube anesthesia. Her abdomen was prepped draped in sterile fashion. Patient a previous open cholecystectomy scar. There was a hernia palpated at the medial portion of the scar. The skin was incised along the old scar. Using blunt sharp dissection with cautery the fascial defect was exposed from the subtenons tissue. The hernia measured approximately 14 cm in length. The hernia sac was inverted and then using #1 STRATAFIX suture of the fascia was reapproximated. The Prolene mesh was then cut to an appropriate size and placed on top of the fascia and secured with a secure strap news copy editor and the #1 STRATAFIX suture. A ESTELA drain was placed over top of the mesh repair. The subcu tissue was closed with 0 Vicryl. Skin was closed with shaquille. Patient had a sterile dressing applied. Patient was sent to recovery room in stable condition.
[2025-02-06] MEDS ORDERED: HYDROmorphone 0.5 MG/0.5 ML SYRINGE IVP PRN (09:03)
[2025-02-06] MEDS ORDERED: NALOXONE 0.4 MG/ML 1 ML VIAL IV PRN (09:03)
[2025-02-06] MEDS: HYDROmorphone 0.5 MG/0.5 ML SYRINGE IVP PRN (09:21)
[2025-02-06] MEDS: droPERidol 2.5 MG/ML VIAL IVP ONE (11:12)
[2025-02-06] MEDS: D5-0.45% NACL WITH KCL 20MEQ/L 1,000 ML IV SCH (11:30)
[2025-02-06] MEDS: KETOROLAC 15 MG/ML 1 ML VIAL IVP SCH (12:04)
[2025-02-06] MEDS: HYDROmorphone 1 MG/ML 1 ML SYRINGE IVP PRN (15:53)
--- NOTE | 2025-02-06 17:15 | P.CONS ---
History of Present Illness - Reason for Consult Consult date: 02/06/25 - History of Present Illness Patient is a 59-year-old female with a past medical history of seizure disorder, tremor, asthma, open cholecystectomy complicated by incisional hernia repaired earlier today with Dr. Little. Internal medicine consulted for medical management. History limited patient as patient was still groggy from anesthesia. She states she has had a seizure in the last few months. She does not express any concerns with compliance she does follow with a neurologist but is unable to recall who it is. Vitals upon examination include temperature of 97.4 Fahrenheit, respiratory rate of 16, blood pressure 126/83, oxygen saturation 93% on room air. Pertinent labs include CBC showing white count of 6.56, hemoglobin 13.5 platelet count 282, sodium 141, potassium 3.8, creatinine 1.04, BUN 12, alkaline phosphatase 140. Pertinent positives and negatives as discussed in HPI, a complete review of sy stems was performed and all other systems are negative. Patient seen and examined at bedside. Vital signs reviewed General: nontoxic, no distress, appears at stated age, obese Derm: warm, dry Head: atraumatic, normocephalic, symmetric Eyes: EOMI, no lid lag, anicteric sclera, pupils equal round reactive to light ENT: Nose and ears atraumatic Neck: No thyromegaly, supple Mouth: no lip lesion, mucus membranes moist Cardiovascular: S1S2 reg, no murmur, no edema Lungs: clear to auscultation bilateral, no rhonchi, no rales, no wheeze, no accessory muscle use Abdominal: Abdominal binder in place Ext: no gross muscle atrophy, muscle strength muscle strength 5 out of 5 in all 4 extremities, no contractures Neuro: CN II-XII grossly intact Psych: Alert, oriented, appropriate affect Assessment/Plan: [Active:] Incarcerated incisional hernia s/p open repair (02/06/2025): General Surgery managing PT OT evaluations pending Pain management per surgery continue D5 half NS at 50 cc/h pending, advance diet as tolerated Zofran as needed for nausea Seizure disorder: Continue lamotrigine, lacosamide Check serum lamotrigine levels Tremor: Continue home primidone Asthma: Continue home Singulair Hyperlipidemia: Continue atorvastatin The patient is admitted with an anticipated greater than 2 midnight stay as inpatient status for repair of hernia. Surrogate decision-maker: CODE STATUS: FULL CODE DVT prophylaxis: Lovenox Anticipated discharge date: Pending clinical course Anticipated discharge place: Pending clinical course A total of 40 minutes was spent on the care of this complex patient more than 50% of the time was spent in counseling and care coordination. Past Medical History Past Medical History: GERD/Reflux, Renal Disease, Seizure Disorder Additional Past Medical History / Comment(s): HX NUMEROUS KIDNEY STONES, HX EPILEPSY-unknown when last seizure. hx. COVID 10/16/21, some decreased kidney function, will be seeing nephrology next month History of Any Multi-Drug Resistant Organisms: None Reported Past Surgical History: Breast Surgery, Cholecystectomy, Orthopedic Surgery Additional Past Surgical History / Comment(s): LITHOTRIPSY , BREAST BX, LT KNEE SURGERY Past Anesthesia/Blood Transfusion Reactions: No Reported Reaction Smoking Status: Never smoker - Past Family History Father Additional Family Medical History / Comment(s): HEART PROBLEMS heart stent placed Mother Family Medical History: Diabetes Mellitus Medications and Allergies Home Medications Medication Instructions Recorded Confirmed Type lamoTRIgine [LaMICtal] 200 mg PO BID 09/29/14 02/06/25 History Montelukast [Singulair] 10 mg PO HS 07/26/20 02/06/25 History Loratadine 10 mg PO DAILY 10/17/21 02/06/25 History Primidone [Mysoline] 50 mg PO BID 12/03/22 02/06/25 History Lacosamide [Vimpat] 100 mg PO BID 01/21/23 02/06/25 History Rosuvastatin [Crestor] 10 mg PO HS 08/27/23 02/06/25 History Cholecalciferol [Vitamin D3 (125 125 mcg PO DAILY 02/01/24 02/06/25 History Mcg = 5000 Iu)] Multivitamins, Thera [Multivitamin 1 tab PO DAILY 02/02/25 02/06/25 History (formulary)] Pantoprazole Sodium [Protonix] 40 mg PO BID 02/02/25 02/06/25 History Allergies Allergy/AdvReac Type Severity Reaction Status Date / Time amoxicillin Allergy Unknown Verified 02/06/25 06:22 cephalexin Allergy Unknown Verified 02/06/25 06:22 cetirizine Allergy Unknown Verified 02/06/25 06:22 codeine Allergy Unknown Verified 02/06/25 06:22 erythromycin base Allergy Unknown Verified 02/06/25 06:22 escitalopram oxalate Allergy Unknown Verified 02/06/25 06:22 [From Lexapro] Penicillins Allergy Unknown Verified 02/06/25 06:22 Sulfa (Sulfonamide Allergy Unknown Verified 02/06/25 06:22 Antibiotics) naproxen [From Naprosyn] AdvReac dry, runny Verified 02/06/25 06:22 nose tamsulosin AdvReac dry, runny Verified 02/06/25 06:22 nose Physical Exam Vitals: Vital Signs Temp Pulse Pulse Resp BP Pulse Ox 02/06/25 15:17 97.4 F L 16 126/83 93 L 02/06/25 11:45 70 150/84 95 02/06/25 11:30 68 149/85 95 02/06/25 11:15 67 145/81 96 02/06/25 11:00 134/82 02/06/25 10:15 63 17 138/81 94 L 02/06/25 10:00 62 16 157/86 93 L 02/06/25 09:45 62 17 148/85 94 L 02/06/25 09:30 61 16 175/92 95 02/06/25 09:15 65 15 94 L 02/06/25 08:59 98.0 F 74 16 158/86 94 L 02/06/25 06:20 97.4 F L 88 18 141/72 96 Intake and Output 02/06/25 02/06/25 02/06/25 06:59 14:59 22:59 Intake Total 100 950 Output Total 25 Balance 100 925 Intake: IV 100 950 Output: Estimated Blood Loss 25 Other: Weight 96.2 kg Results CBC & Chem 7: 02/06/25 06:40 02/06/25 06:40 Labs: Abnormal Lab Results - Last 24 Hours (Table) 02/06/25 02/06/25 Range/Units 06:40 06:40 Eosinophils # 0.00 L (0.04-0.35) 10*3/uL Glucose 105 H (74-99) mg/dL Alkaline Phosphatase 140 H (38-126) U/L
[2025-02-06] MEDS: ACETAMINOPHEN TAB 325 MG TAB PO PRN (18:50)
[2025-02-06] MEDS: ONDANSETRON 4 MG/2 ML VIAL IVP PRN (20:12)
[2025-02-06] MEDS: PRIMIDONE 50 MG TAB PO SCH (20:22)
[2025-02-06] MEDS: LACOSAMIDE 50 MG TABLET PO SCH (20:22)
[2025-02-06] MEDS: lamoTRIgine 100 MG TAB PO SCH (20:22)
[2025-02-06] MEDS: MONTELUKAST 10 MG TAB PO SCH (20:22)
[2025-02-06] MEDS: ATORVASTATIN 20 MG TAB PO SCH (20:22)
[2025-02-07 06:11] LABS: Basophils # (A) 0.01 10*3/uL (0.00-0.10); Basophils % (A) 0.2 %; Eosinophils # (A) 0.01 10*3/uL (0.04-0.35); Eosinophils % (A) 0.2 %; HCT 29.4 % (37.2-46.3); Lymphocytes # (A) 1.67 10*3/uL (0.90-5.00); Lymphocytes % (A) 30.6 %; MCH 31.9 pg (27.0-32.0); MCHC 33.7 g/dL (32.0-37.0); MCV 94.8 fL (80.0-97.0); Mean Platelet Volume 11.3 fL (9.5-12.2); Monocytes # (A) 0.56 10*3/uL (0.20-1.00); Monocytes % (A) 10.3 %; Neutrophils # (A) 3.19 10*3/uL (1.80-7.70); Neutrophils % (A) 58.3 %; WBC 5.46 10*3/uL (4.50-10.00)
[2025-02-07 06:12] LABS: HGB 9.9 g/dL (12.0-15.0); Platelet Count 128 10*3/uL (140-440)
[2025-02-07 06:22] LABS: ALT 15 U/L (4-34); African American GFR (CKD) 78 (>60 ml/min/1.73 sqM); Albumin/Globulin Ratio 1.3; Anion Gap 11 mmol/L; Blood Urea Nitrogen 16 mg/dL (7-17); Carbon Dioxide 21 mmol/L (22-30); Chloride 105 mmol/L (98-107); Glucose 102 mg/dL (74-99); Non-African American GFR(CKD) 68 (>60 ml/min/1.73 sqM); Sodium 137 mmol/L (137-145); Total Bilirubin 0.6 mg/dL (0.2-1.3)
[2025-02-07 06:24] LABS: AST 28 U/L (14-36); Albumin 3.8 g/dL (3.5-5.0); Alkaline Phosphatase 91 U/L (38-126); Potassium 4.9 mmol/L (3.5-5.1); Total Protein 6.8 g/dL (6.3-8.2)
[2025-02-07] MEDS: ENOXAPARIN 40 MG/0.4 ML SYRINGE SQ SCH (08:23)
--- NOTE | 2025-02-07 13:38 | P.PN ---
Subjective Progress Note Date: 02/07/25 SURGICAL PROGRESS NOTE CHIEF COMPLAINT: Incarcerated incisional hernia HISTORY OF PRESENT ILLNESS: Patient is postop day #1 status post open repair of incarcerated incisional hernia with mesh. Patient had nausea and vomiting all through the night yesterday. She reports this morning still feeling nauseous. She is able to drink some water and a few bites of Jell-O. She denies any flatus. She does report abdominal soreness. Her pain is controlled. She is sitting at bedside chair. Afebrile. WBC is 5.46 Hgb is down from 13-9.9. ESTELA drain 70 mL output PHYSICAL EXAM: VITAL SIGNS: Reviewed. GENERAL: Well-developed in no acute distress. ABDOMEN: Soft. Nondistended. Tender at incision site. Prevena wound VAC intact. ESTELA drain serosanguineous output NEUROLOGIC: Alert and oriented. Cranial nerves II through XII grossly intact. ASSESSMENT: 1. Incarcerated incisional hernia 2. Anemia PLAN: - Continue antiemetics - Encourage patient to ambulate - Continue diet as tolerated - Possible discharge tomorrow - Repeat CBC in a.m. - Discontinue Toradol due to anemia - [place] added for oral pain meds - DVT prophylaxis Lovenox and already given today Physician Supervisor [place] note has been reviewed by physician. Signing provider agrees with the documented findings, assessment, and plan of care. Objective - Vital Signs Vital signs: Vital Signs Temp 98.2 F 02/07/25 12:49 Pulse 74 02/07/25 12:49 Resp 16 02/07/25 12:49 BP 108/69 02/07/25 12:49 Pulse Ox 95 02/07/25 12:49 FiO2 Intake & Output 02/06/25 02/07/25 02/07/25 18:59 06:59 18:59 Intake Total 950 Output Total 25 620 Balance 925 -620 Intake: IV 950 Output: Drainage 70 Anterior Abdomen 70 Emesis 550 Estimated Blood Loss 25 Other: Voiding Method Bedside Commode Bedside Commode # Voids 1 1 - Labs CBC & Chem 7: 02/07/25 05:47 02/07/25 05:47 Labs: Abnormal Lab Results - Last 24 Hours (Table) 02/07/25 02/07/25 Range/Units 05:47 05:47 RBC 3.10 L (4.10-5.20) 10*6/uL Hgb 9.9 L D (12.0-15.0) g/dL Hct 29.4 L (37.2-46.3) % Plt Count 128 L D (140-440) 10*3/uL Eosinophils # 0.01 L (0.04-0.35) 10*3/uL Carbon Dioxide 21 L (22-30) mmol/L Glucose 102 H (74-99) mg/dL
--- NOTE | 2025-02-07 14:56 | P.PN ---
Subjective Progress Note Date: 02/07/25 No new complaints today. Patient still has not passed flatus or had a bowel movement. Has limited appetite. Otherwise recovering well. Gen: In NAD, non-toxic HEENT: normocephalic, atraumatic, hearing acuity is intant, mucous membranes moist CVS: perfusing all extremities well, no pitting edema, Respiratory: symmetric chest expansion, no accessory muscle use, GI: soft, NTTP, ND, : no suprapubic tenderness, no CVA tenderness MSK/Derm: no rashes, cyanosis Neuro: CN II-XII intact, no motor weakness, Psych: cooperative, euthymic mood, judgment and insight is intact Hospital course: Patient is a 59-year-old female with a past medical history of seizure disorder, tremor, asthma, open cholecystectomy complicated by incisional hernia repaired earlier today with Dr. Little. Internal medicine consulted for medical management. History limited patient as patient was still groggy from anesth esia. She states she has had a seizure in the last few months. She does not express any concerns with compliance she does follow with a neurologist but is unable to recall who it is. Vitals upon examination include temperature of 97.4 Fahrenheit, respiratory rate of 16, blood pressure 126/83, oxygen saturation 93% on room air. Pertinent labs include CBC showing white count of 6.56, hemoglobin 13.5 platelet count 282, sodium 141, potassium 3.8, creatinine 1.04, BUN 12, alkaline phosphatase 140. Assessment/Plan: [Active:] Incarcerated incisional hernia s/p open repair (02/06/2025): General Surgery managing PT OT evaluations pending Pain management per surgery continue D5 half NS at 50 cc/h pending, advance diet as tolerated Zofran as needed for nausea Seizure disorder: Continue lamotrigine, lacosamide Check serum lamotrigine levels Tremor: Continue home primidone Asthma: Continue home Singulair Hyperlipidemia: Continue atorvastatin CODE STATUS: FULL CODE DVT prophylaxis: Lovenox Anticipated discharge date: Pending clinical course Anticipated discharge place: Pending clinical course Objective - Vital Signs Vital signs: Vital Signs Temp 98.2 F 02/07/25 12:49 Pulse 74 02/07/25 12:49 Resp 16 02/07/25 12:49 BP 108/69 02/07/25 12:49 Pulse Ox 95 02/07/25 12:49 FiO2 Intake & Output 02/06/25 02/07/25 02/07/25 18:59 06:59 18:59 Intake Total 950 Output Total 25 620 Balance 925 -620 Intake: IV 950 Output: Drainage 70 Anterior Abdomen 70 Emesis 550 Estimated Blood Loss 25 Other: Voiding Method Bedside Commode Bedside Commode # Voids 1 1 - Labs CBC & Chem 7: 02/07/25 05:47 02/07/25 05:47 Labs: Abnormal Lab Results - Last 24 Hours (Table) 02/07/25 02/07/25 Range/Units 05:47 05:47 RBC 3.10 L (4.10-5.20) 10*6/uL Hgb 9.9 L D (12.0-15.0) g/dL Hct 29.4 L (37.2-46.3) % Plt Count 128 L D (140-440) 10*3/uL Eosinophils # 0.01 L (0.04-0.35) 10*3/uL Carbon Dioxide 21 L (22-30) mmol/L Glucose 102 H (74-99) mg/dL
[2025-02-07] MEDS: HYDROcodone/APAP 5-325MG 1 EACH TAB PO PRN (21:49)
[2025-02-08 06:33] LABS: Basophils # (A) 0.02 10*3/uL (0.00-0.10); Basophils % (A) 0.4 %; Eosinophils % (A) 1.8 %; HCT 37.3 % (37.2-46.3); HGB 12.3 g/dL (12.0-15.0); Lymphocytes # (A) 2.38 10*3/uL (0.90-5.00); Lymphocytes % (A) 42.4 %; MCH 31.2 pg (27.0-32.0); MCV 94.7 fL (80.0-97.0); Mean Platelet Volume 10.1 fL (9.5-12.2); Monocytes # (A) 0.66 10*3/uL (0.20-1.00); Monocytes % (A) 11.8 %; Neutrophils # (A) 2.44 10*3/uL (1.80-7.70); Neutrophils % (A) 43.4 %; Platelet Count 240 10*3/uL (140-440); RBC 3.94 10*6/uL (4.10-5.20); WBC 5.61 10*3/uL (4.50-10.00)
[2025-02-08 06:49] LABS: African American GFR (CKD) 83 (>60 ml/min/1.73 sqM); Anion Gap 9 mmol/L; Blood Urea Nitrogen 12 mg/dL (7-17); Calcium 9.4 mg/dL (8.4-10.2); Carbon Dioxide 25 mmol/L (22-30); Chloride 104 mmol/L (98-107); Glucose 95 mg/dL (74-99); Non-African American GFR(CKD) 72 (>60 ml/min/1.73 sqM); Potassium 4.1 mmol/L (3.5-5.1); Sodium 138 mmol/L (137-145)
--- NOTE | 2025-02-08 11:59 | P.PN ---
Subjective Progress Note Date: 02/08/25 Subjective: Patient seen and examined at bedside. No acute events overnight. Still having significant abdominal pain mostly with movement. Denies passing flatus or any bowel movements. Urinating well. Able to tolerate small amounts of liquid. Pertinent positives and negatives as discussed above, a complete review of systems was performed and all other systems are negative. Vitals Signs Reviewed. General: Nontoxic, no distress, appears at stated age, obese Derm: Warm, dry Head: Atraumatic, normocephalic, symmetric Eyes: EOMI, no lid lag, anicteric sclera Mouth: No lip lesion, mucus membranes moist Cardiovascular: S1S2 reg, no murmur Lungs: CTA bilateral, no rhonchi, no rales, no accessory muscle use Abdominal: Soft, tender to palpation diffusely, abdominal binder in place Ext: No gross muscle atrophy, no edema, no contractures Neuro: CN II-XI grossly intact, no focal neuro deficits Psych: Alert, oriented, appropriate affect Data Reviewed Today: Pertinent Labs: WBC 5.61, hemoglobin 12.3, creatinine 0.88, Lamictal level and 0.5 Imaging: No new imaging Assessment and Plan: Incarcerated incisional hernia status post open repair - General Surgery managing - On D5 half-normal saline at 50 cc an hour, okay to continue - Still waiting for bowel function - Pain control and DVT prophylaxis per general surgery - Patient currently on regular diet Dyslipidemia - Continue Lipitor 20 nightly Seizure disorder - Continue Vimpat 100 twice daily, Lamictal 200 twice daily, therapeutic levels Tremor - Continue primidone 50 twice daily GERD - Continue pantoprazole 40 twice daily Asthma, not in exacerbation - Continue montelukast 10 nightly Thank you for allowing us to participate in the care of this pleasant patient. Do not hesitate to contact us with questions. Someone can be reached from the [facility] hospitalist group all hours of the day at [phone] or via [employer]. Objective - Vital Signs Vital signs: Vital Signs Temp 98.4 F 02/08/25 07:35 Pulse 79 02/08/25 07:35 Resp 20 02/08/25 07:35 BP 147/77 02/08/25 07:35 Pulse Ox 96 02/08/25 07:35 FiO2 Intake & Output 06/03/25 06/04/25 06/04/25 18:59 06:59 18:59 Intake Total 200 Output Total 90 Balance 110 Intake: Oral 200 Output: Drainage 90 Anterior Abdomen 90 Other: Voiding Method Bedside Commode # Voids 2 1 - Labs CBC & Chem 7: 02/08/25 06:17 02/08/25 06:17 Labs: Abnormal Lab Results - Last 24 Hours (Table) 02/08/25 Range/Units 06:17 RBC 3.94 L (4.10-5.20) 10*6/uL
--- NOTE | 2025-02-08 12:24 | P.PN ---
Subjective Progress Note Date: 02/08/25 SURGICAL PROGRESS NOTE CHIEF COMPLAINT: Incarcerated incisional hernia HISTORY OF PRESENT ILLNESS: Patient is postop day #2 status post open repair of incarcerated incisional hernia with mesh. Patient reports her nausea and vomiting has improved. She was able to eat a small amount of regular diet this morning. She denies any flatus. Afebrile. WBC 5.61 Hgb 9.9 up to 12.3 ESTELA drain 30 mL serosanguineous output PHYSICAL EXAM: VITAL SIGNS: Reviewed. GENERAL: Well-developed in no acute distress. ABDOMEN: Soft. Nondistended. Tender at incision site. Prevena wound VAC intact. ESTELA drain serosanguineous output NEUROLOGIC: Alert and oriented. Cranial nerves II through XII grossly intact. ASSESSMENT: 1. Incarcerated incisional hernia PLAN: -Patient hemoglobin of 9.9 was a lab error. Patient had a 3 g increase without blood transfusion. No evidence of acute blood loss anemia. -Continue regular diet -Resume Toradol for pain -Encourage patient to increase activity level -Continue pain management -Anticipate discharge tomorrow -seed corn manager production on consult for possible ECF placement. Awaiting PT OT recommendations -Discontinue IV fluids - DVT prophylaxis Lovenox and already given today Physician Extension Worker note has been reviewed by physician. Signing provider agrees with the documented findings, assessment, and plan of care. Objective - Vital Signs Vital signs: Vital Signs Temp 98.4 F 02/08/25 07:35 Pulse 79 02/08/25 07:35 Resp 20 02/08/25 07:35 BP 147/77 02/08/25 07:35 Pulse Ox 96 02/08/25 07:35 FiO2 Intake & Output 02/07/25 02/08/25 02/08/25 18:59 06:59 18:59 Intake Total 200 Output Total 90 Balance 110 Intake: Oral 200 Output: Drainage 90 Anterior Abdomen 90 Other: Voiding Method Bedside Commode # Voids 2 1 - Labs CBC & Chem 7: 02/08/25 06:17 02/08/25 06:17 Labs: Abnormal Lab Results - Last 24 Hours (Table) 02/08/25 Range/Units 06:17 RBC 3.94 L (4.10-5.20) 10*6/uL
[2025-02-08] MEDS: KETOROLAC 15 MG/ML 1 ML VIAL IVP SCH (12:59)
[2025-02-08] MEDS: PANTOPRAZOLE 40 MG TABLET PO SCH (17:29)
[2025-02-09 07:34] VITALS: RESP 18
[2025-02-09 12:28] VITALS: BP 159/96; PULSE 77; TEMP 97.7
--- NOTE | 2025-02-09 13:18 | P.DS ---
Providers Date of admission: 02/07/25 12:27 Expected date of discharge: 02/09/25 Attending physician: Adam Little Consults: 02/06/25 09:03 Consult Physician Routine Consulting Provider: Dimitris Lee Consult Reason/Comments: Comanagement Do you want consulting provider notified?: Yes Primary care physician: Stated None Hospital Course: Discharge diagnosis 1. Incarcerated incisional hernia Hospital course This is a 59-year-old female with incarcerated incisional hernia. She is status post open repair of incarcerated incisional hernia with mesh. Pain is controll ed. She is tolerating diet. She has been up and ambulating. She is afebrile. She is having flatus. She is stable for discharge. Please refer to chart for any further details. Physician Traffic Police Officer note has been reviewed by physician. Signing provider agrees with the documented findings, assessment, and plan of care. Patient Condition at Discharge: Stable Plan - Discharge Summary Discharge Rx Participant: Yes New Discharge Prescriptions: New HYDROcodone/APAP 5-325MG [[place] 5-325] 1 tab PO Q6HR PRN 3 Days #12 tab PRN Reason: Pain Continue lamoTRIgine [LaMICtal] 200 mg PO BID Montelukast [Singulair] 10 mg PO HS Loratadine 10 mg PO DAILY Primidone [Mysoline] 50 mg PO BID Lacosamide [Vimpat] 100 mg PO BID Rosuvastatin [Crestor] 10 mg PO HS Cholecalciferol [Vitamin D3 (125 Mcg = 5000 Iu)] 125 mcg PO DAILY Multivitamins, Thera [Multivitamin (formulary)] 1 tab PO DAILY Pantoprazole Sodium [Protonix] 40 mg PO BID Discharge Medication List lamoTRIgine [LaMICtal] 200 mg PO BID 09/29/14 [History] Montelukast [Singulair] 10 mg PO HS 07/26/20 [History] Loratadine 10 mg PO DAILY 10/17/21 [History] Primidone [Mysoline] 50 mg PO BID 12/03/22 [History] Lacosamide [Vimpat] 100 mg PO BID 01/21/23 [History] Rosuvastatin [Crestor] 10 mg PO HS 08/27/23 [History] Cholecalciferol [Vitamin D3 (125 Mcg = 5000 Iu)] 125 mcg PO DAILY 02/01/24 [History] Multivitamins, Thera [Multivitamin (formulary)] 1 tab PO DAILY 02/02/25 [History] Pantoprazole Sodium [Protonix] 40 mg PO BID 02/02/25 [History] HYDROcodone/APAP 5-325MG [[place] 5-325] 1 tab PO Q6HR PRN 3 Days #12 tab 02/09/25 [Rx] Follow up Appointment(s)/Referral(s): Adam Little MD [STAFF PHYSICIAN] - 02/14/25 1:50 pm Activity/Diet/Wound Care/Special Instructions: No driving while taking [place] No lifting over 10 pounds Shower daily. No soaking or tub baths for 2 weeks Very light activity until you are reevaluated at your follow up appointment with your surgeon Keep a log of ESTELA drain output and bring with you to your follow-up appointment Milk/strip drains 2-3 times a day Remove Prevena wound VAC dressing on 02/13/2025 Discharge Disposition: HOME WITH HOME HEALTH SERVICES
--- NOTE | 2025-02-09 14:02 | P.PN ---
Subjective Progress Note Date: 02/09/25 Subjective: Patient seen and examined at bedside. No acute events overnight. Patient denies any further abdominal pain, passing flatus and having bowel movements. Pertinent positives and negatives as discussed above, a complete review of systems was performed and all other systems are negative. Vitals Signs Reviewed. General: Nontoxic, no distress, appears at stated age, obese Derm: Warm, dry Head: Atraumatic, normocephalic, symmetric Eyes: EOMI, no lid lag, anicteric sclera Mouth: No lip lesion, mucus membranes moist Cardiovascular: S1S2 reg, no murmur Lungs: CTA bilateral, no rhonchi, no rales, no accessory muscle use Abdominal: Soft, tender to palpation diffusely, abdominal binder in place Ext: No gross muscle atrophy, no edema, no contractures Neuro: CN II-XI grossly intact, no focal neuro deficits Psych: Alert, oriented, appropriate affect Data Reviewed Today: Pertinent Labs: No new labs Imaging: No new imaging Assessment and Plan: Incarcerated incisional hernia status post open repair - General Surgery managing - On D5 half-normal saline at 50 cc an hour, okay to continue - Bowel function has returned, patient being discharged - Pain control and DVT prophylaxis per general surgery - Patient currently on regular diet Dyslipidemia - Continue Lipitor 20 nightly Seizure disorder - Continue Vimpat 100 twice daily, Lamictal 200 twice daily, therapeutic levels Tremor - Continue primidone 50 twice daily GERD - Continue pantoprazole 40 twice daily Asthma, not in exacerbation - Continue montelukast 10 nightly Patient is medically optimized for discharge. Thank you for allowing us to participate in the care of this pleasant patient. Do not hesitate to contact us with questions. Someone can be reached from the [facility] hospitalist group all hours of the day at [phone] or via [employer]. Objective - Vital Signs Vital signs: Vital Signs Temp 97.7 F 02/09/25 12:07 Pulse 77 02/09/25 12:07 Resp 18 02/09/25 12:07 BP 159/96 02/09/25 12:07 Pulse Ox 99 02/09/25 12:07 FiO2 Intake & Output 02/08/25 02/09/25 02/09/25 18:59 06:59 18:59 Intake Total 300 Output Total 60 20 30 Balance 240 -20 -30 Intake: Intake, IV Titration 300 Amount D5-0.45% NaCl with KCl 300 20Meq/l 1,000 ml @ 50 mls /hr IV .Q20H [facility] Rx#: [id number] Output: Drainage 60 20 30 Anterior Abdomen 60 20 30 Other: Voiding Method Toilet # Voids 1 2 - Labs CBC & Chem 7: 02/08/25 06:17 02/08/25 06:17
--- NOTE | 2025-02-12 16:18 | CDI ---
Documentation Clarification Form Date: 02/12/2025 04:10:03 PM From: Marianela Barrera Phone: Admit Date: 02/07/2025 12:27:00 PM Patient Name: Luli Gay Visit Number: [id number] Discharge Date: 02/09/2025 04:03:00 PM ATTENTION: The Clinical Documentation Specialists (CDI) and [facility] Coding Staff appreciate your assistance in clarifying documentation. Please respond to the clarification below the line at the bottom and electronically sign. The CDI & [facility] Coding staff will review the response and follow-up if needed. Please note: Queries are made part of the Legal Health Record. If you have any questions, please contact the author of this message via ITS. Doctor/Provider: Elina Neal Unspecified anemia is documented [per Progress Note 02/07. Additional specificity regarding the acuity of anemia is requested. History/Risk Factors: 59yo F, Incarcerated incisional hernia, anemia, asthma, seizures Clinical indicators: Hemoglobin: 02/06 13.5 02/07 9.9 02/08 12.3 Hematocrit: 02/06 41.2 02/07 29.4 02/08 37.3 Treatment: Continue antiemetics; Encourage patient to ambulate; Continue diet as tolerated; Possible discharge tomorrow; Repeat CBC in a.m.; Discontinue Toradol due toanemia; [place] added fororal painmeds Please clarify the type and acuity of anemia: [ ] Acute blood loss anemia [ ] Acute on chronic blood loss anemia [ ] Chronic blood loss anemia [ ] Iron deficiency anemia [ ] Nutritional anemia [ ] Unable to determine [ x ] Other, please specify ____hgb 9.9 was a lab error. Repeat hgb 12.3 without blood transfusion (Template Last Revised: October 2020) MTDD
== END 2025-02-09 16:03 | disposition home health service (06) | DRG 355 ==
LOC: OR 05:40 → 5NMEDONC 09:00 → OR 02-07 12:27
PROVIDERS: ADMIT Surgery; ATTEND Surgery
PROC: 0WUF0JZ Supplement Abdominal Wall with Synthetic Substitute, Open Approach (ICD-10-PCS; principal; 2025-02-06 07:30)
DX: K43.0 Incisional hernia with obstruction, without gangrene (principal); E78.5 Hyperlipidemia, unspecified; G40.909 Epilepsy, unspecified, not intractable, without status epilepticus; J45.909 Unspecified asthma, uncomplicated; R25.1 Tremor, unspecified; K21.9 Gastro-esophageal reflux disease without esophagitis; Z90.49 Acquired absence of other specified parts of digestive tract; Z79.899 Other long term (current) drug therapy
CPT/HCPCS: 80048; 80053; 80175; 85025